=== PATIENT | male | born 1945 | race Caucasian/White ===

== ENCOUNTER → 2018-10-18 15:37 | Outpatient (CLI) | payer MEDICARE, SELFPAY ==
[2016-05-20 00:27] VITALS: BMI 20.8
[2018-10-20 16:09] LABS: Endomysial Antibody IgA Negative (Negative)
[2018-10-21 10:03] LABS: Immunoglobulin A 372 mg/dL (61-437); t-Transglutaminase IgA <2 U/mL (0-3)
== END ==
PROVIDERS: Family Provider Family Medicine; PCP Family Medicine; Referring Provider Internal Medicine Gastroenterology; Visit Provider Internal Medicine Gastroenterology
DX: R19.7 Diarrhea, unspecified (principal); R63.4 Abnormal weight loss
CPT/HCPCS: 36415; 82784; 83516; 86140; 86255

== ENCOUNTER → 2019-02-23 | Outpatient (CLI) | payer MEDICARE, SELFPAY ==
[2016-05-20 00:27] VITALS: BMI 20.8
[2019-02-23 17:55] LABS: Hematocrit 31.6 % (40-54); Hemoglobin 9.4 g/dl (13.0-16.5); Mean Corp Hgb Conc 29.7 g/gl (32-36); Mean Corpuscular Hgb 28.2 pg (27.0-32.0); Mean Corpuscular Volume 94.9 fL (80-94); Mean Platelet Vol. 10.2 fl (6.2-12.0); Platelet Count 361 K/mm3 (150-450); RBC Distribution Width SD 56.9 fl (35.1-43.9); Red Blood Count 3.33 M/mm3 (4.6-6.2); White Blood Count 7.8 K/mm3 (4.4-11.0)
[2019-02-23 18:04] LABS: Scan Indicated on CBC? Y/N NO
[2019-02-23 18:11] LABS: ALB/GLOB Ratio 0.6 RATIO (0.9-2.4); AST(SGOT) 22 U/L (15-37); Alanine Aminotransfer ALT/SGPT 20 U/L (16-61); Albumin, Serum 2.4 g/dL (3.2-5.0); Alkaline Phosphatase 87 U/L (45-117); Anion Gap 6 (5-15); BUN 15 mg/dL (7-18); BUN/Creat Ratio 16.1 RATIO (10-20); Calcium,Total 8.3 mg/dL (8.5-10.1); Chloride 104 mmol/L (98-107); Creatinine, Serum 0.93 mg/dL (0.70-1.30); EST Glomerular Filtration Rate 84 mL/min (>60); Est Glom Filt Rate - Afr Amer 102 mL/min (>60); Globulin 3.9 g/dL (2.2-4.2); Glucose 89 mg/dL (74-106); Potassium 3.9 mmol/L (3.5-5.1); Protein, Total 6.3 g/dL (6.4-8.2); Sodium Level 139 mmol/L (136-145)
== END | disposition home or self-care (01) ==
PROVIDERS: Family Provider Family Medicine; PCP Family Medicine; Referring Provider Internal Medicine Gastroenterology; Visit Provider Internal Medicine Gastroenterology
DX: R63.4 Abnormal weight loss (principal); R10.9 Unspecified abdominal pain
CPT/HCPCS: 36415; 80053; 85027; 86140

== ENCOUNTER 2019-04-25 08:30 | Outpatient (RCR) | payer MEDICARE, SELFPAY ==
[2019-04-05 14:03] VITALS: BP 121/48; PULSE 88; RESP 18; TEMP 36.9
[2019-04-05 14:32] VITALS: BMI 16.9
[2019-04-05 16:26] LABS: Absolute Lymphocyte Count 0.62 X10^3/ul (0.83-4.51); Absolute Neutrophil Count 6.5 X10^3/uL (2.0-7.7); Basophil# 0.01 X10^3/uL; Basophil% 0.1 % (0-1); Eosinophil# 0.03 X10^3/uL; Eosinophils% 0.4 % (0-5); Hematocrit 30.8 % (40-54); Hemoglobin 9.3 g/dl (13.0-16.5); Lymphocyte # 0.62 X10^3/ul (4.0); Lymphocyte % 8.1 % (19-41); Mean Corp Hgb Conc 30.2 g/gl (32-36); Mean Corpuscular Hgb 28.9 pg (27.0-32.0); Mean Corpuscular Volume 95.7 fL (80-94); Mean Platelet Vol. 9.7 fl (6.2-12.0); Monocyte# 0.48 X10^3/uL; Monocyte% 6.2 % (0-10); Neutrophil # 6.52 X10^3/uL (2.7-7.7); Neutrophil % 84.7 % (47-70); Platelet Count 426 K/mm3 (150-450); RBC Distribution Width CV 16.7 % (11.6-14.6); RBC Distribution Width SD 57.7 fl (35.1-43.9); Red Blood Count 3.22 M/mm3 (4.6-6.2); White Blood Count 7.7 K/mm3 (4.4-11.0)
[2019-04-05 16:27] LABS: POSITIVE COUNT NO; POSITIVE DIFFERENTIAL NO; POSITIVE MORPHOLOGY NO
[2019-04-05 16:42] LABS: Erythrocyte Sedimentation Rate 70 mm/hr (0-20)
[2019-04-05 16:54] LABS: ALB/GLOB Ratio 0.5 RATIO (0.9-2.4); AST(SGOT) 19 U/L (15-37); Alanine Aminotransfer ALT/SGPT 24 U/L (16-61); Albumin, Serum 2.2 g/dL (3.2-5.0); Alkaline Phosphatase 102 U/L (45-117); Anion Gap 7 (5-15); BUN 14 mg/dL (7-18); BUN/Creat Ratio 15.9 RATIO (10-20); Calcium,Total 7.9 mg/dL (8.5-10.1); Chloride 106 mmol/L (98-107); Creatinine, Serum 0.88 mg/dL (0.70-1.30); EST Glomerular Filtration Rate 89 mL/min (>60); Est Glom Filt Rate - Afr Amer 108 mL/min (>60); Estimated Creatinine Clearance 48.86 ml/min; Globulin 4.1 g/dL (2.2-4.2); Glucose 92 mg/dL (74-106); Potassium 3.6 mmol/L (3.5-5.1); Prealbumin 9.7 mg/dL (20.0-40.0); Protein, Total 6.3 g/dL (6.4-8.2); Sodium Level 143 mmol/L (136-145)
[2019-04-05 16:55] LABS: Hemoglobin A1c 5.5 % (4.2-6.3)
--- NOTE | 2019-04-05 18:00 | PCM.WC.HP ---
(1) Pressure injury of sacral region, stage 3 Status: Acute Current Visit: Yes Code(s): L89.153 - Pressure ulcer of sacral region, stage 3 (2) Autoimmune disorder Status: Acute Current Visit: Yes Code(s): D89.89 - Other specified disorders involving the immune mechanism, not elsewhere classified (3) Malnutrition Status: Acute Current Visit: Yes Code(s): E46 - Unspecified protein-calorie malnutrition (4) Anemia of chronic disease Status: Chronic Current Visit: Yes Code(s): D63.8 - Anemia in other chronic diseases classified elsewhere (5) Benign prostatic hypertrophy Status: Chronic Current Visit: Yes Code(s): N40.0 - Benign prostatic hyperplasia without lower urinary tract symptoms (6) prison current use of anticoagulant Status: Acute Current Visit: Yes Code(s): 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 History of Wound: This is a 73-year-old white male who presents to the wound healing center today with complaint of sacral pressure sore for the last month. He has a past medical history as listed above significant for anemia of chronic disease, autoimmune disorder, history of PE on Coumadin therapy, and BPH. The patient states that in 2013 he did have a pressure ulcer similar to this in the past where he had to have surgical debridement by Dr. Zhong. The patient states that he spends most of this time sitting in a wheelchair. He does state that he has a gel pad cushion but he sits a lot and does not use any other offloading mechanisms. He has been using dry gauze over the site. He does state that over the past year he has lost about 70 pounds due to not having any appetite and due to his autoimmune disorder. He does not use protein supplementation. He does state that he saw dermatology earlier this week who referred him to our office. Denies any signs of infection at this time. Denies any purulent discharge. Denies any other acute concerns. The patient otherwise denies any fever, chills, nausea, vomiting, shortness of breath, chest pain or pressure, palpitations, orthopnea, lower extremity edema, syncope or presyncopal episodes. Past Medical History Past Medical History: Chronic Problems Anxiety disorder (Chronic) Benign prostatic hypertrophy (Chronic) Diabetes mellitus type II, controlled (Chronic) Anemia of chronic disease (Chronic) Wegeners granulomatosis (Chronic) Pulmonary emboli (Chronic) Surgical History: tonsillectomy, - - Splenectomy 2005, colonoscopy, egd Allergies/Adverse Reactions: Allergies sulfamethoxazole [From Bactrim] Adverse Reaction (Verified 07/06/15 21:51) Unknown Pt does not remember since this happened many years ago. trimethoprim [From Bactrim] Adverse Reaction (Verified 07/06/15 21:51) Unknown Pt does not remember what happened d/t the fact that it was many years ago. Home Medications: Ambulatory Orders Medication Instructions Recorded Finasteride [Proscar] 5 mg PO DAILY 03/21/14 Mycophenolate Mofetil [Cellcept] 1,000 mg PO BID 03/21/14 Tamsulosin HCl [Flomax] 0.4 mg PO DAILY 03/21/14 Erythromycin Ophthalmic 1 applic RIGHT EYE DAILY 05/19/16 Prednisolone Acetate 5 ml RIGHT EYE DAILY 05/19/16 Warfarin [Coumadin ([facility])] 1 mg PO QODAY 04/05/19 - Family History Maternal - - heart trouble Paternal - - grandpa had dvt in leg Smoking Status: Never smoker Review of Systems Constitutional: Denies: Chills, Fever, Weight Change Eyes: Denies: Pain, Vision Change HEENT: Denies: Difficulty Hearing, Difficulty Swallowing, Sinus Congestion Cardiovascular: Denies: Chest Pain, Palpitations Respiratory: Denies: Cough, Shortness of Breath Gastrointestinal: Denies: Diarrhea, Nausea, Vomiting Genitourinary: Denies: Dysuria, Hematuria Skin: Reports: Wounds - See HPI Endocrine: Denies: Heat/ Cold Intolerance, Polydipsia, Polyuria Hematologic/ Lymphatic: Denies: Easy Bruising, Easy Bleeding - Physical Exam Vital Signs Temp Pulse Resp BP 98.4 F 88 18 121/48 H 04/05/19 14:03 04/05/19 14:03 04/05/19 14:03 04/05/19 14:03 General: Alert, Oriented x3, Cooperative, No apparent distress, - - Patient is very thin and appears malnourished HEENT: Atraumatic Oral: Moist Mucosa Lungs: Clear to auscultation, Normal air movement Cardiovascular: Regular rate, Regular Rhythm Abdomen: Soft Extremities: No clubbing, No cyanosis, No edema Skin: Ulcer/ Wound - Stage III pressure ulcer to sacral region with circular undermining and adherent slough, no bone exposed at this time, no fluctuance or redness or purulent drainage noted. Wound Measurements and Assessment WC - Nurse 1 - General Ulcer Measurement Start: 04/05/19 13:57 Freq: Status: Active Protocol: Activity Type Activity Date Activity User E-Sign Co-Sign Detail Recorded Client Recorded Date Recorded By Document 04/05/19 14:03 RB [id number] 04/05/19 14:08 RB 04/05/19 14:03 Wound Center Nurse 1 [Ulcer Assessment] 2. coccyx -Current Size (cm) - Length 1 -Current Size (cm) - Width 1 -Current Size (cm) - Depth 0.8 -Total Square Cm 1 -Photo Taken Yes -Tunneling No -Undermining/Tunneling Yes -Undermining/Tunneling Starts (O' 10 clock) -Undermining/Tunneling Ends (O'clock) 6 -Maximum Distance (cm) 1.4 -Circular Undermining No -Exudate Amt Small -Exudate Type Serosanguineous -Wound Margin Distinct, Outline Attached -Granulation Amt Medium (34-66%) -Granulation Quality [place] -Slough/Fibrin Yes -Necrosis Amt Small (1-33%) -Necrotic Tissue Type Adherent Slough -Structure Exposed N/A -Texture (Leigh-wound Skin Appearance) Assessed Friable -Moisture (Leigh-wound Skin Appearance Assessed ) -Color (Leigh-wound Skin Appearance) Assessed -Temperature (Leigh-wound Skin No Abnormality Appearance) (Pt Warm) -Tenderness on Palpation (Leigh-wound No Skin Appearance) -Ulcer Cleansing Wound Cleanser -Foul Odor after Cleansing No -Anesthetic Used 5% Lidocaine Gel WC - Nurse 2 - General Ulcer CM Notes Start: 04/05/19 13:57 Freq: Status: Active Protocol: Activity Type Activity Date Activity User E-Sign Co-Sign Detail Recorded Client Recorded Date Recorded By Document 04/05/19 14:33 AN [id number] 04/05/19 14:41 AN 04/05/19 14:33 Wound Center Nurse 2 [Procedure/Treatment] -Time 14:36 -Correct Patient Yes -Correct Side, Site, Position Yes -Correct Procedure Yes -Procedure Performed Yes -Type of Procedure Debridement -Clinical Debridement Subcutaneous -Post Debridement Size (cm) - Length 1.8 -Post Debridement Size (cm) - Width 1.4 -Post Debridement Size (cm) - Depth 1.0 -Total Square Cm 2.52 -Wound/Ulcer Outcome Not Healed -Ulcer Cleansing Rinsed/ Irrigated with Saline -Foul Odor after Cleansing No -Bioengineered Tissue No -Bleeding Controlled with Pressure -Offloading No -Treatment Response Procedure Tolerated Well [See Physician Procedure note for Specifics] Pain Scale: 0-10 Numeric [Pain] -Is Patient Pain Free? Yes Musculoskeletal: Cachexia, Muscle Wasting Neurological: Neuro grossly intact, - - Patient is a wheelchair-bound Psych/Mental Status: Normal Affect, Appropriate, Alert and oriented to time, place, person, mood and affect Debridement Note Post-Debridement Measurements/Treatment WC - Nurse 2 - General Ulcer CM Notes Start: 04/05/19 13:57 Freq: Status: Active Protocol: Activity Type Activity Date Activity User E-Sign Co-Sign Detail Recorded Client Recorded Date Recorded By Document 04/05/19 14:33 AN [id number] 04/05/19 14:41 AN 04/05/19 14:33 Wound Center Nurse 2 2. coccyx -Time 14:36 -Correct Patient Yes -Correct Side, Site, Position Yes -Correct Procedure Yes -Procedure Performed Yes -Type of Procedure Debridement -Clinical Debridement Subcutaneous -Post Debridement Size (cm) - Length 1.8 -Post Debridement Size (cm) - Width 1.4 -Post Debridement Size (cm) - Depth 1.0 -Total Square Cm 2.52 -Wound/Ulcer Outcome Not Healed -Ulcer Cleansing Rinsed/ Irrigated with Saline -Foul Odor after Cleansing No -Bioengineered Tissue No -Bleeding Controlled with Pressure -Offloading No -Treatment Response Procedure Tolerated Well Pain Scale: 0-10 Numeric Is Patient Pain Free? Yes Wound debrided: Stage III pressure injury to sacrum Type of Debridement: Excisional debridement Anesthesia Used: 5% Lidocaine Gel Depth: in the subcutaneous layer Percentage of wound debrided: 100 Instrument Used: 5mm curette Tissue Removed: Slough and devitalized tissue Severity: Fat Layer Exposed Amount of bleeding with debridement: Mild Bleeding Controlled with: Pressure Patient tolerated procedure well Assessment/Plan Active Problems Autoimmune disorder (Acute) Malnutrition (Acute) Pressure injury of sacral region, stage 3 (Acute) prison current use of anticoagulant (Acute) Benign prostatic hypertrophy (Chronic) Anemia of chronic disease (Chronic) Assessment: 1. Sacral pressure sore, Stage 3. 2. Malnutrition Plan: The patient was seen and examined at the wound center today and was updated on the plan of care. A subcutaneous debridement was performed today. The patient tolerated the procedure well. The patients wound care will consist of: Packing the site with Aquasol AG rope and covering with optive foam for offloading. Did discuss with patient and the importance of offloading mechanisms. Wound cultures were collected. Baseline bloodwork ordered. Patient was encouraged to utilize a protein supplementation of 30 g 3 times a day as he appears very malnourished. Did discuss following up with his primary care regarding his lack of appetite and weight changes. Patient educated on the importance of diet on wound healing and instructed to increase protein and vitamin C intake. Patient verbalized understanding. Patient will follow up at wound healing center in one week or sooner if needed. This note was generated with [employer] dictation software. It may contain incorrect words, spelling, and punctuation that were not noted in checking the note before signing. Code Visit Office Visits / Consults: [id number] OV L4 New [id number]: [id number] Gertrudis subq tissue 20 sq cm/<
[2019-04-05 20:08] LABS: M R Staph aureus DNA By PCR Negative (Negative); Probe Check PASS; Specimen Processing Control PASS; Staph aureus DNA By PCR POSITIVE (Negative)
--- NOTE | 2019-04-06 09:20 | HP.PCM_ITS ---
(1) Pressure injury of sacral region, stage 3 Status: Acute Current Visit: Yes Code(s): L89.153 - Pressure ulcer of sacral region, stage 3 (2) Autoimmune disorder Status: Acute Current Visit: Yes Code(s): D89.89 - Other specified disorders involving the immune mechanism, not elsewhere classified (3) Malnutrition Status: Acute Current Visit: Yes Code(s): E46 - Unspecified protein-calorie malnutrition (4) Anemia of chronic disease Status: Chronic Current Visit: Yes Code(s): D63.8 - Anemia in other chronic diseases classified elsewhere (5) Benign prostatic hypertrophy Status: Chronic Current Visit: Yes Code(s): N40.0 - Benign prostatic hyperplasia without lower urinary tract symptoms (6) jail current use of anticoagulant Status: Acute Current Visit: Yes Code(s): 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 History of Wound: This is a 73-year-old white male who presents to the wound healing center today with complaint of sacral pressure sore for the last month. He has a past medical history as listed above significant for anemia of chronic disease, autoimmune disorder, history of PE on Coumadin therapy, and BPH. The patient states that in 2013 he did have a pressure ulcer similar to this in the past where he had to have surgical debridement by Dr. Zhong. The patient states that he spends most of this time sitting in a wheelchair. He does state that he has a gel pad cushion but he sits a lot and does not use any other offloading mechanisms. He has been using dry gauze over the site. He does state that over the past year he has lost about 70 pounds due to not having any appetite and due to his autoimmune disorder. He does not use protein supplementation. He does state that he saw dermatology earlier this week who referred him to our office. Denies any signs of infection at this time. Denies any purulent discharge. Denies any other acute concerns. The patient otherwise denies any fever, chills, nausea, vomiting, shortness of breath, chest pain or pressure, palpitations, orthopnea, lower extremity edema, syncope or presyncopal episodes. Past Medical History Past Medical History: Chronic Problems Anxiety disorder (Chronic) Benign prostatic hypertrophy (Chronic) Diabetes mellitus type II, controlled (Chronic) Anemia of chronic disease (Chronic) Wegeners granulomatosis (Chronic) Pulmonary emboli (Chronic) Surgical History: tonsillectomy, - - Splenectomy 2005, colonoscopy, egd Allergies/Adverse Reactions: Allergies sulfamethoxazole [From Bactrim] Adverse Reaction (Verified 07/06/15 21:51) Unknown Pt does not remember since this happened many years ago. trimethoprim [From Bactrim] Adverse Reaction (Verified 07/06/15 21:51) Unknown Pt does not remember what happened d/t the fact that it was many years ago. Home Medications: Ambulatory Orders Medication Instructions Recorded Finasteride [Proscar] 5 mg PO DAILY 03/21/14 Mycophenolate Mofetil [Cellcept] 1,000 mg PO BID 03/21/14 Tamsulosin HCl [Flomax] 0.4 mg PO DAILY 03/21/14 Erythromycin Ophthalmic 1 applic RIGHT EYE DAILY 05/19/16 Prednisolone Acetate 5 ml RIGHT EYE DAILY 05/19/16 Warfarin [Coumadin ([facility])] 1 mg PO QODAY 04/05/19 - Family History Maternal - - heart trouble Paternal - - grandpa had dvt in leg Smoking Status: Never smoker Review of Systems Constitutional: Denies: Chills, Fever, Weight Change Eyes: Denies: Pain, Vision Change HEENT: Denies: Difficulty Hearing, Difficulty Swallowing, Sinus Congestion Cardiovascular: Denies: Chest Pain, Palpitations Respiratory: Denies: Cough, Shortness of Breath Gastrointestinal: Denies: Diarrhea, Nausea, Vomiting Genitourinary: Denies: Dysuria, Hematuria Skin: Reports: Wounds - See HPI Endocrine: Denies: Heat/ Cold Intolerance, Polydipsia, Polyuria Hematologic/ Lymphatic: Denies: Easy Bruising, Easy Bleeding - Physical Exam Vital Signs Temp Pulse Resp BP 98.4 F 88 18 121/48 H 04/05/19 14:03 04/05/19 14:03 04/05/19 14:03 04/05/19 14:03 General: Alert, Oriented x3, Cooperative, No apparent distress, - - Patient is very thin and appears malnourished HEENT: Atraumatic Oral: Moist Mucosa Lungs: Clear to auscultation, Normal air movement Cardiovascular: Regular rate, Regular Rhythm Abdomen: Soft Extremities: No clubbing, No cyanosis, No edema Skin: Ulcer/ Wound - Stage III pressure ulcer to sacral region with circular undermining and adherent slough, no bone exposed at this time, no fluctuance or redness or purulent drainage noted. Wound Measurements and Assessment WC - Nurse 1 - General Ulcer Measurement Start: 04/05/19 13:57 Freq: Status: Active Protocol: Activity Type Activity Date Activity User E-Sign Co-Sign Detail Recorded Client Recorded Date Recorded By Document 04/05/19 14:03 RB [id number] 04/05/19 14:08 RB 04/05/19 14:03 Wound Center Nurse 1 [Ulcer Assessment] 2. coccyx -Current Size (cm) - Length 1 -Current Size (cm) - Width 1 -Current Size (cm) - Depth 0.8 -Total Square Cm 1 -Photo Taken Yes -Tunneling No -Undermining/Tunneling Yes -Undermining/Tunneling Starts (O' 10 clock) -Undermining/Tunneling Ends (O'clock) 6 -Maximum Distance (cm) 1.4 -Circular Undermining No -Exudate Amt Small -Exudate Type Serosanguineous -Wound Margin Distinct, Outline Attached -Granulation Amt Medium (34-66%) -Granulation Quality [place] -Slough/Fibrin Yes -Necrosis Amt Small (1-33%) -Necrotic Tissue Type Adherent Slough -Structure Exposed N/A -Texture (Leigh-wound Skin Appearance) Assessed Friable -Moisture (Leigh-wound Skin Appearance Assessed ) -Color (Leigh-wound Skin Appearance) Assessed -Temperature (Leigh-wound Skin No Abnormality Appearance) (Pt Warm) -Tenderness on Palpation (Leigh-wound No Skin Appearance) -Ulcer Cleansing Wound Cleanser -Foul Odor after Cleansing No -Anesthetic Used 5% Lidocaine Gel WC - Nurse 2 - General Ulcer CM Notes Start: 04/05/19 13:57 Freq: Status: Active Protocol: Activity Type Activity Date Activity User E-Sign Co-Sign Detail Recorded Client Recorded Date Recorded By Document 04/05/19 14:33 AN [id number] 04/05/19 14:41 AN 04/05/19 14:33 Wound Center Nurse 2 [Procedure/Treatment] -Time 14:36 -Correct Patient Yes -Correct Side, Site, Position Yes -Correct Procedure Yes -Procedure Performed Yes -Type of Procedure Debridement -Clinical Debridement Subcutaneous -Post Debridement Size (cm) - Length 1.8 -Post Debridement Size (cm) - Width 1.4 -Post Debridement Size (cm) - Depth 1.0 -Total Square Cm 2.52 -Wound/Ulcer Outcome Not Healed -Ulcer Cleansing Rinsed/ Irrigated with Saline -Foul Odor after Cleansing No -Bioengineered Tissue No -Bleeding Controlled with Pressure -Offloading No -Treatment Response Procedure Tolerated Well [See Physician Procedure note for Specifics] Pain Scale: 0-10 Numeric [Pain] -Is Patient Pain Free? Yes Musculoskeletal: Cachexia, Muscle Wasting Neurological: Neuro grossly intact, - - Patient is a wheelchair-bound Psych/Mental Status: Normal Affect, Appropriate, Alert and oriented to time, place, person, mood and affect Debridement Note Post-Debridement Measurements/Treatment WC - Nurse 2 - General Ulcer CM Notes Start: 04/05/19 13:57 Freq: Status: Active Protocol: Activity Type Activity Date Activity User E-Sign Co-Sign Detail Recorded Client Recorded Date Recorded By Document 04/05/19 14:33 AN [id number] 04/05/19 14:41 AN 04/05/19 14:33 Wound Center Nurse 2 2. coccyx -Time 14:36 -Correct Patient Yes -Correct Side, Site, Position Yes -Correct Procedure Yes -Procedure Performed Yes -Type of Procedure Debridement -Clinical Debridement Subcutaneous -Post Debridement Size (cm) - Length 1.8 -Post Debridement Size (cm) - Width 1.4 -Post Debridement Size (cm) - Depth 1.0 -Total Square Cm 2.52 -Wound/Ulcer Outcome Not Healed -Ulcer Cleansing Rinsed/ Irrigated with Saline -Foul Odor after Cleansing No -Bioengineered Tissue No -Bleeding Controlled with Pressure -Offloading No -Treatment Response Procedure Tolerated Well Pain Scale: 0-10 Numeric Is Patient Pain Free? Yes Wound debrided: Stage III pressure injury to sacrum Type of Debridement: Excisional debridement Anesthesia Used: 5% Lidocaine Gel Depth: in the subcutaneous layer Percentage of wound debrided: 100 Instrument Used: 5mm curette Tissue Removed: Slough and devitalized tissue Severity: Fat Layer Exposed Amount of bleeding with debridement: Mild Bleeding Controlled with: Pressure Patient tolerated procedure well Assessment/Plan Active Problems Autoimmune disorder (Acute) Malnutrition (Acute) Pressure injury of sacral region, stage 3 (Acute) jail current use of anticoagulant (Acute) Benign prostatic hypertrophy (Chronic) Anemia of chronic disease (Chronic) Assessment: 1. Sacral pressure sore, Stage 3. 2. Malnutrition Plan: The patient was seen and examined at the wound center today and was updated on the plan of care. A subcutaneous debridement was performed today. The patient tolerated the procedure well. The patients wound care will consist of: Packing the site with Aquasol AG rope and covering with optive foam for offloading. Did discuss with patient and the importance of offloading mechanisms. Wound cultures were collected. Baseline bloodwork ordered. Patient was encouraged to utilize a protein supplementation of 30 g 3 times a day as he appears very malnourished. Did discuss following up with his primary care regarding his lack of appetite and weight changes. Patient educated on the importance of diet on wound healing and instructed to increase protein and vitamin C intake. Patient verbalized understanding. Patient will follow up at wound healing center in one week or sooner if needed. This note was generated with [employer] dictation software. It may contain incorrect words, spelling, and punctuation that were not noted in checking the note before signing. Code Visit Office Visits / Consults: [id number] OV L4 New [id number]: [id number] Gertrudis subq tissue 20 sq cm/<
[2019-04-13 10:27] VITALS: BP 115/70; PULSE 101; RESP 18; TEMP 36.6; BMI 16.9
--- NOTE | 2019-04-13 11:50 | PCM.WC.PN ---
(1) Autoimmune disorder Status: Chronic Current Visit: Yes Code(s): D89.89 - Other specified disorders involving the immune mechanism, not elsewhere classified (2) [facility] current use of anticoagulant Status: Chronic Current Visit: Yes Code(s): Z79.01 - [facility] (current) use of anticoagulants (3) Malnutrition Status: Chronic Current Visit: Yes Qualifiers: Malnutrition type: protein-calorie malnutrition Code(s): E46 - Unspecified protein-calorie malnutrition (4) Pressure injury of sacral region, stage 3 Status: Acute Current Visit: Yes Code(s): L89.153 - Pressure ulcer of sacral region, stage 3 (5) Anemia of chronic disease Status: Chronic Current Visit: Yes Code(s): D63.8 - Anemia in other chronic diseases classified elsewhere (6) Diabetes mellitus type II, controlled Status: Chronic Current Visit: Yes Code(s): E11.9 - Type 2 diabetes mellitus without complications (7) Wegeners granulomatosis Status: Chronic Current Visit: Yes Code(s): M31.30 - Jeannette's granulomatosis without renal involvement Type of Wound Chief Complaint: Sacral pressure sore. History of Wound: This is a 73-year-old white male who presents to the wound healing center today with complaint of sacral pressure sore for the last month. He has a past medical history as listed above significant for anemia of chronic disease, autoimmune disorder, history of PE on Coumadin therapy, and BPH. The patient states that in 2013 he did have a pressure ulcer similar to this in the past where he had to have surgical debridement by Dr. Zhong. The patient states that he spends most of this time sitting in a wheelchair. He does state that he has a gel pad cushion but he sits a lot and does not use any other offloading mechanisms. He has been using dry gauze over the site. He does state that over the past year he has lost about 70 pounds due to not having any appetite and due to his autoimmune disorder. He does not use protein supplementation. He does state that he saw dermatology earlier this week who referred him to our office. Denies any signs of infection at this time. Denies any purulent discharge. Denies any other acute concerns. The patient otherwise denies any fever, chills, nausea, vomiting, shortness of breath, chest pain or pressure, palpitations, orthopnea, lower extremity edema, syncope or presyncopal episodes. Progress of Wound: The pressure ulcer today is showing signs of regeneration of skin cells at the base still has undermining circumferential to the ulcer base worse being at from 10-2. is been having a difficult time with the packing of Aquacel. We will try switching him to Promogran and have her pack with that. Patient to follow-up in 2 weeks patient is to continue the protein supplements and continue eating meat - Physical Exam Vital Signs Temp Pulse Resp BP 97.9 F 101 H 18 115/70 04/13/19 10:27 04/13/19 10:27 04/13/19 10:27 04/13/19 10:27 General: Oriented x3, Cooperative, Well developed HEENT: Atraumatic, PERRLA Oral: Moist Mucosa Neck: Supple, No JVD Lungs: Clear to auscultation, Normal air movement Cardiovascular: Regular rate, Regular Rhythm Abdomen: Bowel Sounds Present, Soft, Non Tender, No Hepato-splenomegaly Extremities: No clubbing, No edema Skin: Ulcer/ Wound - Decubitus ulcer coccyx area stage III Wound Measurements and Assessment WC - Nurse 1 - General Ulcer Measurement Start: 04/05/19 13:57 Freq: Status: Active Protocol: Activity Type Activity Date Activity User E-Sign Co-Sign Detail Recorded Client Recorded Date Recorded By Document 04/13/19 10:27 DONNA [id number] 04/13/19 10:28 DONNA 04/13/19 10:27 Wound Center Nurse 1 [Ulcer Assessment] 2. coccyx -Combined with other wound No -Current Size (cm) - Length 1 -Current Size (cm) - Width 1 -Current Size (cm) - Depth 0.9 -Total Square Cm 1 -Photo Taken No -Epithelialization None Present -Tunneling No -Undermining/Tunneling No -Circular Undermining Yes -Exudate Amt Small -Exudate Type Serosanguineous -Wound Margin Flat & Intact -Granulation Amt Large (67-100%) -Granulation Quality Red -Slough/Fibrin Yes -Necrosis Amt Small (1-33%) -Necrotic Tissue Type Adherent Slough -Structure Exposed N/A -Texture (Leigh-wound Skin Appearance) Assessed -Moisture (Leigh-wound Skin Appearance Assessed ) Dry/Scaly -Color (Leigh-wound Skin Appearance) Assessed -Temperature (Leigh-wound Skin No Abnormality Appearance) (Pt Warm) -Tenderness on Palpation (Leigh-wound No Skin Appearance) -Ulcer Cleansing Rinsed/ Irrigated with Saline -Foul Odor after Cleansing No -Anesthetic Used 4% Lidocaine Solution [Edema Assessment] -Lower Limb Edema Present NA WC - Nurse 2 - General Ulcer CM Notes Start: 04/05/19 13:57 Freq: Status: Active Protocol: Activity Type Activity Date Activity User E-Sign Co-Sign Detail Recorded Client Recorded Date Recorded By Document 04/13/19 10:43 MW [id number] 04/13/19 10:50 MW 04/13/19 10:43 Wound Center Nurse 2 [Procedure/Treatment] 2. coccyx -Time 10:44 -Correct Patient Yes -Correct Side, Site, Position Yes -Correct Procedure Yes -Procedure Performed Yes -Type of Procedure Debridement -Clinical Debridement Subcutaneous -Post Debridement Size (cm) - Length 1.2 -Post Debridement Size (cm) - Width 1.0 -Post Debridement Size (cm) - Depth 1.2 -Total Square Cm 1.20 -Wound/Ulcer Outcome Not Healed -Ulcer Cleansing Rinsed/ Irrigated with Saline -Foul Odor after Cleansing No -Bioengineered Tissue No -Bleeding Controlled with Pressure -Other undermining 10- 2, 1.3cm -Offloading No -Treatment Response Procedure Tolerated Well [See Physician Procedure note for Specifics] Pain Scale: 0-10 Numeric [Pain] -Is Patient Pain Free? Yes Musculoskeletal: No Tenderness to Palpation of Joints or Extremities Lymphatic: No Cervical, Supraclavicular, or Inguinal Adenopathy Neurological: Cranial nerves II-XII grossly intact, Neuro grossly intact Psych/Mental Status: Normal Affect, Appropriate Debridement Note Post-Debridement Measurements/Treatment WC - Nurse 2 - General Ulcer CM Notes Start: 04/05/19 13:57 Freq: Status: Active Protocol: Activity Type Activity Date Activity User E-Sign Co-Sign Detail Recorded Client Recorded Date Recorded By Document 04/05/19 14:33 AN [id number] 04/05/19 14:41 AN Document 04/13/19 10:43 MW [id number] 04/13/19 10:50 MW 04/05/19 04/13/19 14:33 10:43 Wound Center Nurse 2 2. coccyx -Time 14:36 10:44 -Correct Patient Yes Yes -Correct Side, Site, Position Yes Yes -Correct Procedure Yes Yes -Procedure Performed Yes Yes -Type of Procedure Debridement Debridement -Clinical Debridement Subcutaneous Subcutaneous -Post Debridement Size (cm) - Length 1.8 1.2 -Post Debridement Size (cm) - Width 1.4 1.0 -Post Debridement Size (cm) - Depth 1.0 1.2 -Total Square Cm 2.52 1.20 -Wound/Ulcer Outcome Not Healed Not Healed -Ulcer Cleansing Rinsed/ Rinsed/ Irrigated with Irrigated with Saline Saline -Foul Odor after Cleansing No No -Bioengineered Tissue No No -Bleeding Controlled with Pressure Pressure -Other undermining 10- 2, 1.3cm -Offloading No No -Treatment Response Procedure Procedure Tolerated Well Tolerated Well Pain Scale: 0-10 Numeric Is Patient Pain Free? 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 Sacral pressure sore, Stage 3. 2. Malnutrition Plan: The patient was seen and examined at the wound center today and was updated on the plan of care. A subcutaneous debridement was performed today. The patient tolerated the procedure well. The patients wound care will consist of: Packing the site with Amy and covering with optive foam for offloading. Did discuss with patient and the importance of offloading mechanisms. Wound cultures were collected. Baseline bloodwork ordered. Patient was encouraged to utilize a protein supplementation of 30 g 3 times a day as he appears very malnourished. Did discuss following up with his primary care regarding his lack of appetite and weight changes. Patient educated on the importance of diet on wound healing and instructed to increase protein and vitamin C intake. Patient verbalized understanding. Patient will follow up at wound healing center in one week or sooner if needed. This note was generated with [employer] software. It may contain incorrect words, spelling, and punctuation that were not noted in checking the note before signing.
--- NOTE | 2019-04-13 11:54 | PN.PCM_ITS ---
(1) Autoimmune disorder Status: Chronic Current Visit: Yes Code(s): D89.89 - Other specified di sorders involving the immune mechanism, not elsewhere classified (2) [employer] current use of anticoagulant Status: Chronic Current Visit: Yes Code(s): Z79.01 - [facility] care (current) use of anticoagulants (3) Malnutrition Status: Chronic Current Visit: Yes Qualifiers: Malnutrition type: protein-calorie malnutrition Code(s): E46 - Unspecified protein-calorie malnutrition (4) Pressure injury of sacral region, stage 3 Status: Acute Current Visit: Yes Code(s): L89.153 - Pressure ulcer of sacral region, stage 3 (5) Anemia of chronic disease Status: Chronic Current Visit: Yes Code(s): D63.8 - Anemia in other chronic diseases classified elsewhere (6) Diabetes mellitus type II, controlled Status: Chronic Current Visit: Yes Code(s): E11.9 - Type 2 diabetes mellitus without complications (7) Wegeners granulomatosis Status: Chronic Current Visit: Yes Code(s): M31.30 - Jeannette's granulomatosis without renal involvement Type of Wound Chief Complaint: Sacral pressure sore. History of Wound: This is a 73-year-old white male who presents to the wound healing center today with complaint of sacral pressure sore for the last month. He has a past medical history as listed above significant for anemia of chronic disease, autoimmune disorder, history of PE on Coumadin therapy, and BPH. The patient states that in 2013 he did have a pressure ulcer similar to this in the past where he had to have surgical debridement by Dr. Zhong. The patient states that he spends most of this time sitting in a wheelchair. He does state that he has a gel pad cushion but he sits a lot and does not use any other offloading mechanisms. He has been using dry gauze over the site. He does state that over the past year he has lost about 70 pounds due to not having any appetite and due to his autoimmune disorder. He does not use protein supplementation. He does state that he saw dermatology earlier this week who referred him to our office. Denies any signs of infection at this time. Denies any purulent discharge. Denies any other acute concerns. The patient otherwise denies any fever, chills, nausea, vomiting, shortness of breath, chest pain or pressure, palpitations, orthopnea, lower extremity edema, syncope or presyncopal episodes. Progress of Wound: The pressure ulcer today is showing signs of regeneration of skin cells at the base still has undermining circumferential to the ulcer base worse being at from 10-2. is been having a difficult time with the packing of Aquacel. We will try switching him to Promogran and have her pack with that. Patient to follow-up in 2 weeks patient is to continue the protein supplements and continue eating meat - Physical Exam Vital Signs Temp Pulse Resp BP 97.9 F 101 H 18 115/70 04/13/19 10:27 04/13/19 10:27 04/13/19 10:27 04/13/19 10:27 General: Oriented x3, Cooperative, Well developed HEENT: Atraumatic, PERRLA Oral: Moist Mucosa Neck: Supple, No JVD Lungs: Clear to auscultation, Normal air movement Cardiovascular: Regular rate, Regular Rhythm Abdomen: Bowel Sounds Present, Soft, Non Tender, No Hepato-splenomegaly Extremities: No clubbing, No edema Skin: Ulcer/ Wound - Decubitus ulcer coccyx area stage III Wound Measurements and Assessment WC - Nurse 1 - General Ulcer Measurement Start: 04/05/19 13:57 Freq: Status: Active Protocol: Activity Type Activity Date Activity User E-Sign Co-Sign Detail Recorded Client Recorded Date Recorded By Document 04/13/19 10:27 DONNA [id number] 04/13/19 10:28 DONNA 04/13/19 10:27 Wound Center Nurse 1 [Ulcer Assessment] 2. coccyx -Combined with other wound No -Current Size (cm) - Length 1 -Current Size (cm) - Width 1 -Current Size (cm) - Depth 0.9 -Total Square Cm 1 -Photo Taken No -Epithelialization None Present -Tunneling No -Undermining/Tunneling No -Circular Undermining Yes -Exudate Amt Small -Exudate Type Serosanguineous -Wound Margin Flat & Intact -Granulation Amt Large (67-100%) -Granulation Quality Red -Slough/Fibrin Yes -Necrosis Amt Small (1-33%) -Necrotic Tissue Type Adherent Slough -Structure Exposed N/A -Texture (Leigh-wound Skin Appearance) Assessed -Moisture (Leigh-wound Skin Appearance Assessed ) Dry/Scaly -Color (Leigh-wound Skin Appearance) Assessed -Temperature (Leigh-wound Skin No Abnormality Appearance) (Pt Warm) -Tenderness on Palpation (Leigh-wound No Skin Appearance) -Ulcer Cleansing Rinsed/ Irrigated with Saline -Foul Odor after Cleansing No -Anesthetic Used 4% Lidocaine Solution [Edema Assessment] -Lower Limb Edema Present NA WC - Nurse 2 - General Ulcer CM Notes Start: 04/05/19 13:57 Freq: Status: Active Protocol: Activity Type Activity Date Activity User E-Sign Co-Sign Detail Recorded Client Recorded Date Recorded By Document 04/13/19 10:43 MW [id number] 04/13/19 10:50 MW 04/13/19 10:43 Wound Center Nurse 2 [Procedure/Treatment] 2. coccyx -Time 10:44 -Correct Patient Yes -Correct Side, Site, Position Yes -Correct Procedure Yes -Procedure Performed Yes -Type of Procedure Debridement -Clinical Debridement Subcutaneous -Post Debridement Size (cm) - Length 1.2 -Post Debridement Size (cm) - Width 1.0 -Post Debridement Size (cm) - Depth 1.2 -Total Square Cm 1.20 -Wound/Ulcer Outcome Not Healed -Ulcer Cleansing Rinsed/ Irrigated with Saline -Foul Odor after Cleansing No -Bioengineered Tissue No -Bleeding Controlled with Pressure -Other undermining 10- 2, 1.3cm -Offloading No -Treatment Response Procedure Tolerated Well [See Physician Procedure note for Specifics] Pain Scale: 0-10 Numeric [Pain] -Is Patient Pain Free? Yes Musculoskeletal: No Tenderness to Palpation of Joints or Extremities Lymphatic: No Cervical, Supraclavicular, or Inguinal Adenopathy Neurological: Cranial nerves II-XII grossly intact, Neuro grossly intact Psych/Mental Status: Normal Affect, Appropriate Debridement Note Post-Debridement Measurements/Treatment WC - Nurse 2 - General Ulcer CM Notes Start: 04/05/19 13:57 Freq: Status: Active Protocol: Activity Type Activity Date Activity User E-Sign Co-Sign Detail Recorded Client Recorded Date Recorded By Document 04/05/19 14:33 AN [id number] 04/05/19 14:41 AN Document 04/13/19 10:43 MW [id number] 04/13/19 10:50 MW 04/05/19 04/13/19 14:33 10:43 Wound Center Nurse 2 2. coccyx -Time 14:36 10:44 -Correct Patient Yes Yes -Correct Side, Site, Position Yes Yes -Correct Procedure Yes Yes -Procedure Performed Yes Yes -Type of Procedure Debridement Debridement -Clinical Debridement Subcutaneous Subcutaneous -Post Debridement Size (cm) - Length 1.8 1.2 -Post Debridement Size (cm) - Width 1.4 1.0 -Post Debridement Size (cm) - Depth 1.0 1.2 -Total Square Cm 2.52 1.20 -Wound/Ulcer Outcome Not Healed Not Healed -Ulcer Cleansing Rinsed/ Rinsed/ Irrigated with Irrigated with Saline Saline -Foul Odor after Cleansing No No -Bioengineered Tissue No No -Bleeding Controlled with Pressure Pressure -Other undermining 10- 2, 1.3cm -Offloading No No -Treatment Response Procedure Procedure Tolerated Well Tolerated Well Pain Scale: 0-10 Numeric Is Patient Pain Free? 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 Sacral pressure sore, Stage 3. 2. Malnutrition Plan: The patient was seen and examined at the wound center today and was updated on the plan of care. A subcutaneous debridement was performed today. The patient tolerated the procedure well. The patients wound care will consist of: Packing the site with Amy and covering with optive foam for offloading. Did discuss with patient and the importance of offloading mechanisms. Wound cultures were collected. Baseline bloodwork ordered. Patient was encouraged to utilize a protein supplementation of 30 g 3 times a day as he appears very malnourished. Did discuss following up with his primary care regarding his lack of appetite and weight changes. Patient educated on the importance of diet on wound healing and instructed to increase protein and vitamin C intake. Patient verbalized understanding. Patient will follow up at wound healing center in one week or sooner if needed. This note was generated with [employer] software. It may contain incorrect words, spelling, and punctuation that were not noted in checking the note before signing.
[2019-04-18 08:15] VITALS: BP 125/72; PULSE 89; RESP 16; TEMP 35.8; BMI 16.9
--- NOTE | 2019-04-18 12:36 | PCM.WC.PN ---
(1) Pressure injury of sacral region, stage 3 Status: Chronic Current Visit: Yes Code(s): L89.153 - Pressure ulcer of sacral region, stage 3 (2) Diabetes mellitus type II, controlled Status: Chronic Current Visit: Yes Code(s): E11.9 - Type 2 diabetes mellitus without complications (3) Malnutrition Status: Chronic Current Visit: Yes Qualifiers: Malnutrition type: protein-calorie malnutrition Code(s): E46 - Unspecified protein-calorie malnutrition Type of Wound Date of Service: 04/18/19 Chief Complaint: Sacral pressure sore. History of Wound: This is a 73-year-old white male who presents to the wound healing center today with complaint of sacral pressure sore for the last month. He has a past medical history as listed above significant for anemia of chronic disease, autoimmune disorder, history of PE on Coumadin therapy, and BPH. The patient states that in 2013 he did have a pressure ulcer similar to this in the past where he had to have surgical debridement by Dr. Zhong. The patient states that he spends most of this time sitting in a wheelchair. He does state that he has a gel pad cushion but he sits a lot and does not use any other offloading mechanisms. He has been using dry gauze over the site. He does state that over the past year he has lost about 70 pounds due to not having any appetite and due to his autoimmune disorder. He does not use protein supplementation. He does state that he saw dermatology earlier this week who referred him to our office. Denies any signs of infection at this time. Denies any purulent discharge. Denies any other acute concerns. The patient otherwise denies any fever, chills, nausea, vomiting, shortness of breath, chest pain or pressure, palpitations, orthopnea, lower extremity edema, syncope or presyncopal episodes. Progress of Wound: The pressure ulcer today is clean with significant amount of undermining around the entire opening. - Physical Exam Vital Signs Temp Pulse Resp BP 96.5 F L 89 16 125/72 H 04/18/19 08:15 04/18/19 08:15 04/18/19 08:15 04/18/19 08:15 General: Alert, Oriented x3, Cooperative HEENT: Atraumatic Oral: Moist Mucosa Lungs: Normal air movement Cardiovascular: Regular rate Extremities: No edema Skin: Ulcer/ Wound - sacral ulcer Wound Measurements and Assessment WC - Nurse 1 - General Ulcer Measurement Start: 04/05/19 13:57 Freq: Status: Active Protocol: Activity Type Activity Date Activity User E-Sign Co-Sign Detail Recorded Client Recorded Date Recorded By Document 04/18/19 08:15 LOUIE [id number] 04/18/19 08:22 DL 04/18/19 08:15 Wound Center Nurse 1 [Ulcer Assessment] 2. coccyx -Current Size (cm) - Length 1.1 -Current Size (cm) - Width 0.9 -Current Size (cm) - Depth 0.8 -Total Square Cm 0.99 -Photo Taken No -Maximum Distance #2 (cm) 2.4 -Circular Undermining Yes -Exudate Amt Small -Exudate Type Serosanguineous -Wound Margin Distinct, Outline Attached -Granulation Amt Large (67-100%) -Granulation Quality Red -Necrosis Amt Small (1-33%) -Necrotic Tissue Type Adherent Slough -Structure Exposed N/A -Texture (Leigh-wound Skin Appearance) Scarring -Moisture (Leigh-wound Skin Appearance No Abnormality ) -Color (Leigh-wound Skin Appearance) Erythema,Rubor -Temperature (Leigh-wound Skin No Abnormality Appearance) (Pt Warm) -Tenderness on Palpation (Leigh-wound No Skin Appearance) -Ulcer Cleansing Rinsed/ Irrigated with Saline -Foul Odor after Cleansing No -Anesthetic Used 5% Lidocaine Gel - Nurse 2 - General Ulcer CM Notes Start: 04/05/19 13:57 Freq: Status: Active Protocol: Activity Type Activity Date Activity User E-Sign Co-Sign Detail Recorded Client Recorded Date Recorded By Document 04/18/19 08:46 DONNA [id number] 04/18/19 08:48 04/18/19 08:46 Wound Center Nurse 2 [Procedure/Treatment] -Time 08:47 -Correct Patient Yes -Correct Side, Site, Position Yes -Correct Procedure Yes -Procedure Performed Yes -Type of Procedure Debridement -Clinical Debridement Subcutaneous -Post Debridement Size (cm) - Length 1 -Post Debridement Size (cm) - Width 1 -Post Debridement Size (cm) - Depth 0.8 -Total Square Cm 1 -Wound/Ulcer Outcome Not Healed -Ulcer Cleansing Rinsed/ Irrigated with Saline -Foul Odor after Cleansing No -Bioengineered Tissue No -Bleeding Controlled with Pressure -Other underminin :00-2.6cm 3:00 -1.2cm -Offloading No -Treatment Response Procedure Tolerated Well [See Physician Procedure note for Specifics] Pain Scale: 0-10 Numeric [Pain] -Is Patient Pain Free? Yes Musculoskeletal: No Tenderness to Palpation of Joints or Extremities, Cachexia Neurological: Neuro grossly intact Psych/Mental Status: Normal Affect, Appropriate Debridement Note Post-Debridement Measurements/Treatment WC - Nurse 2 - General Ulcer CM Notes Start: 04/05/19 13:57 Freq: Status: Active Protocol: Activity Type Activity Date Activity User E-Sign Co-Sign Detail Recorded Client Recorded Date Recorded By Document 04/05/19 14:33 AN [id number] 04/05/19 14:41 AN Document 04/13/19 10:43 MW [id number] 04/13/19 10:50 MW Document 04/18/19 08:46 [id number] 04/18/19 08:48 JF 04/05/19 04/13/19 04/18/19 14:33 10:43 08:46 Wound Center Nurse 2 2. coccyx -Time 14:36 10:44 08:47 -Correct Patient Yes Yes Yes -Correct Side, Site, Position Yes Yes Yes -Correct Procedure Yes Yes Yes -Procedure Performed Yes Yes Yes -Type of Procedure Debridement Debridement Debridement -Clinical Debridement Subcutaneous Subcutaneous Subcutaneous -Post Debridement Size (cm) - Length 1.8 1.2 1 -Post Debridement Size (cm) - Width 1.4 1.0 1 -Post Debridement Size (cm) - Depth 1.0 1.2 0.8 -Total Square Cm 2.52 1.20 1 -Wound/Ulcer Outcome Not Healed Not Healed Not Healed -Ulcer Cleansing Rinsed/ Rinsed/ Rinsed/ Irrigated with Irrigated with Irrigated with Saline Saline Saline -Foul Odor after Cleansing No No No -Bioengineered Tissue No No No -Bleeding Controlled with Pressure Pressure Pressure -Other undermining 10- underminin 2, 1.3cm :00-2.6cm 3:00 -1.2cm -Offloading No No No -Treatment Response Procedure Procedure Procedure Tolerated Well Tolerated Well Tolerated Well Pain Scale: 0-10 Numeric Is Patient Pain Free? 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 Sacral pressure sore, Stage 3. 2. Malnutrition Plan: The patient was seen and examined at the wound center today and was updated on the plan of care. A subcutaneous debridement was performed today. The patient tolerated the procedure well. The patients wound care will consist of: Packing the site with Amy and covering with optive foam for offloading. Did discuss with patient and the importance of offloading mechanisms. Wound cultures from 04/05/19 were positive for Staphylococcus aureus, Anaerobic cocci, and Clostridium group. Will treat with Augmentin. Baseline bloodwork ordered but no results. This ulcer may benefit from being surgically deroofed due to the signinficant undermining around the entire opening. Patient was encouraged to utilize a protein supplementation of 30 g 3 times a day as he appears very malnourished. Did discuss following up with his primary care regarding his lack of appetite and weight changes. Patient educated on the importance of diet on wound healing and instructed to increase protein and vitamin C intake. Patient verbalized understanding. Patient will follow up at wound healing center in one week or sooner if needed. Code Visit [id number]: [id number] Gertrudis subq tissue 20 sq cm/<
[2019-04-25 08:29] VITALS: BP 118/60; PULSE 100; RESP 16; TEMP 36.4; BMI 16.9
--- NOTE | 2019-04-25 20:40 | HP.PCM_ITS ---
(1) Pressure injury of sacral region, stage 3 Status: Chronic Current Visit: Yes Code(s): L89.153 - Pressure ulcer of sacral region, stage 3 (2) Microscopic polyangiitis Status: Acute Current Visit: Yes Code(s): M31.7 - Microscopic polyangiitis (3) Autoimmune disorder Status: Chronic Current Visit: Yes Code(s): D89.89 - Other specified disorders involving the immune mechanism, not elsewhere classified (4) Malnutrition Status: Chronic Current Visit: Yes Qualifiers: Malnutrition type: protein-calorie malnutrition Code(s): E46 - Unspecified protein-calorie malnutrition History of Present Illness Date of Service: 04/25/19 Chief Complaint: Sacral pressure sore. History of Wound: Mr. Bowles is a 73-year-old being managed for a right-sided sacral ulcer. Also history of microscopic polyangiitis on mycophenolate. Mal- nourished with a BMI of 16.9. Has been applying Promogran to also with modest improvement. No significant drainage per His . They report compliance with dressing instructions. He feels well otherwise, denies chills, fever, nausea, vomiting or change in his bowel habit. 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 trimethoprim [From Bactrim] Adverse Reaction (Verified 07/06/15 21:51) Unknown Pt does not remember what happened d/t the fact that it was many years ago. Home Medications: Ambulatory Orders Medication Instructions Recorded Finasteride [Proscar] 5 mg PO DAILY 03/21/14 Mycophenolate Mofetil [Cellcept] 1,000 mg PO BID 03/21/14 Tamsulosin HCl [Flomax] 0.4 mg PO DAILY 03/21/14 Erythromycin Ophthalmic 1 applic RIGHT EYE DAILY 05/19/16 Prednisolone Acetate 5 ml RIGHT EYE DAILY 05/19/16 Warfarin [Coumadin ([facility])] 1 mg PO QODAY 04/05/19 amoxicillin 875 mg-potassium 1 tab PO Q12H 14 Days #28 tab 04/19/19 clavulanate 125 mg tablet - Family History Maternal - - heart trouble Paternal - - grandpa had dvt in leg Sibling No pertinent history Smoking Status: Never smoker Review of Systems Constitutional: Reports: Anorexia. Denies: Chills, Fever Eyes: Denies: Blurred vision, Pain, Redness HEENT: Denies: Difficulty Swallowing Cardiovascular: Denies: Chest Pain, Chest Pressure Gastrointestinal: Denies: Abdominal Pain, Hematemesis Skin: Denies: Jaundice - Physical Exam Vital Signs Temp Pulse Resp BP 97.5 F L 100 16 118/60 04/25/19 08:29 04/25/19 08:29 04/25/19 08:29 04/25/19 08:29 General: Alert, Oriented x3, Cooperative, No apparent distress HEENT: Atraumatic, Normocephalic Oral: Moist Mucosa Neck: Supple Lungs: Normal air movement Abdomen: Non Tender Extremities: No cyanosis Skin: Ulcer/ Wound Wound Measurements and Assessment WC - Nurse 1 - General Ulcer Measurement Start: 04/05/19 13:57 Freq: Status: Active Protocol: Activity Type Activity Date Activity User E-Sign Co-Sign Detail Recorded Client Recorded Date Recorded By Document 04/25/19 08:29 [facility] [id number] 04/25/19 08:37 [facility] 04/25/19 08:29 Wound Center Nurse 1 [Ulcer Assessment] 2. coccyx -Combined with other wound No -Current Size (cm) - Length 0.4 -Current Size (cm) - Width 0.9 -Current Size (cm) - Depth 0.8 -Total Square Cm 0.36 -Photo Taken No -Epithelialization None Present -Tunneling No -Undermining/Tunneling Yes -Undermining/Tunneling Starts (O' 12 clock) -Undermining/Tunneling Ends (O'clock) 6 -Maximum Distance (cm) 2 -Circular Undermining No -Exudate Amt Small -Exudate Type Serous -Wound Margin Distinct, Outline Attached -Granulation Amt Large (67-100%) -Granulation Quality Red -Slough/Fibrin No -Necrosis Amt None Present (0 %) -Texture (Leigh-wound Skin Appearance) Assessed, Scarring -Moisture (Leigh-wound Skin Appearance Assessed ) -Color (Leigh-wound Skin Appearance) Assessed -Temperature (Leigh-wound Skin No Abnormality Appearance) (Pt Warm) -Tenderness on Palpation (Leigh-wound No Skin Appearance) -Ulcer Cleansing Rinsed/ Irrigated with Saline -Foul Odor after Cleansing No -Anesthetic Used 5% Lidocaine Gel - Nurse 2 - General Ulcer CM Notes Start: 04/05/19 13:57 Freq: Status: Active Protocol: Activity Type Activity Date Activity User E-Sign Co-Sign Detail Recorded Client Recorded Date Recorded By Document 04/25/19 09:42 MW [id number] 04/25/19 09:50 MW 04/25/19 09:42 Wound Center Nurse 2 [Procedure/Treatment] -Time 09:42 -Correct Patient Yes -Correct Side, Site, Position Yes -Correct Procedure Yes -Procedure Performed Yes -Type of Procedure Debridement -Clinical Debridement Subcutaneous -Post Debridement Size (cm) - Length 0.9 -Post Debridement Size (cm) - Width 0.7 -Post Debridement Size (cm) - Depth 0.5 -Total Square Cm 0.63 -Wound/Ulcer Outcome Not Healed -Ulcer Cleansing Rinsed/ Irrigated with Saline -Foul Odor after Cleansing No -Bioengineered Tissue No -Bleeding Controlled with Pressure -Other undermining @12 -2.0cm, @3-2. 0cm, @6-1.3cm -Offloading No -Treatment Response Procedure Tolerated Well [See Physician Procedure note for Specifics] Pain Scale: 0-10 Numeric [Pain] -Is Patient Pain Free? Yes Neurological: Cranial nerves II-XII grossly intact Psych/Mental Status: Normal Affect Debridement Note Post-Debridement Measurements/Treatment - Nurse 2 - General Ulcer CM Notes Start: 04/05/19 13:57 Freq: Status: Active Protocol: Activity Type Activity Date Activity User E-Sign Co-Sign Detail Recorded Client Recorded Date Recorded By Document 04/05/19 14:33 AN [id number] 04/05/19 14:41 AN Document 04/13/19 10:43 MW [id number] 04/13/19 10:50 MW Document 04/18/19 08:46 JF [id number] 04/18/19 08:48 JF Document 04/25/19 09:42 MW [id number] 04/25/19 09:50 MW 04/05/19 04/13/19 04/18/19 14:33 10:43 08:46 Wound Center Nurse 2 2. coccyx -Time 14:36 10:44 08:47 -Correct Patient Yes Yes Yes -Correct Side, Site, Position Yes Yes Yes -Correct Procedure Yes Yes Yes -Procedure Performed Yes Yes Yes -Type of Procedure Debridement Debridement Debridement -Clinical Debridement Subcutaneous Subcutaneous Subcutaneous -Post Debridement Size (cm) - Length 1.8 1.2 1 -Post Debridement Size (cm) - Width 1.4 1.0 1 -Post Debridement Size (cm) - Depth 1.0 1.2 0.8 -Total Square Cm 2.52 1.20 1 -Wound/Ulcer Outcome Not Healed Not Healed Not Healed -Ulcer Cleansing Rinsed/ Rinsed/ Rinsed/ Irrigated with Irrigated with Irrigated with Saline Saline Saline -Foul Odor after Cleansing No No No -Bioengineered Tissue No No No -Bleeding Controlled with Pressure Pressure Pressure -Other undermining 10- underminin 2, 1.3cm :00-2.6cm 3:00 -1.2cm -Offloading No No No -Treatment Response Procedure Procedure Procedure Tolerated Well Tolerated Well Tolerated Well Pain Scale: 0-10 Numeric Is Patient Pain Free? Yes Yes Yes 04/25/19 09:42 Wound Center Nurse 2 2. coccyx -Time 09:42 -Correct Patient Yes -Correct Side, Site, Position Yes -Correct Procedure Yes -Procedure Performed Yes -Type of Procedure Debridement -Clinical Debridement Subcutaneous -Post Debridement Size (cm) - Length 0.9 -Post Debridement Size (cm) - Width 0.7 -Post Debridement Size (cm) - Depth 0.5 -Total Square Cm 0.63 -Wound/Ulcer Outcome Not Healed -Ulcer Cleansing Rinsed/ Irrigated with Saline -Foul Odor after Cleansing No -Bioengineered Tissue No -Bleeding Controlled with Pressure -Other undermining @12 -2.0cm, @3-2. 0cm, @6-1.3cm -Offloading No -Treatment Response Procedure Tolerated Well Pain Scale: 0-10 Numeric Is Patient Pain Free? Yes Wound debrided: Right-sided sacral ulcer Wound Grade/Stage: Stage III Type of Debridement: Excisional debridement Anesthesia Used: 4% Lidocaine Solution Depth: Down to and including healthy tissue, in the subcutaneous layer Percentage of wound debrided: 100 Instrument Used: 3mm curette Tissue Removed: Slough and devitalized tissue Severity: Fat Layer Exposed Amount of bleeding with debridement: Mild Bleeding Controlled with: Pressure Patient tolerated procedure well Assessment/Plan Active Problems Autoimmune disorder (Chronic) Malnutrition (Chronic) Pressure injury of sacral region, stage 3 (Chronic) 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 Sacral pressure sore, Stage 3. 2. Malnutrition Plan: Debridement done as documented above. Procedure was well-tolerated. Continue Promogran with Adaptic over top. Change daily. Offloading strongly recommended. Increase protein intake recommended. I have advised that he might benefit from a nutritional referral. They were advised to follow-up with the primary care physician. The questions were answered and they were advised to call with any further questions or concerns. Follow-up in 1 week. This note was generated with [employer] software. It may contain incorrect words, spelling, and punctuation that were not noted in checking the note before signing.
== END 2019-04-29 23:59 ==
LOC: WC 08:30
PROVIDERS: Family Provider Family Medicine; PCP Family Medicine; Referring Provider Nurse Practitioner Family; Visit Provider Nurse Practitioner Family
DX: E11.622 Type 2 diabetes mellitus with other skin ulcer (principal); L89.153 Pressure ulcer of sacral region, stage 3; D63.8 Anemia in other chronic diseases classified elsewhere; N40.0 Benign prostatic hyperplasia without lower urinary tract symptoms; Z79.01 Long term (current) use of anticoagulants; Z86.711 Personal history of pulmonary embolism; E46 Unspecified protein-calorie malnutrition; Z68.1 Body mass index [BMI] 19.9 or less, adult; M31.7 Microscopic polyangiitis; D89.89 Other specified disorders involving the immune mechanism, not elsewhere classified
CPT/HCPCS: 11042; 36415; 80053; 83036; 84134; 85025; 85652; 86140; 87070; 87075; 87076; 87186; 87205; 87640; 99202; G0463

== ENCOUNTER → 2019-05-08 | Outpatient (CLI) | payer MEDICARE, SELFPAY ==
[2019-04-25 08:29] VITALS: BMI 16.9
--- NOTE | 2019-05-08 10:19 | US_ITS ---
STUDY: ABDOMINAL ULTRASOUND - RIGHT UPPER QUADRANT REASON FOR VISIT: Male, 73 years old. Acute hepatitis. TECHNIQUE: Ultrasound evaluation of the right upper quadrant was performed with real-time and static salas-scale imaging. TECHNICAL QUALITY: Adequate. COMPARISON: CT dated May 19, 2016 FINDINGS: Liver: The liver measures 15.2 cm. There is normal echogenicity of the liver. The bile ducts are within normal limits. There is hepatic color flow. The direction of portal flow is hepatopetal. There is a 1.3 x 1.4 x 1.2 cm cyst within the right hepatic lobe which is stable since the prior CT. Gallbladder: Normal distended gallbladder. The gallbladder wall measures 3.7 mm. There is a negative sonographic Britton's sign. There is no pericholecystic fluid. There are no gallstones. Common Bile Duct (C.B.D.): The common bile duct measures 4.6 mm. Pancreas: There is nonvisualization of the pancreas. Right Kidney: Normal size of the right kidney. The right kidney measures 9.9 cm in length. Normal renal cortex. There is a 1.3 x 1.2 x 0.9 cm simple cyst. There is no right hydronephrosis. US/Abdomen Limited IMPRESSION: Minimal gallbladder wall thickening, may be reactive. 1.3 cm right renal cyst. 1.4 cm hepatic cyst. Electronically Signed: Lisset Davies MD at 17:03 EDT Tel , Service support ,
== END | disposition home or self-care (01) ==
PROVIDERS: Family Provider Family Medicine; PCP Family Medicine; Referring Provider Internal Medicine Gastroenterology; Visit Provider Internal Medicine Gastroenterology
DX: B17.9 Acute viral hepatitis, unspecified (principal)
CPT/HCPCS: 76705

== ENCOUNTER 2019-05-30 10:00 | Outpatient (RCR) | payer MEDICARE, SELFPAY ==
[2019-04-30 01:03] VITALS: BP 118/60; PULSE 100; RESP 16; TEMP 36.4
[2019-05-10 09:13] VITALS: BP 116/68; PULSE 102; RESP 20; TEMP 37.7; BMI 16.9
--- NOTE | 2019-05-10 13:58 | PCM.WC.PN ---
(1) Pressure injury of sacral region, stage 3 Status: Chronic Current Visit: Yes Code(s): L89.153 - Pressure ulcer of sacral region, stage 3 (2) Malnutrition Status: Chronic Current Visit: No Code(s): E46 - Unspecified protein-calorie malnutrition (3) Microscopic polyangiitis Status: Acute Current Visit: No Code(s): M31.7 - Microscopic polyangiitis Type of Wound Date of Service: 05/10/19 Chief Complaint: Sacral pressure sore. History of Wound: Mr. Bowles is a 73-year-old being managed for a right-sided sacral ulcer. Also history of microscopic polyangiitis on mycophenolate. Mal-nourished with a BMI of 16.9. Has been applying Promogran to also with modest improvement. No significant drainage per His . They report compliance with dressing instructions. He feels well otherwise, denies chills, fever, nausea, vomiting or change in his bowel habit. Progress of Wound: Worsening depth and undermining. His also reports increased drainage from the area. - Physical Exam Vital Signs Temp Pulse Resp BP 99.8 F H 102 H 20 H 116/68 05/10/19 09:13 05/10/19 09:13 05/10/19 09:13 05/10/19 09:13 General: Alert, Oriented x3, Cooperative, No apparent distress HEENT: Atraumatic, Normocephalic Oral: Moist Mucosa Neck: Supple Lungs: Normal air movement Extremities: No cyanosis Skin: Ulcer/ Wound Wound Measurements and Assessment WC - Nurse 1 - General Ulcer Measurement Start: 05/10/19 08:55 Freq: Status: Active Protocol: Activity Type Activity Date Activity User E-Sign Co-Sign Detail Recorded Client Recorded Date Recorded By Document 05/10/19 09:13 DV [id number] 05/10/19 09:17 DV 05/10/19 09:13 Wound Center Nurse 1 [Ulcer Assessment] 2. coccyx -Combined with other wound No -Current Size (cm) - Length 1.0 -Current Size (cm) - Width 0.7 -Current Size (cm) - Depth 1.0 -Total Square Cm 0.70 -Photo Taken No -Tunneling No -Undermining/Tunneling No -Circular Undermining Yes -Exudate Amt Large -Exudate Type Yellow/Green -Wound Margin Flat & Intact -Granulation Amt None Present (0 %) -Granulation Quality N/A -Slough/Fibrin Yes -Necrosis Amt Medium (34-66%) -Necrotic Tissue Type Adherent Slough -Structure Exposed None/Limited to Skin Breakdown -Texture (Leigh-wound Skin Appearance) Assessed, Scarring -Moisture (Leigh-wound Skin Appearance Assessed, ) Maceration, Weeping -Color (Leigh-wound Skin Appearance) Assessed, Erythema -Temperature (Leigh-wound Skin No Abnormality Appearance) (Pt Warm) -Tenderness on Palpation (Leigh-wound No Skin Appearance) -Foul Odor after Cleansing No -Anesthetic Used 4% Lidocaine Solution WC - Nurse 2 - General Ulcer CM Notes Start: 05/10/19 08:55 Freq: Status: Active Protocol: Activity Type Activity Date Activity User E-Sign Co-Sign Detail Recorded Client Recorded Date Recorded By Document 05/10/19 09:38 MW [id number] 05/10/19 09:44 MW 05/10/19 09:38 Wound Center Nurse 2 [Procedure/Treatment] -Time 09:38 -Correct Patient Yes -Correct Side, Site, Position Yes -Correct Procedure Yes -Procedure Performed Yes -Type of Procedure Debridement -Clinical Debridement Subcutaneous -Post Debridement Size (cm) - Length 0.8 -Post Debridement Size (cm) - Width 0.7 -Post Debridement Size (cm) - Depth 1.0 -Total Square Cm 0.56 -Wound/Ulcer Outcome Not Healed -Ulcer Cleansing Rinsed/ Irrigated with Saline -Foul Odor after Cleansing No -Bioengineered Tissue No -Bleeding Controlled with Pressure -Offloading No -Treatment Response Procedure Tolerated Well [See Physician Procedure note for Specifics] Pain Scale: 0-10 Numeric [Pain] -Is Patient Pain Free? Yes Musculoskeletal: No Muscle Wasting Neurological: Cranial nerves II-XII grossly intact Psych/Mental Status: Normal Affect Debridement Note Post-Debridement Measurements/Treatment - Nurse 2 - General Ulcer CM Notes Start: 05/10/19 08:55 Freq: Status: Active Protocol: Activity Type Activity Date Activity User E-Sign Co-Sign Detail Recorded Client Recorded Date Recorded By Document 05/10/19 09:38 MW [id number] 05/10/19 09:44 MW 05/10/19 09:38 Wound Center Nurse 2 2. coccyx -Time 09:38 -Correct Patient Yes -Correct Side, Site, Position Yes -Correct Procedure Yes -Procedure Performed Yes -Type of Procedure Debridement -Clinical Debridement Subcutaneous -Post Debridement Size (cm) - Length 0.8 -Post Debridement Size (cm) - Width 0.7 -Post Debridement Size (cm) - Depth 1.0 -Total Square Cm 0.56 -Wound/Ulcer Outcome Not Healed -Ulcer Cleansing Rinsed/ Irrigated with Saline -Foul Odor after Cleansing No -Bioengineered Tissue No -Bleeding Controlled with Pressure -Offloading No -Treatment Response Procedure Tolerated Well Pain Scale: 0-10 Numeric Is Patient Pain Free? Yes Wound debrided: Sacral Wound Grade/Stage: Stage III Type of Debridement: Excisional debridement Anesthesia Used: 4% Lidocaine Solution Depth: Down to and including healthy tissue, in the subcutaneous layer Percentage of wound debrided: 100 Instrument Used: 3mm curette Tissue Removed: Slough and devitalized tissue Severity: Fat Layer Exposed Amount of bleeding with debridement: Mild Bleeding Controlled with: Pressure Patient tolerated procedure well Assessment/Plan Active Problems Pressure injury of sacral region, stage 3 (Chronic) Assessment: 1. Sacral pressure sore, Stage 3. 2. Malnutrition Plan: Debridement done as documented above. Procedure was well-tolerated. Continue Promogran with Adaptic over top. Change daily to twice daily depending drainage. Due to worsening depth and undermining, I believe he will do well with his SnapVac. Increase drainage is also noted by his . Cultures taken. I am not sure he is a good candidate for surgery at this time due to his other coexisting/comorbid conditions. Will try to exhaust all other options prior to considering surgery due to the undermining. Offloading strongly recommended. Increase protein intake recommended. I have advised that he might benefit from a nutritional referral. They were advised to follow-up with their primary care physician. Their questions were answered and they were advised to call with any further questions or concerns. Follow-up in 1 week. This note was generated with [facility] software. It may contain incorrect words, spelling, and punctuation that were not noted in checking the note before signing.
[2019-05-17 08:17] VITALS: BP 113/54; PULSE 97; RESP 18; TEMP 36.7; BMI 16.9
--- NOTE | 2019-05-17 08:36 | PN.PCM_ITS ---
(1) Pressure injury of sacral region, stage 3 Status: Chronic Current Visit: Yes Code(s): L89.153 - Pressure ulcer of sacral region, stage 3 (2) Malnutrition Status: Chronic Current Visit: No Code(s): E46 - Unspecified protein-calorie malnutrition (3) Microscopic polyangiitis Status: Acute Current Visit: No Code(s): M31.7 - Microscopic polyangiitis Type of Wound Date of Service: 05/17/19 Chief Complaint: Sacral pressure sore. History of Wound: Mr. Bowles is a 73-year-old being managed for a right-sided sacral ulcer. Also history of microscopic polyangiitis on mycophenolate. Mal- nourished with a BMI of 16.9. Has been applying Promogran to also with modest improvement. No significant drainage per His . They report compliance with dressing instructions. He feels well otherwise, denies chills, fever, nausea, vomiting or change in his bowel habit. Progress of Wound: No new concerns at this time. - Physical Exam Vital Signs Temp Pulse Resp BP 98.0 F 97 18 113/54 L 05/17/19 08:17 05/17/19 08:17 05/17/19 08:17 05/17/19 08:17 General: Alert, Oriented x3, Cooperative, No apparent distress HEENT: Atraumatic, Normocephalic Oral: Moist Mucosa Neck: Supple Extremities: No cyanosis Skin: Ulcer/ Wound Wound Measurements and Assessment WC - Nurse 1 - General Ulcer Measurement Start: 05/10/19 08:55 Freq: Status: Active Protocol: Activity Type Activity Date Activity User E-Sign Co-Sign Detail Recorded Client Recorded Date Recorded By Document 05/17/19 08:17 [id number] 05/17/19 08:19 05/17/19 08:17 Wound Center Nurse 1 [Ulcer Assessment] 2. coccyx -Combined with other wound No -Current Size (cm) - Length 1.1 -Current Size (cm) - Width 0.6 -Current Size (cm) - Depth 2.1 -Total Square Cm 0.66 -Photo Taken No -Epithelialization None Present -Tunneling No -Undermining/Tunneling No -Circular Undermining Yes -Exudate Amt Small -Exudate Type Serosanguineous -Wound Margin Distinct, Outline Attached -Granulation Amt None Present (0 %) -Granulation Quality N/A -Slough/Fibrin No -Necrosis Amt None Present (0 %) -Necrotic Tissue Type Adherent Slough -Texture (Leigh-wound Skin Appearance) No Abnormality, Assessed -Moisture (Leigh-wound Skin Appearance Maceration ) -Color (Leigh-wound Skin Appearance) No Abnormality, Assessed -Temperature (Leigh-wound Skin No Abnormality Appearance) (Pt Warm) -Tenderness on Palpation (Leigh-wound No Skin Appearance) -Ulcer Cleansing Rinsed/ Irrigated with Saline -Foul Odor after Cleansing No -Anesthetic Used 5% Lidocaine Gel [Edema Assessment] -Lower Limb Edema Present NA - Nurse 2 - General Ulcer CM Notes Start: 05/10/19 08:55 Freq: Status: Active Protocol: Activity Type Activity Date Activity User E-Sign Co-Sign Detail Recorded Client Recorded Date Recorded By Document 05/17/19 08:27 MW [id number] 05/17/19 08:32 MW 05/17/19 08:27 Wound Center Nurse 2 [Procedure/Treatment] 2. coccyx -Time 08:28 -Correct Patient Yes -Correct Side, Site, Position Yes -Correct Procedure Yes -Procedure Performed Yes -Type of Procedure Debridement -Clinical Debridement Subcutaneous -Post Debridement Size (cm) - Length 1.0 -Post Debridement Size (cm) - Width 0.7 -Post Debridement Size (cm) - Depth 0.7 -Total Square Cm 0.70 -Wound/Ulcer Outcome Not Healed -Ulcer Cleansing Rinsed/ Irrigated with Saline -Foul Odor after Cleansing No -Bioengineered Tissue No -Bleeding Controlled with Pressure -Offloading No -Treatment Response Procedure Tolerated Well [See Physician Procedure note for Specifics] Pain Scale: 0-10 Numeric [Pain] -Is Patient Pain Free? Yes Neurological: Cranial nerves II-XII grossly intact Psych/Mental Status: Normal Affect Debridement Note Post-Debridement Measurements/Treatment - Nurse 2 - General Ulcer CM Notes Start: 05/10/19 08:55 Freq: Status: Active Protocol: Activity Type Activity Date Activity User E-Sign Co-Sign Detail Recorded Client Recorded Date Recorded By Document 05/10/19 09:38 MW [id number] 05/10/19 09:44 MW Document 05/17/19 08:27 MW [id number] 05/17/19 08:32 MW 05/10/19 05/17/19 09:38 08:27 Wound Center Nurse 2 2. coccyx -Time :38 08:28 -Correct Patient Yes Yes -Correct Side, Site, Position Yes Yes -Correct Procedure Yes Yes -Procedure Performed Yes Yes -Type of Procedure Debridement Debridement -Clinical Debridement Subcutaneous Subcutaneous -Post Debridement Size (cm) - Length 0.8 1.0 -Post Debridement Size (cm) - Width 0.7 0.7 -Post Debridement Size (cm) - Depth 1.0 0.7 -Total Square Cm 0.56 0.70 -Wound/Ulcer Outcome Not Healed Not Healed -Ulcer Cleansing Rinsed/ Rinsed/ Irrigated with Irrigated with Saline Saline -Foul Odor after Cleansing No No -Bioengineered Tissue No No -Bleeding Controlled with Pressure Pressure -Offloading No No -Treatment Response Procedure Procedure Tolerated Well Tolerated Well Pain Scale: 0-10 Numeric Is Patient Pain Free? Yes Yes Wound debrided: Sacral Ulcer Wound Grade/Stage: Stage III Type of Debridement: Excisional debridement Anesthesia Used: 4% Lidocaine Solution Depth: Down to and including healthy tissue, in the subcutaneous layer Percentage of wound debrided: 100 Instrument Used: 3mm curette Tissue Removed: Slough and devitalized tissue Severity: Fat Layer Exposed Amount of bleeding with debridement: Mild Bleeding Controlled with: Pressure Patient tolerated procedure well Assessment/Plan Active Problems Pressure injury of sacral region, stage 3 (Chronic) Assessment: 1. Sacral pressure sore, Stage 3. 2. Malnutrition Plan: Debridement done as documented above. Procedure was well-tolerated. Continue Promogran with Adaptic over top. Change daily to twice daily depending drainage. Due to worsening depth and undermining, I believe he will do well with a SnapVac however this was denied by his insurance. Will attempt to get him a [employer] Vac. He is not open to surgery and has significnat undermining which would not heal without either unroofing or an attempt with a wound Vac. Increased drainage also noted by his . I am not sure he is a good candidate for surgery at this time due to his other coexisting/comorbid conditions. Will try to exhaust all other options prior to considering surgery due to the undermining. Offloading strongly recommended. Increase protein intake recommended. I have advised that he might benefit from a nutritional referral. They were advised to follow-up with their primary care physician. Their questions were answered and they were advised to call with any further questions or concerns. Follow-up in 1 week. This note was generated with [employer] software. It may contain incorrect words, spelling, and punctuation that were not noted in checking the note before signing.
[2019-05-24 09:15] VITALS: BP 122/68; PULSE 77; RESP 18; TEMP 36.7; BMI 16.9
--- NOTE | 2019-05-24 09:53 | PCM.WC.PN ---
(1) Pressure injury of sacral region, stage 3 Status: Chronic Current Visit: Yes Code(s): L89.153 - Pressure ulcer of sacral region, stage 3 (2) Malnutrition Status: Chronic Current Visit: Yes Code(s): E46 - Unspecified protein-calorie malnutrition (3) Microscopic polyangiitis Status: Acute Current Visit: No Code(s): M31.7 - Microscopic polyangiitis Type of Wound Date of Service: 05/24/19 Chief Complaint: Sacral pressure sore. History of Wound: Mr. Bowles is a 73-year-old being managed for a right-sided sacral ulcer. Also history of microscopic polyangiitis on mycophenolate. Mal-nourished with a BMI of 16.9. Has been applying Promogran to also with modest improvement. No significant drainage per His . They report compliance with dressing instructions. He feels well otherwise, denies chills, fever, nausea, vomiting or change in his bowel habit. Progress of Wound: No new concerns at this time. Now approved for Vac. - Physical Exam Vital Signs Temp Pulse Resp BP 98.0 F 77 18 122/68 H 05/24/19 09:15 05/24/19 09:15 05/24/19 09:15 05/24/19 09:15 General: Alert, Oriented x3, Cooperative, No apparent distress HEENT: Atraumatic, Normocephalic Oral: Moist Mucosa Neck: Supple Lungs: Normal air movement Extremities: No cyanosis Skin: Ulcer/ Wound Wound Measurements and Assessment WC - Nurse 1 - General Ulcer Measurement Start: 05/10/19 08:55 Freq: Status: Active Protocol: Activity Type Activity Date Activity User E-Sign Co-Sign Detail Recorded Client Recorded Date Recorded By Document 05/24/19 09:15 DV [id number] 05/24/19 09:21 DV 05/24/19 09:15 Wound Center Nurse 1 [Ulcer Assessment] 2. coccyx -Combined with other wound No -Current Size (cm) - Length 1.2 -Current Size (cm) - Width 1.2 -Current Size (cm) - Depth 0.5 -Total Square Cm 1.44 -Photo Taken No -Epithelialization None Present -Tunneling No -Undermining/Tunneling No -Undermining/Tunneling Starts (O' 9 clock) -Undermining/Tunneling Ends (O'clock) 3 -Maximum Distance (cm) 2.5 -Circular Undermining No -Classification - Thickness Full Thickness without Exposed Support Structure -Exudate Amt Medium -Exudate Type Serous -Wound Margin Fibrotic Scar, Thickened Scar -Granulation Amt None Present (0 %) -Granulation Quality N/A -Slough/Fibrin Yes -Necrosis Amt Medium (34-66%) -Necrotic Tissue Type Adherent Slough -Structure Exposed N/A -Texture (Leigh-wound Skin Appearance) Assessed, Scarring -Moisture (Leigh-wound Skin Appearance Assessed, ) Maceration -Color (Leigh-wound Skin Appearance) Assessed -Temperature (Leigh-wound Skin No Abnormality Appearance) (Pt Warm) -Tenderness on Palpation (Leigh-wound Yes Skin Appearance) -Ulcer Cleansing Rinsed/ Irrigated with Saline -Foul Odor after Cleansing No -Anesthetic Used 5% Lidocaine Gel WC - Nurse 2 - General Ulcer CM Notes Start: 05/10/19 08:55 Freq: Status: Active Protocol: Activity Type Activity Date Activity User E-Sign Co-Sign Detail Recorded Client Recorded Date Recorded By Document 05/24/19 09:38 MW [id number] 05/24/19 09:42 MW 05/24/19 09:38 Wound Center Nurse 2 [Procedure/Treatment] -Time 09:41 -Correct Patient Yes -Correct Side, Site, Position Yes -Correct Procedure Yes -Procedure Performed Yes -Type of Procedure Debridement -Clinical Debridement Subcutaneous -Post Debridement Size (cm) - Length 0.7 -Post Debridement Size (cm) - Width 0.6 -Post Debridement Size (cm) - Depth 0.6 -Total Square Cm 0.42 -Wound/Ulcer Outcome Not Healed -Ulcer Cleansing Rinsed/ Irrigated with Saline -Foul Odor after Cleansing No -Bioengineered Tissue No -Bleeding Controlled with Pressure -Other undermining @ 12 - 2.6cm -Offloading No -Treatment Response Procedure Tolerated Well [See Physician Procedure note for Specifics] Pain Scale: 0-10 Numeric [Pain] -Is Patient Pain Free? Yes Neurological: Cranial nerves II-XII grossly intact Psych/Mental Status: Normal Affect Debridement Note Post-Debridement Measurements/Treatment WC - Nurse 2 - General Ulcer CM Notes Start: 05/10/19 08:55 Freq: Status: Active Protocol: Activity Type Activity Date Activity User E-Sign Co-Sign Detail Recorded Client Recorded Date Recorded By Document 05/10/19 09:38 MW [id number] 05/10/19 09:44 MW Document 05/17/19 08:27 MW [id number] 05/17/19 08:32 MW Document 05/24/19 09:38 MW [id number] 05/24/19 09:42 MW 05/10/19 05/17/19 05/24/19 09:38 08:27 09:38 Wound Center Nurse 2 2. coccyx -Time 09:38 08:28 09:41 -Correct Patient Yes Yes Yes -Correct Side, Site, Position Yes Yes Yes -Correct Procedure Yes Yes Yes -Procedure Performed Yes Yes Yes -Type of Procedure Debridement Debridement Debridement -Clinical Debridement Subcutaneous Subcutaneous Subcutaneous -Post Debridement Size (cm) - Length 0.8 1.0 0.7 -Post Debridement Size (cm) - Width 0.7 0.7 0.6 -Post Debridement Size (cm) - Depth 1.0 0.7 0.6 -Total Square Cm 0.56 0.70 0.42 -Wound/Ulcer Outcome Not Healed Not Healed Not Healed -Ulcer Cleansing Rinsed/ Rinsed/ Rinsed/ Irrigated with Irrigated with Irrigated with Saline Saline Saline -Foul Odor after Cleansing No No No -Bioengineered Tissue No No No -Bleeding Controlled with Pressure Pressure Pressure -Other undermining @ 12 - 2.6cm -Offloading No No No -Treatment Response Procedure Procedure Procedure Tolerated Well Tolerated Well Tolerated Well Pain Scale: 0-10 Numeric Is Patient Pain Free? Yes Yes Yes Wound debrided: Sacral Ulcer Wound Grade/Stage: Stage III Type of Debridement: Excisional debridement Anesthesia Used: 4% Lidocaine Solution Depth: Down to and including healthy tissue, in the subcutaneous layer Percentage of wound debrided: 100 Instrument Used: 3mm curette Tissue Removed: Slough and devitalized tissue Severity: Fat Layer Exposed Amount of bleeding with debridement: Mild Bleeding Controlled with: Pressure Patient tolerated procedure well Assessment/Plan Active Problems Malnutrition (Chronic) Pressure injury of sacral region, stage 3 (Chronic) Assessment: 1. Sacral pressure sore, Stage 3. 2. Malnutrition Plan: Debridement done as documented above. Procedure was well-tolerated. Continue Promogran with Adaptic over top for now. Start wound Vac at 125mmHg tomorrow by HHN. He is not open to surgery and has significnat undermining which would not heal without either unroofing or an attempt with a wound Vac. Increased drainage also noted by his . I am not sure he is a good candidate for surgery at this time due to his other coexisting/comorbid conditions. Will try to exhaust all other options prior to considering surgery due to the undermining. Offloading strongly recommended. Increase protein intake recommended. I have advised that he might benefit from a nutritional referral. They were advised to follow-up with their primary care physician. Their questions were answered and they were advised to call with any further questions or concerns. Follow-up in 1 week. This note was generated with [employer] dictation software. It may contain incorrect words, spelling, and punctuation that were not noted in checking the note before signing.
[2019-05-30 10:45] VITALS: BP 124/69; PULSE 88; RESP 16; TEMP 37.2; BMI 16.9
--- NOTE | 2019-05-30 13:48 | PN.PCM_ITS ---
(1) Pressure injury of sacral region, stage 3 Status: Chronic Current Visit: Yes Code(s): L89.153 - Pressure ulcer of sacral region, stage 3 (2) Malnutrition Status: Chronic Current Visit: Yes Code(s): E46 - Unspecified protein- calorie malnutrition (3) Microscopic polyangiitis Status: Acute Current Visit: No Code(s): M31.7 - Microscopic polyangiitis Type of Wound Date of Service: 05/30/19 Chief Complaint: Sacral pressure sore. History of Wound: Mr. Bowles is a 73-year-old being managed for a right-sided sacral ulcer. Also history of microscopic polyangiitis on mycophenolate. Mal- nourished with a BMI of 16.9. Has been applying Promogran to also with modest improvement. No significant drainage per His . They report compliance with dressing instructions. He feels well otherwise, denies chills, fever, nausea, vomiting or change in his bowel habit. Progress of Wound: No new concerns at this time. Tolerating Vac so far. Undermining at 12:00 is improving. - Physical Exam Vital Signs Temp Pulse Resp BP 98.9 F 88 16 124/69 H 05/30/19 10:45 05/30/19 10:45 05/30/19 10:45 05/30/19 10:45 General: Alert, Oriented x3, Cooperative, No apparent distress HEENT: Atraumatic, Normocephalic Oral: Moist Mucosa Neck: Supple Lungs: Normal air movement Extremities: No cyanosis Skin: Ulcer/ Wound Wound Measurements and Assessment WC - Nurse 1 - General Ulcer Measurement Start: 05/10/19 08:55 Freq: Status: Active Protocol: Activity Type Activity Date Activity User E-Sign Co-Sign Detail Recorded Client Recorded Date Recorded By Document 05/30/19 10:45 DONNA [id number] 05/30/19 10:46 DONNA 05/30/19 10:45 Wound Center Nurse 1 [Ulcer Assessment] 2. coccyx -Combined with other wound No -Current Size (cm) - Length 1 -Current Size (cm) - Width 0.7 -Current Size (cm) - Depth 1.3 -Total Square Cm 0.7 -Photo Taken No -Epithelialization None Present -Tunneling No -Undermining/Tunneling No -Circular Undermining No -Exudate Amt Small -Exudate Type Serosanguineous -Wound Margin Flat & Intact -Granulation Amt Large (67-100%) -Granulation Quality Red -Slough/Fibrin Yes -Necrosis Amt Small (1-33%) -Necrotic Tissue Type Adherent Slough -Structure Exposed N/A -Texture (Leigh-wound Skin Appearance) Assessed, Excoriation -Moisture (Leigh-wound Skin Appearance Assessed,Dry/ ) Scaly -Color (Leigh-wound Skin Appearance) Assessed -Temperature (Leigh-wound Skin No Abnormality Appearance) (Pt Warm) -Tenderness on Palpation (Leigh-wound No Skin Appearance) -Ulcer Cleansing Wound Cleanser -Foul Odor after Cleansing No -Anesthetic Used 4% Lidocaine Solution [Edema Assessment] -Lower Limb Edema Present NA WC - Nurse 2 - General Ulcer CM Notes Start: 05/10/19 08:55 Freq: Status: Active Protocol: Activity Type Activity Date Activity User E-Sign Co-Sign Detail Recorded Client Recorded Date Recorded By Document 05/30/19 11:11 MW [id number] 05/30/19 11:16 MW 05/30/19 11:11 Wound Center Nurse 2 [Procedure/Treatment] 2. coccyx -Time 11:12 -Correct Patient Yes -Correct Side, Site, Position Yes -Correct Procedure Yes -Procedure Performed Yes -Type of Procedure Debridement -Clinical Debridement Subcutaneous -Post Debridement Size (cm) - Length 0.8 -Post Debridement Size (cm) - Width 0.4 -Post Debridement Size (cm) - Depth 0.7 -Total Square Cm 0.32 -Wound/Ulcer Outcome Not Healed -Ulcer Cleansing Rinsed/ Irrigated with Saline -Foul Odor after Cleansing No -Bioengineered Tissue No -Bleeding Controlled with Pressure -Other undermining 12- 1, 2.0cm @ 2 - 2.7cm -Offloading No -Treatment Response Procedure Tolerated Well [See Physician Procedure note for Specifics] Pain Scale: 0-10 Numeric [Pain] -Is Patient Pain Free? Yes Neurological: Cranial nerves II-XII grossly intact Psych/Mental Status: Normal Affect Debridement Note Post-Debridement Measurements/Treatment WC - Nurse 2 - General Ulcer CM Notes Start: 05/10/19 08:55 Freq: Status: Active Protocol: Activity Type Activity Date Activity User E-Sign Co-Sign Detail Recorded Client Recorded Date Recorded By Document 05/10/19 09:38 MW [id number] 05/10/19 09:44 MW Document 05/17/19 08:27 MW [id number] 05/17/19 08:32 MW Document 05/24/19 09:38 MW [id number] 05/24/19 09:42 MW Document 05/30/19 11:11 MW [id number] 05/30/19 11:16 MW 05/10/19 05/17/19 05/24/19 09:38 08:27 09:38 Wound Center Nurse 2 2. coccyx -Time 09:38 08:28 09:41 -Correct Patient Yes Yes Yes -Correct Side, Site, Position Yes Yes Yes -Correct Procedure Yes Yes Yes -Procedure Performed Yes Yes Yes -Type of Procedure Debridement Debridement Debridement -Clinical Debridement Subcutaneous Subcutaneous Subcutaneous -Post Debridement Size (cm) - Length 0.8 1.0 0.7 -Post Debridement Size (cm) - Width 0.7 0.7 0.6 -Post Debridement Size (cm) - Depth 1.0 0.7 0.6 -Total Square Cm 0.56 0.70 0.42 -Wound/Ulcer Outcome Not Healed Not Healed Not Healed -Ulcer Cleansing Rinsed/ Rinsed/ Rinsed/ Irrigated with Irrigated with Irrigated with Saline Saline Saline -Foul Odor after Cleansing No No No -Bioengineered Tissue No No No -Bleeding Controlled with Pressure Pressure Pressure -Other undermining @ 12 - 2.6cm -Offloading No No No -Treatment Response Procedure Procedure Procedure Tolerated Well Tolerated Well Tolerated Well Pain Scale: 0-10 Numeric Is Patient Pain Free? Yes Yes Yes 05/30/19 11:11 Wound Center Nurse 2 2. coccyx -Time 11:12 -Correct Patient Yes -Correct Side, Site, Position Yes -Correct Procedure Yes -Procedure Performed Yes -Type of Procedure Debridement -Clinical Debridement Subcutaneous -Post Debridement Size (cm) - Length 0.8 -Post Debridement Size (cm) - Width 0.4 -Post Debridement Size (cm) - Depth 0.7 -Total Square Cm 0.32 -Wound/Ulcer Outcome Not Healed -Ulcer Cleansing Rinsed/ Irrigated with Saline -Foul Odor after Cleansing No -Bioengineered Tissue No -Bleeding Controlled with Pressure -Other undermining 12- 1, 2.0cm @ 2 - 2.7cm -Offloading No -Treatment Response Procedure Tolerated Well Pain Scale: 0-10 Numeric Is Patient Pain Free? Yes Wound debrided: Sacral Wound Grade/Stage: Stage III Type of Debridement: Excisional debridement Anesthesia Used: 4% Lidocaine Solution Depth: Down to and including healthy tissue, in the subcutaneous layer Percentage of wound debrided: 100 Instrument Used: 3mm curette Tissue Removed: Slough and devitalized tissue Severity: Fat Layer Exposed Amount of bleeding with debridement: Mild Bleeding Controlled with: Pressure Patient tolerated procedure well Assessment/Plan Active Problems Malnutrition (Chronic) Pressure injury of sacral region, stage 3 (Chronic) Assessment: 1. Sacral pressure sore, Stage 3. 2. Malnutrition Plan: Debridement done as documented above. Procedure was well-tolerated. Increase wound VAC to 150 mmHg tomorrow. He is not open to surgery and has significnat undermining which would not heal without either unroofing or an attempt with a wound Vac. Increased drainage also noted by his . I am not sure he is a good candidate for surgery at this time due to his other coexisting/comorbid conditions. Will try to exhaust all other options prior to considering surgery due to the undermining. Offloading strongly recommended. Increase protein intake recommended. Their questions were answered and they were advised to call with any further questions or concerns. Follow-up in 2 weeks. This note was generated with [employer] dictation software. It may contain incorrect words, spelling, and punctuation that were not noted in checking the note before signing.
== END 2019-05-30 23:59 ==
LOC: WC 10:00
PROVIDERS: Family Provider Family Medicine; PCP Family Medicine; Referring Provider Nurse Practitioner Family; Visit Provider Nurse Practitioner Family
DX: L89.153 Pressure ulcer of sacral region, stage 3 (principal); M31.7 Microscopic polyangiitis; E46 Unspecified protein-calorie malnutrition; Z68.1 Body mass index [BMI] 19.9 or less, adult
CPT/HCPCS: 11042; 87070; 87075; 87077; 87186; 87205; 97605

== ENCOUNTER 2019-06-27 11:45 | Outpatient (RCR) | payer MEDICARE, SELFPAY ==
[2019-05-31 00:58] VITALS: BP 124/69; PULSE 88; RESP 16; TEMP 37.2
[2019-06-13 12:02] VITALS: BP 100/58; PULSE 89; RESP 16; TEMP 37.1; BMI 16.9
--- NOTE | 2019-06-13 16:25 | PN.PCM_ITS ---
(1) Pressure injury of sacral region, stage 3 Status: Chronic Current Visit: Yes Code(s): L89.153 - Pressure ulcer of sacral region, stage 3 (2) Microscopic polyangiitis Status: Acute Current Visit: Yes Code(s): M31.7 - Microscopic polyangiitis (3) Diabetes mellitus type II, controlled Status: Chronic Current Visit: Yes Code(s): E11.9 - Type 2 diabetes mellitus without complications Type of Wound Date of Service: 06/13/19 Chief Complaint: Sacral pressure sore. History of Wound: Mr. Bowles is a 73-year-old being managed for a right-sided sacral ulcer. Also history of microscopic polyangiitis on mycophenolate. Mal- nourished with a BMI of 16.9. Has been applying Promogran to also with modest improvement. No significant drainage per His . They report compliance with dressing instructions. He feels well otherwise, denies chills, fever, nausea, vomiting or change in his bowel habit. Progress of Wound: No new concerns at this time. Tolerating Vac. - Physical Exam Vital Signs Temp Pulse Resp BP 98.7 F 89 16 100/58 L 06/13/19 12:02 06/13/19 12:02 06/13/19 12:02 06/13/19 12:02 General: Alert, Oriented x3, Cooperative, No apparent distress HEENT: Atraumatic, Normocephalic Oral: Moist Mucosa Neck: Supple Lungs: Normal air movement Extremities: No cyanosis Wound Measurements and Assessment WC - Nurse 1 - General Ulcer Measurement Start: 06/13/19 11:59 Freq: Status: Active Protocol: Activity Type Activity Date Activity User E-Sign Co-Sign Detail Recorded Client Recorded Date Recorded By Document 06/13/19 12:02 [facility] [id number] 06/13/19 12:09 [facility] 06/13/19 12:02 Wound Center Nurse 1 [Ulcer Assessment] 2. coccyx -Current Size (cm) - Length 1.3 -Current Size (cm) - Width 0.8 -Current Size (cm) - Depth 0.7 -Total Square Cm 1.04 -Photo Taken No -Maximum Distance #2 (cm) 1.7 -Circular Undermining Yes -Exudate Amt Small -Exudate Type Serosanguineous -Wound Margin Fibrotic Scar, Thickened Scar -Granulation Amt Large (67-100%) -Granulation Quality [place] -Necrosis Amt None Present (0 %) -Structure Exposed N/A -Texture (Leigh-wound Skin Appearance) Scarring -Moisture (Leigh-wound Skin Appearance Maceration ) -Color (Leigh-wound Skin Appearance) Palor -Temperature (Leigh-wound Skin No Abnormality Appearance) (Pt Warm) -Ulcer Cleansing Wound Cleanser -Anesthetic Used 5% Lidocaine Gel - Nurse 2 - General Ulcer CM Notes Start: 06/13/19 11:59 Freq: Status: Active Protocol: Activity Type Activity Date Activity User E-Sign Co-Sign Detail Recorded Client Recorded Date Recorded By Document 06/13/19 12:16 [id number] 06/13/19 12:21 06/13/19 12:16 Wound Center Nurse 2 [Procedure/Treatment] -Time 12:19 -Correct Patient Yes -Correct Side, Site, Position Yes -Correct Procedure Yes -Procedure Performed Yes -Type of Procedure Debridement -Clinical Debridement Subcutaneous -Post Debridement Size (cm) - Length 0.9 -Post Debridement Size (cm) - Width 0.6 -Post Debridement Size (cm) - Depth 0.9 -Total Square Cm 0.54 -Wound/Ulcer Outcome Not Healed -Ulcer Cleansing Rinsed/ Irrigated with Saline -Foul Odor after Cleansing No -Bioengineered Tissue No -Bleeding Controlled with Pressure -Other undermining 12- 2=2.1cm -Offloading No -Treatment Response Procedure Tolerated Well [See Physician Procedure note for Specifics] Pain Scale: 0-10 Numeric [Pain] -Is Patient Pain Free? Yes Neurological: Cranial nerves II-XII grossly intact Psych/Mental Status: Normal Affect Debridement Note Post-Debridement Measurements/Treatment - Nurse 2 - General Ulcer CM Notes Start: 06/13/19 11:59 Freq: Status: Active Protocol: Activity Type Activity Date Activity User E-Sign Co-Sign Detail Recorded Client Recorded Date Recorded By Document 06/13/19 12:16 [id number] 06/13/19 12:21 06/13/19 12:16 Wound Center Nurse 2 2. coccyx -Time 12:19 -Correct Patient Yes -Correct Side, Site, Position Yes -Correct Procedure Yes -Procedure Performed Yes -Type of Procedure Debridement -Clinical Debridement Subcutaneous -Post Debridement Size (cm) - Length 0.9 -Post Debridement Size (cm) - Width 0.6 -Post Debridement Size (cm) - Depth 0.9 -Total Square Cm 0.54 -Wound/Ulcer Outcome Not Healed -Ulcer Cleansing Rinsed/ Irrigated with Saline -Foul Odor after Cleansing No -Bioengineered Tissue No -Bleeding Controlled with Pressure -Other undermining 12- 2=2.1cm -Offloading No -Treatment Response Procedure Tolerated Well Pain Scale: 0-10 Numeric Is Patient Pain Free? Yes Wound debrided: Sacral Wound Grade/Stage: Stage 3 Type of Debridement: Excisional debridement Anesthesia Used: 4% Lidocaine Solution Depth: Down to and including healthy tissue, in the subcutaneous layer Percentage of wound debrided: 100 Instrument Used: 3mm curette Tissue Removed: Slough and devitalized tissue Severity: Fat Layer Exposed Amount of bleeding with debridement: Mild Bleeding Controlled with: Pressure Patient tolerated procedure well Assessment/Plan Active Problems Pressure injury of sacral region, stage 3 (Chronic) Microscopic polyangiitis (Acute) Diabetes mellitus type II, controlled (Chronic) Assessment: 1. Sacral pressure sore, Stage 3. 2. Malnutrition Plan: Improving undermining. Debridement done as documented above. Procedure was well-tolerated. Increase wound VAC to 150 mmHg tomorrow. He is not open to surgery and has significnat undermining which would not heal without either unroofing or an attempt with a wound Vac. Increased drainage also noted by his . I am not sure he is a good candidate for surgery at this time due to his other coexisting/comorbid conditions. Will try to exhaust all other options prior to considering surgery due to the undermining. Offloading strongly recommended. Increase protein intake recommended. Their questions were answered and they were advised to call with any further questions or concerns. Follow-up in 1 week. This note was generated with [employer] software. It may contain incorrect words, spelling, and punctuation that were not noted in checking the note before signing.
[2019-06-20 12:33] VITALS: BP 131/65; PULSE 81; RESP 16; TEMP 37.2; BMI 16.9
--- NOTE | 2019-06-20 19:22 | PN.PCM_ITS ---
(1) Pressure injury of sacral region, stage 3 Status: Chronic Current Visit: Yes Code(s): L89.153 - Pressure ulcer of sacral region, stage 3 (2) Microscopic polyangiitis Status: Acute Current Visit: Yes Code(s): M31.7 - Microscopic polyangiitis (3) Diabetes mellitus type II, controlled Status: Chronic Current Visit: Yes Code(s): E11.9 - Type 2 diabetes mellitus without complications Type of Wound Date of Service: 06/20/19 Chief Complaint: Sacral pressure sore. History of Wound: Mr. Bowles is a 73-year-old being managed for a right-sided sacral ulcer. Also history of microscopic polyangiitis on mycophenolate. Mal- nourished with a BMI of 16.9. Has been applying Promogran to also with modest improvement. No significant drainage per His . They report compliance with dressing instructions. He feels well otherwise, denies chills, fever, nausea, vomiting or change in his bowel habit. Progress of Wound: Had concerns with the Vac staying on this week. Otherwise, no concerns. - Physical Exam Vital Signs Temp Pulse Resp BP 98.9 F 81 16 131/65 H 06/20/19 12:33 06/20/19 12:33 06/20/19 12:33 06/20/19 12:33 General: Alert, Oriented x3, Cooperative, No apparent distress HEENT: Atraumatic, Normocephalic Oral: Moist Mucosa Neck: Supple Lungs: Normal air movement Extremities: No cyanosis Skin: Ulcer/ Wound Wound Measurements and Assessment WC - Nurse 1 - General Ulcer Measurement Start: 06/13/19 11:59 Freq: Status: Active Protocol: Activity Type Activity Date Activity User E-Sign Co-Sign Detail Recorded Client Recorded Date Recorded By Document 06/20/19 12:33 [facility] [id number] 06/20/19 12:43 [facility] 06/20/19 12:33 Wound Center Nurse 1 [Ulcer Assessment] 2. coccyx -Combined with other wound No -Current Size (cm) - Length 1.2 -Current Size (cm) - Width 0.5 -Current Size (cm) - Depth 1 -Total Square Cm 0.60 -Photo Taken No -Epithelialization None Present -Tunneling No -Undermining/Tunneling Yes -Undermining/Tunneling Starts (O' 12 clock) -Undermining/Tunneling Ends (O'clock) 12 -Maximum Distance (cm) 1.6 -Circular Undermining Yes -Exudate Amt None Present -Wound Margin Thickened -Granulation Amt Large (67-100%) -Granulation Quality Red -Slough/Fibrin No -Necrosis Amt None Present (0 %) -Texture (Leigh-wound Skin Appearance) Assessed, Scarring -Moisture (Leigh-wound Skin Appearance Assessed, ) Maceration -Color (Leigh-wound Skin Appearance) Assessed, Erythema,Palor -Temperature (Leigh-wound Skin No Abnormality Appearance) (Pt Warm) -Tenderness on Palpation (Leigh-wound No Skin Appearance) -Ulcer Cleansing soap and water -Foul Odor after Cleansing No -Anesthetic Used 5% Lidocaine Gel WC - Nurse 2 - General Ulcer CM Notes Start: 06/13/19 11:59 Freq: Status: Active Protocol: Activity Type Activity Date Activity User E-Sign Co-Sign Detail Recorded Client Recorded Date Recorded By Document 06/20/19 13:39 MW [id number] 06/20/19 13:44 MW 06/20/19 13:39 Wound Center Nurse 2 [Procedure/Treatment] -Time 13:39 -Correct Patient Yes -Correct Side, Site, Position Yes -Correct Procedure Yes -Procedure Performed Yes -Type of Procedure Debridement -Clinical Debridement Subcutaneous -Post Debridement Size (cm) - Length 1.0 -Post Debridement Size (cm) - Width 0.6 -Post Debridement Size (cm) - Depth 0.9 -Total Square Cm 0.60 -Wound/Ulcer Outcome Not Healed -Ulcer Cleansing Rinsed/ Irrigated with Saline -Foul Odor after Cleansing No -Bioengineered Tissue No -Bleeding Controlled with Pressure -Offloading No -Treatment Response Procedure Tolerated Well [See Physician Procedure note for Specifics] Pain Scale: 0-10 Numeric [Pain] -Is Patient Pain Free? Yes Neurological: Cranial nerves II-XII grossly intact Psych/Mental Status: Normal Affect Debridement Note Post-Debridement Measurements/Treatment WC - Nurse 2 - General Ulcer CM Notes Start: 06/13/19 11:59 Freq: Status: Active Protocol: Activity Type Activity Date Activity User E-Sign Co-Sign Detail Recorded Client Recorded Date Recorded By Document 06/13/19 12:16 [id number] 06/13/19 12:21 Document 06/20/19 13:39 MW [id number] 06/20/19 13:44 MW 06/13/19 06/20/19 12:16 13:39 Wound Center Nurse 2 2. coccyx -Time 12: 13:39 -Correct Patient Yes Yes -Correct Side, Site, Position Yes Yes -Correct Procedure Yes Yes -Procedure Performed Yes Yes -Type of Procedure Debridement Debridement -Clinical Debridement Subcutaneous Subcutaneous -Post Debridement Size (cm) - Length 0.9 1.0 -Post Debridement Size (cm) - Width 0.6 0.6 -Post Debridement Size (cm) - Depth 0.9 0.9 -Total Square Cm 0.54 0.60 -Wound/Ulcer Outcome Not Healed Not Healed -Ulcer Cleansing Rinsed/ Rinsed/ Irrigated with Irrigated with Saline Saline -Foul Odor after Cleansing No No -Bioengineered Tissue No No -Bleeding Controlled with Pressure Pressure -Other undermining 12- 2=2.1cm -Offloading No No -Treatment Response Procedure Procedure Tolerated Well Tolerated Well Pain Scale: 0-10 Numeric Is Patient Pain Free? Yes Yes Wound debrided: Sacral Wound Grade/Stage: Stage III Type of Debridement: Excisional debridement Anesthesia Used: 4% Lidocaine Solution Depth: Down to and including healthy tissue, in the subcutaneous layer Percentage of wound debrided: 100 Instrument Used: 3mm curette Tissue Removed: Slough and-Devitalized tissue Severity: Fat Layer Exposed Amount of bleeding with debridement: Mild Bleeding Controlled with: Pressure Patient tolerated procedure well Assessment/Plan Active Problems Pressure injury of sacral region, stage 3 (Chronic) Microscopic polyangiitis (Acute) Diabetes mellitus type II, controlled (Chronic) Assessment: 1. Sacral pressure sore, Stage 3. 2. Malnutrition Plan: No change in the past week. Concerns with VAC. Debridement done as documented above. Procedure was well-tolerated. Continue wound VAC to 150 mmHg. Instructions sent to home health. He is not open to surgery and has significnat undermining which would not heal without either unroofing or an attempt with a wound Vac. Increased drainage also noted by his . I am not sure he is a good candidate for surgery at this time due to his other coexisting/comorbid conditions. Will try to exhaust all other options prior to considering surgery due to the undermining. Offloading strongly recommended. Increase protein intake recommended. Their questions were answered and they were advised to call with any further questions or concerns. Follow-up in 1 week. This note was generated with [employer] software. It may contain incorrect words, spelling, and punctuation that were not noted in checking the note before signing.
[2019-06-27 11:52] VITALS: BP 127/69; PULSE 84; RESP 16; TEMP 36.8; BMI 16.9
--- NOTE | 2019-06-27 13:00 | PN.PCM_ITS ---
(1) Pressure injury of sacral region, stage 3 Status: Chronic Current Visit: Yes Code(s): L89.153 - Pressure ulcer of sacral region, stage 3 (2) Microscopic polyangiitis Status: Acute Current Visit: Yes Code(s): M31.7 - Microscopic polyangiitis (3) Diabetes mellitus type II, controlled Status: Chronic Current Visit: Yes Code(s): E11.9 - Type 2 diabetes mellitus without complications Type of Wound Date of Service: 06/27/19 Chief Complaint: Sacral pressure sore. History of Wound: Mr. Bowles is a 73-year-old being managed for a right-sided sacral ulcer. Also history of microscopic polyangiitis on mycophenolate. Mal- nourished with a BMI of 16.9. Has been applying Promogran to also with modest improvement. No significant drainage per His . They report compliance with dressing instructions. He feels well otherwise, denies chills, fever, nausea, vomiting or change in his bowel habit. Progress of Wound: Leigh Ulcer dermatitis has resolved. Still has a lot of concerns/problems with applying the wound VAC by home health. Appropriate pressure also not applied. - Physical Exam Vital Signs Temp Pulse Resp BP 98.2 F 84 16 127/69 H 06/27/19 11:52 06/27/19 11:52 06/27/19 11:52 06/27/19 11:52 General: Alert, Oriented x3, Cooperative, No apparent distress HEENT: Atraumatic, Normocephalic Oral: Moist Mucosa Neck: Supple Lungs: Normal air movement Extremities: No cyanosis Skin: Ulcer/ Wound Wound Measurements and Assessment WC - Nurse 1 - General Ulcer Measurement Start: 06/13/19 11:59 Freq: Status: Active Protocol: Activity Type Activity Date Activity User E-Sign Co-Sign Detail Recorded Client Recorded Date Recorded By Document 06/27/19 11:52 [facility] [id number] 06/27/19 12:02 [facility] 06/27/19 11:52 Wound Center Nurse 1 [Ulcer Assessment] 2. coccyx -Combined with other wound No -Current Size (cm) - Length 1.1 -Current Size (cm) - Width 0.5 -Current Size (cm) - Depth 0.9 -Total Square Cm 0.55 -Photo Taken No -Epithelialization None Present -Tunneling No -Undermining/Tunneling Yes -Undermining/Tunneling Starts (O' 12 clock) -Undermining/Tunneling Ends (O'clock) 12 -Maximum Distance (cm) 1.5 -Circular Undermining Yes -Exudate Amt Small -Exudate Type Serosanguineous -Wound Margin Distinct, Outline Attached -Granulation Amt Large (67-100%) -Granulation Quality Red -Slough/Fibrin Yes -Necrosis Amt Small (1-33%) -Texture (Leigh-wound Skin Appearance) Assessed, Scarring -Moisture (Leigh-wound Skin Appearance Assessed ) -Color (Leigh-wound Skin Appearance) Assessed, Erythema -Temperature (Leigh-wound Skin No Abnormality Appearance) (Pt Warm) -Tenderness on Palpation (Leigh-wound No Skin Appearance) -Ulcer Cleansing soap and water -Foul Odor after Cleansing No -Anesthetic Used 5% Lidocaine Gel WC - Nurse 2 - General Ulcer CM Notes Start: 06/13/19 11:59 Freq: Status: Active Protocol: Activity Type Activity Date Activity User E-Sign Co-Sign Detail Recorded Client Recorded Date Recorded By Document 06/27/19 12:25 MW [id number] 06/27/19 12:30 MW 06/27/19 12:25 Wound Center Nurse 2 [Procedure/Treatment] -Time 12:25 -Correct Patient Yes -Correct Side, Site, Position Yes -Correct Procedure Yes -Procedure Performed Yes -Type of Procedure Debridement -Clinical Debridement Subcutaneous -Post Debridement Size (cm) - Length 0.9 -Post Debridement Size (cm) - Width 0.6 -Post Debridement Size (cm) - Depth 0.5 -Total Square Cm 0.54 -Wound/Ulcer Outcome Not Healed -Ulcer Cleansing Rinsed/ Irrigated with Saline -Foul Odor after Cleansing No -Bioengineered Tissue No -Bleeding Controlled with Pressure -Offloading No -Treatment Response Procedure Tolerated Well [See Physician Procedure note for Specifics] Pain Scale: 0-10 Numeric [Pain] -Is Patient Pain Free? Yes Neurological: Cranial nerves II-XII grossly intact Psych/Mental Status: Normal Affect Debridement Note Post-Debridement Measurements/Treatment WC - Nurse 2 - General Ulcer CM Notes Start: 06/13/19 11:59 Freq: Status: Active Protocol: Activity Type Activity Date Activity User E-Sign Co-Sign Detail Recorded Client Recorded Date Recorded By Document 06/13/19 12:16 JF [id number] 06/13/19 12:21 JF Document 06/20/19 13:39 MW [id number] 06/20/19 13:44 MW Document 06/27/19 12:25 MW [id number] 06/27/19 12:30 MW 06/13/19 06/20/19 06/27/19 12:16 13:39 12:25 Wound Center Nurse 2 2. coccyx -Time 12:19 13:39 12:25 -Correct Patient Yes Yes Yes -Correct Side, Site, Position Yes Yes Yes -Correct Procedure Yes Yes Yes -Procedure Performed Yes Yes Yes -Type of Procedure Debridement Debridement Debridement -Clinical Debridement Subcutaneous Subcutaneous Subcutaneous -Post Debridement Size (cm) - Length 0.9 1.0 0.9 -Post Debridement Size (cm) - Width 0.6 0.6 0.6 -Post Debridement Size (cm) - Depth 0.9 0.9 0.5 -Total Square Cm 0.54 0.60 0.54 -Wound/Ulcer Outcome Not Healed Not Healed Not Healed -Ulcer Cleansing Rinsed/ Rinsed/ Rinsed/ Irrigated with Irrigated with Irrigated with Saline Saline Saline -Foul Odor after Cleansing No No No -Bioengineered Tissue No No No -Bleeding Controlled with Pressure Pressure Pressure -Other undermining 12- 2=2.1cm -Offloading No No No -Treatment Response Procedure Procedure Procedure Tolerated Well Tolerated Well Tolerated Well Pain Scale: 0-10 Numeric Is Patient Pain Free? Yes Yes Yes Wound debrided: Sacral Wound Grade/Stage: Stage III Type of Debridement: Excisional debridement Anesthesia Used: 4% Lidocaine Solution Depth: Down to and including healthy tissue, in the subcutaneous layer Percentage of wound debrided: 100 Instrument Used: 3mm curette Tissue Removed: Slough and devitalized tissue Severity: Fat Layer Exposed Amount of bleeding with debridement: Mild Bleeding Controlled with: Pressure Patient tolerated procedure well Assessment/Plan Active Problems Pressure injury of sacral region, stage 3 (Chronic) Microscopic polyangiitis (Acute) Diabetes mellitus type II, controlled (Chronic) Assessment: 1. Sacral pressure sore, Stage 3. 2. Malnutrition Plan: Undermining is improving. Otherwise, no significant change in circumference. Debridement done as documented above. Procedure was well-tolerated. Continue wound VAC at 150 mmHg. Instructions sent to home health. His spouse also states that they will likely stick with one ([facility]arrita) who appears better with wound care. He is not open to surgery and has significnat undermining which would not heal without either unroofing or an attempt with a wound Vac. Increased drainage also noted by his . I am not sure he is a good candidate for surgery at this time due to his other coexisting/comorbid conditions. Will try to exhaust all other options prior to considering surgery due to the undermining. I hope we can get the wound care/wound VAC situation sorted out. Offloading strongly recommended. Increased protein intake recommended. Their questions were answered and they were advised to call with any further questions or concerns. Follow-up in 2 weeks with me and for a nurse visit in 1 week. This note was generated with [employer] dictation software. It may contain incorrect words, spelling, and punctuation that were not noted in checking the note before signing.
== END 2019-06-30 23:59 ==
LOC: WC 11:45
PROVIDERS: Family Provider Family Medicine; PCP Family Medicine; Referring Provider Nurse Practitioner Family; Visit Provider Nurse Practitioner Family
DX: E11.622 Type 2 diabetes mellitus with other skin ulcer (principal); L89.153 Pressure ulcer of sacral region, stage 3; M31.7 Microscopic polyangiitis; E46 Unspecified protein-calorie malnutrition; Z68.1 Body mass index [BMI] 19.9 or less, adult
CPT/HCPCS: 11042; 97605

== ENCOUNTER 2019-07-25 08:30 | Outpatient (RCR) | payer MEDICARE, SELFPAY ==
[2019-07-01 00:49] VITALS: BP 127/69; PULSE 84; RESP 16; TEMP 36.8
[2019-07-04 11:39] VITALS: BP 130/71; PULSE 91; RESP 16; TEMP 37.6; BMI 16.9
[2019-07-11 12:36] VITALS: BP 135/76; PULSE 91; RESP 16; TEMP 37.5; BMI 16.9
--- NOTE | 2019-07-11 17:57 | PCM.WC.PN ---
(1) Pressure injury of sacral region, stage 3 Status: Chronic Current Visit: Yes Code(s): L89.153 - Pressure ulcer of sacral region, stage 3 (2) Debility Status: Acute Current Visit: Yes Code(s): R53.81 - Other malaise (3) Wegeners granulomatosis Status: Chronic Current Visit: No Code(s): M31.30 - Jeannette's granulomatosis without renal involvement Type of Wound Date of Service: 07/11/19 Chief Complaint: Sacral pressure sore. History of Wound: Mr. Bowles is a 73-year-old being managed for a right-sided sacral ulcer. Also history of microscopic polyangiitis on mycophenolate. Mal-nourished with a BMI of 16.9. Has been applying Promogran to also with modest improvement. No significant drainage per His . They report compliance with dressing instructions. He feels well otherwise, denies chills, fever, nausea, vomiting or change in his bowel habit. Progress of Wound: Worsening ulceration. Still having concerns with the wound VAC. - Physical Exam Vital Signs Temp Pulse Resp BP 99.5 F H 91 16 135/76 H 07/11/19 12:36 07/11/19 12:36 07/11/19 12:36 07/11/19 12:36 General: Alert, Oriented x3, Cooperative, No apparent distress HEENT: Atraumatic, Normocephalic Oral: Moist Mucosa Neck: Supple Lungs: Normal air movement Abdomen: Non Tender Extremities: No cyanosis Wound Measurements and Assessment WC - Nurse 1 - General Ulcer Measurement Start: 07/04/19 11:39 Freq: Status: Active Protocol: Activity Type Activity Date Activity User E-Sign Co-Sign Detail Recorded Client Recorded Date Recorded By Document 07/11/19 12:36 [id number] 07/11/19 12:42 07/11/19 12:36 Wound Center Nurse 1 [Ulcer Assessment] 2. coccyx -Combined with other wound No -Current Size (cm) - Length 1.5 -Current Size (cm) - Width 1 -Current Size (cm) - Depth 1.1 -Total Square Cm 1.5 -Photo Taken No -Epithelialization None Present -Undermining/Tunneling Yes -Undermining/Tunneling Starts (O' 12 clock) -Undermining/Tunneling Ends (O'clock) 5 -Maximum Distance (cm) 1.8 -Circular Undermining No -Classification - Thickness Partial Thickness -Classification - Pressure Ulcer Stage 3 -Exudate Amt Small -Exudate Type Serosanguineous -Wound Margin Well Defined, Not Attached -Granulation Amt Large (67-100%) -Granulation Quality Red -Slough/Fibrin Yes -Necrosis Amt Small (1-33%) -Necrotic Tissue Type Adherent Slough -Structure Exposed None/Limited to Skin Breakdown -Texture (Leigh-wound Skin Appearance) Assessed -Moisture (Leigh-wound Skin Appearance Assessed, ) Maceration -Color (Leigh-wound Skin Appearance) Assessed,Palor -Temperature (Leigh-wound Skin No Abnormality Appearance) (Pt Warm) -Tenderness on Palpation (Leigh-wound No Skin Appearance) -Ulcer Cleansing Wound Cleanser -Foul Odor after Cleansing Yes -Anesthetic Used 4% Lidocaine Solution [Edema Assessment] -Lower Limb Edema Present NA WC - Nurse 2 - General Ulcer CM Notes Start: 07/04/19 11:39 Freq: Status: Active Protocol: Activity Type Activity Date Activity User E-Sign Co-Sign Detail Recorded Client Recorded Date Recorded By Document 07/11/19 12:58 MW [id number] 07/11/19 13:02 MW 07/11/19 12:58 Wound Center Nurse 2 [Procedure/Treatment] 2. coccyx -Time 12:58 -Correct Patient Yes -Correct Side, Site, Position Yes -Correct Procedure Yes -Procedure Performed Yes -Type of Procedure Debridement -Clinical Debridement Subcutaneous -Post Debridement Size (cm) - Length 1.0 -Post Debridement Size (cm) - Width 1.0 -Post Debridement Size (cm) - Depth 0.8 -Total Square Cm 1.00 -Wound/Ulcer Outcome Not Healed -Ulcer Cleansing Rinsed/ Irrigated with Saline -Foul Odor after Cleansing No -Bioengineered Tissue No -Bleeding Controlled with Pressure -Offloading No -Treatment Response Procedure Tolerated Well [See Physician Procedure note for Specifics] Pain Scale: 0-10 Numeric [Pain] -Is Patient Pain Free? Yes Neurological: Cranial nerves II-XII grossly intact Psych/Mental Status: Normal Affect Debridement Note Post-Debridement Measurements/Treatment WC - Nurse 2 - General Ulcer CM Notes Start: 07/04/19 11:39 Freq: Status: Active Protocol: Activity Type Activity Date Activity User E-Sign Co-Sign Detail Recorded Client Recorded Date Recorded By Document 07/11/19 12:58 MW [id number] 07/11/19 13:02 MW 07/11/19 12:58 Wound Center Nurse 2 2. coccyx -Time 12:58 -Correct Patient Yes -Correct Side, Site, Position Yes -Correct Procedure Yes -Procedure Performed Yes -Type of Procedure Debridement -Clinical Debridement Subcutaneous -Post Debridement Size (cm) - Length 1.0 -Post Debridement Size (cm) - Width 1.0 -Post Debridement Size (cm) - Depth 0.8 -Total Square Cm 1.00 -Wound/Ulcer Outcome Not Healed -Ulcer Cleansing Rinsed/ Irrigated with Saline -Foul Odor after Cleansing No -Bioengineered Tissue No -Bleeding Controlled with Pressure -Offloading No -Treatment Response Procedure Tolerated Well Pain Scale: 0-10 Numeric Is Patient Pain Free? Yes Wound debrided: Sacral Wound Grade/Stage: Stage III Type of Debridement: Excisional debridement Anesthesia Used: 4% Lidocaine Solution Depth: Down to and including healthy tissue, in the subcutaneous layer Percentage of wound debrided: 100 Instrument Used: 3mm curette Tissue Removed: Slough and devitalized tissue Severity: Fat Layer Exposed Amount of bleeding with debridement: Mild Bleeding Controlled with: Pressure Patient tolerated procedure well Assessment/Plan Active Problems Pressure injury of sacral region, stage 3 (Chronic) Debility (Acute) Assessment: 1. Sacral pressure sore, Stage 3. 2. Malnutrition Plan: Worsening noted. They have had concerns with the VAC. Debridement done as documented above, procedure was well-tolerated. We will hold off back since no significant improvement. Switch to Aquacel extra daily with OptiForm over top. Change daily to twice daily as needed. Offloading strongly recommended. Increase protein and calorie intake. His questions were answered and was advised to call with any further questions or concerns. Follow-up in a week. This note was generated with [employer] dictation software. It may contain incorrect words, spelling, and punctuation that were not noted in checking the note before signing.
[2019-07-18 09:46] VITALS: BP 119/68; PULSE 90; RESP 16; TEMP 36.9; BMI 16.9
--- NOTE | 2019-07-18 10:20 | PN.PCM_ITS ---
(1) Pressure injury of sacral region, stage 3 Status: Chronic Current Visit: Yes Code(s): L89.153 - Pressure ulcer of sacral region, stage 3 (2) Debility Status: Acute Current Visit: Yes Code(s): R53.81 - Other malaise (3) Wegeners granulomatosis Status: Chronic Current Visit: No Code(s): M31.30 - Jeannette's granulomatosis without renal involvement Type of Wound Date of Service: 07/18/19 Chief Complaint: Sacral pressure sore. History of Wound: Mr. Bowles is a 73-year-old being managed for a right-sided sacral ulcer. Also history of microscopic polyangiitis on mycophenolate. Mal- nourished with a BMI of 16.9. Has been applying Promogran to also with modest improvement. No significant drainage per His . They report compliance with dressing instructions. He feels well otherwise, denies chills, fever, nausea, vomiting or change in his bowel habit. Progress of Wound: Stable. No new changes. Has had 1 week of Vac holiday. - Physical Exam Vital Signs Temp Pulse Resp BP 98.4 F 90 16 119/68 07/18/19 09:46 07/18/19 09:46 07/18/19 09:46 07/18/19 09:46 General: Alert, Oriented x3, Cooperative, No apparent distress HEENT: Atraumatic, Normocephalic Oral: Moist Mucosa Neck: Supple Lungs: Normal air movement Extremities: No cyanosis Skin: Ulcer/ Wound Wound Measurements and Assessment WC - Nurse 1 - General Ulcer Measurement Start: 07/04/19 11:39 Freq: Status: Active Protocol: Activity Type Activity Date Activity User E-Sign Co-Sign Detail Recorded Client Recorded Date Recorded By Document 07/18/19 09:46 [facility] [id number] 07/18/19 09:51 [facility] 07/18/19 09:46 Wound Center Nurse 1 [Ulcer Assessment] 2. coccyx -Combined with other wound No -Current Size (cm) - Length 1.7 -Current Size (cm) - Width 1.4 -Current Size (cm) - Depth 0.6 -Total Square Cm 2.38 -Photo Taken No -Epithelialization None Present -Tunneling No -Undermining/Tunneling Yes -Undermining/Tunneling Starts (O' 11 clock) -Undermining/Tunneling Ends (O'clock) 4 -Maximum Distance (cm) 1.6 -Circular Undermining No -Exudate Amt Medium -Exudate Type Serous -Wound Margin Thickened -Granulation Amt Large (67-100%) -Granulation Quality Red -Slough/Fibrin Yes -Necrosis Amt Small (1-33%) -Necrotic Tissue Type Adherent Slough -Texture (Leigh-wound Skin Appearance) Assessed, Scarring -Moisture (Leigh-wound Skin Appearance Assessed, ) Maceration -Color (Leigh-wound Skin Appearance) Assessed, Erythema,Palor -Temperature (Leigh-wound Skin No Abnormality Appearance) (Pt Warm) -Tenderness on Palpation (Leigh-wound No Skin Appearance) -Ulcer Cleansing Rinsed/ Irrigated with Saline -Foul Odor after Cleansing No -Anesthetic Used 5% Lidocaine Gel WC - Nurse 2 - General Ulcer CM Notes Start: 07/04/19 11:39 Freq: Status: Active Protocol: Activity Type Activity Date Activity User E-Sign Co-Sign Detail Recorded Client Recorded Date Recorded By Document 07/18/19 10:08 MW [id number] 07/18/19 10:13 MW 07/18/19 10:08 Wound Center Nurse 2 [Procedure/Treatment] -Time 10:08 -Correct Patient Yes -Correct Side, Site, Position Yes -Correct Procedure Yes -Procedure Performed Yes -Type of Procedure Debridement -Clinical Debridement Subcutaneous -Post Debridement Size (cm) - Length 1.0 -Post Debridement Size (cm) - Width 1.0 -Post Debridement Size (cm) - Depth 1.1 -Total Square Cm 1.00 -Wound/Ulcer Outcome Not Healed -Ulcer Cleansing Rinsed/ Irrigated with Saline -Foul Odor after Cleansing No -Bioengineered Tissue No -Bleeding Controlled with Pressure -Other undermining @2, 1.9cm -Offloading No -Treatment Response Procedure Tolerated Well [See Physician Procedure note for Specifics] Pain Scale: 0-10 Numeric [Pain] -Is Patient Pain Free? Yes Neurological: Cranial nerves II-XII grossly intact Psych/Mental Status: Normal Affect Debridement Note Post-Debridement Measurements/Treatment WC - Nurse 2 - General Ulcer CM Notes Start: 07/04/19 11:39 Freq: Status: Active Protocol: Activity Type Activity Date Activity User E-Sign Co-Sign Detail Recorded Client Recorded Date Recorded By Document 07/11/19 12:58 MW [id number] 07/11/19 13:02 MW Document 07/18/19 10:08 MW [id number] 07/18/19 10:13 MW 07/11/19 07/18/19 12:58 10:08 Wound Center Nurse 2 2. coccyx -Time 12:58 10:08 -Correct Patient Yes Yes -Correct Side, Site, Position Yes Yes -Correct Procedure Yes Yes -Procedure Performed Yes Yes -Type of Procedure Debridement Debridement -Clinical Debridement Subcutaneous Subcutaneous -Post Debridement Size (cm) - Length 1.0 1.0 -Post Debridement Size (cm) - Width 1.0 1.0 -Post Debridement Size (cm) - Depth 0.8 1.1 -Total Square Cm 1.00 1.00 -Wound/Ulcer Outcome Not Healed Not Healed -Ulcer Cleansing Rinsed/ Rinsed/ Irrigated with Irrigated with Saline Saline -Foul Odor after Cleansing No No -Bioengineered Tissue No No -Bleeding Controlled with Pressure Pressure -Other undermining @2, 1.9cm -Offloading No No -Treatment Response Procedure Procedure Tolerated Well Tolerated Well Pain Scale: 0-10 Numeric Is Patient Pain Free? Yes Yes Wound debrided: Sacral Wound Grade/Stage: Stage III Type of Debridement: Excisional debridement Anesthesia Used: 4% Lidocaine Solution Depth: Down to and including healthy tissue, in the subcutaneous layer Percentage of wound debrided: 100 Instrument Used: 3mm curette Tissue Removed: Slough and devitalized tissue Severity: Fat Layer Exposed Amount of bleeding with debridement: Mild Bleeding Controlled with: Pressure Patient tolerated procedure well Assessment/Plan Active Problems Pressure injury of sacral region, stage 3 (Chronic) Debility (Acute) Assessment: 1. Sacral pressure sore, Stage 3. 2. Malnutrition Plan: Stable. No new concerns at this time. Debridement done as documented above, procedure was well-tolerated. DC Vac. They have too many issues with it. Continue Aquacel extra daily with OptiForm over top. Change daily to twice daily as needed. Offloading strongly recommended. Increase protein and calorie intake. His questions were answered and was advised to call with any further questions or concerns. Follow-up in a week. This note was generated with [employer] software. It may contain incorrect words, spelling, and punctuation that were not noted in checking the note before signing.
[2019-07-25 08:30] VITALS: BP 132/82; PULSE 95; RESP 18; TEMP 36.7; BMI 16.9
--- NOTE | 2019-07-25 09:31 | PN.PCM_ITS ---
(1) Pressure injury of sacral region, stage 3 Status: Chronic Current Visit: Yes Code(s): L89.153 - Pressure ulcer of sacral region, stage 3 (2) Debility Status: Acute Current Visit: Yes Code(s): R53.81 - Other malaise (3) Wegeners granulomatosis Status: Chronic Current Visit: No Code(s): M31.30 - Jeannette's granulomatosis without renal involvement Type of Wound Date of Service: 07/25/19 Chief Complaint: Sacral pressure sore. History of Wound: Mr. Bowles is a 73-year-old being managed for a right-sided sacral ulcer. Also history of microscopic polyangiitis on mycophenolate. Mal- nourished with a BMI of 16.9. Has been applying Promogran to also with modest improvement. No significant drainage per His . They report compliance with dressing instructions. He feels well otherwise, denies chills, fever, nausea, vomiting or change in his bowel habit. Progress of Wound: Stable. No new concerns at this time. - Physical Exam Vital Signs Temp Pulse Resp BP 98.0 F 95 18 132/82 H 07/25/19 08:30 07/25/19 08:30 07/25/19 08:30 07/25/19 08:30 General: Alert, Oriented x3, Cooperative, No apparent distress HEENT: Atraumatic, Normocephalic Oral: Moist Mucosa Neck: Supple Lungs: Normal air movement Extremities: No cyanosis Skin: Ulcer/ Wound Wound Measurements and Assessment WC - Nurse 1 - General Ulcer Measurement Start: 07/04/19 11:39 Freq: Status: Active Protocol: Activity Type Activity Date Activity User E-Sign Co-Sign Detail Recorded Client Recorded Date Recorded By Document 07/25/19 08:30 MW [id number] 07/25/19 08:34 MW 07/25/19 08:30 Wound Center Nurse 1 [Ulcer Assessment] 2. coccyx -Combined with other wound No -Current Size (cm) - Length 1.6 -Current Size (cm) - Width 1.4 -Current Size (cm) - Depth 0.5 -Total Square Cm 2.24 -Photo Taken No -Epithelialization None Present -Tunneling No -Undermining/Tunneling No -Circular Undermining No -Exudate Amt Medium -Exudate Type Serosanguineous -Wound Margin Thickened -Granulation Amt Medium (34-66%) -Granulation Quality [place] -Slough/Fibrin Yes -Necrosis Amt Small (1-33%) -Necrotic Tissue Type Adherent Slough -Structure Exposed N/A -Texture (Leigh-wound Skin Appearance) Assessed, Scarring -Moisture (Leigh-wound Skin Appearance Assessed, ) Maceration -Color (Leigh-wound Skin Appearance) No Abnormality, Assessed -Temperature (Leigh-wound Skin No Abnormality Appearance) (Pt Warm) -Tenderness on Palpation (Leigh-wound No Skin Appearance) -Ulcer Cleansing soap and water -Foul Odor after Cleansing No -Anesthetic Used 5% Lidocaine Gel [Edema Assessment] -Lower Limb Edema Present No WC - Nurse 2 - General Ulcer CM Notes Start: 07/04/19 11:39 Freq: Status: Active Protocol: Activity Type Activity Date Activity User E-Sign Co-Sign Detail Recorded Client Recorded Date Recorded By Document 07/25/19 08:35 MW [id number] 07/25/19 08:44 MW 07/25/19 08:35 Wound Center Nurse 2 [Procedure/Treatment] 2. coccyx -Time 08:37 -Correct Patient Yes -Correct Side, Site, Position Yes -Correct Procedure Yes -Procedure Performed Yes -Type of Procedure Debridement -Clinical Debridement Subcutaneous -Post Debridement Size (cm) - Length 1.1 -Post Debridement Size (cm) - Width 1.1 -Post Debridement Size (cm) - Depth 1.1 -Total Square Cm 1.21 -Wound/Ulcer Outcome Not Healed -Ulcer Cleansing Rinsed/ Irrigated with Saline -Foul Odor after Cleansing No -Bioengineered Tissue No -Bleeding Controlled with Pressure -Other undermining @ 2 , 1.3 cm -Offloading No -Treatment Response Procedure Tolerated Well [See Physician Procedure note for Specifics] Pain Scale: 0-10 Numeric [Pain] -Is Patient Pain Free? Yes Neurological: Cranial nerves II-XII grossly intact Psych/Mental Status: Normal Affect Debridement Note Post-Debridement Measurements/Treatment WC - Nurse 2 - General Ulcer CM Notes Start: 07/04/19 11:39 Freq: Status: Active Protocol: Activity Type Activity Date Activity User E-Sign Co-Sign Detail Recorded Client Recorded Date Recorded By Document 07/11/19 12:58 MW [id number] 07/11/19 13:02 MW Document 07/18/19 10:08 MW [id number] 07/18/19 10:13 MW Document 07/25/19 08:35 MW [id number] 07/25/19 08:44 MW 07/11/19 07/18/19 07/25/19 12:58 10:08 08:35 Wound Center Nurse 2 2. coccyx -Time 12:58 10:08 08:37 -Correct Patient Yes Yes Yes -Correct Side, Site, Position Yes Yes Yes -Correct Procedure Yes Yes Yes -Procedure Performed Yes Yes Yes -Type of Procedure Debridement Debridement Debridement -Clinical Debridement Subcutaneous Subcutaneous Subcutaneous -Post Debridement Size (cm) - Length 1.0 1.0 1.1 -Post Debridement Size (cm) - Width 1.0 1.0 1.1 -Post Debridement Size (cm) - Depth 0.8 1.1 1.1 -Total Square Cm 1.00 1.00 1.21 -Wound/Ulcer Outcome Not Healed Not Healed Not Healed -Ulcer Cleansing Rinsed/ Rinsed/ Rinsed/ Irrigated with Irrigated with Irrigated with Saline Saline Saline -Foul Odor after Cleansing No No No -Bioengineered Tissue No No No -Bleeding Controlled with Pressure Pressure Pressure -Other undermining @2, undermining @ 2 1.9cm , 1.3 cm -Offloading No No No -Treatment Response Procedure Procedure Procedure Tolerated Well Tolerated Well Tolerated Well Pain Scale: 0-10 Numeric Is Patient Pain Free? Yes Yes Yes Wound debrided: Sacral Wound Grade/Stage: Stage III Type of Debridement: Excisional debridement Anesthesia Used: 4% Lidocaine Solution Depth: Down to and including healthy tissue, in the subcutaneous layer Percentage of wound debrided: 100 Instrument Used: 3mm curette, 7mm curette Tissue Removed: Slough and devitalized tissue Severity: Fat Layer Exposed Amount of bleeding with debridement: Mild Bleeding Controlled with: Pressure Patient tolerated procedure well Assessment/Plan Active Problems Pressure injury of sacral region, stage 3 (Chronic) Debility (Acute) Assessment: 1. Sacral pressure sore, Stage 3. 2. Malnutrition Plan: Stable. Hypergranulation tissue. Debridement done as documented above, procedure was well-tolerated. DC Vac. Continue Aquacel extra daily with OptiForm over top. Change daily to twice daily as needed. Offloading strongly recommended. Increase protein and calorie intake. His questions were answered and was advised to call with any further questions or concerns. Follow-up in 2 weeks. This note was generated with [employer] software. It may contain incorrect words, spelling, and punctuation that were not noted in checking the note before signing.
== END 2019-07-30 23:59 ==
LOC: WC 08:30
PROVIDERS: Family Provider Family Medicine; PCP Family Medicine; Referring Provider Nurse Practitioner Family; Visit Provider Internal Medicine
DX: L89.153 Pressure ulcer of sacral region, stage 3 (principal); M31.30 Wegener's granulomatosis without renal involvement; E46 Unspecified protein-calorie malnutrition; Z68.1 Body mass index [BMI] 19.9 or less, adult
CPT/HCPCS: 11042; 97605; 99212; G0463

== ENCOUNTER 2019-08-30 09:00 | Outpatient (RCR) | payer MEDICARE, SELFPAY ==
[2019-07-31 00:46] VITALS: BP 132/82; PULSE 95; RESP 18; TEMP 36.7
[2019-08-02 08:29] VITALS: BP 125/73; PULSE 96; RESP 16; TEMP 37.2; BMI 16.9
--- NOTE | 2019-08-02 09:02 | PN.PCM_ITS ---
(1) Pressure injury of sacral region, stage 3 Status: Chronic Current Visit: Yes Code(s): L89.153 - Pressure ulcer of sacral region, stage 3 (2) Debility Status: Acute Current Visit: Yes Code(s): R53.81 - Other malaise (3) Microscopic polyangiitis Status: Acute Current Visit: Yes Code(s): M31.7 - Microscopic polyangiitis (4) Autoimmune disorder Status: Chronic Current Visit: Yes Code(s): D89.89 - Other specified disorders involving the immune mechanism, not elsewhere classified Type of Wound Date of Service: 08/02/19 Chief Complaint: Sacral pressure sore. History of Wound: Mr. Bowles is a 73-year-old being managed for a right-sided sacral ulcer. Also history of microscopic polyangiitis on mycophenolate. Mal- nourished with a BMI of 16.9. Has been applying Promogran to also with modest improvement. No significant drainage per His . They report compliance with dressing instructions. He feels well otherwise, denies chills, fever, nausea, vomiting or change in his bowel habit. Progress of Wound: Worsening circumference, improving depth. Currently on cephalexin for possible pneumonia. His also states that his appetite has been poor lately. - Physical Exam Vital Signs Temp Pulse Resp BP 98.9 F 96 16 125/73 H 08/02/19 08:29 08/02/19 08:29 08/02/19 08:29 08/02/19 08:29 General: Alert, Oriented x3, Cooperative, No apparent distress HEENT: Atraumatic, Normocephalic Oral: Moist Mucosa Neck: Supple Lungs: Normal air movement Extremities: No cyanosis Skin: Ulcer/ Wound Wound Measurements and Assessment WC - Nurse 1 - General Ulcer Measurement Start: 08/02/19 08:29 Freq: Status: Active Protocol: Activity Type Activity Date Activity User E-Sign Co-Sign Detail Recorded Client Recorded Date Recorded By Document 08/02/19 08:29 MW [id number] 08/02/19 08:31 MW 08/02/19 08:29 Wound Center Nurse 1 [Ulcer Assessment] 2. coccyx -Combined with other wound No -Current Size (cm) - Length 1.4 -Current Size (cm) - Width 1.4 -Current Size (cm) - Depth 0.6 -Total Square Cm 1.96 -Photo Taken No -Epithelialization None Present -Tunneling No -Undermining/Tunneling No -Circular Undermining No -Exudate Amt Large -Exudate Type Serous -Wound Margin Thickened -Granulation Amt Large (67-100%) -Granulation Quality [place] -Slough/Fibrin Yes -Necrosis Amt Small (1-33%) -Necrotic Tissue Type Adherent Slough -Structure Exposed N/A -Texture (Leigh-wound Skin Appearance) Assessed, Scarring -Moisture (Leigh-wound Skin Appearance Assessed, ) Maceration -Color (Leigh-wound Skin Appearance) No Abnormality, Assessed -Temperature (Leigh-wound Skin No Abnormality Appearance) (Pt Warm) -Tenderness on Palpation (Leigh-wound Yes Skin Appearance) -Ulcer Cleansing Rinsed/ Irrigated with Saline -Foul Odor after Cleansing No -Anesthetic Used 4% Lidocaine Solution [Edema Assessment] -Lower Limb Edema Present No WC - Nurse 2 - General Ulcer CM Notes Start: 08/02/19 08:29 Freq: Status: Active Protocol: Activity Type Activity Date Activity User E-Sign Co-Sign Detail Recorded Client Recorded Date Recorded By Document 08/02/19 08:53 MW [id number] 08/02/19 08:57 MW 08/02/19 08:53 Wound Center Nurse 2 [Procedure/Treatment] 2. coccyx -Time 08:54 -Correct Patient Yes -Correct Side, Site, Position Yes -Correct Procedure Yes -Procedure Performed Yes -Type of Procedure Debridement -Clinical Debridement Subcutaneous -Post Debridement Size (cm) - Length 1.5 -Post Debridement Size (cm) - Width 1.5 -Post Debridement Size (cm) - Depth 0.8 -Total Square Cm 2.25 -Wound/Ulcer Outcome Not Healed -Ulcer Cleansing Rinsed/ Irrigated with Saline -Foul Odor after Cleansing No -Bioengineered Tissue No -Bleeding Controlled with Pressure -Offloading No -Treatment Response Procedure Tolerated Well [See Physician Procedure note for Specifics] Pain Scale: 0-10 Numeric [Pain] -Is Patient Pain Free? Yes Neurological: Cranial nerves II-XII grossly intact Debridement Note Post-Debridement Measurements/Treatment WC - Nurse 2 - General Ulcer CM Notes Start: 08/02/19 08:29 Freq: Status: Active Protocol: Activity Type Activity Date Activity User E-Sign Co-Sign Detail Recorded Client Recorded Date Recorded By Document 08/02/19 08:53 MW [id number] 08/02/19 08:57 MW 08/02/19 08:53 Wound Center Nurse 2 2. coccyx -Time 08:54 -Correct Patient Yes -Correct Side, Site, Position Yes -Correct Procedure Yes -Procedure Performed Yes -Type of Procedure Debridement -Clinical Debridement Subcutaneous -Post Debridement Size (cm) - Length 1.5 -Post Debridement Size (cm) - Width 1.5 -Post Debridement Size (cm) - Depth 0.8 -Total Square Cm 2.25 -Wound/Ulcer Outcome Not Healed -Ulcer Cleansing Rinsed/ Irrigated with Saline -Foul Odor after Cleansing No -Bioengineered Tissue No -Bleeding Controlled with Pressure -Offloading No -Treatment Response Procedure Tolerated Well Pain Scale: 0-10 Numeric Is Patient Pain Free? Yes Wound debrided: Sacral Wound Grade/Stage: Stage III Type of Debridement: Excisional debridement Anesthesia Used: 4% Lidocaine Solution Depth: Down to and including healthy tissue, in the subcutaneous layer Instrument Used: 3mm curette Tissue Removed: Slough and devitalized tissue Severity: Fat Layer Exposed Amount of bleeding with debridement: Mild Bleeding Controlled with: Pressure Patient tolerated procedure well Assessment/Plan Active Problems Autoimmune disorder (Chronic) Pressure injury of sacral region, stage 3 (Chronic) Microscopic polyangiitis (Acute) Debility (Acute) Assessment: 1. Sacral pressure sore, Stage 3. 2. Malnutrition Plan: Improving depth, increase in circumference. His states that patient does sit a lot. Getting a new cushion for him. Debridement done as documented above, procedure was well-tolerated. Continue Aquacel extra daily with OptiForm over top. Change daily to twice daily as needed. Offloading again strongly recommended. Increase protein and calorie intake. Take Andrae 2-3 times daily. His questions were answered and was advised to call with any further questions or concerns. Follow-up in 1 week. This note was generated with [employer] dictation software. It may contain incorrect words, spelling, and punctuation that were not noted in checking the note before signing.
[2019-08-08 08:22] VITALS: BP 121/86; PULSE 95; RESP 18; TEMP 36.1; BMI 16.9
--- NOTE | 2019-08-08 08:47 | PCM.WC.PN ---
(1) Pressure injury of sacral region, stage 3 Status: Chronic Current Visit: Yes Code(s): L89.153 - Pressure ulcer of sacral region, stage 3 (2) Debility Status: Acute Current Visit: Yes Code(s): R53.81 - Other malaise (3) Microscopic polyangiitis Status: Acute Current Visit: Yes Code(s): M31.7 - Microscopic polyangiitis (4) Autoimmune disorder Status: Chronic Current Visit: Yes Code(s): D89.89 - Other specified disorders involving the immune mechanism, not elsewhere classified Type of Wound Date of Service: 08/08/19 Chief Complaint: Sacral pressure sore. History of Wound: Mr. Bowles is a 73-year-old being managed for a right-sided sacral ulcer. Also history of microscopic polyangiitis on mycophenolate. Mal-nourished with a BMI of 16.9. Has been applying Promogran to also with modest improvement. No significant drainage per His . They report compliance with dressing instructions. He feels well otherwise, denies chills, fever, nausea, vomiting or change in his bowel habit. Progress of Wound: Stable. No new concerns at this time. - Physical Exam Vital Signs Temp Pulse Resp BP 97 F L 95 18 121/86 H 08/08/19 08:22 08/08/19 08:22 08/08/19 08:22 08/08/19 08:22 General: Alert, Oriented x3, Cooperative, No apparent distress HEENT: Atraumatic, Normocephalic Oral: Moist Mucosa Neck: Supple Lungs: Normal air movement Extremities: No cyanosis Wound Measurements and Assessment WC - Nurse 1 - General Ulcer Measurement Start: 08/02/19 08:29 Freq: Status: Active Protocol: Activity Type Activity Date Activity User E-Sign Co-Sign Detail Recorded Client Recorded Date Recorded By Document 08/08/19 08:22 DL [id number] 08/08/19 08:24 DL 08/08/19 08:22 Wound Center Nurse 1 [Ulcer Assessment] 2. coccyx -Current Size (cm) - Length 1.5 -Current Size (cm) - Width 1.3 -Current Size (cm) - Depth 0.7 -Total Square Cm 1.95 -Photo Taken No -Maximum Distance #2 (cm) 1.5 -Circular Undermining Yes -Exudate Amt Medium -Exudate Type Yellow/Green -Wound Margin Distinct, Outline Attached -Granulation Amt Large (67-100%) -Granulation Quality [place],Red -Necrosis Amt Small (1-33%) -Necrotic Tissue Type Adherent Slough -Structure Exposed N/A -Texture (Leigh-wound Skin Appearance) Scarring -Moisture (Leigh-wound Skin Appearance No Abnormality ) -Color (Leigh-wound Skin Appearance) No Abnormality -Temperature (Leigh-wound Skin No Abnormality Appearance) (Pt Warm) -Tenderness on Palpation (Leigh-wound No Skin Appearance) -Ulcer Cleansing Rinsed/ Irrigated with Saline -Foul Odor after Cleansing No -Anesthetic Used 5% Lidocaine Gel WC - Nurse 2 - General Ulcer CM Notes Start: 08/02/19 08:29 Freq: Status: Active Protocol: Activity Type Activity Date Activity User E-Sign Co-Sign Detail Recorded Client Recorded Date Recorded By Document 08/08/19 08:33 MW [id number] 08/08/19 08:36 MW 08/08/19 08:33 Wound Center Nurse 2 [Procedure/Treatment] -Time 08:34 -Correct Patient Yes -Correct Side, Site, Position Yes -Correct Procedure Yes -Procedure Performed Yes -Type of Procedure Debridement -Clinical Debridement Subcutaneous -Post Debridement Size (cm) - Length 1.2 -Post Debridement Size (cm) - Width 1.5 -Post Debridement Size (cm) - Depth 0.4 -Total Square Cm 1.80 -Wound/Ulcer Outcome Not Healed -Ulcer Cleansing Rinsed/ Irrigated with Saline -Foul Odor after Cleansing No -Bioengineered Tissue No -Bleeding Controlled with Pressure -Offloading No -Treatment Response Procedure Tolerated Well [See Physician Procedure note for Specifics] Pain Scale: 0-10 Numeric [Pain] -Is Patient Pain Free? Yes Neurological: Cranial nerves II-XII grossly intact Psych/Mental Status: Normal Affect Debridement Note Post-Debridement Measurements/Treatment WC - Nurse 2 - General Ulcer CM Notes Start: 08/02/19 08:29 Freq: Status: Active Protocol: Activity Type Activity Date Activity User E-Sign Co-Sign Detail Recorded Client Recorded Date Recorded By Document 08/02/19 08:53 MW [id number] 08/02/19 08:57 MW Document 08/08/19 08:33 MW [id number] 08/08/19 08:36 MW 08/02/19 08/08/19 08:53 08:33 Wound Center Nurse 2 2. coccyx -Time 08:54 08:34 -Correct Patient Yes Yes -Correct Side, Site, Position Yes Yes -Correct Procedure Yes Yes -Procedure Performed Yes Yes -Type of Procedure Debridement Debridement -Clinical Debridement Subcutaneous Subcutaneous -Post Debridement Size (cm) - Length 1.5 1.2 -Post Debridement Size (cm) - Width 1.5 1.5 -Post Debridement Size (cm) - Depth 0.8 0.4 -Total Square Cm 2.25 1.80 -Wound/Ulcer Outcome Not Healed Not Healed -Ulcer Cleansing Rinsed/ Rinsed/ Irrigated with Irrigated with Saline Saline -Foul Odor after Cleansing No No -Bioengineered Tissue No No -Bleeding Controlled with Pressure Pressure -Offloading No No -Treatment Response Procedure Procedure Tolerated Well Tolerated Well Pain Scale: 0-10 Numeric Is Patient Pain Free? Yes Yes Wound debrided: Saceal ulcer Wound Grade/Stage: Stage III Type of Debridement: Excisional debridement Anesthesia Used: 4% Lidocaine Solution Depth: Down to and including healthy tissue, in the subcutaneous layer Percentage of wound debrided: 100 Instrument Used: 5mm curette Tissue Removed: Slough and devitalized tissue Severity: Fat Layer Exposed Amount of bleeding with debridement: Mild Bleeding Controlled with: Pressure Patient tolerated procedure well Assessment/Plan Active Problems Autoimmune disorder (Chronic) Pressure injury of sacral region, stage 3 (Chronic) Microscopic polyangiitis (Acute) Debility (Acute) Assessment: 1. Sacral pressure ulcer, Stage 3. 2. Malnutrition Plan: Stable. Debridement done as documented above, procedure was well-tolerated. Continue Aquacel extra daily with OptiForm over top. Change daily to twice daily as needed. Offloading strongly recommended. Increase protein and calorie intake. Take Andrae 2-3 times daily. His questions were answered and was advised to call with any further questions or concerns. Follow-up in 1 week. This note was generated with [employer] software. It may contain incorrect words, spelling, and punctuation that were not noted in checking the note before signing.
[2019-08-15 09:09] VITALS: BP 121/68; PULSE 68; RESP 18; TEMP 37.3; BMI 16.9
--- NOTE | 2019-08-15 09:44 | PN.PCM_ITS ---
(1) Pressure injury of sacral region, stage 3 Status: Chronic Current Visit: Yes Code(s): L89.153 - Pressure ulcer of sacral region, stage 3 (2) Debility Status: Acute Current Visit: Yes Code(s): R53.81 - Other malaise (3) Microscopic polyangiitis Status: Acute Current Visit: Yes Code(s): M31.7 - Microscopic polyangiitis (4) Autoimmune disorder Status: Chronic Current Visit: Yes Code(s): D89.89 - Other specified disorders involving the immune mechanism, not elsewhere classified Type of Wound Date of Service: 08/15/19 Chief Complaint: Sacral pressure sore. History of Wound: Mr. Bowles is a 73-year-old being managed for a right-sided sacral ulcer. Also history of microscopic polyangiitis on mycophenolate. Mal- nourished with a BMI of 16.9. Has been applying Promogran to also with modest improvement. No significant drainage per His . They report compliance with dressing instructions. He feels well otherwise, denies chills, fever, nausea, vomiting or change in his bowel habit. Progress of Wound: Stable. No new concerns at this time. - Physical Exam Vital Signs Temp Pulse Resp BP 99.1 F 68 18 121/68 H 08/15/19 09:09 08/15/19 09:09 08/15/19 09:09 08/15/19 09:09 General: Alert, Oriented x3, Cooperative, No apparent distress HEENT: Atraumatic, Normocephalic Oral: Moist Mucosa Neck: Supple Extremities: No cyanosis Skin: Ulcer/ Wound Wound Measurements and Assessment WC - Nurse 1 - General Ulcer Measurement Start: 08/02/19 08:29 Freq: Status: Active Protocol: Activity Type Activity Date Activity User E-Sign Co-Sign Detail Recorded Client Recorded Date Recorded By Document 08/15/19 09:09 MW [id number] 08/15/19 09:13 MW 08/15/19 09:09 Wound Center Nurse 1 [Ulcer Assessment] 2. coccyx -Combined with other wound No -Current Size (cm) - Length 1.8 -Current Size (cm) - Width 1.2 -Current Size (cm) - Depth 0.5 -Total Square Cm 2.16 -Photo Taken No -Epithelialization None Present -Tunneling No -Undermining/Tunneling No -Circular Undermining Yes -Exudate Amt Medium -Exudate Type Serosanguineous -Wound Margin Distinct, Outline Attached -Granulation Amt Large (67-100%) -Granulation Quality Pale -Slough/Fibrin Yes -Necrosis Amt None Present (0 %) -Structure Exposed None/Limited to Skin Breakdown -Moisture (Leigh-wound Skin Appearance Maceration ) -Color (Leigh-wound Skin Appearance) No Abnormality, Assessed -Temperature (Leigh-wound Skin No Abnormality Appearance) (Pt Warm) -Tenderness on Palpation (Leigh-wound No Skin Appearance) -Ulcer Cleansing Rinsed/ Irrigated with Saline -Foul Odor after Cleansing No -Anesthetic Used 5% Lidocaine Gel [Edema Assessment] -Lower Limb Edema Present NA - Nurse 2 - General Ulcer CM Notes Start: 08/02/19 08:29 Freq: Status: Active Protocol: Activity Type Activity Date Activity User E-Sign Co-Sign Detail Recorded Client Recorded Date Recorded By Document 08/15/19 09:27 MW [id number] 08/15/19 09:32 MW 08/15/19 09:27 Wound Center Nurse 2 [Procedure/Treatment] 2. coccyx -Time 09:28 -Correct Patient Yes -Correct Side, Site, Position Yes -Correct Procedure Yes -Procedure Performed Yes -Type of Procedure Debridement -Clinical Debridement Subcutaneous -Post Debridement Size (cm) - Length 1.5 -Post Debridement Size (cm) - Width 1.0 -Post Debridement Size (cm) - Depth 0.7 -Total Square Cm 1.50 -Wound/Ulcer Outcome Not Healed -Ulcer Cleansing Rinsed/ Irrigated with Saline -Foul Odor after Cleansing No -Bioengineered Tissue No -Bleeding Controlled with Pressure -Offloading No -Treatment Response Procedure Tolerated Well [See Physician Procedure note for Specifics] Pain Scale: 0-10 Numeric [Pain] -Is Patient Pain Free? Yes Musculoskeletal: No Muscle Wasting Neurological: Cranial nerves II-XII grossly intact Psych/Mental Status: Normal Affect Debridement Note Post-Debridement Measurements/Treatment - Nurse 2 - General Ulcer CM Notes Start: 08/02/19 08:29 Freq: Status: Active Protocol: Activity Type Activity Date Activity User E-Sign Co-Sign Detail Recorded Client Recorded Date Recorded By Document 08/02/19 08:53 MW [id number] 08/02/19 08:57 MW Document 08/08/19 08:33 MW [id number] 08/08/19 08:36 MW Document 08/15/19 09:27 MW [id number] 08/15/19 09:32 MW 08/02/19 08/08/19 08/15/19 08:53 08:33 09:27 Wound Center Nurse 2 2. coccyx -Time 08:54 08:34 09:28 -Correct Patient Yes Yes Yes -Correct Side, Site, Position Yes Yes Yes -Correct Procedure Yes Yes Yes -Procedure Performed Yes Yes Yes -Type of Procedure Debridement Debridement Debridement -Clinical Debridement Subcutaneous Subcutaneous Subcutaneous -Post Debridement Size (cm) - Length 1.5 1.2 1.5 -Post Debridement Size (cm) - Width 1.5 1.5 1.0 -Post Debridement Size (cm) - Depth 0.8 0.4 0.7 -Total Square Cm 2.25 1.80 1.50 -Wound/Ulcer Outcome Not Healed Not Healed Not Healed -Ulcer Cleansing Rinsed/ Rinsed/ Rinsed/ Irrigated with Irrigated with Irrigated with Saline Saline Saline -Foul Odor after Cleansing No No No -Bioengineered Tissue No No No -Bleeding Controlled with Pressure Pressure Pressure -Offloading No No No -Treatment Response Procedure Procedure Procedure Tolerated Well Tolerated Well Tolerated Well Pain Scale: 0-10 Numeric Is Patient Pain Free? Yes Yes Yes Wound debrided: Sacral Wound Grade/Stage: Stage III Type of Debridement: Excisional debridement Anesthesia Used: 4% Lidocaine Solution Depth: Down to and including healthy tissue, in the subcutaneous layer Percentage of wound debrided: 100 Instrument Used: 5mm curette Tissue Removed: Slough and devitalized tissue Severity: Fat Layer Exposed Amount of bleeding with debridement: Mild Bleeding Controlled with: Pressure Patient tolerated procedure well Assessment/Plan Active Problems Autoimmune disorder (Chronic) Pressure injury of sacral region, stage 3 (Chronic) Microscopic polyangiitis (Acute) Debility (Acute) Assessment: 1. Sacral pressure ulcer, Stage 3. 2. Malnutrition Plan: Stable. Debridement done as documented above, procedure was well- tolerated. Continue Aquacel extra daily with OptiForm over top. Change daily to twice daily as needed. Offloading strongly recommended. Increase protein and calorie intake. Take Andrae 2-3 times daily. A skin subsituite is medically necessary at this time due to chronicity of ulcer and no significant change with traditional wound care products. His questions were answered and was he advised to call with any further questions or concerns. Follow-up in 1 week. T his note was generated with [employer] dictation software. It may contain incorrect words, spelling, and punctuation that were not noted in checking the note before signing.
[2019-08-30 08:55] VITALS: BP 103/58; PULSE 88; RESP 16; TEMP 36.7; BMI 16.9
--- NOTE | 2019-08-30 11:35 | PN.PCM_ITS ---
(1) Pressure injury of sacral region, stage 3 Status: Chronic Current Visit: Yes Code(s): L89.153 - Pressure ulcer of sacral region, stage 3 (2) Debility Status: Acute Current Visit: Yes Code(s): R53.81 - Other malaise (3) Microscopic polyangiitis Status: Acute Current Visit: Yes Code(s): M31.7 - Microscopic polyangiitis (4) Autoimmune disorder Status: Chronic Current Visit: Yes Code(s): D89.89 - Other specified disorders involving the immune mechanism, not elsewhere classified Type of Wound Date of Service: 08/30/19 Chief Complaint: Sacral pressure sore. History of Wound: Mr. Bowles is a 73-year-old being managed for a right-sided sacral ulcer. Also history of microscopic polyangiitis on mycophenolate. Mal- nourished with a BMI of 16.9. Has been applying Promogran to also with modest improvement. No significant drainage per His . They report compliance with dressing instructions. He feels well otherwise, denies chills, fever, nausea, vomiting or change in his bowel habit. Progress of Wound: He denies any new concerns at this time. He however states that his appetite has waned again. Now approved for Epifix. - Physical Exam Vital Signs Temp Pulse Resp BP 98.0 F 88 16 103/58 L 08/30/19 08:55 08/30/19 08:55 08/30/19 08:55 08/30/19 08:55 General: Alert, Oriented x3, Cooperative, No apparent distress HEENT: Atraumatic, Normocephalic Oral: Moist Mucosa Neck: Supple Lungs: Normal air movement Extremities: No cyanosis Skin: Ulcer/ Wound Wound Measurements and Assessment WC - Nurse 1 - General Ulcer Measurement Start: 08/02/19 08:29 Freq: Status: Active Protocol: Activity Type Activity Date Activity User E-Sign Co-Sign Detail Recorded Client Recorded Date Recorded By Document 08/30/19 08:55 [id number] 08/30/19 09:06 BS 08/30/19 08:55 Wound Center Nurse 1 [Ulcer Assessment] 2. coccyx -Combined with other wound No -Current Size (cm) - Length 2 -Current Size (cm) - Width 1.5 -Current Size (cm) - Depth 0.7 -Total Square Cm 3.0 -Photo Taken No -Granulation Quality [place] -Moisture (Leigh-wound Skin Appearance Assessed, ) Maceration -Temperature (Leigh-wound Skin No Abnormality Appearance) (Pt Warm) -Tenderness on Palpation (Leigh-wound No Skin Appearance) -Ulcer Cleansing Rinsed/ Irrigated with Saline -Foul Odor after Cleansing No -Anesthetic Used 5% Lidocaine Gel WC - Nurse 2 - General Ulcer CM Notes Start: 08/02/19 08:29 Freq: Status: Active Protocol: Activity Type Activity Date Activity User E-Sign Co-Sign Detail Recorded Client Recorded Date Recorded By Document 08/30/19 09:34 MW [id number] 08/30/19 09:50 MW 08/30/19 09:34 Wound Center Nurse 2 [Procedure/Treatment] -Time 09:35 -Correct Patient Yes -Correct Side, Site, Position Yes -Correct Procedure Yes -Procedure Performed Yes -Type of Procedure Debridement -Clinical Debridement Subcutaneous -Post Debridement Size (cm) - Length 1.4 -Post Debridement Size (cm) - Width 1.5 -Post Debridement Size (cm) - Depth 0.7 -Total Square Cm 2.10 -Wound/Ulcer Outcome Not Healed -Ulcer Cleansing Rinsed/ Irrigated with Saline -Foul Odor after Cleansing No -Bioengineered Tissue Yes -Type of bioengineered Tissue EPIFIX -Expiration Date 02/29/24 -Product Lot Number [id number] -Percent Used 100 -Saline Lot Number [id number] -Bleeding Controlled with Pressure -Offloading No -Treatment Response Procedure Tolerated Well [See Physician Procedure note for Specifics] Pain Scale: 0-10 Numeric [Pain] -Is Patient Pain Free? Yes Neurological: Cranial nerves II-XII grossly intact Psych/Mental Status: Normal Affect Debridement Note Post-Debridement Measurements/Treatment WC - Nurse 2 - General Ulcer CM Notes Start: 08/02/19 08:29 Freq: Status: Active Protocol: Activity Type Activity Date Activity User E-Sign Co-Sign Detail Recorded Client Recorded Date Recorded By Document 08/02/19 08:53 MW [id number] 08/02/19 08:57 MW Document 08/08/19 08:33 MW [id number] 08/08/19 08:36 MW Document 08/15/19 09:27 MW [id number] 08/15/19 09:32 MW Document 08/30/19 09:34 MW [id number] 08/30/19 09:50 MW 08/02/19 08/08/19 08/15/19 08:53 08:33 09:27 Wound Center Nurse 2 2. coccyx -Time 08:54 08:34 09:28 -Correct Patient Yes Yes Yes -Correct Side, Site, Position Yes Yes Yes -Correct Procedure Yes Yes Yes -Procedure Performed Yes Yes Yes -Type of Procedure Debridement Debridement Debridement -Clinical Debridement Subcutaneous Subcutaneous Subcutaneous -Post Debridement Size (cm) - Length 1.5 1.2 1.5 -Post Debridement Size (cm) - Width 1.5 1.5 1.0 -Post Debridement Size (cm) - Depth 0.8 0.4 0.7 -Total Square Cm 2.25 1.80 1.50 -Wound/Ulcer Outcome Not Healed Not Healed Not Healed -Ulcer Cleansing Rinsed/ Rinsed/ Rinsed/ Irrigated with Irrigated with Irrigated with Saline Saline Saline -Foul Odor after Cleansing No No No -Bioengineered Tissue No No No -Type of bioengineered Tissue -Expiration Date -Product Lot Number -Percent Used -Saline Lot Number -Bleeding Controlled with Pressure Pressure Pressure -Offloading No No No -Treatment Response Procedure Procedure Procedure Tolerated Well Tolerated Well Tolerated Well Pain Scale: 0-10 Numeric Is Patient Pain Free? Yes Yes Yes 08/30/19 09:34 Wound Center Nurse 2 2. coccyx -Time 09:35 -Correct Patient Yes -Correct Side, Site, Position Yes -Correct Procedure Yes -Procedure Performed Yes -Type of Procedure Debridement -Clinical Debridement Subcutaneous -Post Debridement Size (cm) - Length 1.4 -Post Debridement Size (cm) - Width 1.5 -Post Debridement Size (cm) - Depth 0.7 -Total Square Cm 2.10 -Wound/Ulcer Outcome Not Healed -Ulcer Cleansing Rinsed/ Irrigated with Saline -Foul Odor after Cleansing No -Bioengineered Tissue Yes -Type of bioengineered Tissue EPIFIX -Expiration Date 02/29/24 -Product Lot Number [id number] -Percent Used 100 -Saline Lot Number [id number] -Bleeding Controlled with Pressure -Offloading No -Treatment Response Procedure Tolerated Well Pain Scale: 0-10 Numeric Is Patient Pain Free? Yes Wound debrided: Sacral ulcer Wound Grade/Stage: Stage III Type of Debridement: Excisional debridement Anesthesia Used: 4% Lidocaine Solution Depth: Down to and including healthy tissue, in the subcutaneous layer Percentage of wound debrided: 100 Instrument Used: 5mm curette Tissue Removed: Slough and devitalized tissue Severity: Fat Layer Exposed Amount of bleeding with debridement: Mild Bleeding Controlled with: Pressure Patient tolerated procedure well Assessment/Plan Active Problems Autoimmune disorder (Chronic) Pressure injury of sacral region, stage 3 (Chronic) Microscopic polyangiitis (Acute) Debility (Acute) Assessment: 1. Sacral pressure ulcer, Stage 3. 2. Malnutrition Plan: Some worsening in circumference noted. Depth and undermining stable. Debridement done as documented above, procedure was well tolerated. Initial application of Epifix done using 100% of the mesh. Moistened with saline, wound veil overtop and secured with steristrips. Guaze and ABD over top. Leave in pl br[place] for a week. Take Andrae 2-3 times daily. Offloading also recommended. He continues to meet medical necessity for a skin sub due to chronicity of the ulcer and failure to improve with tradtional wound care products and a wound Vac. His questions were answered and was he advised to call with any further questions or concerns. Follow-up in 1 week. This note was generated with [employer] dictation software. It may contain incorrect words, spelling, and punctuation that were not noted in checking the note before signing.
== END 2019-08-30 23:59 ==
LOC: WC 09:00
PROVIDERS: Family Provider Family Medicine; PCP Family Medicine; Referring Provider Nurse Practitioner Family; Visit Provider Internal Medicine
DX: L89.153 Pressure ulcer of sacral region, stage 3 (principal); M31.7 Microscopic polyangiitis; E46 Unspecified protein-calorie malnutrition; Z68.1 Body mass index [BMI] 19.9 or less, adult
CPT/HCPCS: 11042; 15271; Q4186

== ENCOUNTER 2019-09-26 08:30 | Outpatient (RCR) | payer MEDICARE, SELFPAY ==
[2019-08-31 00:46] VITALS: BP 103/58; PULSE 88; RESP 16; TEMP 36.7
[2019-09-06 09:08] VITALS: BP 116/67; PULSE 94; RESP 18; TEMP 37.4; BMI 16.9
--- NOTE | 2019-09-06 10:00 | PN.PCM_ITS ---
(1) Pressure injury of sacral region, stage 3 Status: Chronic Current Visit: Yes Code(s): L89.153 - Pressure ulcer of sacral region, stage 3 (2) Debility Status: Chronic Current Visit: Yes Code(s): R53.81 - Other malaise (3) Microscopic polyangiitis Status: Chronic Current Visit: Yes Code(s): M31.7 - Microscopic polyangiitis (4) Malnutrition Status: Chronic Current Visit: Yes Code(s): E46 - Unspecified protein- calorie malnutrition Type of Wound Date of Service: 09/06/19 Chief Complaint: Sacral pressure sore. History of Wound: Mr. Bowles is a 73-year-old being managed for a right-sided sacral ulcer. Also history of microscopic polyangiitis on mycophenolate. Mal- nourished with a BMI of 16.9. Has been applying Promogran to also with modest improvement. No significant drainage per His . They report compliance with dressing instructions. He feels well otherwise, denies chills, fever, nausea, vomiting or change in his bowel habit. Progress of Wound: No new concerns at this time. Tolerated Epifix well. Has had 1 application so far. - Physical Exam Vital Signs Temp Pulse Resp BP 99.3 F H 94 18 116/67 09/06/19 09:08 09/06/19 09:08 09/06/19 09:08 09/06/19 09:08 General: Alert, Oriented x3, Cooperative, No apparent distress HEENT: Atraumatic, Normocephalic Oral: Moist Mucosa Neck: Supple Lungs: Normal air movement Extremities: No cyanosis Skin: Ulcer/ Wound Wound Measurements and Assessment WC - Nurse 1 - General Ulcer Measurement Start: 09/06/19 09:08 Freq: Status: Active Protocol: Activity Type Activity Date Activity User E-Sign Co-Sign Detail Recorded Client Recorded Date Recorded By Document 09/06/19 09:08 MW [id number] 09/06/19 09:15 MW 09/06/19 09:08 Wound Center Nurse 1 [Ulcer Assessment] 2. coccyx -Combined with other wound No -Current Size (cm) - Length 1.5 -Current Size (cm) - Width 1.0 -Current Size (cm) - Depth 0.3 -Total Square Cm 1.50 -Photo Taken No -Epithelialization None Present -Tunneling No -Undermining/Tunneling No -Circular Undermining No -Exudate Amt Medium -Exudate Type Serosanguineous -Wound Margin Distinct, Outline Attached -Granulation Amt Large (67-100%) -Granulation Quality [place] -Slough/Fibrin Yes -Necrosis Amt None Present (0 %) -Necrotic Tissue Type Adherent Slough -Structure Exposed N/A -Texture (Leigh-wound Skin Appearance) Excoriation, Friable -Moisture (Leigh-wound Skin Appearance Maceration ) -Color (Leigh-wound Skin Appearance) No Abnormality, Assessed -Temperature (Leigh-wound Skin No Abnormality Appearance) (Pt Warm) -Tenderness on Palpation (Leigh-wound No Skin Appearance) -Ulcer Cleansing Rinsed/ Irrigated with Saline -Foul Odor after Cleansing No -Anesthetic Used 4% Lidocaine Solution [Edema Assessment] -Lower Limb Edema Present NA WC - Nurse 2 - General Ulcer CM Notes Start: 09/06/19 09:08 Freq: Status: Active Protocol: Activity Type Activity Date Activity User E-Sign Co-Sign Detail Recorded Client Recorded Date Recorded By Document 09/06/19 09:43 MW [id number] 09/06/19 09:56 MW 09/06/19 09:43 Wound Center Nurse 2 [Procedure/Treatment] 2. coccyx -Time 09:43 -Correct Patient Yes -Correct Side, Site, Position Yes -Correct Procedure Yes -Procedure Performed Yes -Type of Procedure Debridement -Clinical Debridement Subcutaneous -Post Debridement Size (cm) - Length 1.2 -Post Debridement Size (cm) - Width 1.2 -Post Debridement Size (cm) - Depth 0.7 -Total Square Cm 1.44 -Wound/Ulcer Outcome Not Healed -Ulcer Cleansing Rinsed/ Irrigated with Saline -Foul Odor after Cleansing No -Bioengineered Tissue Yes -Type of bioengineered Tissue EPIFIX -Expiration Date 02/29/24 -Product Lot Number [id number] -Percent Used 100 -Saline Lot Number [id number] -Bleeding Controlled with Pressure -Offloading No -Treatment Response Procedure Tolerated Well [See Physician Procedure note for Specifics] Pain Scale: 0-10 Numeric [Pain] -Is Patient Pain Free? Yes Neurological: Cranial nerves II-XII grossly intact Psych/Mental Status: Normal Affect Debridement Note Post-Debridement Measurements/Treatment WC - Nurse 2 - General Ulcer CM Notes Start: 09/06/19 09:08 Freq: Status: Active Protocol: Activity Type Activity Date Activity User E-Sign Co-Sign Detail Recorded Client Recorded Date Recorded By Document 09/06/19 09:43 MW [id number] 09/06/19 09:56 MW 09/06/19 09:43 Wound Center Nurse 2 2. coccyx -Time 09:43 -Correct Patient Yes -Correct Side, Site, Position Yes -Correct Procedure Yes -Procedure Performed Yes -Type of Procedure Debridement -Clinical Debridement Subcutaneous -Post Debridement Size (cm) - Length 1.2 -Post Debridement Size (cm) - Width 1.2 -Post Debridement Size (cm) - Depth 0.7 -Total Square Cm 1.44 -Wound/Ulcer Outcome Not Healed -Ulcer Cleansing Rinsed/ Irrigated with Saline -Foul Odor after Cleansing No -Bioengineered Tissue Yes -Type of bioengineered Tissue EPIFIX -Expiration Date 02/29/24 -Product Lot Number [id number] -Percent Used 100 -Saline Lot Number [id number] -Bleeding Controlled with Pressure -Offloading No -Treatment Response Procedure Tolerated Well Pain Scale: 0-10 Numeric Is Patient Pain Free? Yes Wound debrided: Sacral Ulcer Wound Grade/Stage: Stage III Type of Debridement: Excisional debridement Anesthesia Used: 4% Lidocaine Solution Depth: Down to and including healthy tissue, in the subcutaneous layer Percentage of wound debrided: 100 Instrument Used: 5mm curette Tissue Removed: Slough and devitalized tissue Severity: Fat Layer Exposed Amount of bleeding with debridement: Mild Bleeding Controlled with: Pressure Patient tolerated procedure well Assessment/Plan Active Problems Malnutrition (Chronic) Pressure injury of sacral region, stage 3 (Chronic) Microscopic polyangiitis (Chronic) Debility (Chronic) Assessment: 1. Sacral pressure ulcer, Stage 3. 2. Malnutrition Plan: Debridement done as documented above, procedure was well tolerated. 2nd application of Epifix done using 100% of the mesh. Moistened with saline, wound veil overtop and secured with steristrips. Guaze and ABD over top. Change ABD every other day. Leave Epifix in place for a week. Take Andrae 2-3 times daily. Offloading also recommended. He continues to meet medical necessity for a skin sub due to chronicity of the ulcer and failure to improve with tradtional wound care products and a wound Vac. His questions were answered and was he advised to call with any further questions or concerns. Follow-up in 1 week. This note was generated with [employer] dictation software. It may contain incorrect words, spelling, and punctuation that were not noted in checking the note before signing. Multi Select Codes - Integumentary Integumentary CPT Codes: 66989 Gertrudis subq tissue 20 sq cm/<, 38621 Skin sub graft trnk/arm/leg - Epifix to scaral area.
[2019-09-13 10:18] VITALS: BP 129/68; PULSE 86; RESP 18; TEMP 37.1; BMI 16.9
--- NOTE | 2019-09-13 11:37 | PCM.WC.PN ---
(1) Pressure injury of sacral region, stage 3 Status: Chronic Current Visit: Yes Code(s): L89.153 - Pressure ulcer of sacral region, stage 3 (2) Debility Status: Chronic Current Visit: Yes Code(s): R53.81 - Other malaise (3) Microscopic polyangiitis Status: Chronic Current Visit: Yes Code(s): M31.7 - Microscopic polyangiitis (4) Malnutrition Status: Chronic Current Visit: Yes Code(s): E46 - Unspecified protein-calorie malnutrition Type of Wound Date of Service: 09/13/19 Chief Complaint: Sacral pressure sore. History of Wound: Mr. Bowles is a 73-year-old being managed for a right-sided sacral ulcer. Also history of microscopic polyangiitis on mycophenolate. Mal-nourished with a BMI of 16.9. Has been applying Promogran to also with modest improvement. No significant drainage per His . They report compliance with dressing instructions. He feels well otherwise, denies chills, fever, nausea, vomiting or change in his bowel habit. Progress of Wound: No new concerns at this time. Tolerated Epifix well. Has had 2 applications so far. - Physical Exam Vital Signs Temp Pulse Resp BP 98.7 F 86 18 129/68 H 09/13/19 10:18 09/13/19 10:18 09/13/19 10:18 09/13/19 10:18 General: Alert, Oriented x3, Cooperative, No apparent distress HEENT: Atraumatic, Normocephalic Oral: Moist Mucosa Neck: Supple Lungs: Normal air movement Extremities: No cyanosis Skin: Ulcer/ Wound Wound Measurements and Assessment WC - Nurse 1 - General Ulcer Measurement Start: 09/06/19 09:08 Freq: Status: Active Protocol: Activity Type Activity Date Activity User E-Sign Co-Sign Detail Recorded Client Recorded Date Recorded By Document 09/13/19 10:18 DV [id number] 09/13/19 10:34 DV 09/13/19 10:18 Wound Center Nurse 1 [Ulcer Assessment] 2. coccyx -Combined with other wound No -Current Size (cm) - Length 1.5 -Current Size (cm) - Width 1.0 -Current Size (cm) - Depth 0.8 -Total Square Cm 1.50 -Date of Last Picture (Recall this 09/13/19 field) -Photo Taken Yes -Classification - Thickness Full Thickness without Exposed Support Structure -Exudate Amt Large -Exudate Type Yellow/Green -Wound Margin Thickened -Granulation Amt None Present (0 %) -Granulation Quality N/A -Slough/Fibrin Yes -Necrosis Amt Medium (34-66%) -Necrotic Tissue Type Adherent Slough -Structure Exposed None/Limited to Skin Breakdown -Texture (Leigh-wound Skin Appearance) Assessed, Localized Edema ,Scarring -Moisture (Leigh-wound Skin Appearance Assessed, ) Maceration, Weeping -Color (Leigh-wound Skin Appearance) Assessed, Erythema -Temperature (Leigh-wound Skin No Abnormality Appearance) (Pt Warm) -Ulcer Cleansing Rinsed/ Irrigated with Saline -Foul Odor after Cleansing No -Anesthetic Used 4% Lidocaine Solution WC - Nurse 2 - General Ulcer CM Notes Start: 09/06/19 09:08 Freq: Status: Active Protocol: Activity Type Activity Date Activity User E-Sign Co-Sign Detail Recorded Client Recorded Date Recorded By Document 09/13/19 10:41 MW [id number] 09/13/19 10:50 MW 09/13/19 10:41 Wound Center Nurse 2 [Procedure/Treatment] -Time 10:41 -Correct Patient Yes -Correct Side, Site, Position Yes -Correct Procedure Yes -Procedure Performed Yes -Type of Procedure Debridement -Clinical Debridement Subcutaneous -Post Debridement Size (cm) - Length 1.2 -Post Debridement Size (cm) - Width 0.9 -Post Debridement Size (cm) - Depth 0.5 -Total Square Cm 1.08 -Wound/Ulcer Outcome Not Healed -Ulcer Cleansing Rinsed/ Irrigated with Saline -Foul Odor after Cleansing No -Bioengineered Tissue No -Type of bioengineered Tissue EPIFIX -Expiration Date 02/29/24 -Product Lot Number [id number] -Percent Used 100 -Saline Lot Number [id number] -Bleeding Controlled with Pressure -Other undermining @2, 0.6cm -Offloading No -Treatment Response Procedure Tolerated Well [See Physician Procedure note for Specifics] Pain Scale: 0-10 Numeric [Pain] -Is Patient Pain Free? Yes Neurological: Cranial nerves II-XII grossly intact Psych/Mental Status: Normal Affect Debridement Note Post-Debridement Measurements/Treatment WC - Nurse 2 - General Ulcer CM Notes Start: 09/06/19 09:08 Freq: Status: Active Protocol: Activity Type Activity Date Activity User E-Sign Co-Sign Detail Recorded Client Recorded Date Recorded By Document 09/06/19 09:43 MW [id number] 09/06/19 09:56 MW Document 09/13/19 10:41 MW [id number] 09/13/19 10:50 MW 09/06/19 09/13/19 09:43 10:41 Wound Center Nurse 2 2. coccyx -Time 09:43 10:41 -Correct Patient Yes Yes -Correct Side, Site, Position Yes Yes -Correct Procedure Yes Yes -Procedure Performed Yes Yes -Type of Procedure Debridement Debridement -Clinical Debridement Subcutaneous Subcutaneous -Post Debridement Size (cm) - Length 1.2 1.2 -Post Debridement Size (cm) - Width 1.2 0.9 -Post Debridement Size (cm) - Depth 0.7 0.5 -Total Square Cm 1.44 1.08 -Wound/Ulcer Outcome Not Healed Not Healed -Ulcer Cleansing Rinsed/ Rinsed/ Irrigated with Irrigated with Saline Saline -Foul Odor after Cleansing No No -Bioengineered Tissue Yes No -Type of bioengineered Tissue EPIFIX EPIFIX -Expiration Date 02/29/24 02/29/24 -Product Lot Number [id number] -Percent Used 100 100 -Saline Lot Number [id number] -Bleeding Controlled with Pressure Pressure -Other undermining @2, 0.6cm -Offloading No No -Treatment Response Procedure Procedure Tolerated Well Tolerated Well Pain Scale: 0-10 Numeric Is Patient Pain Free? Yes Yes Wound debrided: Sacral Wound Grade/Stage: Stage III Type of Debridement: Excisional debridement Anesthesia Used: 4% Lidocaine Solution Depth: Down to and including healthy tissue, in the subcutaneous layer Percentage of wound debrided: 100 Instrument Used: 3mm curette Tissue Removed: Slough and devitalized tissue Severity: Fat Layer Exposed Amount of bleeding with debridement: Mild Bleeding Controlled with: Pressure Patient tolerated procedure well Assessment/Plan Active Problems Malnutrition (Chronic) Pressure injury of sacral region, stage 3 (Chronic) Microscopic polyangiitis (Chronic) Debility (Chronic) Assessment: 1. Sacral pressure ulcer, Stage 3. 2. Malnutrition Plan: Debridement done as documented above, procedure was well tolerated. 3rd application of Epifix done using 100% of the mesh. Moistened with saline, wound veil overtop and secured with steristrips. Guaze and ABD over top. Change ABD every other day. Leave Epifix in place for a week. Take Andrae 2-3 times daily. Offloading also recommended. He continues to meet medical necessity for a skin sub due to chronicity of the ulcer and failure to improve with tradtional wound care products and a wound Vac. His questions were answered and was he advised to call with any further questions or concerns. Follow-up in 1 week. This note was generated with [employer] dictation software. It may contain incorrect words, spelling, and punctuation that were not noted in checking the note before signing. Multi Select Codes - Integumentary Integumentary CPT Codes: 72644 Gertrudis subq tissue 20 sq cm/<, 32863 Skin sub graft trnk/arm/leg - Epifix to sacral ulcer.
[2019-09-20 10:28] VITALS: BP 153/71; PULSE 106; RESP 16; TEMP 37; BMI 16.9
--- NOTE | 2019-09-20 12:27 | PN.PCM_ITS ---
(1) Pressure injury of sacral region, stage 3 Status: Chronic Current Visit: Yes Code(s): L89.153 - Pressure ulcer of sacral region, stage 3 (2) Debility Status: Chronic Current Visit: Yes Code(s): R53.81 - Other malaise (3) Microscopic polyangiitis Status: Chronic Current Visit: Yes Code(s): M31.7 - Microscopic polyangiitis (4) Malnutrition Status: Chronic Current Visit: Yes Code(s): E46 - Unspecified protein- calorie malnutrition Type of Wound Date of Service: 09/20/19 Chief Complaint: Sacral pressure sore. History of Wound: Mr. Bowles is a 73-year-old being managed for a right-sided sacral ulcer. Also history of microscopic polyangiitis on mycophenolate. Mal- nourished with a BMI of 16.9. Has been applying Promogran to also with modest improvement. No significant drainage per His . They report compliance with dressing instructions. He feels well otherwise, denies chills, fever, nausea, vomiting or change in his bowel habit. Progress of Wound: Improving. 3 applications of epifix so far. - Physical Exam Vital Signs Temp Pulse Resp BP 98.6 F 106 H 16 153/71 H 09/20/19 10:28 09/20/19 10:28 09/20/19 10:28 09/20/19 10:28 General: Alert, Oriented x3, Cooperative, No apparent distress HEENT: Atraumatic, Normocephalic Oral: Moist Mucosa Neck: Supple Lungs: Normal air movement Extremities: No cyanosis Skin: Ulcer/ Wound Wound Measurements and Assessment WC - Nurse 1 - General Ulcer Measurement Start: 09/06/19 09:08 Freq: Status: Active Protocol: Activity Type Activity Date Activity User E-Sign Co-Sign Detail Recorded Client Recorded Date Recorded By Document 09/20/19 10:28 [facility] [id number] 09/20/19 10:29 [facility] 09/20/19 10:28 Wound Center Nurse 1 [Ulcer Assessment] 2. coccyx -Combined with other wound No -Current Size (cm) - Length 1.1 -Current Size (cm) - Width 1 -Current Size (cm) - Depth 0.7 -Total Square Cm 1.1 -Photo Taken No -Epithelialization None Present -Tunneling No -Undermining/Tunneling Yes -Undermining/Tunneling Starts (O' 10 clock) -Undermining/Tunneling Ends (O'clock) 1 -Maximum Distance (cm) 0.9 -Circular Undermining No -Exudate Amt Medium -Exudate Type Serosanguineous -Wound Margin Distinct, Outline Attached -Granulation Amt Large (67-100%) -Granulation Quality Red -Slough/Fibrin No -Necrosis Amt None Present (0 %) -Texture (Leigh-wound Skin Appearance) Assessed, Excoriation, Scarring -Moisture (Leigh-wound Skin Appearance Assessed ) -Color (Leigh-wound Skin Appearance) Assessed, Erythema -Temperature (Leigh-wound Skin No Abnormality Appearance) (Pt Warm) -Tenderness on Palpation (Leigh-wound No Skin Appearance) -Ulcer Cleansing soapy water -Foul Odor after Cleansing No -Anesthetic Used 5% Lidocaine Gel WC - Nurse 2 - General Ulcer CM Notes Start: 09/06/19 09:08 Freq: Status: Active Protocol: Activity Type Activity Date Activity User E-Sign Co-Sign Detail Recorded Client Recorded Date Recorded By Document 09/20/19 10:46 MW [id number] 09/20/19 10:55 MW 09/20/19 10:46 Wound Center Nurse 2 [Procedure/Treatment] -Time 10:46 -Correct Patient Yes -Correct Side, Site, Position Yes -Correct Procedure Yes -Procedure Performed Yes -Type of Procedure Debridement -Clinical Debridement Subcutaneous -Post Debridement Size (cm) - Length 1.0 -Post Debridement Size (cm) - Width 0.7 -Post Debridement Size (cm) - Depth 0.6 -Total Square Cm 0.70 -Wound/Ulcer Outcome Not Healed -Ulcer Cleansing Rinsed/ Irrigated with Saline -Foul Odor after Cleansing No -Bioengineered Tissue No -Type of bioengineered Tissue EPIFIX -Expiration Date 10/31/23 -Product Lot Number [id number] -Percent Used 100 -Saline Lot Number [id number] -Bleeding Controlled with Pressure -Other SALINE LOT # [id number] -Offloading No -Treatment Response Procedure Tolerated Well [See Physician Procedure note for Specifics] Pain Scale: 0-10 Numeric [Pain] -Is Patient Pain Free? Yes Neurological: Cranial nerves II-XII grossly intact Psych/Mental Status: Normal Affect Debridement Note Post-Debridement Measurements/Treatment WC - Nurse 2 - General Ulcer CM Notes Start: 09/06/19 09:08 Freq: Status: Active Protocol: Activity Type Activity Date Activity User E-Sign Co-Sign Detail Recorded Client Recorded Date Recorded By Document 09/06/19 09:43 MW [id number] 09/06/19 09:56 MW Document 09/13/19 10:41 MW [id number] 09/13/19 10:50 MW Document 09/20/19 10:46 MW [id number] 09/20/19 10:55 MW 09/06/19 09/13/19 09/20/19 09:43 10:41 10:46 Wound Center Nurse 2 2. coccyx -Time 09:43 10:41 10:46 -Correct Patient Yes Yes Yes -Correct Side, Site, Position Yes Yes Yes -Correct Procedure Yes Yes Yes -Procedure Performed Yes Yes Yes -Type of Procedure Debridement Debridement Debridement -Clinical Debridement Subcutaneous Subcutaneous Subcutaneous -Post Debridement Size (cm) - Length 1.2 1.2 1.0 -Post Debridement Size (cm) - Width 1.2 0.9 0.7 -Post Debridement Size (cm) - Depth 0.7 0.5 0.6 -Total Square Cm 1.44 1.08 0.70 -Wound/Ulcer Outcome Not Healed Not Healed Not Healed -Ulcer Cleansing Rinsed/ Rinsed/ Rinsed/ Irrigated with Irrigated with Irrigated with Saline Saline Saline -Foul Odor after Cleansing No No No -Bioengineered Tissue Yes No No -Type of bioengineered Tissue EPIFIX EPIFIX EPIFIX -Expiration Date 02/29/24 02/29/24 10/31/23 -Product Lot Number [id number] -Percent Used 100 100 100 -Saline Lot Number [id number] -Bleeding Controlled with Pressure Pressure Pressure -Other undermining @2, SALINE LOT # 0.6cm [id number] -Offloading No No No -Treatment Response Procedure Procedure Procedure Tolerated Well Tolerated Well Tolerated Well Pain Scale: 0-10 Numeric Is Patient Pain Free? Yes Yes Yes Wound debrided: Sacral Wound Grade/Stage: Stage III Type of Debridement: Excisional debridement Anesthesia Used: 4% Lidocaine Solution Depth: Down to and including healthy tissue, in the subcutaneous layer Percentage of wound debrided: 100 Instrument Used: 3mm curette Tissue Removed: Slough and devitalized tissue Severity: Fat Layer Exposed Amount of bleeding with debridement: Mild Bleeding Controlled with: Pressure Patient tolerated procedure well Assessment/Plan Active Problems Malnutrition (Chronic) Pressure injury of sacral region, stage 3 (Chronic) Microscopic polyangiitis (Chronic) Debility (Chronic) Assessment: 1. Sacral pressure ulcer, Stage 3. 2. Malnutrition Plan: Debridement done as documented above, procedure was well tolerated. 4th application of Epifix done using 100% of product. Moistened with saline, wound veil overtop and secured with steristrips. Guaze and ABD over top. Change ABD every other day. Leave Epifix in place for a week. Take Andrae 2-3 times daily. Offloading also recommended. He continues to meet medical necessity for a skin sub due to chronicity of the ulcer and failure to improve with tradtional wound care products and a wound Vac. His questions were answered and was he advised to call with any further questions or concerns. Follow-up in 1 week for a co urtesy visit and in 2 weeks with me. This note was generated with [employer] dictation software. It may contain incorrect words, spelling, and punctuation that were not noted in checking the note before signing. Multi Select Codes - Integumentary Integumentary CPT Codes: 33703 Gertrudis subq tissue 20 sq cm/<, 12521 Skin sub graft trnk/arm/leg
[2019-09-26 08:27] VITALS: BP 114/63; PULSE 86; RESP 18; TEMP 36.8; BMI 16.9
--- NOTE | 2019-09-26 10:37 | PCM.WC.PN ---
(1) Debility Status: Chronic Current Visit: Yes Code(s): R53.81 - Other malaise (2) Malnutrition Status: Chronic Current Visit: Yes Code(s): E46 - Unspecified protein-calorie malnutrition (3) Pressure injury of sacral region, stage 3 Status: Chronic Current Visit: Yes Code(s): L89.153 - Pressure ulcer of sacral region, stage 3 (4) Anemia of chronic disease Status: Chronic Current Visit: No Code(s): D63.8 - Anemia in other chronic diseases classified elsewhere (5) Autoimmune disorder Status: Chronic Current Visit: No Code(s): D89.89 - Other specified disorders involving the immune mechanism, not elsewhere classified (6) Diabetes mellitus type II, controlled Status: Chronic Current Visit: No Code(s): E11.9 - Type 2 diabetes mellitus without complications Type of Wound Date of Service: 09/26/19 Chief Complaint: Sacral pressure sore. History of Wound: Mr. Bowles is a 73-year-old being managed for a right-sided sacral ulcer. Also history of microscopic polyangiitis on mycophenolate. Mal-nourished with a BMI of 16.9. Has been applying Promogran to also with modest improvement. No significant drainage per His . They report compliance with dressing instructions. He feels well otherwise, denies chills, fever, nausea, vomiting or change in his bowel habit. Progress of Wound: Courtesy visit cultures obtained. New cell growth and base of wound epi fix #5 applied tolerated well. Have a rash around the wound but not related to the wound could be an allergic reaction to or heat rash from the ABD pads irritating his skin. - Physical Exam Vital Signs Temp Pulse Resp BP 98.3 F 86 18 114/63 09/26/19 08:27 09/26/19 08:27 09/26/19 08:27 09/26/19 08:27 General: Oriented x3, Cooperative, Well developed HEENT: Atraumatic, PERRLA Oral: Moist Mucosa Neck: Supple, No JVD Lungs: Clear to auscultation, Normal air movement Cardiovascular: Regular rate, Regular Rhythm Abdomen: Bowel Sounds Present, Soft, Non Tender, No Hepato-splenomegaly Extremities: No clubbing, No edema Skin: Ulcer/ Wound Wound Measurements and Assessment WC - Nurse 1 - General Ulcer Measurement Start: 09/06/19 09:08 Freq: Status: Active Protocol: Activity Type Activity Date Activity User E-Sign Co-Sign Detail Recorded Client Recorded Date Recorded By Document 09/26/19 08:27 DL [id number] 09/26/19 08:31 DL 09/26/19 08:27 Wound Center Nurse 1 [Ulcer Assessment] 2. coccyx -Current Size (cm) - Length 1.2 -Current Size (cm) - Width 0.5 -Current Size (cm) - Depth 0.8 -Total Square Cm 0.60 -Undermining/Tunneling Starts (O' 2 clock) -Maximum Distance (cm) 0.6 -Exudate Amt Small -Exudate Type Serosanguineous -Wound Margin Thickened & Rolled Under -Granulation Amt Large (67-100%) -Granulation Quality Red -Necrosis Amt None Present (0 %) -Structure Exposed N/A -Texture (Leigh-wound Skin Appearance) Excoriation, Scarring -Moisture (Leigh-wound Skin Appearance Maceration ) -Color (Leigh-wound Skin Appearance) Rubor -Temperature (Leigh-wound Skin No Abnormality Appearance) (Pt Warm) -Tenderness on Palpation (Leigh-wound No Skin Appearance) -Ulcer Cleansing Wound Cleanser -Foul Odor after Cleansing No -Anesthetic Used 4% Lidocaine Solution WC - Nurse 2 - General Ulcer CM Notes Start: 09/06/19 09:08 Freq: Status: Active Protocol: Activity Type Activity Date Activity User E-Sign Co-Sign Detail Recorded Client Recorded Date Recorded By Document 09/26/19 09:08 MW [id number] 09/26/19 09:18 MW 09/26/19 09:08 Wound Center Nurse 2 [Procedure/Treatment] -Time 09:08 -Correct Patient Yes -Correct Side, Site, Position Yes -Correct Procedure Yes -Procedure Performed Yes -Type of Procedure Debridement -Clinical Debridement Subcutaneous -Post Debridement Size (cm) - Length 1.2 -Post Debridement Size (cm) - Width 0.7 -Post Debridement Size (cm) - Depth 0.6 -Total Square Cm 0.84 -Wound/Ulcer Outcome Not Healed -Ulcer Cleansing Rinsed/ Irrigated with Saline -Foul Odor after Cleansing No -Bioengineered Tissue Yes -Type of bioengineered Tissue EPIFIX -Expiration Date 02/29/24 -Product Lot Number [id number] -Percent Used 100 -Saline Lot Number [id number] -Bleeding Controlled with Pressure -Offloading No -Treatment Response Procedure Tolerated Well [See Physician Procedure note for Specifics] Pain Scale: 0-10 Numeric [Pain] -Is Patient Pain Free? Yes Musculoskeletal: No Tenderness to Palpation of Joints or Extremities Lymphatic: No Cervical, Supraclavicular, or Inguinal Adenopathy Neurological: Cranial nerves II-XII grossly intact, Neuro grossly intact Psych/Mental Status: Normal Affect, Appropriate, Alert and oriented to time, place, person, mood and affect Debridement Note Post-Debridement Measurements/Treatment WC - Nurse 2 - General Ulcer CM Notes Start: 09/06/19 09:08 Freq: Status: Active Protocol: Activity Type Activity Date Activity User E-Sign Co-Sign Detail Recorded Client Recorded Date Recorded By Document 09/06/19 09:43 MW [id number] 09/06/19 09:56 MW Document 09/13/19 10:41 MW [id number] 09/13/19 10:50 MW Document 09/20/19 10:46 MW [id number] 09/20/19 10:55 MW Document 09/26/19 09:08 MW [id number] 09/26/19 09:18 MW 09/06/19 09/13/19 09/20/19 09:43 10:41 10:46 Wound Center Nurse 2 2. coccyx -Time 09:43 10:41 10:46 -Correct Patient Yes Yes Yes -Correct Side, Site, Position Yes Yes Yes -Correct Procedure Yes Yes Yes -Procedure Performed Yes Yes Yes -Type of Procedure Debridement Debridement Debridement -Clinical Debridement Subcutaneous Subcutaneous Subcutaneous -Post Debridement Size (cm) - Length 1.2 1.2 1.0 -Post Debridement Size (cm) - Width 1.2 0.9 0.7 -Post Debridement Size (cm) - Depth 0.7 0.5 0.6 -Total Square Cm 1.44 1.08 0.70 -Wound/Ulcer Outcome Not Healed Not Healed Not Healed -Ulcer Cleansing Rinsed/ Rinsed/ Rinsed/ Irrigated with Irrigated with Irrigated with Saline Saline Saline -Foul Odor after Cleansing No No No -Bioengineered Tissue Yes No No -Type of bioengineered Tissue EPIFIX EPIFIX EPIFIX -Expiration Date 02/29/24 02/29/24 10/31/23 -Product Lot Number [id number] -Percent Used 100 100 100 -Saline Lot Number [id number] -Bleeding Controlled with Pressure Pressure Pressure -Other undermining @2, SALINE LOT # 0.6cm [id number] -Offloading No No No -Treatment Response Procedure Procedure Procedure Tolerated Well Tolerated Well Tolerated Well Pain Scale: 0-10 Numeric Is Patient Pain Free? Yes Yes Yes 09/26/19 09:08 Wound Center Nurse 2 2. coccyx -Time 09:08 -Correct Patient Yes -Correct Side, Site, Position Yes -Correct Procedure Yes -Procedure Performed Yes -Type of Procedure Debridement -Clinical Debridement Subcutaneous -Post Debridement Size (cm) - Length 1.2 -Post Debridement Size (cm) - Width 0.7 -Post Debridement Size (cm) - Depth 0.6 -Total Square Cm 0.84 -Wound/Ulcer Outcome Not Healed -Ulcer Cleansing Rinsed/ Irrigated with Saline -Foul Odor after Cleansing No -Bioengineered Tissue Yes -Type of bioengineered Tissue EPIFIX -Expiration Date 02/29/24 -Product Lot Number [id number] -Percent Used 100 -Saline Lot Number [id number] -Bleeding Controlled with Pressure -Other -Offloading No -Treatment Response Procedure Tolerated Well Pain Scale: 0-10 Numeric Is Patient Pain Free? Yes Wound debrided: Coccyx ulcer Wound Grade/Stage: Stage III Type of Debridement: Excisional debridement Anesthesia Used: 5% Lidocaine Gel Depth: Down to and including healthy tissue, in the subcutaneous layer Percentage of wound debrided: 100 Instrument Used: 5mm curette Tissue Removed: Fibrin Severity: Limited To Skin Breakdown Amount of bleeding with debridement: None Bleeding Controlled with: Pressure Patient tolerated procedure well Assessment/Plan Active Problems Malnutrition (Chronic) Pressure injury of sacral region, stage 3 (Chronic) Microscopic polyangiitis (Chronic) Debility (Chronic) Assessment: 1. Sacral pressure ulcer, Stage 3. 2. Malnutrition Plan: Debridement done as documented above, procedure was well tolerated. 5th application of Epifix done using 100% of product. Moistened with saline, wound veil overtop and secured with steristrips. Guaze and ABD over top. Change ABD every other day. Leave Epifix in place for a week. Take Andrae 2-3 times daily. Offloading also recommended. He continues to meet medical necessity for a skin sub due to chronicity of the ulcer and failure to improve with tradtional wound care products and a wound Vac. His questions were answered and was he advised to call with any further questions or concerns. Follow-up in 1 week. This note was generated with [employer] dictation software. It may contain incorrect words, spelling, and punctuation that were not noted in checking the note before signing.
== END 2019-09-29 23:59 ==
LOC: WC 08:30
PROVIDERS: Family Provider Family Medicine; PCP Family Medicine; Referring Provider Internal Medicine; Visit Provider Internal Medicine
DX: L89.153 Pressure ulcer of sacral region, stage 3 (principal); M31.7 Microscopic polyangiitis; E46 Unspecified protein-calorie malnutrition; Z68.1 Body mass index [BMI] 19.9 or less, adult
CPT/HCPCS: 15271; 87070; 87075; 87205; Q4186

== ENCOUNTER 2019-10-26 08:30 | Outpatient (RCR) | payer MEDICARE, SELFPAY ==
[2019-09-30 00:38] VITALS: BP 114/63; PULSE 86; RESP 18; TEMP 36.8
[2019-10-04 08:18] VITALS: BP 115/68; PULSE 93; RESP 16; TEMP 37.4; BMI 16.9
--- NOTE | 2019-10-04 10:47 | PN.PCM_ITS ---
(1) Pressure injury of sacral region, stage 3 Status: Chronic Current Visit: Yes Code(s): L89.153 - Pressure ulcer of sacral region, stage 3 (2) Malnutrition Status: Chronic Current Visit: Yes Code(s): E46 - Unspecified protein- calorie malnutrition (3) Microscopic polyangiitis Status: Chronic Current Visit: No Code(s): M31.7 - Microscopic polyangiitis (4) Diabetes mellitus type II, controlled Status: Chronic Current Visit: No Code(s): E11.9 - Type 2 diabetes mellitus without complications Type of Wound Date of Service: 10/04/19 Chief Complaint: Sacral pressure sore. History of Wound: Mr. Bowles is a 73-year-old being managed for a right-sided sacral ulcer. Also history of microscopic polyangiitis on mycophenolate. Mal- nourished with a BMI of 16.9. Has been applying Promogran to also with modest improvement. No significant drainage per His . They report compliance with dressing instructions. He feels well otherwise, denies chills, fever, nausea, vomiting or change in his bowel habit. Progress of Wound: No new cocnerns. Improving. - Physical Exam Vital Signs Temp Pulse Resp BP 99.3 F H 93 16 115/68 10/04/19 08:18 10/04/19 08:18 10/04/19 08:18 10/04/19 08:18 General: Alert, Oriented x3, Cooperative, No apparent distress HEENT: Atraumatic, Normocephalic Oral: Moist Mucosa Lungs: Normal air movement Extremities: No cyanosis Skin: Ulcer/ Wound Wound Measurements and Assessment WC - Nurse 1 - General Ulcer Measurement Start: 10/04/19 08:18 Freq: Status: Active Protocol: Activity Type Activity Date Activity User E-Sign Co-Sign Detail Recorded Client Recorded Date Recorded By Document 10/04/19 08:18 MW [id number] 10/04/19 08:26 MW 10/04/19 08:18 Wound Center Nurse 1 [Ulcer Assessment] 2. coccyx -Current Size (cm) - Length 0.9 -Current Size (cm) - Width 0.6 -Current Size (cm) - Depth 0.3 -Total Square Cm 0.54 -Photo Taken No -Exudate Amt Small -Exudate Type Serosanguineous -Wound Margin Distinct, Outline Attached -Granulation Amt Large (67-100%) -Granulation Quality Hyper- granulation,Red -Necrosis Amt None Present (0 %) -Structure Exposed N/A -Texture (Leigh-wound Skin Appearance) Scarring -Moisture (Leigh-wound Skin Appearance Maceration ) -Color (Leigh-wound Skin Appearance) Rubor -Temperature (Leigh-wound Skin No Abnormality Appearance) (Pt Warm) -Tenderness on Palpation (Leigh-wound No Skin Appearance) -Ulcer Cleansing Wound Cleanser -Foul Odor after Cleansing No -Anesthetic Used 5% Lidocaine Gel WC - Nurse 2 - General Ulcer CM Notes Start: 10/04/19 08:18 Freq: Status: Active Protocol: Activity Type Activity Date Activity User E-Sign Co-Sign Detail Recorded Client Recorded Date Recorded By Document 10/04/19 09:00 MW [id number] 10/04/19 09:11 MW 10/04/19 09:00 Wound Center Nurse 2 [Procedure/Treatment] -Time 09:00 -Correct Patient Yes -Correct Side, Site, Position Yes -Correct Procedure Yes -Procedure Performed Yes -Type of Procedure Debridement -Clinical Debridement Subcutaneous -Post Debridement Size (cm) - Length 0.8 -Post Debridement Size (cm) - Width 0.8 -Post Debridement Size (cm) - Depth 0.5 -Total Square Cm 0.64 -Wound/Ulcer Outcome Not Healed -Ulcer Cleansing Rinsed/ Irrigated with Saline -Foul Odor after Cleansing No -Bioengineered Tissue No -Type of bioengineered Tissue EPIFIX -Expiration Date 07/01/24 -Product Lot Number [id number] -Percent Used 100 -Saline Lot Number [id number] -Bleeding Controlled with Pressure -Other UNDERMINING @2 , 0.6CM+ -Offloading No -Treatment Response Procedure Tolerated Well [See Physician Procedure note for Specifics] Pain Scale: 0-10 Numeric [Pain] -Is Patient Pain Free? Yes Neurological: Cranial nerves II-XII grossly intact Psych/Mental Status: Normal Affect Debridement Note Post-Debridement Measurements/Treatment WC - Nurse 2 - General Ulcer CM Notes Start: 10/04/19 08:18 Freq: Status: Active Protocol: Activity Type Activity Date Activity User E-Sign Co-Sign Detail Recorded Client Recorded Date Recorded By Document 10/04/19 09:00 MW [id number] 10/04/19 09:11 MW 10/04/19 09:00 Wound Center Nurse 2 2. coccyx -Time 09:00 -Correct Patient Yes -Correct Side, Site, Position Yes -Correct Procedure Yes -Procedure Performed Yes -Type of Procedure Debridement -Clinical Debridement Subcutaneous -Post Debridement Size (cm) - Length 0.8 -Post Debridement Size (cm) - Width 0.8 -Post Debridement Size (cm) - Depth 0.5 -Total Square Cm 0.64 -Wound/Ulcer Outcome Not Healed -Ulcer Cleansing Rinsed/ Irrigated with Saline -Foul Odor after Cleansing No -Bioengineered Tissue No -Type of bioengineered Tissue EPIFIX -Expiration Date 07/01/24 -Product Lot Number [id number] -Percent Used 100 -Saline Lot Number [id number] -Bleeding Controlled with Pressure -Other UNDERMINING @2 , 0.6CM+ -Offloading No -Treatment Response Procedure Tolerated Well Pain Scale: 0-10 Numeric Is Patient Pain Free? Yes Wound debrided: Sacral Ulcer Wound Grade/Stage: Stage III Type of Debridement: Excisional debridement Anesthesia Used: 4% Lidocaine Solution Depth: Down to and including healthy tissue, in the subcutaneous layer Percentage of wound debrided: 100 Instrument Used: 3mm curette Tissue Removed: Slough and devitalized tissue Severity: Fat Layer Exposed Amount of bleeding with debridement: Mild Bleeding Controlled with: Pressure Patient tolerated procedure well Assessment/Plan Active Problems Malnutrition (Chronic) Pressure injury of sacral region, stage 3 (Chronic) Assessment: 1. Sacral pressure ulcer, Stage 3. 2. Malnutrition Plan: Debridement done as documented above, procedure was well tolerated. 6th application of Epifix done using 100% of product. Moistened with saline, wound veil overtop and secured with steristrips. Guaze and ABD over top. Change ABD every other day. Leave Epifix in place for a week. Take Andrae 2-3 times daily. Offloading also recommended. He continues to meet medical necessity for a skin sub due to chronicity of the ulcer and failure to improve with tradtional wound care products and a wound Vac. His questions were answered and was he advised to call with any further questions or concerns. Follow-up in 1 week. This note was generated with [employer] software. It may contain incorrect words, spelling, and punctuation that were not noted in checking the note before signing. Code Visit 150xxx-152xx: 73206 Skin sub graft trnk/arm/leg
[2019-10-11 09:06] VITALS: BP 129/79; PULSE 85; RESP 18; TEMP 36.9; BMI 16.9
--- NOTE | 2019-10-11 10:24 | PN.PCM_ITS ---
(1) Pressure injury of sacral region, stage 3 Status: Chronic Current Visit: Yes Code(s): L89.153 - Pressure ulcer of sacral region, stage 3 (2) Malnutrition Status: Chronic Current Visit: Yes Code(s): E46 - Unspecified protein- calorie malnutrition (3) Microscopic polyangiitis Status: Chronic Current Visit: No Code(s): M31.7 - Microscopic polyangiitis (4) Diabetes mellitus type II, controlled Status: Chronic Current Visit: No Code(s): E11.9 - Type 2 diabetes mellitus without complications Type of Wound Date of Service: 10/11/19 Chief Complaint: Sacral pressure sore. History of Wound: Mr. Bowles is a 73-year-old being managed for a right-sided sacral ulcer. Also history of microscopic polyangiitis on mycophenolate. Mal- nourished with a BMI of 16.9. Has been applying Promogran to also with modest improvement. No significant drainage per His . They report compliance with dressing instructions. He feels well otherwise, denies chills, fever, nausea, vomiting or change in his bowel habit. Progress of Wound: No new cocnerns. Improving. - Physical Exam Vital Signs Temp Pulse Resp BP 98.4 F 85 18 129/79 H 10/11/19 09:06 10/11/19 09:06 10/11/19 09:06 10/11/19 09:06 General: Alert, Oriented x3, Cooperative, No apparent distress HEENT: Atraumatic, Normocephalic Oral: Moist Mucosa Neck: Supple Lungs: Normal air movement Extremities: No cyanosis Skin: Ulcer/ Wound Wound Measurements and Assessment WC - Nurse 1 - General Ulcer Measurement Start: 10/04/19 08:18 Freq: Status: Active Protocol: Activity Type Activity Date Activity User E-Sign Co-Sign Detail Recorded Client Recorded Date Recorded By Document 10/11/19 09:06 RB [id number] 10/11/19 09:08 RB 10/11/19 09:06 Wound Center Nurse 1 [Ulcer Assessment] 2. coccyx -Combined with other wound No -Current Size (cm) - Length 0.8 -Current Size (cm) - Width 0.5 -Current Size (cm) - Depth 0.5 -Total Square Cm 0.40 -Tunneling No -Undermining/Tunneling No -Circular Undermining No -Exudate Amt Small -Exudate Type Serosanguineous -Wound Margin Distinct, Outline Attached -Granulation Amt Medium (34-66%) -Granulation Quality Boyle -Slough/Fibrin Yes -Necrosis Amt Small (1-33%) -Necrotic Tissue Type Adherent Slough -Structure Exposed N/A -Texture (Leigh-wound Skin Appearance) Assessed -Moisture (Leigh-wound Skin Appearance Assessed ) -Color (Leigh-wound Skin Appearance) Assessed -Temperature (Leigh-wound Skin No Abnormality Appearance) (Pt Warm) -Tenderness on Palpation (Leigh-wound No Skin Appearance) -Ulcer Cleansing Wound Cleanser -Foul Odor after Cleansing No -Anesthetic Used 5% Lidocaine Gel WC - Nurse 2 - General Ulcer CM Notes Start: 10/04/19 08:18 Freq: Status: Active Protocol: Activity Type Activity Date Activity User E-Sign Co-Sign Detail Recorded Client Recorded Date Recorded By Document 10/11/19 09:20 MW [id number] 10/11/19 09:30 MW 10/11/19 09:20 Wound Center Nurse 2 [Procedure/Treatment] -Time 09:21 -Correct Patient Yes -Correct Side, Site, Position Yes -Correct Procedure Yes -Procedure Performed Yes -Type of Procedure Debridement -Clinical Debridement Subcutaneous -Post Debridement Size (cm) - Length 0.7 -Post Debridement Size (cm) - Width 0.6 -Post Debridement Size (cm) - Depth 0.4 -Total Square Cm 0.42 -Wound/Ulcer Outcome Not Healed -Ulcer Cleansing Rinsed/ Irrigated with Saline -Foul Odor after Cleansing No -Bioengineered Tissue Yes -Type of bioengineered Tissue EPIFIX -Expiration Date 07/01/24 -Product Lot Number [id number] -Percent Used 100 -Saline Lot Number [id number] -Bleeding Controlled with Pressure -Offloading No -Treatment Response Procedure Tolerated Well [See Physician Procedure note for Specifics] Pain Scale: 0-10 Numeric [Pain] -Is Patient Pain Free? Yes Neurological: Cranial nerves II-XII grossly intact Psych/Mental Status: Normal Affect Debridement Note Post-Debridement Measurements/Treatment - Nurse 2 - General Ulcer CM Notes Start: 10/04/19 08:18 Freq: Status: Active Protocol: Activity Type Activity Date Activity User E-Sign Co-Sign Detail Recorded Client Recorded Date Recorded By Document 10/04/19 09:00 MW [id number] 10/04/19 09:11 MW Document 10/11/19 09:20 MW [id number] 10/11/19 09:30 MW 10/04/19 10/11/19 09:00 09:20 Wound Center Nurse 2 2. coccyx -Time 09:00 09:21 -Correct Patient Yes Yes -Correct Side, Site, Position Yes Yes -Correct Procedure Yes Yes -Procedure Performed Yes Yes -Type of Procedure Debridement Debridement -Clinical Debridement Subcutaneous Subcutaneous -Post Debridement Size (cm) - Length 0.8 0.7 -Post Debridement Size (cm) - Width 0.8 0.6 -Post Debridement Size (cm) - Depth 0.5 0.4 -Total Square Cm 0.64 0.42 -Wound/Ulcer Outcome Not Healed Not Healed -Ulcer Cleansing Rinsed/ Rinsed/ Irrigated with Irrigated with Saline Saline -Foul Odor after Cleansing No No -Bioengineered Tissue No Yes -Type of bioengineered Tissue EPIFIX EPIFIX -Expiration Date 07/01/24 07/01/24 -Product Lot Number [id number] -Percent Used 100 100 -Saline Lot Number [id number] -Bleeding Controlled with Pressure Pressure -Other UNDERMINING @2 , 0.6CM+ -Offloading No No -Treatment Response Procedure Procedure Tolerated Well Tolerated Well Pain Scale: 0-10 Numeric Is Patient Pain Free? Yes Yes Wound debrided: Sacral Wound Grade/Stage: Stage III Type of Debridement: Excisional debridement Anesthesia Used: 4% Lidocaine Solution Depth: Down to and including healthy tissue, in the subcutaneous layer Percentage of wound debrided: 100 Instrument Used: 3mm curette Tissue Removed: Slough and devitalized tissue Severity: Fat Layer Exposed Amount of bleeding with debridement: Mild Bleeding Controlled with: Pressure Patient tolerated procedure well Assessment/Plan Active Problems Malnutrition (Chronic) Pressure injury of sacral region, stage 3 (Chronic) Assessment: 1. Sacral pressure ulcer, Stage 3. 2. Malnutrition Plan: Debridement done as documented above, procedure was well tolerated. 7th application of Epifix done using 100% of product. Moistened with saline, adaptic touch overtop and secured with steristrips. Guaze and ABD over top. Change ABD every other day. Leave Epifix in place for a week. Take Andrae 2-3 times daily. Offloading also recommended. He continues to meet medical necessity for a skin sub due to chronicity of the ulcer and failure to improve with tradtional wound care products and a wound Vac. His questions were answered and was he advised to call with any further questions or concerns. Follow-up in 1 week. This note was generated with [employer] dictation software. It may contain incorrect words, spelling, and punctuation that were not noted in checking the note before signing. Code Visit 150xxx-152xx: [id number] Skin sub graft trnk/arm/leg
[2019-10-18 08:29] VITALS: BP 134/66; PULSE 80; RESP 20; TEMP 36.5; BMI 16.9
--- NOTE | 2019-10-18 09:13 | PN.PCM_ITS ---
(1) Pressure injury of sacral region, stage 3 Status: Chronic Current Visit: Yes Code(s): L89.153 - Pressure ulcer of sacral region, stage 3 (2) Malnutrition Status: Chronic Current Visit: Yes Code(s): E46 - Unspecified protein- calorie malnutrition (3) Microscopic polyangiitis Status: Chronic Current Visit: No Code(s): M31.7 - Microscopic polyangiitis (4) Diabetes mellitus type II, controlled Status: Chronic Current Visit: No Code(s): E11.9 - Type 2 diabetes mellitus without complications Type of Wound Date of Service: 10/18/19 Chief Complaint: Sacral pressure sore. History of Wound: Mr. Bowles is a 73-year-old being managed for a right-sided sacral ulcer. Also history of microscopic polyangiitis on mycophenolate. Mal- nourished with a BMI of 16.9. Has been applying Promogran to also with modest improvement. No significant drainage per His . They report compliance with dressing instructions. He feels well otherwise, denies chills, fever, nausea, vomiting or change in his bowel habit. Progress of Wound: No new cocnerns. Improving. - Physical Exam Vital Signs Temp Pulse Resp BP 97.7 F L 80 20 H 134/66 H 10/18/19 08:29 10/18/19 08:29 10/18/19 08:29 10/18/19 08:29 General: Alert, Oriented x3, Cooperative, No apparent distress HEENT: Atraumatic, Normocephalic Oral: Moist Mucosa Neck: Supple Lungs: Normal air movement Extremities: No cyanosis Skin: Ulcer/ Wound Wound Measurements and Assessment WC - Nurse 1 - General Ulcer Measurement Start: 10/04/19 08:18 Freq: Status: Active Protocol: Activity Type Activity Date Activity User E-Sign Co-Sign Detail Recorded Client Recorded Date Recorded By Document 10/18/19 08:29 DL [id number] 10/18/19 08:35 DL 10/18/19 08:29 Wound Center Nurse 1 [Ulcer Assessment] 2. coccyx -Current Size (cm) - Length 0.8 -Current Size (cm) - Width 0.6 -Current Size (cm) - Depth 0.4 -Total Square Cm 0.48 -Photo Taken No -Maximum Distance #2 (cm) 0.2 -Circular Undermining Yes -Exudate Amt Small -Exudate Type Serosanguineous -Wound Margin Thickened -Granulation Amt Small (1-33%) -Granulation Quality Red -Necrosis Amt None Present (0 %) -Structure Exposed N/A -Texture (Leigh-wound Skin Appearance) Scarring -Moisture (Leigh-wound Skin Appearance Maceration ) -Color (Leigh-wound Skin Appearance) Rubor -Temperature (Leigh-wound Skin No Abnormality Appearance) (Pt Warm) -Tenderness on Palpation (Leigh-wound No Skin Appearance) -Ulcer Cleansing Wound Cleanser -Foul Odor after Cleansing No -Anesthetic Used 5% Lidocaine Gel WC - Nurse 2 - General Ulcer CM Notes Start: 10/04/19 08:18 Freq: Status: Active Protocol: Activity Type Activity Date Activity User E-Sign Co-Sign Detail Recorded Client Recorded Date Recorded By Document 10/18/19 08:50 MW [id number] 10/18/19 08:57 MW 10/18/19 08:50 Wound Center Nurse 2 [Procedure/Treatment] -Time 08:50 -Correct Patient Yes -Correct Side, Site, Position Yes -Correct Procedure Yes -Procedure Performed Yes -Type of Procedure Debridement -Clinical Debridement Subcutaneous -Post Debridement Size (cm) - Length 0.7 -Post Debridement Size (cm) - Width 0.5 -Post Debridement Size (cm) - Depth 0.5 -Total Square Cm 0.35 -Wound/Ulcer Outcome Not Healed -Ulcer Cleansing Rinsed/ Irrigated with Saline -Foul Odor after Cleansing No -Bioengineered Tissue Yes -Type of bioengineered Tissue EPIFIX -Expiration Date 07/01/24 -Product Lot Number [id number] -Percent Used 100 -Saline Lot Number [id number] -Bleeding Controlled with Pressure -Other undermining @2 , 0.6cm -Offloading No -Treatment Response Procedure Tolerated Well [See Physician Procedure note for Specifics] Pain Scale: 0-10 Numeric [Pain] -Is Patient Pain Free? Yes Neurological: Cranial nerves II-XII grossly intact Debridement Note Post-Debridement Measurements/Treatment WC - Nurse 2 - General Ulcer CM Notes Start: 10/04/19 08:18 Freq: Status: Active Protocol: Activity Type Activity Date Activity User E-Sign Co-Sign Detail Recorded Client Recorded Date Recorded By Document 10/04/19 09:00 MW [id number] 10/04/19 09:11 MW Document 10/11/19 09:20 MW [id number] 10/11/19 09:30 MW Document 10/18/19 08:50 MW [id number] 10/18/19 08:57 MW 10/04/19 10/11/19 10/18/19 09:00 09:20 08:50 Wound Center Nurse 2 2. coccyx -Time 09:00 09:21 08:50 -Correct Patient Yes Yes Yes -Correct Side, Site, Position Yes Yes Yes -Correct Procedure Yes Yes Yes -Procedure Performed Yes Yes Yes -Type of Procedure Debridement Debridement Debridement -Clinical Debridement Subcutaneous Subcutaneous Subcutaneous -Post Debridement Size (cm) - Length 0.8 0.7 0.7 -Post Debridement Size (cm) - Width 0.8 0.6 0.5 -Post Debridement Size (cm) - Depth 0.5 0.4 0.5 -Total Square Cm 0.64 0.42 0.35 -Wound/Ulcer Outcome Not Healed Not Healed Not Healed -Ulcer Cleansing Rinsed/ Rinsed/ Rinsed/ Irrigated with Irrigated with Irrigated with Saline Saline Saline -Foul Odor after Cleansing No No No -Bioengineered Tissue No Yes Yes -Type of bioengineered Tissue EPIFIX EPIFIX EPIFIX -Expiration Date 07/01/24 07/01/24 07/01/24 -Product Lot Number [id number] 005 -Percent Used 100 100 100 -Saline Lot Number [id number] -Bleeding Controlled with Pressure Pressure Pressure -Other UNDERMINING @2 undermining @2 , 0.6CM+ , 0.6cm -Offloading No No No -Treatment Response Procedure Procedure Procedure Tolerated Well Tolerated Well Tolerated Well Pain Scale: 0-10 Numeric Is Patient Pain Free? Yes Yes Yes Wound debrided: Sacral Wound Grade/Stage: Stage III Type of Debridement: Excisional debridement Anesthesia Used: 4% Lidocaine Solution Depth: Down to and including healthy tissue, in the subcutaneous layer Percentage of wound debrided: 100 Instrument Used: 3mm curette Tissue Removed: Slough and devitalized tissue Severity: Fat Layer Exposed Amount of bleeding with debridement: Mild Bleeding Controlled with: Pressure Patient tolerated procedure well Assessment/Plan Active Problems Malnutrition (Chronic) Pressure injury of sacral region, stage 3 (Chronic) Assessment: 1. Sacral pressure ulcer, Stage 3. 2. Malnutrition Plan: Debridement done as documented above, procedure was well tolerated. 8th application of Epifix done using 100% of product. Moistened with saline, wound veil overtop and secured with steristrips. Guaze and ABD over top. Change ABD every other day. Leave Epifix in place for a week. Take Andrae 2-3 times daily. Offloading also recommended. He continues to meet medical necessity for a skin sub due to chronicity of the ulcer and failure to improve with tradtional wound care products and a wound Vac. His questions were answered and was he advised to call with any further questions or concerns. Follow-up in 1 week. This note was generated with [employer] dictation software. It may contain incorrect words, spelling, and punctuation that were not noted in checking the note before signing. Code Visit 150xxx-152xx: 16092 Skin sub graft trnk/arm/leg
[2019-10-26 08:24] VITALS: BP 129/83; PULSE 96; RESP 16; TEMP 37; BMI 16.9
--- NOTE | 2019-10-26 11:48 | PN.PCM_ITS ---
(1) Malnutrition Status: Chronic Current Visit: Yes Code(s): E46 - Unspecified protein- calorie malnutrition (2) Pressure injury of sacral region, stage 3 Status: Chronic Current Visit: Yes Code(s): L89.153 - Pressure ulcer of sacral region, stage 3 (3) Anemia of chronic disease Status: Chronic Current Visit: No Code(s): D63.8 - Anemia in other chronic diseases classified elsewhere (4) Debility Status: Chronic Current Visit: No Code(s): R53.81 - Other malaise (5) Diabetes mellitus type II, controlled Status: Chronic Current Visit: No Code(s): E11.9 - Type 2 diabetes mellitus without complications (6) 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 History of Wound: Mr. Bowles is a 73-year-old being managed for a right-sided sacral ulcer. Also history of microscopic polyangiitis on mycophenolate. Mal- nourished with a BMI of 16.9. Has been applying Promogran to also with modest improvement. No significant drainage per His . They report compliance with dressing instructions. He feels well otherwise, denies chills, fever, nausea, vomiting or change in his bowel habit. Progress of Wound: No new concerns, stable. - Physical Exam Vital Signs Temp Pulse Resp BP 98.6 F 96 16 129/83 H 10/26/19 08:24 10/26/19 08:24 10/26/19 08:24 10/26/19 08:24 General: Alert, Oriented x3, Cooperative, No apparent distress HEENT: Atraumatic Oral: Moist Mucosa Lungs: Clear to auscultation, Normal air movement Cardiovascular: Regular rate Abdomen: Soft, Non Tender Extremities: No clubbing, No cyanosis Skin: Ulcer/ Wound - See nursing documentation, slough and devitalized tissue present, no signs of infection at this time Wound Measurements and Assessment WC - Nurse 1 - General Ulcer Measurement Start: 10/04/19 08:18 Freq: Status: Active Protocol: Activity Type Activity Date Activity User E-Sign Co-Sign Detail Recorded Client Recorded Date Recorded By Document 10/26/19 08:24 [facility] [id number] 10/26/19 08:34 BMF 10/26/19 08:24 Wound Center Nurse 1 [Ulcer Assessment] 2. coccyx -Combined with other wound No -Current Size (cm) - Length 0.8 -Current Size (cm) - Width 0.4 -Current Size (cm) - Depth 0.5 -Total Square Cm 0.32 -Date of Last Picture (Recall this 10/26/19 field) -Photo Taken Yes -Epithelialization None Present -Tunneling No -Undermining/Tunneling No -Circular Undermining No -Exudate Amt Medium -Exudate Type Serous -Wound Margin Thickened -Granulation Amt Large (67-100%) -Granulation Quality Red -Slough/Fibrin No -Necrosis Amt None Present (0 %) -Texture (Leigh-wound Skin Appearance) Assessed, Excoriation, Scarring -Moisture (Leigh-wound Skin Appearance Assessed, ) Maceration -Color (Leigh-wound Skin Appearance) Assessed, Erythema,Palor -Temperature (Leigh-wound Skin No Abnormality Appearance) (Pt Warm) -Tenderness on Palpation (Leigh-wound No Skin Appearance) -Ulcer Cleansing soapy water -Foul Odor after Cleansing No -Anesthetic Used 5% Lidocaine Gel WC - Nurse 2 - General Ulcer CM Notes Start: 10/04/19 08:18 Freq: Status: Active Protocol: Activity Type Activity Date Activity User E-Sign Co-Sign Detail Recorded Client Recorded Date Recorded By Document 10/26/19 08:46 MW [id number] 10/26/19 08:53 MW 10/26/19 08:46 Wound Center Nurse 2 [Procedure/Treatment] -Time 08:46 -Correct Patient Yes -Correct Side, Site, Position Yes -Correct Procedure Yes -Procedure Performed Yes -Type of Procedure Debridement -Clinical Debridement Subcutaneous -Post Debridement Size (cm) - Length 1.0 -Post Debridement Size (cm) - Width 0.9 -Post Debridement Size (cm) - Depth 0.8 -Total Square Cm 0.90 -Wound/Ulcer Outcome Not Healed -Ulcer Cleansing Rinsed/ Irrigated with Saline -Foul Odor after Cleansing No -Bioengineered Tissue Yes -Type of bioengineered Tissue EPIFIX -Expiration Date 07/01/24 -Product Lot Number [id number] -Percent Used 100 -Saline Lot Number [id number] -Bleeding Controlled with Pressure -Other EPIFIX 18.0 DISC -Offloading No -Treatment Response Procedure Tolerated Well [See Physician Procedure note for Specifics] Pain Scale: 0-10 Numeric [Pain] -Is Patient Pain Free? Yes Neurological: Neuro grossly intact Psych/Mental Status: Normal Affect, Appropriate Debridement Note Post-Debridement Measurements/Treatment WC - Nurse 2 - General Ulcer CM Notes Start: 10/04/19 08:18 Freq: Status: Active Protocol: Activity Type Activity Date Activity User E-Sign Co-Sign Detail Recorded Client Recorded Date Recorded By Document 10/04/19 09:00 MW [id number] 10/04/19 09:11 MW Document 10/11/19 09:20 MW [id number] 10/11/19 09:30 MW Document 10/18/19 08:50 MW [id number] 10/18/19 08:57 MW Document 10/26/19 08:46 MW [id number] 10/26/19 08:53 MW 10/04/19 10/11/19 10/18/19 09:00 09:20 08:50 Wound Center Nurse 2 2. coccyx -Time 09:00 09:21 08:50 -Correct Patient Yes Yes Yes -Correct Side, Site, Position Yes Yes Yes -Correct Procedure Yes Yes Yes -Procedure Performed Yes Yes Yes -Type of Procedure Debridement Debridement Debridement -Clinical Debridement Subcutaneous Subcutaneous Subcutaneous -Post Debridement Size (cm) - Length 0.8 0.7 0.7 -Post Debridement Size (cm) - Width 0.8 0.6 0.5 -Post Debridement Size (cm) - Depth 0.5 0.4 0.5 -Total Square Cm 0.64 0.42 0.35 -Wound/Ulcer Outcome Not Healed Not Healed Not Healed -Ulcer Cleansing Rinsed/ Rinsed/ Rinsed/ Irrigated with Irrigated with Irrigated with Saline Saline Saline -Foul Odor after Cleansing No No No -Bioengineered Tissue No Yes Yes -Type of bioengineered Tissue EPIFIX EPIFIX EPIFIX -Expiration Date 07/01/24 07/01/24 07/01/24 -Product Lot Number [id number] -Percent Used 100 100 100 -Saline Lot Number [id number] -Bleeding Controlled with Pressure Pressure Pressure -Other UNDERMINING @2 undermining @2 , 0.6CM+ , 0.6cm -Offloading No No No -Treatment Response Procedure Procedure Procedure Tolerated Well Tolerated Well Tolerated Well Pain Scale: 0-10 Numeric Is Patient Pain Free? Yes Yes Yes 10/26/19 08:46 Wound Center Nurse 2 2. coccyx -Time 08:46 -Correct Patient Yes -Correct Side, Site, Position Yes -Correct Procedure Yes -Procedure Performed Yes -Type of Procedure Debridement -Clinical Debridement Subcutaneous -Post Debridement Size (cm) - Length 1.0 -Post Debridement Size (cm) - Width 0.9 -Post Debridement Size (cm) - Depth 0.8 -Total Square Cm 0.90 -Wound/Ulcer Outcome Not Healed -Ulcer Cleansing Rinsed/ Irrigated with Saline -Foul Odor after Cleansing No -Bioengineered Tissue Yes -Type of bioengineered Tissue EPIFIX -Expiration Date 07/01/24 -Product Lot Number [id number] -Percent Used 100 -Saline Lot Number [id number] -Bleeding Controlled with Pressure -Other EPIFIX 18.0 DISC -Offloading No -Treatment Response Procedure Tolerated Well Pain Scale: 0-10 Numeric Is Patient Pain Free? Yes Wound debrided: Stage III sacral pressure injury Type of Debridement: Excisional debridement Anesthesia Used: 5% Lidocaine Gel Depth: in the subcutaneous layer Percentage of wound debrided: 100 Instrument Used: 5mm curette Tissue Removed: Slough and devitalized tissue Severity: Fat Layer Exposed Amount of bleeding with debridement: Mild Bleeding Controlled with: Pressure Patient tolerated procedure well Assessment/Plan Active Problems Malnutrition (Chronic) Pressure injury of sacral region, stage 3 (Chronic) Assessment: 1. Sacral pressure ulcer, Stage 3. 2. Malnutrition Plan: Debridement done as documented above, procedure was well tolerated. 9th application of Epifix done using 100% of product. Moistened with saline, wound veil overtop and secured with steristrips. Guaze and ABD over top. Change ABD every other day. Leave Epifix in place for a week. Take Andrae 2-3 times daily. Offloading also recommended. He continues to meet medical necessity for a skin sub due to chronicity of the ulcer and failure to improve with tradtional wound care products and a wound Vac. His questions were answered and was he advised to call with any further questions or concerns. Follow-up in 1 week. This note was generated with [employer] software. It may contain incorrect words, spelling, and punctuation that were not noted in checking the note before signing. Code Visit 150xxx-152xx: 90736 Skin sub graft trnk/arm/leg
== END 2019-10-30 23:59 ==
LOC: WC 08:30
PROVIDERS: Family Provider Family Medicine; PCP Family Medicine; Referring Provider Internal Medicine; Visit Provider Internal Medicine
DX: E11.622 Type 2 diabetes mellitus with other skin ulcer (principal); L89.153 Pressure ulcer of sacral region, stage 3; M31.7 Microscopic polyangiitis; E46 Unspecified protein-calorie malnutrition; Z68.1 Body mass index [BMI] 19.9 or less, adult
CPT/HCPCS: 15271; Q4186

== ENCOUNTER 2019-11-29 11:30 | Outpatient (RCR) | payer MEDICARE, SELFPAY ==
[2019-10-31 00:32] VITALS: BP 129/83; PULSE 96; RESP 16; TEMP 37
[2019-11-01 13:22] VITALS: BP 144/67; PULSE 94; RESP 16; TEMP 37.2; BMI 16.9
--- NOTE | 2019-11-01 17:06 | PCM.WC.PN ---
(1) Pressure injury of sacral region, stage 3 Status: Chronic Current Visit: Yes Code(s): L89.153 - Pressure ulcer of sacral region, stage 3 (2) Debility Status: Chronic Current Visit: Yes Code(s): R53.81 - Other malaise (3) Diabetes mellitus type II, controlled Status: Chronic Current Visit: Yes Code(s): E11.9 - Type 2 diabetes mellitus without complications (4) Malnutrition Status: Chronic Current Visit: Yes Code(s): E46 - Unspecified protein-calorie malnutrition Type of Wound Date of Service: 11/01/19 Chief Complaint: Sacral pressure sore. History of Wound: Mr. Bowles is a 73-year-old being managed for a right-sided sacral ulcer. Also history of microscopic polyangiitis on mycophenolate. Mal-nourished with a BMI of 16.9. Has been applying Promogran to also with modest improvement. No significant drainage per His . They report compliance with dressing instructions. He feels well otherwise, denies chills, fever, nausea, vomiting or change in his bowel habit. Progress of Wound: Denies any fever, chills, nausea, vomiting, or diarrhea. Denies any signs of infection, including increasing pain, redness, swelling, or drainage from affected area. - Physical Exam Vital Signs Temp Pulse Resp BP 98.9 F 94 16 144/67 H 11/01/19 13:22 11/01/19 13:22 11/01/19 13:22 11/01/19 13:22 General: Alert, Oriented x3, Cooperative, No apparent distress HEENT: Atraumatic, Normocephalic Oral: Moist Mucosa Extremities: No clubbing, No cyanosis Skin: Ulcer/ Wound - Stage III sacral pressure ulcer, slough and vitalized tissue present. Very mild surrounding maceration. No surrounding erythema, swelling, warmth to palpation. No purulent or foul-smelling discharge. Does not probe to bone. Wound Measurements and Assessment WC - Nurse 1 - General Ulcer Measurement Start: 11/01/19 13:22 Freq: Status: Active Protocol: Activity Type Activity Date Activity User E-Sign Co-Sign Detail Recorded Client Recorded Date Recorded By Document 11/01/19 13:22 [facility] [id number] 11/01/19 13:25 [facility] 11/01/19 13:22 Wound Center Nurse 1 [Ulcer Assessment] 2. coccyx -Combined with other wound No -Current Size (cm) - Length 0.6 -Current Size (cm) - Width 0.4 -Current Size (cm) - Depth 0.3 -Total Square Cm 0.24 -Epithelialization Small 1-33% -Tunneling No -Circular Undermining Yes -Exudate Amt Small -Exudate Type Serosanguineous -Wound Margin Distinct, Outline Attached -Granulation Amt Large (67-100%) -Granulation Quality Red -Slough/Fibrin No -Necrosis Amt None Present (0 %) -Texture (Leigh-wound Skin Appearance) Assessed, Scarring -Moisture (Leigh-wound Skin Appearance Assessed, ) Maceration -Color (Leigh-wound Skin Appearance) Assessed,Palor -Temperature (Leigh-wound Skin No Abnormality Appearance) (Pt Warm) -Tenderness on Palpation (Leigh-wound No Skin Appearance) -Ulcer Cleansing soapy water -Foul Odor after Cleansing No -Anesthetic Used 5% Lidocaine Gel WC - Nurse 2 - General Ulcer CM Notes Start: 11/01/19 13:22 Freq: Status: Active Protocol: Activity Type Activity Date Activity User E-Sign Co-Sign Detail Recorded Client Recorded Date Recorded By Document 11/01/19 13:51 DV [id number] 11/01/19 14:05 DV 11/01/19 13:51 Wound Center Nurse 2 [Procedure/Treatment] -Time 13:52 -Correct Patient Yes -Correct Side, Site, Position Yes -Correct Procedure Yes -Procedure Performed Yes -Type of Procedure Debridement -Clinical Debridement Subcutaneous -Post Debridement Size (cm) - Length 0.9 -Post Debridement Size (cm) - Width 0.6 -Post Debridement Size (cm) - Depth 0.6 -Total Square Cm 0.54 -Wound/Ulcer Outcome Not Healed -Ulcer Cleansing Rinsed/ Irrigated with Saline -Foul Odor after Cleansing No -Bioengineered Tissue No -Bleeding Controlled with Pressure -Offloading No -Treatment Response Procedure Tolerated Well [See Physician Procedure note for Specifics] Pain Scale: 0-10 Numeric [Pain] -Is Patient Pain Free? Yes Psych/Mental Status: Normal Affect, Appropriate Debridement Note Post-Debridement Measurements/Treatment WC - Nurse 2 - General Ulcer CM Notes Start: 11/01/19 13:22 Freq: Status: Active Protocol: Activity Type Activity Date Activity User E-Sign Co-Sign Detail Recorded Client Recorded Date Recorded By Document 11/01/19 13:51 DV [id number] 11/01/19 14:05 DV 11/01/19 13:51 Wound Center Nurse 2 2. coccyx -Time 13:52 -Correct Patient Yes -Correct Side, Site, Position Yes -Correct Procedure Yes -Procedure Performed Yes -Type of Procedure Debridement -Clinical Debridement Subcutaneous -Post Debridement Size (cm) - Length 0.9 -Post Debridement Size (cm) - Width 0.6 -Post Debridement Size (cm) - Depth 0.6 -Total Square Cm 0.54 -Wound/Ulcer Outcome Not Healed -Ulcer Cleansing Rinsed/ Irrigated with Saline -Foul Odor after Cleansing No -Bioengineered Tissue No -Bleeding Controlled with Pressure -Offloading No -Treatment Response Procedure Tolerated Well Pain Scale: 0-10 Numeric Is Patient Pain Free? Yes Wound debrided: Sacral pressure ulcer, stage III Wound Grade/Stage: Stage III Type of Debridement: Excisional debridement Anesthesia Used: 5% Lidocaine Gel Depth: in the subcutaneous layer Percentage of wound debrided: 100 Instrument Used: 5mm curette Tissue Removed: Slough and devitalized tissue Severity: Fat Layer Exposed Amount of bleeding with debridement: Mild Bleeding Controlled with: Compression and gauze Patient tolerated procedure well Assessment/Plan Active Problems Malnutrition (Chronic) Pressure injury of sacral region, stage 3 (Chronic) Debility (Chronic) Diabetes mellitus type II, controlled (Chronic) Assessment: 1. Sacral pressure ulcer, Stage 3. 2. Malnutrition Plan: Debridement done as documented above, procedure was well tolerated. Patient's insurance requires reapproval for use of Epi-Fix, prior authorization needed. [employer] applied to wound bed today and covered with gauze and secured with Medipore tape. 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 Take Andrae 2-3 times daily. Offloading also recommended. He continues to meet medical necessity for a skin sub due to chronicity of the ulcer and failure to improve with tradtional wound care products and a wound Vac. His questions were answered and was he advised to call with any further questions or concerns. Follow-up in 1 week. Follow-up sooner or report to emergency department if symptoms worsen or if new symptoms arise. Note: [employer] speech recognition medical billing instructor software was used to create portions of this document. Sound-alike and misspelled words, as well as other medical billing instructor errors may be contained in the documentation. Code Visit 111xxx-113xx: [id number] Gertrudis subq tissue 20 sq cm/<
[2019-11-08 08:40] VITALS: BP 120/72; PULSE 88; RESP 16; TEMP 36.9; BMI 16.9
--- NOTE | 2019-11-08 12:57 | PN.PCM_ITS ---
(1) Pressure injury of sacral region, stage 3 Status: Chronic Current Visit: Yes Code(s): L89.153 - Pressure ulcer of sacral region, stage 3 (2) Malnutrition Status: Chronic Current Visit: Yes Code(s): E46 - Unspecified protein- calorie malnutrition (3) Microscopic polyangiitis Status: Chronic Current Visit: No Code(s): M31.7 - Microscopic polyangiitis (4) Wegeners granulomatosis Status: Chronic Current Visit: No Code(s): M31.30 - Jeannette's granulomatosis without renal involvement Type of Wound Date of Service: 11/08/19 Chief Complaint: Sacral pressure sore. History of Wound: Mr. Bowles is a 73-year-old being managed for a right-sided sacral ulcer. Also history of microscopic polyangiitis on mycophenolate. Mal- nourished with a BMI of 16.9. Has been applying Promogran to also with modest improvement. No significant drainage per His . They report compliance with dressing instructions. He feels well otherwise, denies chills, fever, nausea, vomiting or change in his bowel habit. Progress of Wound: Has had 9 applications of epi-fix so far with significant improvement however has had a break, awaiting insurance precertification. No new concerns at this time. - Physical Exam Vital Signs Temp Pulse Resp BP 98.4 F 88 16 120/72 11/08/19 08:40 11/08/19 08:40 11/08/19 08:40 11/08/19 08:40 General: Alert, Oriented x3, Cooperative, No apparent distress HEENT: Atraumatic, Normocephalic Oral: Moist Mucosa Neck: Supple Skin: Ulcer/ Wound Wound Measurements and Assessment WC - Nurse 1 - General Ulcer Measurement Start: 11/01/19 13:22 Freq: Status: Active Protocol: Activity Type Activity Date Activity User E-Sign Co-Sign Detail Recorded Client Recorded Date Recorded By Document 11/08/19 08:40 DONNA [id number] 11/08/19 08:45 DONNA 11/08/19 08:40 Wound Center Nurse 1 [Ulcer Assessment] 2. coccyx -Combined with other wound No -Current Size (cm) - Length 0.9 -Current Size (cm) - Width 0.5 -Current Size (cm) - Depth 0.4 -Total Square Cm 0.45 -Photo Taken No -Epithelialization Small 1-33% -Tunneling No -Undermining/Tunneling Yes -Undermining/Tunneling Starts (O' 6 clock) -Undermining/Tunneling Ends (O'clock) 12 -Maximum Distance (cm) 0.5 -Circular Undermining No -Exudate Amt Small -Exudate Type Serosanguineous -Wound Margin Flat & Intact -Granulation Amt Large (67-100%) -Granulation Quality Red -Slough/Fibrin Yes -Necrosis Amt Small (1-33%) -Necrotic Tissue Type Adherent Slough -Structure Exposed N/A -Texture (Leigh-wound Skin Appearance) Assessed -Moisture (Leigh-wound Skin Appearance Assessed,Dry/ ) Scaly -Color (Leigh-wound Skin Appearance) Assessed -Temperature (Leigh-wound Skin No Abnormality Appearance) (Pt Warm) -Tenderness on Palpation (Leigh-wound No Skin Appearance) -Ulcer Cleansing Rinsed/ Irrigated with Saline -Foul Odor after Cleansing No -Anesthetic Used 5% Lidocaine Gel [Edema Assessment] -Lower Limb Edema Present NA WC - Nurse 2 - General Ulcer CM Notes Start: 11/01/19 13:22 Freq: Status: Active Protocol: Activity Type Activity Date Activity User E-Sign Co-Sign Detail Recorded Client Recorded Date Recorded By Document 11/08/19 09:20 MW [id number] 11/08/19 09:25 MW 11/08/19 09:20 Wound Center Nurse 2 [Procedure/Treatment] 2. coccyx -Time 09:20 -Correct Patient Yes -Correct Side, Site, Position Yes -Correct Procedure Yes -Procedure Performed Yes -Type of Procedure Debridement -Clinical Debridement Subcutaneous -Post Debridement Size (cm) - Length 0.7 -Post Debridement Size (cm) - Width 0.4 -Post Debridement Size (cm) - Depth 0.6 -Total Square Cm 0.28 -Wound/Ulcer Outcome Not Healed -Ulcer Cleansing Rinsed/ Irrigated with Saline -Foul Odor after Cleansing No -Bioengineered Tissue No -Bleeding Controlled with Pressure -Offloading No -Treatment Response Procedure Tolerated Well [See Physician Procedure note for Specifics] Pain Scale: 0-10 Numeric [Pain] -Is Patient Pain Free? Yes Neurological: Cranial nerves II-XII grossly intact Psych/Mental Status: Normal Affect Debridement Note Post-Debridement Measurements/Treatment WC - Nurse 2 - General Ulcer CM Notes Start: 11/01/19 13:22 Freq: Status: Active Protocol: Activity Type Activity Date Activity User E-Sign Co-Sign Detail Recorded Client Recorded Date Recorded By Document 11/01/19 13:51 DV [id number] 11/01/19 14:05 DV Document 11/08/19 09:20 MW [id number] 11/08/19 09:25 MW 11/01/19 11/08/19 13:51 09:20 Wound Center Nurse 2 2. coccyx -Time 13:52 09:20 -Correct Patient Yes Yes -Correct Side, Site, Position Yes Yes -Correct Procedure Yes Yes -Procedure Performed Yes Yes -Type of Procedure Debridement Debridement -Clinical Debridement Subcutaneous Subcutaneous -Post Debridement Size (cm) - Length 0.9 0.7 -Post Debridement Size (cm) - Width 0.6 0.4 -Post Debridement Size (cm) - Depth 0.6 0.6 -Total Square Cm 0.54 0.28 -Wound/Ulcer Outcome Not Healed Not Healed -Ulcer Cleansing Rinsed/ Rinsed/ Irrigated with Irrigated with Saline Saline -Foul Odor after Cleansing No No -Bioengineered Tissue No No -Bleeding Controlled with Pressure Pressure -Offloading No No -Treatment Response Procedure Procedure Tolerated Well Tolerated Well Pain Scale: 0-10 Numeric Is Patient Pain Free? Yes Yes Wound debrided: Sacral Wound Grade/Stage: Stage III Type of Debridement: Excisional debridement Anesthesia Used: 4% Lidocaine Solution Depth: Down to and including healthy tissue, in the subcutaneous layer Percentage of wound debrided: 100 Instrument Used: 3mm curette Tissue Removed: Slough and devitalized tissue Severity: Fat Layer Exposed Amount of bleeding with debridement: Mild Bleeding Controlled with: Pressure Patient tolerated procedure well Assessment/Plan Active Problems Malnutrition (Chronic) Pressure injury of sacral region, stage 3 (Chronic) Debility (Chronic) Diabetes mellitus type II, controlled (Chronic) Assessment: 1. Sacral pressure ulcer, Stage 3. 2. Malnutrition Plan: Debridement done as documented above, procedure was well tolerated. Patient's insurance requires reapproval for use of Epi-Fix, still awaiting approval. For now, Promogran daily with Adaptic over top. Take Andrae 2-3 times daily. Offloading also recommended. He continues to meet medical necessity for a skin sub due to chronicity of the ulcer and failure to improve with tradtional wound care products and a wound Vac. His questions were answered and was he advised to call with any further questions or concerns. Follow-up in 1 week. Note: [employer] speech recognition enrichment specialist software was used to create portions of this document. Sound-alike and misspelled words, as well as other enrichment specialist errors may be contained in the documentation. Code Visit 111xxx-113xx: [id number] Gertrudis subq tissue 20 sq cm/<
[2019-11-15 08:26] VITALS: BP 119/70; PULSE 124; RESP 18; TEMP 36.6; BMI 16.9
--- NOTE | 2019-11-15 08:50 | PN.PCM_ITS ---
(1) Pressure injury of sacral region, stage 3 Status: Chronic Current Visit: Yes Code(s): L89.153 - Pressure ulcer of sacral region, stage 3 (2) Malnutrition Status: Chronic Current Visit: Yes Code(s): E46 - Unspecified protein- calorie malnutrition (3) Microscopic polyangiitis Status: Chronic Current Visit: No Code(s): M31.7 - Microscopic polyangiitis (4) Wegeners granulomatosis Status: Chronic Current Visit: No Code(s): M31.30 - Jeannette's granulomatosis without renal involvement Type of Wound Date of Service: 11/15/19 Chief Complaint: Sacral pressure sore. History of Wound: Mr. Bowles is a 73-year-old being managed for a right-sided sacral ulcer. Also history of microscopic polyangiitis on mycophenolate. Mal- nourished with a BMI of 16.9. Has been applying Promogran to also with modest improvement. No significant drainage per His . They report compliance with dressing instructions. He feels well otherwise, denies chills, fever, nausea, vomiting or change in his bowel habit. Progress of Wound: Has had 9 applications of epi-fix so far. No new concerns. - Physical Exam Vital Signs Temp Pulse Resp BP 98 F 124 H 18 119/70 11/15/19 08:26 11/15/19 08:26 11/15/19 08:26 11/15/19 08:26 General: Alert, Oriented x3, Cooperative, No apparent distress HEENT: Atraumatic, Normocephalic Oral: Moist Mucosa Neck: Supple Lungs: Normal air movement Extremities: No cyanosis Skin: Ulcer/ Wound Wound Measurements and Assessment WC - Nurse 1 - General Ulcer Measurement Start: 11/01/19 13:22 Freq: Status: Active Protocol: Activity Type Activity Date Activity User E-Sign Co-Sign Detail Recorded Client Recorded Date Recorded By Document 11/15/19 08:26 JF [id number] 11/15/19 08:29 DONNA 11/15/19 08:26 Wound Center Nurse 1 [Ulcer Assessment] 2. coccyx -Combined with other wound No -Current Size (cm) - Length 0.8 -Current Size (cm) - Width 0.4 -Current Size (cm) - Depth 0.5 -Total Square Cm 0.32 -Photo Taken No -Epithelialization Small 1-33% -Tunneling No -Undermining/Tunneling No -Circular Undermining Yes -Exudate Amt Small -Exudate Type Serosanguineous -Wound Margin Flat & Intact -Granulation Amt Large (67-100%) -Granulation Quality Red -Necrotic Tissue Type Adherent Slough -Structure Exposed N/A -Texture (Leigh-wound Skin Appearance) Assessed -Moisture (Leigh-wound Skin Appearance Assessed,Dry/ ) Scaly -Color (Leigh-wound Skin Appearance) Assessed -Temperature (Leigh-wound Skin No Abnormality Appearance) (Pt Warm) -Tenderness on Palpation (Leigh-wound No Skin Appearance) -Ulcer Cleansing Rinsed/ Irrigated with Saline -Foul Odor after Cleansing No -Anesthetic Used 5% Lidocaine Gel [Edema Assessment] -Lower Limb Edema Present NA WC - Nurse 2 - General Ulcer CM Notes Start: 11/01/19 13:22 Freq: Status: Active Protocol: Activity Type Activity Date Activity User E-Sign Co-Sign Detail Recorded Client Recorded Date Recorded By Document 11/15/19 08:36 MW [id number] 11/15/19 08:43 MW 11/15/19 08:36 Wound Center Nurse 2 [Procedure/Treatment] 2. coccyx -Time 08:36 -Correct Patient Yes -Correct Side, Site, Position Yes -Correct Procedure Yes -Procedure Performed Yes -Type of Procedure Debridement -Clinical Debridement Subcutaneous -Post Debridement Size (cm) - Length 0.6 -Post Debridement Size (cm) - Width 0.5 -Post Debridement Size (cm) - Depth 0.4 -Total Square Cm 0.30 -Wound/Ulcer Outcome Not Healed -Ulcer Cleansing Rinsed/ Irrigated with Saline -Foul Odor after Cleansing No -Bioengineered Tissue Yes -Type of bioengineered Tissue EPIFIX -Expiration Date 07/31/24 -Product Lot Number [id number] -Percent Used 100 -Saline Lot Number [id number] -Bleeding Controlled with Pressure -Offloading No -Treatment Response Procedure Tolerated Well [See Physician Procedure note for Specifics] Pain Scale: 0-10 Numeric [Pain] -Is Patient Pain Free? Yes Neurological: Cranial nerves II-XII grossly intact Psych/Mental Status: Normal Affect Debridement Note Post-Debridement Measurements/Treatment WC - Nurse 2 - General Ulcer CM Notes Start: 11/01/19 13:22 Freq: Status: Active Protocol: Activity Type Activity Date Activity User E-Sign Co-Sign Detail Recorded Client Recorded Date Recorded By Document 11/01/19 13:51 DV [id number] 11/01/19 14:05 DV Document 11/08/19 09:20 MW [id number] 11/08/19 09:25 MW Document 11/15/19 08:36 MW [id number] 11/15/19 08:43 MW 11/01/19 11/08/19 11/15/19 13:51 09:20 08:36 Wound Center Nurse 2 2. coccyx -Time 13:52 09:20 08:36 -Correct Patient Yes Yes Yes -Correct Side, Site, Position Yes Yes Yes -Correct Procedure Yes Yes Yes -Procedure Performed Yes Yes Yes -Type of Procedure Debridement Debridement Debridement -Clinical Debridement Subcutaneous Subcutaneous Subcutaneous -Post Debridement Size (cm) - Length 0.9 0.7 0.6 -Post Debridement Size (cm) - Width 0.6 0.4 0.5 -Post Debridement Size (cm) - Depth 0.6 0.6 0.4 -Total Square Cm 0.54 0.28 0.30 -Wound/Ulcer Outcome Not Healed Not Healed Not Healed -Ulcer Cleansing Rinsed/ Rinsed/ Rinsed/ Irrigated with Irrigated with Irrigated with Saline Saline Saline -Foul Odor after Cleansing No No No -Bioengineered Tissue No No Yes -Type of bioengineered Tissue EPIFIX -Expiration Date 07/31/24 -Product Lot Number [id number] -Percent Used 100 -Saline Lot Number [id number] -Bleeding Controlled with Pressure Pressure Pressure -Offloading No No No -Treatment Response Procedure Procedure Procedure Tolerated Well Tolerated Well Tolerated Well Pain Scale: 0-10 Numeric Is Patient Pain Free? Yes Yes Yes Wound debrided: Sacral Wound Grade/Stage: Stage III Type of Debridement: Excisional debridement Anesthesia Used: 4% Lidocaine Solution Depth: Down to and including healthy tissue, in the subcutaneous layer Percentage of wound debrided: 100 Instrument Used: 3mm curette Tissue Removed: Slough and devitalized tissue Severity: Fat Layer Exposed Amount of bleeding with debridement: Mild Bleeding Controlled with: Pressure Patient tolerated procedure well Assessment/Plan Active Problems Malnutrition (Chronic) Pressure injury of sacral region, stage 3 (Chronic) Debility (Chronic) Diabetes mellitus type II, controlled (Chronic) Assessment: 1. Sacral pressure ulcer, Stage 3. 2. Malnutrition Plan: Debridement done as documented above, procedure was well tolerated. 10th application of epifx done today using 100% of product. Moistened with saline. Wound veil overtop and secured with steristrips. Leave in place for a week. Take Andrae 2-3 times daily. Offloading also recommended. He continues to meet medical necessity for a skin sub due to chronicity of the ulcer and failure to improve with tradtional wound care products and a wound Vac. No further applications of Epifix however approved by Insurance. Will switch to Pomogran next week. His questions were answered and was he advised to call with any further questions or concerns. Follow-up in 1 week. Note: [employer] speech recognition flowers salesperson software was used to create portions of this document. Sound-alike and misspelled words, as well as other flowers salesperson errors may be contained in the documentation. Code Visit 150xxx-152xx: 59698 Skin sub graft trnk/arm/leg
[2019-11-22 08:51] VITALS: RESP 16; TEMP 36.6; BMI 16.9
--- NOTE | 2019-11-22 12:00 | PN.PCM_ITS ---
(1) Pressure injury of sacral region, stage 3 Status: Chronic Current Visit: Yes Code(s): L89.153 - Pressure ulcer of sacral region, stage 3 (2) Malnutrition Status: Chronic Current Visit: Yes Code(s): E46 - Unspecified protein- calorie malnutrition (3) Microscopic polyangiitis Status: Chronic Current Visit: No Code(s): M31.7 - Microscopic polyangiitis (4) Wegeners granulomatosis Status: Chronic Current Visit: No Code(s): M31.30 - Jeannette's granulomatosis without renal involvement Type of Wound Date of Service: 11/22/19 Chief Complaint: Sacral pressure sore. History of Wound: Mr. Bowles is a 73-year-old being managed for a right-sided sacral ulcer. Also history of microscopic polyangiitis on mycophenolate. Mal- nourished with a BMI of 16.9. Has been applying Promogran to also with modest improvement. No significant drainage per His . They report compliance with dressing instructions. He feels well otherwise, denies chills, fever, nausea, vomiting or change in his bowel habit. Progress of Wound: Has had 10 applications of epi-fix so far. Ulcer is stable with no significant progress of the past weeks. - Physical Exam Vital Signs Temp Pulse Resp BP 97.9 F 124 H 16 119/70 11/22/19 08:51 11/15/19 08:26 11/22/19 08:51 11/15/19 08:26 General: Alert, Oriented x3, Cooperative, No apparent distress HEENT: Atraumatic, Normocephalic Oral: Moist Mucosa Neck: Supple Lungs: Normal air movement Extremities: No cyanosis Skin: Ulcer/ Wound Wound Measurements and Assessment WC - Nurse 1 - General Ulcer Measurement Start: 11/01/19 13:22 Freq: Status: Active Protocol: Activity Type Activity Date Activity User E-Sign Co-Sign Detail Recorded Client Recorded Date Recorded By Document 11/22/19 08:51 DONNA [id number] 11/22/19 08:57 DONNA 11/22/19 08:51 Wound Center Nurse 1 [Ulcer Assessment] 2. coccyx -Combined with other wound No -Current Size (cm) - Length 0.6 -Current Size (cm) - Width 0.4 -Current Size (cm) - Depth 0.6 -Total Square Cm 0.24 -Photo Taken No -Epithelialization None Present -Tunneling No -Undermining/Tunneling No -Circular Undermining No -Exudate Amt Small -Exudate Type Serosanguineous -Wound Margin Flat & Intact -Granulation Amt Large (67-100%) -Granulation Quality Red -Slough/Fibrin Yes -Necrosis Amt Small (1-33%) -Necrotic Tissue Type Adherent Slough -Structure Exposed N/A -Texture (Leigh-wound Skin Appearance) Assessed,Callus -Moisture (Leigh-wound Skin Appearance Assessed,Dry/ ) Scaly -Color (Leigh-wound Skin Appearance) Assessed -Temperature (Leigh-wound Skin No Abnormality Appearance) (Pt Warm) -Tenderness on Palpation (Leigh-wound No Skin Appearance) -Ulcer Cleansing Wound Cleanser -Foul Odor after Cleansing No -Anesthetic Used 4% Lidocaine Solution [Edema Assessment] -Lower Limb Edema Present NA WC - Nurse 2 - General Ulcer CM Notes Start: 11/01/19 13:22 Freq: Status: Active Protocol: Activity Type Activity Date Activity User E-Sign Co-Sign Detail Recorded Client Recorded Date Recorded By Document 11/22/19 09:15 MW [id number] 11/22/19 09:21 MW 11/22/19 09:15 Wound Center Nurse 2 [Procedure/Treatment] 2. coccyx -Time 09:16 -Correct Patient Yes -Correct Side, Site, Position Yes -Correct Procedure Yes -Procedure Performed Yes -Type of Procedure Debridement -Clinical Debridement Subcutaneous -Post Debridement Size (cm) - Length 0.6 -Post Debridement Size (cm) - Width 0.4 -Post Debridement Size (cm) - Depth 0.7 -Total Square Cm 0.24 -Wound/Ulcer Outcome Not Healed -Ulcer Cleansing Rinsed/ Irrigated with Saline -Foul Odor after Cleansing No -Bioengineered Tissue No -Bleeding Controlled with Pressure -Other undermining @2, 0.7cm -Offloading No -Treatment Response Procedure Tolerated Well [See Physician Procedure note for Specifics] Pain Scale: 0-10 Numeric [Pain] -Is Patient Pain Free? Yes Neurological: Cranial nerves II-XII grossly intact Psych/Mental Status: Normal Affect Debridement Note Post-Debridement Measurements/Treatment WC - Nurse 2 - General Ulcer CM Notes Start: 11/01/19 13:22 Freq: Status: Active Protocol: Activity Type Activity Date Activity User E-Sign Co-Sign Detail Recorded Client Recorded Date Recorded By Document 11/01/19 13:51 DV [id number] 11/01/19 14:05 DV Document 11/08/19 09:20 MW [id number] 11/08/19 09:25 MW Document 11/15/19 08:36 MW [id number] 11/15/19 08:43 MW Document 11/22/19 09:15 MW [id number] 11/22/19 09:21 MW 11/01/19 11/08/19 11/15/19 13:51 09:20 08:36 Wound Center Nurse 2 2. coccyx -Time 13:52 09:20 08:36 -Correct Patient Yes Yes Yes -Correct Side, Site, Position Yes Yes Yes -Correct Procedure Yes Yes Yes -Procedure Performed Yes Yes Yes -Type of Procedure Debridement Debridement Debridement -Clinical Debridement Subcutaneous Subcutaneous Subcutaneous -Post Debridement Size (cm) - Length 0.9 0.7 0.6 -Post Debridement Size (cm) - Width 0.6 0.4 0.5 -Post Debridement Size (cm) - Depth 0.6 0.6 0.4 -Total Square Cm 0.54 0.28 0.30 -Wound/Ulcer Outcome Not Healed Not Healed Not Healed -Ulcer Cleansing Rinsed/ Rinsed/ Rinsed/ Irrigated with Irrigated with Irrigated with Saline Saline Saline -Foul Odor after Cleansing No No No -Bioengineered Tissue No No Yes -Type of bioengineered Tissue EPIFIX -Expiration Date 07/31/24 -Product Lot Number [id number] -Percent Used 100 -Saline Lot Number [id number] -Bleeding Controlled with Pressure Pressure Pressure -Other -Offloading No No No -Treatment Response Procedure Procedure Procedure Tolerated Well Tolerated Well Tolerated Well Pain Scale: 0-10 Numeric Is Patient Pain Free? Yes Yes Yes 11/22/19 09:15 Wound Center Nurse 2 2. coccyx -Time 09:16 -Correct Patient Yes -Correct Side, Site, Position Yes -Correct Procedure Yes -Procedure Performed Yes -Type of Procedure Debridement -Clinical Debridement Subcutaneous -Post Debridement Size (cm) - Length 0.6 -Post Debridement Size (cm) - Width 0.4 -Post Debridement Size (cm) - Depth 0.7 -Total Square Cm 0.24 -Wound/Ulcer Outcome Not Healed -Ulcer Cleansing Rinsed/ Irrigated with Saline -Foul Odor after Cleansing No -Bioengineered Tissue No -Type of bioengineered Tissue -Expiration Date -Product Lot Number -Percent Used -Saline Lot Number -Bleeding Controlled with Pressure -Other undermining @2, 0.7cm -Offloading No -Treatment Response Procedure Tolerated Well Pain Scale: 0-10 Numeric Is Patient Pain Free? Yes Wound debrided: Sacral Ulcer Wound Grade/Stage: Stage III Type of Debridement: Excisional debridement Anesthesia Used: 4% Lidocaine Solution Depth: Down to and including healthy tissue, in the subcutaneous layer Percentage of wound debrided: 100 Instrument Used: 3mm curette Tissue Removed: Slough and devitalized tissue Severity: Fat Layer Exposed Amount of bleeding with debridement: Mild Bleeding Controlled with: Pressure Patient tolerated procedure well Assessment/Plan Active Problems Malnutrition (Chronic) Pressure injury of sacral region, stage 3 (Chronic) Debility (Chronic) Diabetes mellitus type II, controlled (Chronic) Assessment: 1. Sacral pressure ulcer, Stage 3. 2. Malnutrition Plan: Debridement done as documented above, procedure was well tolerated. No further applications of epi-fix approved per insurance though this was the only product that helped with significant wound progress. Will switch to Promogran daily. Optifoam/ABD over top. Offloading also recommended. His questions were answered and he was advised to call with any further questions or concerns. Follow-up in 1 week. Note: [employer] speech recognition pipe organ builder software was used to create portions of this document. Sound-alike and misspelled words, as well as other pipe organ builder errors may be contained in the documentation. Code Visit 111xxx-113xx: [id number] Gertrudis subq tissue 20 sq cm/<
[2019-11-29 11:47] VITALS: BP 119/76; PULSE 88; RESP 16; TEMP 36.7; BMI 16.9
--- NOTE | 2019-11-29 12:39 | PCM.WC.PN ---
(1) Pressure injury of sacral region, stage 3 Status: Chronic Current Visit: Yes Code(s): L89.153 - Pressure ulcer of sacral region, stage 3 (2) Malnutrition Status: Chronic Current Visit: Yes Code(s): E46 - Unspecified protein-calorie malnutrition (3) Microscopic polyangiitis Status: Chronic Current Visit: No Code(s): M31.7 - Microscopic polyangiitis (4) Wegeners granulomatosis Status: Chronic Current Visit: No Code(s): M31.30 - Jeannette's granulomatosis without renal involvement Type of Wound Date of Service: 11/29/19 Chief Complaint: Sacral pressure sore. History of Wound: Mr. Bowles is a 73-year-old being managed for a right-sided sacral ulcer. Also history of microscopic polyangiitis on mycophenolate. Mal-nourished with a BMI of 16.9. Has been applying Promogran to also with modest improvement. No significant drainage per His . They report compliance with dressing instructions. He feels well otherwise, denies chills, fever, nausea, vomiting or change in his bowel habit. Progress of Wound: Has had 10 applications of epi-fix so far. Ulcer no significant improvement with Promogran over the last couple of weeks. He denies any new concerns. - Physical Exam Vital Signs Temp Pulse Resp BP 98.0 F 88 16 119/76 11/29/19 11:47 11/29/19 11:47 11/29/19 11:47 11/29/19 11:47 General: Alert, Oriented x3, Cooperative, No apparent distress HEENT: Atraumatic, Normocephalic Oral: Moist Mucosa Neck: Supple Lungs: Normal air movement Extremities: No cyanosis Skin: Ulcer/ Wound Wound Measurements and Assessment WC - Nurse 1 - General Ulcer Measurement Start: 11/01/19 13:22 Freq: Status: Active Protocol: Activity Type Activity Date Activity User E-Sign Co-Sign Detail Recorded Client Recorded Date Recorded By Document 11/29/19 11:47 DONNA [id number] 11/29/19 11:55 DONNA 11/29/19 11:47 Wound Center Nurse 1 [Ulcer Assessment] 2. coccyx -Combined with other wound No -Current Size (cm) - Length 0.5 -Current Size (cm) - Width 0.3 -Current Size (cm) - Depth 0.6 -Total Square Cm 0.15 -Photo Taken No -Epithelialization Small 1-33% -Tunneling No -Undermining/Tunneling No -Circular Undermining No -Exudate Amt Small -Exudate Type Serosanguineous -Wound Margin Flat & Intact -Granulation Amt Large (67-100%) -Granulation Quality Red -Slough/Fibrin Yes -Necrosis Amt Small (1-33%) -Necrotic Tissue Type Adherent Slough -Structure Exposed N/A -Texture (Leigh-wound Skin Appearance) Assessed -Moisture (Leigh-wound Skin Appearance Assessed,Dry/ ) Scaly -Color (Leigh-wound Skin Appearance) Assessed -Temperature (Leigh-wound Skin No Abnormality Appearance) (Pt Warm) -Tenderness on Palpation (Leigh-wound Yes Skin Appearance) -Ulcer Cleansing Rinsed/ Irrigated with Saline -Foul Odor after Cleansing No -Anesthetic Used 5% Lidocaine Gel [Edema Assessment] -Lower Limb Edema Present NA WC - Nurse 2 - General Ulcer CM Notes Start: 11/01/19 13:22 Freq: Status: Active Protocol: Activity Type Activity Date Activity User E-Sign Co-Sign Detail Recorded Client Recorded Date Recorded By Document 11/29/19 12:06 MW [id number] 11/29/19 12:12 MW 11/29/19 12:06 Wound Center Nurse 2 [Procedure/Treatment] 2. coccyx -Time 12:07 -Correct Patient Yes -Correct Side, Site, Position Yes -Correct Procedure Yes -Procedure Performed Yes -Type of Procedure Debridement -Clinical Debridement Subcutaneous -Post Debridement Size (cm) - Length 0.6 -Post Debridement Size (cm) - Width 0.3 -Post Debridement Size (cm) - Depth 0.7 -Total Square Cm 0.18 -Wound/Ulcer Outcome Not Healed -Ulcer Cleansing Rinsed/ Irrigated with Saline -Foul Odor after Cleansing No -Bioengineered Tissue No -Bleeding Controlled with Pressure -Other undermining @2, 0.7cm -Offloading No -Treatment Response Procedure Tolerated Well [See Physician Procedure note for Specifics] Pain Scale: 0-10 Numeric [Pain] -Is Patient Pain Free? Yes Neurological: Cranial nerves II-XII grossly intact Psych/Mental Status: Normal Affect Debridement Note Post-Debridement Measurements/Treatment WC - Nurse 2 - General Ulcer CM Notes Start: 11/01/19 13:22 Freq: Status: Active Protocol: Activity Type Activity Date Activity User E-Sign Co-Sign Detail Recorded Client Recorded Date Recorded By Document 11/01/19 13:51 DV [id number] 11/01/19 14:05 DV Document 11/08/19 09:20 MW [id number] 11/08/19 09:25 MW Document 11/15/19 08:36 MW [id number] 11/15/19 08:43 MW Document 11/22/19 09:15 MW [id number] 11/22/19 09:21 MW Document 11/29/19 12:06 MW [id number] 11/29/19 12:12 MW 11/01/19 11/08/19 11/15/19 13:51 09:20 08:36 Wound Center Nurse 2 2. coccyx -Time 13:52 09:20 08:36 -Correct Patient Yes Yes Yes -Correct Side, Site, Position Yes Yes Yes -Correct Procedure Yes Yes Yes -Procedure Performed Yes Yes Yes -Type of Procedure Debridement Debridement Debridement -Clinical Debridement Subcutaneous Subcutaneous Subcutaneous -Post Debridement Size (cm) - Length 0.9 0.7 0.6 -Post Debridement Size (cm) - Width 0.6 0.4 0.5 -Post Debridement Size (cm) - Depth 0.6 0.6 0.4 -Total Square Cm 0.54 0.28 0.30 -Wound/Ulcer Outcome Not Healed Not Healed Not Healed -Ulcer Cleansing Rinsed/ Rinsed/ Rinsed/ Irrigated with Irrigated with Irrigated with Saline Saline Saline -Foul Odor after Cleansing No No No -Bioengineered Tissue No No Yes -Type of bioengineered Tissue EPIFIX -Expiration Date 07/31/24 -Product Lot Number [id number] -Percent Used 100 -Saline Lot Number [id number] -Bleeding Controlled with Pressure Pressure Pressure -Other -Offloading No No No -Treatment Response Procedure Procedure Procedure Tolerated Well Tolerated Well Tolerated Well Pain Scale: 0-10 Numeric Is Patient Pain Free? Yes Yes Yes 11/22/19 11/29/19 09:15 12:06 Wound Center Nurse 2 2. coccyx -Time 09:16 12:07 -Correct Patient Yes Yes -Correct Side, Site, Position Yes Yes -Correct Procedure Yes Yes -Procedure Performed Yes Yes -Type of Procedure Debridement Debridement -Clinical Debridement Subcutaneous Subcutaneous -Post Debridement Size (cm) - Length 0.6 0.6 -Post Debridement Size (cm) - Width 0.4 0.3 -Post Debridement Size (cm) - Depth 0.7 0.7 -Total Square Cm 0.24 0.18 -Wound/Ulcer Outcome Not Healed Not Healed -Ulcer Cleansing Rinsed/ Rinsed/ Irrigated with Irrigated with Saline Saline -Foul Odor after Cleansing No No -Bioengineered Tissue No No -Type of bioengineered Tissue -Expiration Date -Product Lot Number -Percent Used -Saline Lot Number -Bleeding Controlled with Pressure Pressure -Other undermining @2, undermining @2, 0.7cm 0.7cm -Offloading No No -Treatment Response Procedure Procedure Tolerated Well Tolerated Well Pain Scale: 0-10 Numeric Is Patient Pain Free? Yes Yes Wound debrided: Sacral Wound Grade/Stage: Stage III Type of Debridement: Excisional debridement Anesthesia Used: 4% Lidocaine Solution Depth: Down to and including healthy tissue, in the subcutaneous layer Percentage of wound debrided: 100 Instrument Used: 3mm curette Tissue Removed: Slough and devitalized tissue Severity: Fat Layer Exposed Amount of bleeding with debridement: Mild Bleeding Controlled with: Pressure Patient tolerated procedure well Assessment/Plan Active Problems Malnutrition (Chronic) Pressure injury of sacral region, stage 3 (Chronic) Debility (Chronic) Diabetes mellitus type II, controlled (Chronic) Assessment: 1. Sacral pressure ulcer, Stage 3. 2. Malnutrition Plan: Debridement done as documented above, procedure was well tolerated. No further applications of epi-fix approved per insurance though this was the only product that helped with significant wound progress. Will try applying for Amniocel. Continue Promogran daily. Optifoam/ABD over top. Offloading also recommended. His questions were answered and he was advised to call with any further questions or concerns. Follow-up in 1 week. Note: [employer] speech recognition elevator installer apprentice software was used to create portions of this document. Sound-alike and misspelled words, as well as other elevator installer apprentice errors may be contained in the documentation. Code Visit 111xxx-113xx: 66120 Gertrudis subq tissue 20 sq cm/<
== END 2019-11-30 23:59 ==
LOC: WC 11:30
PROVIDERS: Family Provider Family Medicine; PCP Family Medicine; Referring Provider Internal Medicine; Visit Provider Internal Medicine
DX: E11.622 Type 2 diabetes mellitus with other skin ulcer (principal); L89.153 Pressure ulcer of sacral region, stage 3; E46 Unspecified protein-calorie malnutrition; Z68.1 Body mass index [BMI] 19.9 or less, adult; M31.7 Microscopic polyangiitis; M31.30 Wegener's granulomatosis without renal involvement
CPT/HCPCS: 11042; 15271; Q4186

== ENCOUNTER 2019-12-20 08:54 | Outpatient (RCR) | payer MEDICARE, SELFPAY ==
[2019-12-01 00:35] VITALS: BP 119/76; PULSE 88; RESP 16; TEMP 36.7
[2019-12-20 08:55] VITALS: BP 123/65; PULSE 88; RESP 18; TEMP 36.8; BMI 16.9
--- NOTE | 2019-12-20 10:53 | PN.PCM_ITS ---
(1) Pressure injury of sacral region, stage 3 Status: Chronic Current Visit: Yes Code(s): L89.153 - Pressure ulcer of sacral region, stage 3 (2) Wegeners granulomatosis Status: Chronic Current Visit: Yes Code(s): M31.30 - Jeannette's granulomatosis without renal involvement (3) Diabetes mellitus type II, controlled Status: Chronic Current Visit: Yes Code(s): E11.9 - Type 2 diabetes mellitus without complications Type of Wound Date of Service: 12/20/19 Chief Complaint: Sacral pressure sore. History of Wound: Mr. Bowles is a 73-year-old being managed for a right-sided sacral ulcer. Also history of microscopic polyangiitis on mycophenolate. Mal- nourished with a BMI of 16.9. Has been applying Promogran to also with modest improvement. No significant drainage per His . They report compliance with dressing instructions. He feels well otherwise, denies chills, fever, nausea, vomiting or change in his bowel habit. Progress of Wound: Some improvememnt noted over the past week. Undermining still present. Sample of amniocel used today. - Physical Exam Vital Signs Temp Pulse Resp BP 98.2 F 88 18 123/65 H 12/20/19 08:55 12/20/19 08:55 12/20/19 08:55 12/20/19 08:55 General: Alert, Oriented x3, Cooperative, No apparent distress HEENT: Atraumatic, Normocephalic Oral: Moist Mucosa Neck: Supple Extremities: No cyanosis Skin: Ulcer/ Wound Wound Measurements and Assessment WC - Nurse 1 - General Ulcer Measurement Start: 12/20/19 08:55 Freq: Status: Active Protocol: Activity Type Activity Date Activity User E-Sign Co-Sign Detail Recorded Client Recorded Date Recorded By Document 12/20/19 08:55 RB [id number] 12/20/19 08:57 RB 12/20/19 08:55 Wound Center Nurse 1 [Ulcer Assessment] 2. coccyx -Combined with other wound No -Current Size (cm) - Length 0.5 -Current Size (cm) - Width 0.3 -Current Size (cm) - Depth 0.3 -Total Square Cm 0.15 -Tunneling No -Undermining/Tunneling Yes -Undermining/Tunneling Starts (O' 12 clock) -Undermining/Tunneling Ends (O'clock) 12 -Maximum Distance (cm) 0.2 -Exudate Amt Small -Exudate Type Serosanguineous -Wound Margin Thickened -Granulation Amt Medium (34-66%) -Granulation Quality [place] -Slough/Fibrin Yes -Necrosis Amt Small (1-33%) -Necrotic Tissue Type Adherent Slough -Structure Exposed N/A -Texture (Leigh-wound Skin Appearance) Assessed -Moisture (Leigh-wound Skin Appearance Assessed ) -Color (Leigh-wound Skin Appearance) Assessed -Temperature (Leigh-wound Skin No Abnormality Appearance) (Pt Warm) -Tenderness on Palpation (Leigh-wound No Skin Appearance) -Ulcer Cleansing Wound Cleanser -Foul Odor after Cleansing No -Anesthetic Used 5% Lidocaine Gel WC - Nurse 2 - General Ulcer CM Notes Start: 12/20/19 08:55 Freq: Status: Active Protocol: Activity Type Activity Date Activity User E-Sign Co-Sign Detail Recorded Client Recorded Date Recorded By Document 12/20/19 09:16 MW [id number] 12/20/19 09:25 MW 12/20/19 09:16 Wound Center Nurse 2 [Procedure/Treatment] -Time 09:21 -Correct Patient Yes -Correct Side, Site, Position Yes -Correct Procedure Yes -Procedure Performed Yes -Type of Procedure Debridement -Clinical Debridement Subcutaneous -Post Debridement Size (cm) - Length 0.4 -Post Debridement Size (cm) - Width 0.2 -Post Debridement Size (cm) - Depth 0.1 -Total Square Cm 0.08 -Wound/Ulcer Outcome Not Healed -Ulcer Cleansing Rinsed/ Irrigated with Saline -Foul Odor after Cleansing No -Bioengineered Tissue No -Bleeding Controlled with Pressure -Offloading No -Treatment Response Procedure Tolerated Well [See Physician Procedure note for Specifics] Pain Scale: 0-10 Numeric [Pain] -Is Patient Pain Free? Yes Neurological: Cranial nerves II-XII grossly intact Psych/Mental Status: Normal Affect Debridement Note Post-Debridement Measurements/Treatment WC - Nurse 2 - General Ulcer CM Notes Start: 12/20/19 08:55 Freq: Status: Active Protocol: Activity Type Activity Date Activity User E-Sign Co-Sign Detail Recorded Client Recorded Date Recorded By Document 12/20/19 09:16 MW [id number] 12/20/19 09:25 MW 12/20/19 09:16 Wound Center Nurse 2 2. coccyx -Time 09:21 -Correct Patient Yes -Correct Side, Site, Position Yes -Correct Procedure Yes -Procedure Performed Yes -Type of Procedure Debridement -Clinical Debridement Subcutaneous -Post Debridement Size (cm) - Length 0.4 -Post Debridement Size (cm) - Width 0.2 -Post Debridement Size (cm) - Depth 0.1 -Total Square Cm 0.08 -Wound/Ulcer Outcome Not Healed -Ulcer Cleansing Rinsed/ Irrigated with Saline -Foul Odor after Cleansing No -Bioengineered Tissue No -Bleeding Controlled with Pressure -Offloading No -Treatment Response Procedure Tolerated Well Pain Scale: 0-10 Numeric Is Patient Pain Free? Yes Wound debrided: Sacral Wound Grade/Stage: Stage III Type of Debridement: Excisional debridement Anesthesia Used: 4% Lidocaine Solution Depth: Down to and including healthy tissue, in the subcutaneous layer Percentage of wound debrided: 100 Instrument Used: - - 1mm Tissue Removed: Devitalized tissue Severity: Fat Layer Exposed Amount of bleeding with debridement: Mild Bleeding Controlled with: Pressure Patient tolerated procedure well Assessment/Plan Active Problems Pressure injury of sacral region, stage 3 (Chronic) Diabetes mellitus type II, controlled (Chronic) Wegeners granulomatosis (Chronic) Assessment: 1. Sacral pressure ulcer, Stage 3. 2. Malnutrition Plan: Debridement done as documented above, procedure was well tolerated. Amniocel applied using 100% of product. Moistened with saline. Wound veil over top and secured with steristrips. leave in place for a week. ABD over top. Offloading also recommended. His questions were answered and he was advised to call with any further questions or concerns. Follow-up in 1 week. Note: [employer] speech recognition regional medical director software was used to create portions of this document. Sound-alike and misspelled words, as well as other regional medical director errors may be contained in the documentation. Code Visit 111xxx-113xx: 53371 Gertrudis subq tissue 20 sq cm/<
== END 2019-12-29 23:59 ==
LOC: WC 08:54
PROVIDERS: Family Provider Family Medicine; PCP Family Medicine; Referring Provider Internal Medicine; Visit Provider Internal Medicine
DX: L89.153 Pressure ulcer of sacral region, stage 3 (principal); M31.30 Wegener's granulomatosis without renal involvement; E11.9 Type 2 diabetes mellitus without complications; M31.7 Microscopic polyangiitis
CPT/HCPCS: 11042

== ENCOUNTER 2020-01-24 08:00 | Outpatient (RCR) | payer MEDICARE, SELFPAY ==
[2019-12-30 00:29] VITALS: BP 123/65; PULSE 88; RESP 18; TEMP 36.8
[2020-01-03 08:53] VITALS: BP 105/76; PULSE 90; RESP 16; TEMP 37.3; BMI 16.9
--- NOTE | 2020-01-03 09:35 | PCM.WC.PN ---
(1) Pressure injury of sacral region, stage 3 Status: Chronic Current Visit: Yes Code(s): L89.153 - Pressure ulcer of sacral region, stage 3 (2) Microscopic polyangiitis Status: Chronic Current Visit: Yes Code(s): M31.7 - Microscopic polyangiitis (3) Wegeners granulomatosis Status: Chronic Current Visit: Yes Code(s): M31.30 - Jeannette's granulomatosis without renal involvement Type of Wound Date of Service: 01/03/20 Chief Complaint: Sacral pressure sore. History of Wound: Mr. Bowles is a 73-year-old being managed for a right-sided sacral ulcer. Also history of microscopic polyangiitis on mycophenolate. Mal-nourished with a BMI of 16.9. Has been applying Promogran to also with modest improvement. No significant drainage per His . They report compliance with dressing instructions. He feels well otherwise, denies chills, fever, nausea, vomiting or change in his bowel habit. Progress of Wound: No new concerns. - Physical Exam Vital Signs Temp Pulse Resp BP 99.1 F 90 16 105/76 01/03/20 08:53 01/03/20 08:53 01/03/20 08:53 01/03/20 08:53 General: Alert, Oriented x3, Cooperative, No apparent distress HEENT: Atraumatic, Normocephalic Oral: Moist Mucosa Lungs: Normal air movement Skin: Ulcer/ Wound Wound Measurements and Assessment WC - Nurse 1 - General Ulcer Measurement Start: 01/03/20 08:52 Freq: Status: Active Protocol: Activity Type Activity Date Activity User E-Sign Co-Sign Detail Recorded Client Recorded Date Recorded By Document 01/03/20 08:53 MW [id number] 01/03/20 09:01 MW 01/03/20 08:53 Wound Center Nurse 1 [Ulcer Assessment] 2. coccyx -Combined with other wound No -Current Size (cm) - Length 0.1 -Current Size (cm) - Width 0.1 -Current Size (cm) - Depth 0.1 -Total Square Cm 0.01 -Date of Last Picture (Recall this 01/03/20 field) -Photo Taken Yes -Epithelialization None Present -Tunneling No -Undermining/Tunneling No -Circular Undermining No -Exudate Amt Small -Exudate Type Serosanguineous -Wound Margin Flat & Intact -Granulation Amt None Present (0 %) -Granulation Quality N/A -Slough/Fibrin Yes -Necrosis Amt Small (1-33%) -Necrotic Tissue Type Adherent Slough -Structure Exposed N/A -Texture (Leigh-wound Skin Appearance) Assessed, Scarring -Moisture (Leigh-wound Skin Appearance Assessed, ) Maceration -Color (Leigh-wound Skin Appearance) No Abnormality, Assessed -Temperature (Leigh-wound Skin No Abnormality Appearance) (Pt Warm) -Tenderness on Palpation (Leigh-wound No Skin Appearance) -Ulcer Cleansing Rinsed/ Irrigated with Saline -Foul Odor after Cleansing No -Anesthetic Used 5% Lidocaine Gel [Edema Assessment] -Lower Limb Edema Present No WC - Nurse 2 - General Ulcer CM Notes Start: 01/03/20 08:52 Freq: Status: Active Protocol: Activity Type Activity Date Activity User E-Sign Co-Sign Detail Recorded Client Recorded Date Recorded By Document 01/03/20 09:13 MW [id number] 01/03/20 09:25 MW 01/03/20 09:13 Wound Center Nurse 2 [Procedure/Treatment] 2. coccyx -Time 09:14 -Correct Patient Yes -Correct Side, Site, Position Yes -Correct Procedure Yes -Procedure Performed Yes -Type of Procedure Debridement -Clinical Debridement Subcutaneous -Post Debridement Size (cm) - Length 0.4 -Post Debridement Size (cm) - Width 0.1 -Post Debridement Size (cm) - Depth 0.3 -Total Square Cm 0.04 -Wound/Ulcer Outcome Not Healed -Ulcer Cleansing Rinsed/ Irrigated with Saline -Foul Odor after Cleansing No -Bioengineered Tissue No -Bleeding Controlled with Pressure -Offloading No -Treatment Response Procedure Tolerated Well [See Physician Procedure note for Specifics] Pain Scale: 0-10 Numeric [Pain] -Is Patient Pain Free? Yes Neurological: Cranial nerves II-XII grossly intact Debridement Note Post-Debridement Measurements/Treatment WC - Nurse 2 - General Ulcer CM Notes Start: 01/03/20 08:52 Freq: Status: Active Protocol: Activity Type Activity Date Activity User E-Sign Co-Sign Detail Recorded Client Recorded Date Recorded By Document 01/03/20 09:13 MW [id number] 01/03/20 09:25 MW 01/03/20 09:13 Wound Center Nurse 2 2. coccyx -Time 09:14 -Correct Patient Yes -Correct Side, Site, Position Yes -Correct Procedure Yes -Procedure Performed Yes -Type of Procedure Debridement -Clinical Debridement Subcutaneous -Post Debridement Size (cm) - Length 0.4 -Post Debridement Size (cm) - Width 0.1 -Post Debridement Size (cm) - Depth 0.3 -Total Square Cm 0.04 -Wound/Ulcer Outcome Not Healed -Ulcer Cleansing Rinsed/ Irrigated with Saline -Foul Odor after Cleansing No -Bioengineered Tissue No -Bleeding Controlled with Pressure -Offloading No -Treatment Response Procedure Tolerated Well Pain Scale: 0-10 Numeric Is Patient Pain Free? Yes Wound debrided: Sacral Wound Grade/Stage: Stage III Type of Debridement: Excisional debridement Anesthesia Used: 4% Lidocaine Solution, 5% Lidocaine Gel Depth: Down to and including healthy tissue, in the subcutaneous layer Percentage of wound debrided: 100 Instrument Used: 3mm curette Tissue Removed: Slough and devitalized tissue Severity: Fat Layer Exposed Amount of bleeding with debridement: Mild Bleeding Controlled with: Pressure Patient tolerated procedure well Assessment/Plan Active Problems Pressure injury of sacral region, stage 3 (Chronic) Microscopic polyangiitis (Chronic) Wegeners granulomatosis (Chronic) Assessment: 1. Sacral pressure ulcer, Stage 3. 2. Malnutrition Plan: Debridement done as documented above, procedure was well tolerated. Sample Amniocel applied using 100% of product. Moistened with saline. Wound veil over top and secured with steristrips. leave in place for a week. ABD over top. Offloading also recommended. His questions were answered and he was advised to call with any further questions or concerns. Follow-up in 2 weeks. may apply pomogran in ulcer if dressing come off. Note: [employer] speech recognition turntable operator software was used to create portions of this document. Sound-alike and misspelled words, as well as other turntable operator errors may be contained in the documentation. Code Visit 111xxx-113xx: 45594 Gertrudis subq tissue 20 sq cm/<
[2020-01-24 08:21] VITALS: BP 114/74; PULSE 89; RESP 18; TEMP 36.4; BMI 16.9
--- NOTE | 2020-01-24 09:16 | PCM.WC.PN ---
(1) Pressure injury of sacral region, stage 3 Status: Chronic Current Visit: Yes Code(s): L89.153 - Pressure ulcer of sacral region, stage 3 (2) Microscopic polyangiitis Status: Chronic Current Visit: Yes Code(s): M31.7 - Microscopic polyangiitis (3) Wegeners granulomatosis Status: Chronic Current Visit: Yes Code(s): M31.30 - Jeannette's granulomatosis without renal involvement Type of Wound Date of Service: 01/24/20 Chief Complaint: Sacral pressure sore. History of Wound: Mr. Bowles is a 73-year-old being managed for a right-sided sacral ulcer. Also history of microscopic polyangiitis on mycophenolate. Mal-nourished with a BMI of 16.9. Has been applying Promogran to also with modest improvement. No significant drainage per His . They report compliance with dressing instructions. He feels well otherwise, denies chills, fever, nausea, vomiting or change in his bowel habit. Progress of Wound: Healed. - Physical Exam Vital Signs Temp Pulse Resp BP 97.6 F L 89 18 114/74 01/24/20 08:21 01/24/20 08:21 01/24/20 08:21 01/24/20 08:21 General: Alert, Oriented x3, Cooperative, No apparent distress HEENT: Atraumatic, Normocephalic Oral: Moist Mucosa Lungs: Normal air movement Extremities: No cyanosis Wound Measurements and Assessment WC - Nurse 1 - General Ulcer Measurement Start: 01/03/20 08:52 Freq: Status: Active Protocol: Activity Type Activity Date Activity User E-Sign Co-Sign Detail Recorded Client Recorded Date Recorded By Document 01/24/20 08:21 [place] [id number] 01/24/20 08:26 [place] 01/24/20 08:21 Wound Center Nurse 1 [Ulcer Assessment] 2. coccyx -Current Size (cm) - Length 0.1 -Current Size (cm) - Width 0.1 -Current Size (cm) - Depth 0.1 -Total Square Cm 0.01 -Exudate Amt None Present -Granulation Quality Pale,[place] -Slough/Fibrin No -Texture (Leigh-wound Skin Appearance) Assessed -Moisture (Leigh-wound Skin Appearance Assessed ) -Color (Leigh-wound Skin Appearance) Assessed -Temperature (Leigh-wound Skin No Abnormality Appearance) (Pt Warm) -Tenderness on Palpation (Leigh-wound No Skin Appearance) -Ulcer Cleansing Rinsed/ Irrigated with Saline -Foul Odor after Cleansing No -Anesthetic Used 4% Lidocaine Solution [Edema Assessment] -Lower Limb Edema Present NA - Nurse 2 - General Ulcer CM Notes Start: 01/03/20 08:52 Freq: Status: Active Protocol: Activity Type Activity Date Activity User E-Sign Co-Sign Detail Recorded Client Recorded Date Recorded By Document 01/24/20 08:36 MW [id number] 01/24/20 08:37 MW 01/24/20 08:36 Wound Center Nurse 2 [Procedure/Treatment] 2. coccyx -Time 08:36 -Correct Patient Yes -Correct Side, Site, Position Yes -Correct Procedure Yes -Procedure Performed No -Post Debridement Size (cm) - Length 0 -Post Debridement Size (cm) - Width 0 -Post Debridement Size (cm) - Depth 0 -Total Square Cm 0 -Wound/Ulcer Outcome Healed- Epithelialized [See Physician Procedure note for Specifics] Musculoskeletal: No Muscle Wasting Neurological: Cranial nerves II-XII grossly intact Psych/Mental Status: Normal Affect Debridement Note Post-Debridement Measurements/Treatment - Nurse 2 - General Ulcer CM Notes Start: 01/03/20 08:52 Freq: Status: Active Protocol: Activity Type Activity Date Activity User E-Sign Co-Sign Detail Recorded Client Recorded Date Recorded By Document 01/03/20 09:13 MW [id number] 01/03/20 09:25 MW Document 01/24/20 08:36 MW [id number] 01/24/20 08:37 MW 01/03/20 01/24/20 09:13 08:36 Wound Center Nurse 2 2. coccyx -Time 09:14 08:36 -Correct Patient Yes Yes -Correct Side, Site, Position Yes Yes -Correct Procedure Yes Yes -Procedure Performed Yes No -Type of Procedure Debridement -Clinical Debridement Subcutaneous -Post Debridement Size (cm) - Length 0.4 0 -Post Debridement Size (cm) - Width 0.1 0 -Post Debridement Size (cm) - Depth 0.3 0 -Total Square Cm 0.04 0 -Wound/Ulcer Outcome Not Healed Healed- Epithelialized -Ulcer Cleansing Rinsed/ Irrigated with Saline -Foul Odor after Cleansing No -Bioengineered Tissue No -Bleeding Controlled with Pressure -Offloading No -Treatment Response Procedure Tolerated Well Pain Scale: 0-10 Numeric Is Patient Pain Free? Yes No debridement was completed today Assessment/Plan Active Problems Pressure injury of sacral region, stage 3 (Chronic) Microscopic polyangiitis (Chronic) Wegeners granulomatosis (Chronic) Assessment: 1. Sacral pressure ulcer, Stage 3. 2. Malnutrition Plan: Very very minimal area/ pin hole left. May apply pomogran and guaze in area until it totally closes off. Continued Offloading also recommended. His questions were answered and he was advised to call with any further questions or concerns. No signiifcant ulcer left. Discharged from the wound clinic. Note: [employer] speech recognition turret lathe machinist software was used to create portions of this document. Sound-alike and misspelled words, as well as other turret lathe machinist errors may be contained in the documentation. Office Visits / Consults: [id number] L3 Est
== END 2020-01-29 23:59 ==
LOC: WC 08:00
PROVIDERS: Family Provider Family Medicine; PCP Family Medicine; Referring Provider Internal Medicine; Visit Provider Internal Medicine
DX: L89.153 Pressure ulcer of sacral region, stage 3 (principal); M31.30 Wegener's granulomatosis without renal involvement; M31.7 Microscopic polyangiitis
CPT/HCPCS: 11042; 99213; G0463

== ENCOUNTER → 2021-02-10 08:25 | Outpatient (CLI) | payer MEDICARE, SELFPAY ==
[2021-02-06 11:18] LABS: Hematocrit 45.8 % (40-54); Hemoglobin 13.9 g/dL (13.0-16.5); Mean Corp Hgb Conc 30.3 g/dL (32-36); Mean Corpuscular Hgb 30.3 pg (27.0-32.0); Mean Corpuscular Volume 99.8 fL (80-94); Mean Platelet Vol. 9.6 fl (6.2-12.0); Platelet Count 268 K/mm3 (150-450); RBC Distribution Width CV 14.4 % (11.6-14.6); RBC Distribution Width SD 52.7 fl (35.1-43.9); Red Blood Count 4.59 M/mm3 (4.6-6.2); White Blood Count 9.3 K/mm3 (4.4-11.0)
[2021-02-06 11:42] LABS: Albumin, Serum 3.1 g/dL (3.2-5.0); BUN 22 mg/dL (7-18); Chloride 104 mmol/L (98-107); Creatinine, Serum 1.47 mg/dL (0.70-1.30); EST Glomerular Filtration Rate 49 mL/min (>60); Est Glom Filt Rate - Afr Amer 60 mL/min (>60); Glucose 128 mg/dL (74-106); Phosphorus 1.7 mg/dL (2.5-4.9); Potassium 4.5 mmol/L (3.5-5.1); Sodium Level 137 mmol/L (136-145)
[2021-02-10] VITALS (8 sets, daily range): BP systolic 118–160; BP diastolic 66–93; PULSE 86–111; RESP 17–21; TEMP 36.6–36.9; O2SAT 95–100; BMI 20.8
--- NOTE | 2021-02-10 | KID_PTH ---
PATIENT: SRAVAN MAYNARD Jr. LOC: [place] U#:[id number] AGE/SX: 80/M ROOM: RE02/10/[address]: Dr. Lilibeth Barnett DO : 1945 BED: DIS: SPEC #: [id number] RECD: 02/10/21 10:05 STATUS: DESTIN REQ #: [id number] ATUL: 02/10/21 00:[address]: Lilibeth Barnett DEPT: SURGICAL PATHOLOGY RECD BY: Tru Wiseman ENTERED: 02/10/21 10:05 SP TYPE: KIDNEY OTHR DR: Dr. 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 Acute tubular necrosis (see Microscopic Description and Comment). COMMENT Taken together, the light, immunofluorescence and electron microscopy findings demonstrate diffuse global glomerulosclerosis and acute tubular necrosis. There is no evidence for an active glomerular process in the biopsy specimen. Additional history obtained, increased creatinine, ANCA vasculitis in 2014. Currently increased kappa to lambda ratio, but no M spike. MICROSCOPIC DESCRIPTION A needle biopsy is available for review. There are approximately 28 glomeruli present, 16 of which are globally sclerotic. Glomeruli show no evidence of crescent formation, segmental scars, necrosis, thrombosis or inflammation. PAS, silver and trichrome stains show no evidence of glomerular basement membrane double contours, spikes or fuchsinophilic immune-type deposits. A [place] red stain for amyloid is negative. Trichrome highlights a mild degree of interstitial fibrosis and a moderate degree of tubular atrophy. There is overall minimal and focally mild interstitial inflammation predominantly composed of lymphocytes. Scattered tubules contain hyaline casts. There is acute tubular necrosis. Arteries show mild arteriosclerosis and arterioles show no significant arteriolosclerosis. The tissue submitted for immunofluorescence contains 6 glomeruli, 1 of which is globally sclerotic. IgM shows 1+ patchy granular capillary loop staining in some glomeruli which is interpreted as nonspecific staining. IgG, IgA, C3, C1q, albumin, fibrinogen and kappa and lambda light chains all show nonspecific staining. The tissue submitted for electron microscopy studies contains 4 glomeruli, 1 of which is globally sclerotic. Two glomeruli are imaged. The glomerular capillary loops are partially compressed by an increase in mesangial matrix material. The glomerular basement membranes are of approximately normal caliber. There is no evidence of basement membrane duplication. The visceral epithelial foot processes are not well preserved, but in the nonsclerotic areas, the foot processes are intact and do not show effacement. There is no evidence of electron-dense immune-type deposits. Tubules show degenerative change. GROSS DESCRIPTION The specimen is sent entirely to [facility] for diagnosis. Received within transport media labeled with the patient?s name and ?kidney biopsy? are three cores of laughlin-pink soft tissue ranging in size from 0.8 to 1.1 cm in length. Tissue is submitted fresh for immunofluorescence, in glutaraldehyde for electron microscopy and the remaining in formalin for light microscopy (cassette A1).
--- NOTE | 2021-02-10 08:41 | CT_ITS ---
PROCEDURE: CT GUIDED PERCUTANEOUS KIDNEY BIOPSY. DATE: 02/10/2021 INDICATION: Male, 75 years old. Acute on chronic renal failure. PHYSICIAN: Edgar Shanks M.D. MEDICATIONS: 2 mg of VERSED and 50 mcg of FENTANYL intravenously. Conscious sedation was started at 9:36 AM and terminated at 9:50 AM. The patient was independently monitored by the department nurse. ACCESS SITE: Lower pole of the left kidney. NEEDLE: 18-gauge core biopsy needle. SPECIMEN: 4 18-gauge cores . EBL: None. COMPLICATIONS: None immediate. RADIATION DOSAGE (If Supplied By Facility): CTDIvol = ( 9.5 ) mGy, DLP = ( 201.56 ) mGycm. Individualized dose optimization techniques were utilized. The risks, benefits, and alternatives to the procedure and sedation were explained to the patient. The specific risk of hemorrhage requiring further treatment or intervention was detailed and accepted. Written informed consent was obtained. The patient was placed on the CT table in the prone position. Multiple axial images were obtained from the lung base through the caudal extent of the kidneys. An appropriate entry site was identified and a félix made on the skin. The skin overlying the [ left] posterior flank was prepped and draped in sterile fashion. 1% lidocaine was administered subcutaneously for local anesthesia. Initially, a 22 gauge needle was advanced and CT images confirmed good needle position. The 22 gauge needle was then exchanged for an 17 gauge introducer needle which was advanced. Repeat CT images confirmed good needle trajectory and tip position. The introducer needle was then advanced into the periphery of the inferior renal pole, and CT images were again obtained to confirm exact tip location. The inner stylet of the introducer needle was then removed and an 18 gauge coaxial needle was advanced thru the introducer needle and biopsy performed. A total of [4 ] passes were performed and the specimen collected was sent to Pathology for further evaluation. The needle was withdrawn. Hemostasis was achieved with manual compression and a sterile dressing was applied. Repeat CT images of the biopsy area was performed which demonstrated no gross bleeding or hematoma. The patient tolerated the procedure well without immediate complications. The patient was transported to the [floor/recovery area] in stable condition. CT/Biopsy/Inj or Needle Placement IMPRESSION: Successful CT guided percutaneous kidney biopsy. Conscious sedation protocol was followed. Electronically Signed: Edgar Shanks MD at 11:13 EDT , Service support ,
[2021-02-10] MEDS: Midazolam 2 MG/2 ML Syringe IV (09:36)
[2021-02-10] MEDS: fentaNYL 100 MCG/2 ML Ampul IV (09:36)
== END ==
PROVIDERS: PCP Family Medicine; Referring Provider Internal Medicine Nephrology; Visit Provider Internal Medicine Nephrology
DX: N17.0 Acute kidney failure with tubular necrosis (principal); N18.32 Chronic kidney disease, stage 3b; E11.22 Type 2 diabetes mellitus with diabetic chronic kidney disease; I12.9 Hypertensive chronic kidney disease with stage 1 through stage 4 chronic kidney disease, or unspecified chronic kidney disease; M31.7 Microscopic polyangiitis; D59.10 Autoimmune hemolytic anemia, unspecified; J84.10 Pulmonary fibrosis, unspecified; K21.9 Gastro-esophageal reflux disease without esophagitis; E55.9 Vitamin D deficiency, unspecified; Z86.718 Personal history of other venous thrombosis and embolism; Z86.711 Personal history of pulmonary embolism; Z87.19 Personal history of other diseases of the digestive system; Z90.81 Acquired absence of spleen; Z79.02 Long term (current) use of antithrombotics/antiplatelets; Z79.52 Long term (current) use of systemic steroids; Z79.899 Other long term (current) drug therapy
CPT/HCPCS: 50200; 36415; 77012; 80069; 85027; 85610; 88300; 88305; 88313; 88346; 88348; 88350; J7040; A4216

== ENCOUNTER 2021-06-28 20:40 | Inpatient (IN) | payer MEDICARE, SELFPAY ==
[2021-06-28 20:41] VITALS: BP 116/92; PULSE 111; RESP 22; TEMP 36.9; O2SAT 93; BMI 19.5
[2021-06-28 20:55] VITALS: BP 116/92; PULSE 97; RESP 24; TEMP 36.9; O2SAT 97
[2021-06-28 21:06] LABS: Absolute Lymphocyte Count 0.78 X10^3/uL (0.83-4.51); Absolute Neutrophil Count 8.7 X10^3/uL (2.0-7.7); Basophil# 0.02 X10^3/uL; Basophil% 0.2 % (0-1); Hematocrit 53.3 % (40-54); Hemoglobin 16.6 g/dL (13.0-16.5); Lymphocyte # 0.78 X10^3/ul (0.83-4.51); Lymphocyte % 7.6 % (19-41); Mean Corp Hgb Conc 31.1 g/dL (32-36); Mean Corpuscular Hgb 29.7 pg (27.0-32.0); Mean Corpuscular Volume 95.5 fL (80-94); Mean Platelet Vol. 9.6 fl (6.2-12.0); Monocyte# 0.76 X10^3/uL; Monocyte% 7.4 % (0-10); NRBC Flagged by Analyzer 0 % (0-5); Neutrophil # 8.68 X10^3/uL (2.7-7.7); Neutrophil % 84.5 % (47-70); Platelet Count 275 K/mm3 (150-450); RBC Distribution Width CV 14.5 % (11.6-14.6); Red Blood Count 5.58 M/mm3 (4.6-6.2); White Blood Count 10.3 K/mm3 (4.4-11.0)
[2021-06-28 21:17] LABS: Anion Gap 11 (5-15); BUN 31 mg/dL (7-18); BUN/Creat Ratio 17.3 RATIO (10-20); Calcium,Total 9.5 mg/dL (8.5-10.1); Chloride 96 mmol/L (98-107); Creatinine, Serum 1.79 mg/dL (0.70-1.30); EST Glomerular Filtration Rate 39 mL/min (>60); Est Glom Filt Rate - Afr Amer 48 mL/min (>60); Estimated Creatinine Clearance 28.15 ml/min; Glucose 176 mg/dL (74-106); Potassium 4.8 mmol/L (3.5-5.1); Sodium Level 134 mmol/L (136-145)
[2021-06-28 21:30] LABS: AST(SGOT) 23 U/L (15-37); Alanine Aminotransfer ALT/SGPT 20 U/L (16-61); Albumin, Serum 3.3 g/dL (3.2-5.0); Alkaline Phosphatase 122 U/L (45-117); Bilirubin, Direct 0.28 mg/dL (0.00-0.30); Globulin 4.8 g/dL (2.2-4.2); Lipase 68 U/L (73-393); Protein, Total 8.1 g/dL (6.4-8.2); Troponin-I HS 44 pg/mL (3.0-78.0)
--- NOTE | 2021-06-28 21:46 | CT_ITS ---
INDICATION: abd pain EXAMINATION: CT Abdomen And Pelvis W/ Contrast Injection TECHNIQUE: Helically acquired images were obtained of the abdomen and pelvis after IV contrast. A radiation dose optimization technique was used for this scan. IV Contrast dosage and agent: IV 100mL Isovue-300 Oral contrast: None. COMPARISON: 05/19/2016. FINDINGS: Visualized lung bases: Chronic interstitial lung disease. Liver: Unremarkable Gallbladder: Unremarkable Spleen: Surgically absent. Pancreas: Unremarkable Adrenal Glands: Unremarkable Kidneys: Mildly atrophic bilaterally. Bilateral simple renal cysts. Vasculature: Moderate aortoiliac atherosclerotic disease. GI Tract: Scattered diverticula throughout the colon without evidence of inflammation. There are multiple dilated loops of small bowel with air-fluid levels measuring up to 2.7 cm in diameter. There is a possible transition point in the right lower abdominal quadrant (image 81, series 601). Lymphadenopathy: None Peritoneum: No ascites. Bladder: Evidence of chronic bladder outlet obstruction. Reproductive organs: Unremarkable Bones/Soft tissues: There are diffuse degenerative changes of the spine. Multiple chronic compression deformities of the visualized thoracolumbar spine. CT/Abdomen/Pelvis W IV Cont ONLY IMPRESSION: Findings concerning for small bowel obstruction with possible transition point in the right lower abdominal quadrant. No free air or focal fluid collection. Multiple chronic compression deformities of the visualized thoracolumbar spine. Electronically Signed: Esau Case MD at 22:52 EDT Tel , Service support ,
[2021-06-28 23:02] VITALS: BP 148/93; PULSE 95; RESP 18; TEMP 36.3; O2SAT 99
--- NOTE | 2021-06-28 23:19 | EDS_ITS ---
HPI HPI - GI History of Present Illness Chief Complaint: Abd Pain Informant: patient and spouse/S.O. Narrative Narrative: Patient states he started with some cramping of his upper abdomen last night. He had some nausea and some mild dry heaves but no actual vomiting. He had a little bit more today. He states right now his stomach does not hurt at all and is not at all nauseated. He feels back to baseline right now. But he says he has had episodes of this. He has never had chest pain. He has chronic dyspnea due to pulmonary fibrosis but there is been no change in this. The only changes that he started a new medicine, Ofev 1 week before the symptoms started. He he was told he can cause a lot of nausea vomiting. He did stop the medicine the last 2 days now. PFSH PFSH Home Medications finasteride 5 mg PO DAILY 03/21/14 [History Last Taken 05/19/16 08:00 5 mg] mycophenolate mofetil 1,000 mg PO DAILY 03/21/14 [History Last Taken 05/20/16 1000 mg] clopidogrel 75 mg PO DAILY 08/30/19 [History Last Taken Unknown] pantoprazole 20 mg PO DAILY 02/10/21 [History Last Taken 02/10/21] nintedanib [Ofev] 150 mg PO BID 06/28/21 [History Last Taken Unknown] Allergy/AdvReac Type Severity Reaction Status Date / Time sulfamethoxazole AdvReac Unknown Verified 06/28/21 20:44 [From Bactrim] trimethoprim [From Bactrim] AdvReac Unknown Verified 06/28/21 20:44 Surgical History Hx of splenectomy Social History Smoking Status: Never smoker ROS ROS ED Constitutional Constitutional ED: Denies chills or fever(s) ENT ENT ED: Denies sore throat Cardiovascular Cardiovascular: Denies chest pain or palpitations Respiratory/Chest Respiratory/Chest: Reports other Details: Chronic dyspnea but no change. No sputum. ; Denies cough Gastrointestinal Gastrointestinal: Reports abdominal pain, nausea, vomiting and other Details: Patient states he did not move his bowels much for couple days. He did move them somewhat this morning. No blood. ; Denies constipation or diarrhea Genitourinary Genitourinary ED: Denies dysuria or hematuria Musculoskeletal Musculoskeletal: Denies arthralgias Integumentary Denies rash Neurologic Neurologic: Denies headache(s) or weakness Endocrine Endocrinology: Denies polydipsia or polyuria Hematologic/Lymphatic Hematologic/Lymphatic: Denies easy bruising Allergic/Immunologic Allergic/Immunologic ED: Denies urticaria EXAM Physical Exam Const Vital Signs: 06/28/21 20:41 06/28/21 20:55 06/28/21 23:02 Temperature 98.5 F 98.5 F 97.3 F L Temperature Source Temporal Temporal Temporal Pulse Rate 111 H 97 95 Respiratory Rate 22 H 24 H 18 Blood Pressure 116/92 H 116/92 H 148/93 H Blood Pressure Mean 100 100 111 Pulse Ox 93 97 99 Oxygen Delivery Method Room Air Nasal Cannula Room Air Oxygen Flow Rate (L/min) 2 Positive well nourished and well developed Constitutional Narrative: Thin but nontoxic in appearance. General Appearance ED: well developed and NAD HEENT Reports moist mucous membranes normocephalic and atraumatic Neck supple Resp normal respiratory effort Resp Narrative: Diffuse mild dry crackles. Cardio regular rate and regular rhythm GI non-tender and non-distended GI Narrative: Patient's abdomen is actually quite benign for now. It is not distended. His bowel sounds are little bit quiet. But he is not having tenderness. He states he feels a little pressure with palpation but it does not really hurt. Palpation: soft Back/Spine no CVA tenderness Neuro Sensorium / Orientation: alert and oriented to person Psych mental status grossly normal Skin Lesions: no lesions Rashes: no rashes MDM MDM MDM Narrative Medical decision making narrative: Patient has a mildly elevated hemoglobin. He has had a prior splenectomy. White count is normal. Electrolytes show mild elevation in creatinine. Liver function test and lipase show no marked abnormalities. His CT is concerning for small bowel obstruction with a possible transition point in the right lower quadrant. I went back and talked to the patient. He is still quite comfortable. He is not having nausea and his abdomen is not distended. I have general surgery on page to discuss at this time. Patient does have a somewhat complex medical history due to his autoimmune immune disease and his medications. I discussed case with general surgery as well as hospitalist and the patient will be admitted. Lab Data Labs: Laboratory Results - last 24 hr 06/28/21 06/28/21 06/28/21 20:55 20:55 Unknown WBC 10.3 RBC 5.58 Hgb 16.6 H Hct 53.3 MCV 95.5 H MCH 29.7 MCHC 31.1 L RDW Std Deviation 50.0 H RDW Coeff of Alber 14.5 Plt Count 275 MPV 9.6 Immature Gran % (Auto) 0.300 Neut % (Auto) 84.5 H Lymph % (Auto) 7.6 L [place] % (Auto) 7.4 Eos % (Auto) 0.0 Baso % (Auto) 0.2 Absolute Neuts (auto) 8.7 H Absolute Lymphs (auto) 0.78 L Nucleated RBC % 0 Sodium 134 L Potassium 4.8 Chloride 96 L Carbon Dioxide 27.0 Anion Gap 11 BUN 31 H Creatinine 1.79 H Estim Creat Clear Calc 28.15 Est GFR (MDRD) Af Amer 48 L Est GFR (MDRD) Non-Af 39 L BUN/Creatinine Ratio 17.3 Glucose 176 H Calcium 9.5 Total Bilirubin 1.00 Direct Bilirubin 0.28 AST 23 ALT 20 Alkaline Phosphatase 122 H Troponin I High Sens 44 Total Protein 8.1 Albumin 3.3 Globulin 4.8 H Lipase 68 L Radiography Diagnostic Testing: Radiology Impression Abdomen/Pelvis CT 06/28/21 21:46 IMPRESSION: Findings concerning for small bowel obstruction with possible transition point in the right lower abdominal quadrant. No free air or focal fluid collection. Multiple chronic compression deformities of the visualized thoracolumbar spine. Electronically Signed: Esau Case MD at 22:52 EDT Tel , Service support , Discharge Plan Triage Chief Complaint: Abd Pain ED Provider: Silvio Lazo Dx/Rx/DC Orders Clinical Impression: Partial small bowel obstruction Prescriptions: No Action mycophenolate mofetil 250 MG capsule 1,000 mg PO DAILY RF: 0 finasteride 5 MG tablet 5 mg PO DAILY RF: 0 clopidogrel 75 MG tablet 75 mg PO DAILY RF: 0 pantoprazole 20 MG tablet 20 mg PO DAILY RF: 0 Ofev 150 mg capsule 150 mg PO BID RF: 0 Primary Care Provider: Remy Bill Referrals: Remy Bill MD [Primary Care Provider] - Disposition Disposition: Acute Care Hospital [facility]
--- NOTE | 2021-06-28 23:51 | EKG12_ITS ---
Test Reason : DYSRYTHMIA Blood Pressure : / mmHG Vent. Rate : 094 BPM Atrial Rate : 094 BPM P-R Int : 192 ms QRS Dur : 134 ms QT Int : 398 ms P-R-T Axes : 049 -81 040 degrees QTc Int : 497 ms Normal sinus rhythm Left axis deviation Right bundle branch block Septal infarct , age undetermined Abnormal ECG Confirmed by TEAGAN MCGOWAN, CYNTHIA ([id number]), technical writer and editor ELIO HOFFMAN ([id number]) on 06/30/2021 9:34:12 AM Referred By: MARTINE Confirmed By:CYNTHIA CANDELARIA MD
[2021-06-28] MEDS: Lidocaine 4% 5 ML Ampul 2 ML INHALATION (23:53)
[2021-06-29] VITALS (24 sets, daily range): BP systolic 113–166; BP diastolic 81–102; PULSE 84–158; RESP 16–26; TEMP 36.4–37.2; O2SAT 92–100
--- NOTE | 2021-06-29 | RAD_ITS ---
STUDY: X-RAY - ABDOMEN REASON FOR EXAM: Male, 76 years old. NG Tube pplacement -- KUB with both diaphragms for NG/OG Verification TECHNIQUE: Single AP portable upright view of the abdomen. The pelvis is not included in the image. COMPARISON: CT scan abdomen and pelvis 06/29/2021. FINDINGS: There are fibrotic and emphysematous changes in the visualized lung bases. There is a nasogastric tube with its tip and sidehole in the expected region of the gastric fundus. There is gaseous distention of small bowel loops, consistent with obstruction. There is no demonstrated free abdominal air. Normal soft tissue structures. There are degenerative changes of the lumbar spine with dextroscoliosis. RAD/Abdomen Single View (Portable) IMPRESSION: Nasogastric tube is in adequate position. Persistent gaseous distention of small bowel loops, consistent with obstruction. Electronically Signed: Bartolome Longoria MD at 2:31 EDT , Service support ,
--- NOTE | 2021-06-29 00:05 | HP.PCM.HOS_ITS ---
HPI - General General Date of Admission: 06/29/21 Date of Service: 06/29/21 Chief Complaint: Abdominal pain. HPI Narrative The patient is an 76 y/o M w/ PMHx: Wegeners granulomatosis/Microscopic polyarteritis nodosa, Lung Fibrosis, Hx GI bleed/Duodenal Ulcer, Hx Autoimmune Hemolytic Anemia, CKD stage IIIb, AOCD, Diabetes mellitus type II, BPH, Hx PE, Hx SBO who presents to the [facility] ED on 06/28/21 with history of mild abdominal cramping, dry heaves the day prior with no BM x 2-3 days, improved mildly but then recurrent pain onset prompting eventual ED presentation with no specific abdominal distention despite CT findings and upon ED presentation resolved nausea. Patient currently denying any abdominal pain. He does state when he w ould started having the initial abdominal cramping and dry heaves his discomfort was rated 4-5 out of 10 in severity. Work-up in the ED included T 98.5, heart 97, BP 116/92, respiratory rate 24, 97% room air, CBC with WBC 10.3, hemoglobin 16.6, platelet 275 with left shift and lymphopenia, CMP with sodium 134, chloride 96, BUN/creatinine 31/1.79, glucose 176, alk phos 122, high-sensitivity troponin 44, lipase 68, CT abdomen and pelvis with findings consistent with SBO with possible transition point RLQ with no free air or focal fluid collection with multiple chronic compression deformities of the visualized thoracolumbar spine. NG tube being placed in the ED. ED physician did discuss case with general surgery. M-CVA, colon CA F-CVA Spouse, negative x 3 Splenectomy, embolization duodenal ulcer [facility] Medical History (Updated 06/29/21 @ 02:[address] Evie Marcum MD) Anemia of chronic disease Anxiety disorder Benign prostatic hypertrophy Diabetes mellitus type II, controlled Malnutrition Microscopic polyangiitis Pulmonary emboli Wegeners granulomatosis Home Medications finasteride 5 mg PO DAILY 03/21/14 [History Last Taken 05/19/16 08:00 5 mg] mycophenolate mofetil 1,000 mg PO DAILY 03/21/14 [History Last Taken 05/20/16 1000 mg] clopidogrel 75 mg PO DAILY 08/30/19 [History Last Taken Unknown] pantoprazole 20 mg PO DAILY 02/10/21 [History Last Taken 02/10/21] nintedanib [Ofev] 150 mg PO BID 06/28/21 [History Last Taken Unknown] Allergy/AdvReac Type Severity Reaction Status Date / Time sulfamethoxazole AdvReac Unknown Verified 06/28/21 20:44 [From Bactrim] trimethoprim [From Bactrim] AdvReac Unknown Verified 06/28/21 20:44 Family History (Updated 06/29/21 @ 02:[address] Evie Marcum MD) Mother CVA (cerebral vascular accident) Colon cancer Father CVA (cerebral vascular accident) Surgical History (Updated 06/29/21 @ 02:[address] Evie Marcum MD) Hx of splenectomy S/P tonsillectomy and adenoidectomy Social History (Updated 06/29/21 @ 02:[address] Evie Marcum MD) household members: spouse Smoking Status: Never smoker alcohol intake: never substance use type: does not use ROS ROS Narrative Admission Review of Systems: CONSTITUTIONAL: No weight loss, fever, chills, + weakness or fatigue. HEENT: Eyes: No visual loss, blurred vision, double vision or yellow sclerae. Ears, Nose, Throat: No hearing loss, sneezing, congestion, runny nose or sore throat. SKIN: No rash or itching, lesions, wounds. CARDIOVASCULAR: No chest pain, chest pressure or chest discomfort, palpitations, edema, orthopnea, syncopal events. RESPIRATORY: + shortness of breath, No marked cough or sputum, wheezing, hemoptysis. GASTROINTESTINAL: + anorexia, nausea, vomiting, abdominal pain, No melena, BRBPR. GENITOURINARY: No dysuria, frequency, urgency or retention. NEUROLOGICAL: No headache, dizziness, syncope, paralysis, ataxia, numbness or tingling in the extremities, focal weakness, change in bowel or bladder control, seizure. MUSCULOSKELETAL: + muscle, back pain, joint pain or stiffness. HEMATOLOGIC: + anemia, bleeding or bruising. LYMPHATICS: No enlarged nodes. No history of splenectomy. PSYCHIATRIC: + history of depression or anxiety. ENDOCRINOLOGIC: No reports of sweating, cold or heat intolerance. No polyuria or polydipsia. ALLERGIES: No history of asthma, hives, eczema or rhinitis. Vital Signs Vital Signs Vital Signs: 06/28/21 20:41 06/28/21 20:55 06/28/21 23:02 Temperature 98.5 F 98.5 F 97.3 F L Temperature Source Temporal Temporal Temporal Pulse Rate 111 H 97 95 Respiratory Rate 22 H 24 H 18 Blood Pressure 116/92 H 116/92 H 148/93 H Blood Pressure Mean 100 100 111 Pulse Ox 93 97 99 Oxygen Delivery Method Room Air Nasal Cannula Room Air Oxygen Flow Rate (L/min) 2 Weight Weight: 129 lb Body Mass Index (BMI) 19.5 Physical Exam Narrative Physical Examination: General: Awake, alert, oriented x 3 and cooperative, seated upright in the bed, fatigued appearing otherwise no acute distress, denies current abdominal pain. Skin: Normal color, normal turgor, no icterus, no cyanosis. HEENT: AT/NC, EOMI, PERRLA, dry MM, no carotid bruits or JVD noted. Lungs: Diminished, greater bases, appropriate effort, diffuse crackles consistent with underlying pulmonary disease, no obvious rhonchi or wheezing. Heart: Regular rate and rhythm; no gallop, rub audible. Abdomen: Soft, thin cachectic habitus, diminished bowel sounds, no obvious distention and not severely tender to palpation despite the CT findings, no obvious HSM. NG tube going to be placed shortly. Extremities: No cyanosis, clubbing, or edema, obvious muscle loss. Neurological: Patient awake, alert, oriented as noted, cognitive function intact; pupils equally reactive to light and accommodation, cranial nerves II- XII grossly normal, moving all 4 extremities, no focal deficits, strength moderately to severely global decrease secondary to acute presentation. Psychiatric: Affect appears fatigued otherwise normal, no acute evidence of depressive or anxiety feelings. Results Lab / Micro Data Result Diagrams: 06/28/21 20:55 06/28/21 20:55 Labs: Laboratory Results - last 24 hr 06/28/21 20:55: WBC 10.3, RBC 5.58, Hgb 16.6 H, Hct 53.3, MCV 95.5 H, MCH 29.7, MCHC 31.1 L, RDW Std Deviation 50.0 H, RDW Coeff of Alber 14.5, Plt Count 275, MPV 9.6, Immature Gran % (Auto) 0.300, Neut % (Auto) 84.5 H, Lymph % (Auto) 7.6 L, [place] % (Auto) 7.4, Eos % (Auto) 0.0, Baso % (Auto) 0.2, Absolute Neuts (auto) 8.7 H, Absolute Lymphs (auto) 0.78 L, Nucleated RBC % 0 06/28/21 20:55: Sodium 134 L, Potassium 4.8, Chloride 96 L, Carbon Dioxide 27.0, Anion Gap 11, BUN 31 H, Creatinine 1.79 H, Estim Creat Clear Calc 28.15, Est GFR (MDRD) Af Amer 48 L, Est GFR (MDRD) Non-Af 39 L, BUN/Creatinine Ratio 17.3, Glucose 176 H, Calcium 9.5 06/28/21 : Total Bilirubin 1.00, Direct Bilirubin 0.28, AST 23, ALT 20, Alkaline Phosphatase 122 H, Troponin I High Sens 44, Total Protein 8.1, Albumin 3.3, Globulin 4.8 H, Lipase 68 L Radiology Impression Abdomen/Pelvis CT 06/28/21 21:46 IMPRESSION: Findings concerning for small bowel obstruction with possible transition point in the right lower abdominal quadrant. No free air or focal fluid collection. Multiple chronic compression deformities of the visualized thoracolumbar spine. Electronically Signed: Esau Case MD at 22:52 EDT Tel , Service support , Assessment & Plan Assessment/Plan (1) SBO (small bowel obstruction): PLAN: The patient is an 76 y/o M w/ PMHx: Wegeners g ranulomatosis/Microscopic polyarteritis nodosa, Lung Fibrosis, Hx GI bleed/Duodenal Ulcer, Hx Autoimmune Hemolytic Anemia, CKD stage IIIb, AOCD, Diabetes mellitus type II, BPH, Hx PE, Hx SBO who presents to the [facility] ED on 06/28/21 with history of mild abdominal cramping, dry heaves the day prior with no BM x 2-3 days, improved mildly but then recurrent pain onset prompting eventual ED presentation with no specific abdominal distention despite CT findings and upon ED presentation resolved nausea. 1. Abdominal pain, nausea, emesis w/ SBO: Will admit to [facility], maintain on IVFs, continue NGT to suction, strict I&Os, IV pain/anti-emetics PRN, serial KUB as needed to montior bowel function, Protonix IV, maintain NPO on bowel rest. General surgery consulted, pending. 2. Chronic Kidney Disease Stage III B with acute renal insufficiency: Admission BUN/Cr 31/1.79, baseline renal function most recently 02/06/2021 1.47, following with Dr. Lilibeth Barnett, repeat CMP in AM. 3. Chronic pulmonary fibrosis: We will continue patient nintedanib home regimen. 4. Jeannette's granulomatosis: We will continue patient home mycophenolate regimen. From current list patient is not on any prednisone therapy therefore patient is not on prophylactic Bactrim although allergy listed but unknown reaction. Patient currently on Plavix with prior history of Coumadin, de- escalation given Jeannette's disease, holding. 5. Diabetes mellitus type II: Hold oral home regimen, n.p.o. status given notable abdominal pain pending surgery evaluation, accu checks w/ ISS. 6. AOCD: Admission Hgb 16.6, however last noted 02/06/21 13.9 and prior to this baseline had been 9 range, repeat CBC in AM. 7. GERD: We will maintain on PPI. 8. BPH: We will continue patient home finasteride regimen. 9. History of PE: Patient with reported history of pulmonary embolism, not anticoagulated likely secondary to Jeannette's granulomatosis, on plavix, will hold in case of OR needs. Placed on chemoprophylaxis as noted. 10. History of chronic right-sided sacral ulcer: Resolved, patient following previously with wound care clinic, encourage frequent positional changes, offloading, barrier cream if needed. 11. Severe protein calorie malnutrition: Evidenced by BMI, muscle and fat loss, nutrition consulted for recommendations 12. History of Hemolytic Anemia: Unclear if patient previously required glucocorticoids, IVIG or monoclonal antibody, status post eventual splenectomy. 13. DVT prophylaxis: SCDs, Lovenox. 14. CODE status: Patient HCPOA is his and living will is in place. Discussed CODE status at length including difference between FULL code, DNR-CCA and DNR-CC status. Following discussions about the differences in these status, requested Full Code status. Notes that if efforts became futile he would prefer to transition to comfort. Advanced Care Planning Face to Face Time: 16 minutes. Charges/Coding Visit Charges Inpatient E&M: 13965 Init Hosp L3 Procedures Hospitalists Procedures: 04909 Advncd Care Plan 30 Min
[2021-06-29] MEDS: 0.9% Normal Saline 1,000 ML 1000 ML IV (00:16)
[2021-06-29] MEDS: Oxymetazoline 0.05% 1 SPRAY SPRAY.BTL 2 SPRAY NASAL (00:16)
--- NOTE | 2021-06-29 00:16 | ED.RN ---
Attempted NG, failed. Matthew, fuse cup expander, notified.
[2021-06-29 03:11] LABS: Mucous, Urine 0 SEEN /hpf (<or=2+); Squamous Epithelial Cells - UA 0 SEEN /hpf (0-5)
[2021-06-29 03:28] LABS: Color, Urine Yellow (Yellow); Glucose, Dipstick Normal (Normal); Ketone-Dipstick 50 mg/dl (Negative); Leukocyte Esterase-Dipstick 25 /ul (Negative); Nitrite-Dipstick Negative (Negative); Occult Blood-Urine 150 /ul (Negative); Protein-Dipstick 30 mg/dl (Negative); Specific Gravity, Urine 1.015 (1.002-1.030); Urine Bilirubin Dipstick Negative (Negative); Urine Clarity Clear (Clear); Urine Urobilinogen 1 mg/dl (Normal)
[2021-06-29 03:45] LABS: Bacteria 1+ /hpf (None Seen); Red Blood Cells-Urine 5-10 SEEN /hpf (0-5); White Blood Cells 0-5 SEEN /hpf (0-5)
--- NOTE | 2021-06-29 05:05 | EX.PCM.CON.S ---
Assessment & Plan Assessment/Plan (1) SBO (small bowel obstruction): PLAN: Discussed with patient would plan a small bowel follow-through with Gastrografin. Keep n.p.o./IV fluids/NG. Plan for conservative management currently. Addendum: Patient's current small bowel follow-through does not appear to be going anywhere after 1 hour we will wait for the last next x-ray but likely patient will need surgery. This was discussed with the patient. Would plan for exploratory laparoscopy, possible laparotomy, possible bowel resection including risk but not limited to bleeding, infection, injury to another organ, issues with wound healing due to patient CellCept, and anesthesia. Patient no further questions this time. Margot Phillips M.D. Pager: [phone] [facility] [address] [place] [address], [address] [place] [address] Office: [phone] HPI Consult Data Date of Consult: 06/29/21 HPI Narrative HPI Narrative: SRAVAN MAYNARD, is a 76 M who presents to the ER due to abdominal pain. Patient did state the pain did seem to improve when he got there. Patient denies any nausea or vomiting. CT abdomen pelvis was done did show dilated small bowel consistent with bowel obstruction. Patient denies flatus this morning. Patient had NG placed in the ER unsure how much initially came out currently not much out of the canister. Patient has last having a bowel movement was Tuesday or Tuesday denies any flatus or bowel movement since then. Still denies any abdominal pain. Patient's last colonoscopy was 4 to 5 years ago negative per patient [facility] Medical History Anemia of chronic disease Anxiety disorder Benign prostatic hypertrophy Diabetes mellitus type II, controlled Malnutrition Microscopic polyangiitis Pulmonary emboli Wegeners granulomatosis Home Medications finasteride 5 mg PO DAILY 03/21/14 [History Last Taken 06/28/21] mycophenolate mofetil 1,000 mg PO QHS 03/21/14 [History Last Taken 06/27/21] clopidogrel 75 mg PO DAILY 08/30/19 [History Last Taken 06/28/21] pantoprazole 20 mg PO DAILY 02/10/21 [History Last Taken 06/28/21] nintedanib [Ofev] 150 mg PO BID 06/28/21 [History Last Taken 06/27/21] Allergy/AdvReac Type Severity Reaction Status Date / Time sulfamethoxazole AdvReac Unknown Verified 06/28/21 20:44 [From Bactrim] trimethoprim [From Bactrim] AdvReac Unknown Verified 06/28/21 20:44 Family History (Updated 06/29/21 @ 02:[address] Evie Marcum MD) Mother CVA (cerebral vascular accident) Colon cancer Father CVA (cerebral vascular accident) Surgical History Hx of splenectomy S/P tonsillectomy and adenoidectomy Social History (Updated 06/29/21 @ 02:[address] Evie Marcum MD) household members: spouse Smoking Status: Never smoker alcohol intake: never substance use type: does not use Physical Exam Const alert, oriented x3 and no apparent distress HEENT normocephalic and head/scalp atraumatic HEENT Narrative: NG in place Resp normal respiratory effort Cardio regular rate GI soft to palpation and non-tender; Negative for non-distended Palpation: Negative for guarding Extremity no clubbing, cyanosis or edema Neuro CN's II-XII intact bilaterally Psych mental status grossly normal Lab / Micro Data Result Diagrams: 06/29/21 05:45 06/29/21 05:45 Labs: Laboratory Results - last 24 hr 06/28/21 20:55: WBC 10.3, RBC 5.58, Hgb 16.6 H, Hct 53.3, MCV 95.5 H, MCH 29.7, MCHC 31.1 L, RDW Std Deviation 50.0 H, RDW Coeff of Alber 14.5, Plt Count 275, MPV 9.6, Immature Gran % (Auto) 0.300, Neut % (Auto) 84.5 H, Lymph % (Auto) 7.[address] L, [place] % (Auto) 7.4, Eos % (Auto) 0.0, Baso % (Auto) 0.2, Absolute Neuts (auto) 8.7 H, Absolute Lymphs (auto) 0.78 L, Nucleated RBC % 0 06/28/21 20:55: Sodium 134 L, Potassium 4.8, Chloride 96 L, Carbon Dioxide 27.0, Anion Gap 11, BUN 31 H, Creatinine 1.79 H, Estim Creat Clear Calc 28.15, Est GFR (MDRD) Af Amer 48 L, Est GFR (MDRD) Non-Af 39 L, BUN/Creatinine Ratio 17.3, Glucose 176 H, Calcium 9.5 06/28/21 : Total Bilirubin 1.00, Direct Bilirubin 0.28, AST 23, ALT 20, Alkaline Phosphatase 122 H, Troponin I High Sens 44, Total Protein 8.1, Albumin 3.3, Globulin 4.8 H, Lipase 68 L 06/29/21 03:00: Urine Color Yellow, Urine Clarity Clear, Urine pH 5.0, Ur Specific [place] 1.015, Urine Protein 30 H, Urine Glucose (UA) Normal, Urine Ketones 50 H, Urine Occult Blood 150 H, Urine Nitrite Negative, Urine Bilirubin Negative, Urine Urobilinogen 1 H, Ur Leukocyte Esterase 25 H, Urine RBC 5-10 SEEN, Urine WBC 0-5 SEEN, Ur Squamous Epith Cells 0 SEEN, Urine Bacteria 1+, Urine Mucus 0 SEEN Radiology Impression Abdomen/Pelvis CT 06/28/21 21:46 IMPRESSION: Findings concerning for small bowel obstruction with possible transition point in the right lower abdominal quadrant. No free air or focal fluid collection. Multiple chronic compression deformities of the visualized thoracolumbar spine. Electronically Signed: Esau Case MD at 22:52 EDT Tel , Service support , KUB X-Ray 06/29/21 00:00 IMPRESSION: Nasogastric tube is in adequate position. Persistent gaseous distention of small bowel loops, consistent with obstruction. Electronically Signed: Bartolome Longoria MD at 2:31 EDT , Service support , Procedure Criteria Type of Procedure Procedure Type: Elective Elective Risks - COVID COVID Risk Discussion: The surgeon/proceduralist and patient have discussed in detail the risk of exposure to and/or potential harm posed by the COVID-19 virus with having a surgery/procedure at this time versus the risk of delaying the surgery/procedure. It is not possible to know either the risk of delaying the surgery or procedure or chance of getting an infection with perfect accuracy, but a joint decision was made between the patient and the surgeon/proceduralist to proceed at this time with the scheduled surgery/procedure as indicated on the consent form. Charges/Coding Visit Charges Inpatient E&M: 55298 Init Hosp L3
[2021-06-29 05:45] LABS: Bedside Glucose 108 mg/dL (70-110)
[2021-06-29] MEDS: BENZOCAINE/MENTHOL 1 LOZENGE MUCOUS MEM (05:45)
[2021-06-29 07:14] LABS: Absolute Lymphocyte Count 0.73 X10^3/uL (0.83-4.51); Absolute Neutrophil Count 9.7 X10^3/uL (2.0-7.7); Basophil# 0.02 X10^3/uL; Basophil% 0.2 % (0-1); Hematocrit 48.1 % (40-54); Hemoglobin 14.9 g/dL (13.0-16.5); Lymphocyte # 0.73 X10^3/ul (0.83-4.51); Lymphocyte % 6.4 % (19-41); Mean Corpuscular Hgb 29.1 pg (27.0-32.0); Mean Corpuscular Volume 93.9 fL (80-94); Mean Platelet Vol. 10.3 fl (6.2-12.0); Monocyte# 0.83 X10^3/uL; Monocyte% 7.3 % (0-10); NRBC Flagged by Analyzer 0 % (0-5); Neutrophil # 9.71 X10^3/uL (2.7-7.7); Neutrophil % 85.7 % (47-70); Platelet Count 296 K/mm3 (150-450); RBC Distribution Width CV 14.5 % (11.6-14.6); Red Blood Count 5.12 M/mm3 (4.6-6.2); White Blood Count 11.3 K/mm3 (4.4-11.0)
[2021-06-29 08:52] LABS: ALB/GLOB Ratio 0.7 RATIO (0.9-2.4); AST(SGOT) 24 U/L (15-37); Alanine Aminotransfer ALT/SGPT 18 U/L (16-61); Albumin, Serum 3.1 g/dL (3.2-5.0); Alkaline Phosphatase 103 U/L (45-117); Anion Gap 6 (5-15); BUN 29 mg/dL (7-18); BUN/Creat Ratio 21.2 RATIO (10-20); Calcium,Total 8.9 mg/dL (8.5-10.1); Chloride 100 mmol/L (98-107); Creatinine, Serum 1.37 mg/dL (0.70-1.30); EST Glomerular Filtration Rate 53 mL/min (>60); Est Glom Filt Rate - Afr Amer 65 mL/min (>60); Estimated Creatinine Clearance 37.59 ml/min; Globulin 4.2 g/dL (2.2-4.2); Glucose 100 mg/dL (74-106); Potassium 4.7 mmol/L (3.5-5.1); Protein, Total 7.3 g/dL (6.4-8.2); Sodium Level 136 mmol/L (136-145)
[2021-06-29] MEDS: Lactated Ringers 1,000 ML 75 ML IV ×2 (09:02→22:47)
--- NOTE | 2021-06-29 09:03 | NURSING ---
Being brought down to Radiology via bed at this time.
--- NOTE | 2021-06-29 09:15 | RAD_ITS ---
INDICATION: sbo -- gastrografin EXAMINATION/TECHNIQUE: Gastrograffin oral contrast was administered orally via nasogastric tube to the patient. Number of Fluoroscopic Images: 8 COMPARISON: CT scan obtained 06/28/2021. FINDINGS: Initial advance scout abdominal x-ray demonstrates a nasogastric tube within the stomach. Residual contrast within the urinary bladder. Distended loops of small and large bowel are visualized, no evidence of free air within the peritoneal cavity. Oral contrast was then administered through the nasogastric tube and the superior fluoroscopic images were obtained up to 120 minutes demonstrating no evidence of transit of contrast from the stomach into the small bowel, patient was transferred to the floor and follow-up images will be obtained. Limited evaluation of the lower lung pearl demonstrates a prominence of the bronchovascular interstitial lung markings scattered areas of patchy airspace opacification. RAD/Small Bowel Series Only IMPRESSION: Small bowel obstruction. Electronically Signed: Edmundo Aviles MD at 12:00 EDT Tel , Service support ,
--- NOTE | 2021-06-29 09:26 | PCM.HOSP.N ---
Hospitalist Note 76-year-old male admitted early this morning with a past medical history of Jeannette's granulomatosis who presented complaining of abdominal pain. His pain has improved. He had no nausea or vomiting. A CT of his abdomen pelvis was done and showed dilated small bowel consistent with obstruction. NG was placed in the emergency department. Patient is currently not passing any flatus and bowel sounds are hypoactive. Small bowel follow-through is pending. Dr. Mayfield is following. Initiate incentive spirometry and start IV fluids at 75 cc/h with lactated Ringer's. Diagnoses: Small bowel obstruction Jeannette's granulomatosis/microscopic PALOMINO Lung fibrosis History of duodenal ulcer History of autoimmune hemolytic anemia CKD stage IIIb DM-2 BPH History of PE
--- NOTE | 2021-06-29 11:38 | NURSING ---
This nurse was told not to hook NG back to LIWS and keep clamped when he returned back to room at approximately 1040 b/c Radiology was coming at 1120 to do more of the small bowel series at his bedside. This nurse was just imformed by Mya GIRALDO charge, that it is okay to hook pt back up to suction. this nurse hooked him back up to suction at this time and flushed NG with 125ml sterile water. is at bedside and Dr. Andrews in recently with pt and talked to him about possible surgery. Consent is signed.
--- NOTE | 2021-06-29 11:55 | CASEMGMT ---
ENZO VEGA Assessment: Face to Face with pt for initial transition planning/care coordination assessment. ENZO VEGA introduced self and role at [facility], pt voices understanding and consents to assessment. Pt is A/O x4. Pt lying in bed with NG in and eyes closed. Pt requests to answer the assessment questions but does interject at times. Care providers, pharmacy, and demographics verified/updated. Admitting Dx: SBO PCP:Tom Specialists: glenna Chaparro; Sydney- has seen in the past; PAL Castaneda autoimmune specialist Preferred Pharmacy: [facility] Insurance: [employer] [facility] Prescription Benefit: yes LW/HPOA: Pt has a LW/DPOA on file at [facility]. His DPOA is his Thania Bowles. LNOK: Thania Bowles, ; Roger Bowles, son Living Arrangements: Pt lives with in a single story house with two steps to enter. Pt is I in ADL's prior to hospitalization. Transportation: Pt transports pt to medical appts. Pt does not currently drive. DME/HHC/SNF: Pt has a quad cane and O2 at 2.5 liters with exertion through [facility]. Pt has had [facility] as well as [facility]. Pt previously need wound care. No open wounds currently. Denies previous SNF stays. Pt states no concerns with going home at time of dc. Pt states no further concerns/needs. CM to follow. Advised pt to ask CM if any further question/concerns/needs arise, voices understanding. Pt Goal: Home Plan: Home
--- NOTE | 2021-06-29 13:47 | NURSING ---
This nurse in to get pt's vitals and noticed HR was going from 80-100 on the monitor. This nurse listened to apical and apical HR was 130min. Pt is asymptomatic. Pt and in room and states never had irregular HR or Afib. EKG obtained and looks like AFIB. Picture send to Dr. Barnett at this time and informed Kayla in surgery who was going to talk to Anestheia.
--- NOTE | 2021-06-29 13:49 | EKG12_ITS ---
Test Reason : Blood Pressure : / mmHG Vent. Rate : 158 BPM Atrial Rate : 083 BPM P-R Int : 000 ms QRS Dur : 134 ms QT Int : 320 ms P-R-T Axes : 000 -79 -05 degrees QTc Int : 518 ms Atrial fibrillation Left axis deviation Right bundle branch block Septal infarct , age undetermined Abnormal ECG Confirmed by TEAGAN MCGOWAN, CYNTHIA ([id number]), assistant editor ELIO HOFFMAN ([id number]) on 06/30/2021 9:45:37 AM Referred By: CATALINO Confirmed By:CYNTHIA CANDELARIA MD
[2021-06-29 13:56] LABS: Bedside Glucose 115 mg/dL (70-110)
--- NOTE | 2021-06-29 14:01 | ECHOD_ITS ---
Reason For Study: New Onset Afib/Flutter Procedure This was a 2D Doppler, Color Flow transthoracic echocardiogram. Technically difficult study. Patient scanned sitting upright due to recent abdominal surgery and discomfort. The study was technically difficult. Exam performed portable in patient room. Left Ventricle Normal LV size. Moderate concentric left ventricular hypertrophy. Left ventricular systolic function is normal. The estimated ejection fraction is 65 %. Diastolic function is indeterminate. No regional wall motion abnormalities noted. Right Ventricle Normal RV size. Normal systolic function. Atria Normal left atrium. Normal right atrium. No doppler evidence for ASD. Mitral Valve There is no mitral annular calcification. Normal mitral valve. Trivial mitral valve insufficiency. Tricuspid Valve Normal tricuspid valve. Mild tricuspid valve insufficiency. Right ventricular systolic pressure estimated to be 44 mmHg. Aortic Valve Trisinus/trileaflet aortic valve. Mild focal aortic valve calcification. Pulmonic Valve The pulmonic valve is not well visualized. Trivial pulmonic valve insufficiency. Great Vessels The aortic root is not well visualized. Pericardium/Pleural No pericardial effusion. MMode/2D Measurements & Calculations LVIDd: 4.5 cm IVSd: 1.5 cm LA dimension: 3.6 cm LVIDs: 3.2 cm LVPWd: 1.4 cm FS: 29.6 % LAV(MOD-bp): 33.4 ml LA A4 area: 13.7 cm2 RA A4 area: 11.5 cm2 LAV(MOD-bp) Indexed: 19.6 ml/m2 LAV(MOD-sp2): 33.7 ml LAV(MOD-sp4): 33.6 ml Time Measurements MV dec time: 0.22 sec Doppler Measurements & Calculations MV E max martin: 48.2 cm/sec Lat Peak E' Martin: 8.2 cm/sec Med Peak E' Martin: 5.0 cm/sec MV A max martin: 74.7 cm/sec E/E' lat: 5.9 E/E' med: 9.7 MV E/A: 0.65 MV V2 max: 93.2 cm/sec MV P1/2t max martin: 50.5 cm/sec Ao V2 max: 92.9 cm/sec MV max P.5 mmHg MV P1/2t: 79.3 msec Ao max P.4 mmHg MV V2 mean: 49.2 cm/sec MV dec slope: 186.4 cm/sec2 MV mean P.2 mmHg MVA(P1/2t): 2.8 cm2 MV V2 VTI: 19.8 cm LV V1 max: 77.3 cm/sec PA V2 max: 77.0 cm/sec TR max martin: 320.9 cm/sec LV V1 max P.4 mmHg TR max P.2 mmHg ECHO/Echo Complete Interpretation Summary The study was technically difficult. Left ventricular systolic function is normal. The estimated ejection fraction is 65 %. Moderate concentric left ventricular hypertrophy. Trivial mitral valve insufficiency. Mild tricuspid valve insufficiency. Mild focal aortic valve calcification. Trivial pulmonic valve insufficiency. Right ventricular systolic pressure estimated to be 44 mmHg. Diastolic function is indeterminate. Ordering Physician: Shara Barnett Referring Physician: Remy Bill Performed By: Mauricio Torres RCS
--- NOTE | 2021-06-29 14:02 | PCM.HOSP.N ---
Hospitalist Note Called by general surgery at approximately 2 PM. Patient had developed A. fib with RVR and anesthesia would like us to slow his heart rate down prior to going to the operating room. The patient's heart rates 130 and EKG is consistent with A. fib with RVR. Patient has no documented history of this previously. At baseline he is on no rate controlling medication or anticoagulant. Blood pressure is stable. Metoprolol 5 mg IV push x1 dose stat. Metoprolol 5 mg IV push every 6 hours with hold parameters for systolic blood pressure less than 90 was started. If we are unable to get his heart rate down with this we may need to consider Cardizem. No previously documented echocardiograms here and patient does not follow with cardiology as an outpatient in our system. A.m. TSH ordered. Echocardiogram ordered. May need cardiology to assist if unable to get rate controlled. Hold anticoagulation given pending surgery and would initiate once okay with general surgery. ChadsVas score is 2. Patient will go to PCU following surgery as long as there are no intensive care needs in the postoperative period. Diagnosis: New onset atrial fibrillation
[2021-06-29] MEDS: 0.9% Saline Lock 10 ML Syringe IV (14:30)
[2021-06-29] MEDS: Metoprolol Tartrate 5 MG/5 ML Vial IV ×3 (14:30→23:57)
--- NOTE | 2021-06-29 14:42 | NURSING ---
This nurse informed Dr. Phillips that Lopressor 5mg IvP given and HR on monitor is now 125-133. Order for BMP, MG, and Troponins ordered and lab called and made aware of stat order.
--- NOTE | 2021-06-29 15:11 | PCM.PN.BLA ---
Progress Note Patient went into new onset A. fib just this afternoon. Patient will need heart rate better controlled prior to going to the OR per anesthesia. Currently patient did get labetalol 5 mg currently in the process of being transferred to ICU for an amiodarone drip. We will still plan for surgery tonight once patient is stabilized. troponin and BMP/Mag- pending.
[2021-06-29 15:34] LABS: Anion Gap 7 (5-15); BUN 31 mg/dL (7-18); BUN/Creat Ratio 22.3 RATIO (10-20); Chloride 101 mmol/L (98-107); Creatinine, Serum 1.39 mg/dL (0.70-1.30); EST Glomerular Filtration Rate 53 mL/min (>60); Est Glom Filt Rate - Afr Amer 64 mL/min (>60); Estimated Creatinine Clearance 37.05 ml/min; Glucose 116 mg/dL (74-106); Magnesium 2.6 mg/dL (1.6-2.6); Potassium 4.5 mmol/L (3.5-5.1); Sodium Level 136 mmol/L (136-145); Troponin-I HS 56 pg/mL (3.0-78.0)
[2021-06-29] MEDS: Bupivacaine Mpf 0.5% 30 ML VIAL (17:40)
--- NOTE | 2021-06-29 17:42 | PCM.OPRPT ---
Report of Operation Date of Procedure: 06/29/21 Pre-Operative Diagnosis: Small bowel obstruction Post-Operative Diagnosis: Same Surgery/Procedure Performed:: Exploratory laparoscopic converted to laparotomy Description of Surgical Findings:: No adhesions were found--obstruction may have been been a twist due to patient's small body habitus and distended bowel. There was evidence of the area of transition but it was patent just had some fibrous debris that was able to be milked through easily. The entire small bowel was ran. Surgeon: Margot Phillips Type of Anesthesia: General/Supplemental Anesthesiologist: Reynaldo Kim Special Medications: Cefotetan 2 g IV x1 Estimated Blood Loss (mL): < 10 cc Fluids Replaced: 1600 cc Description of Procedure: Indication: 76-year-old male presented with small bowel obstruction. Patient had a contrast dye which did not leave the stomach in 2 hours. Patient was agreeable for exploratory laparoscopic, possible laparotomy, possible bowel resection. Description: Patient was brought into the operating placed prone on the operating table. Timeout was completed verifying correct patient, procedure, site, positioning, and special from prior to beginning procedure. General anesthesia was induced. Devi catheter was placed. An incision was made above the umbilicus with a 15 blade scalpel this was deepened to the fascia. The fascia was elevated and incised. Abdomen was entered under direct visualization. Kohler trocar was placed. The abdomen was insufflated 12 to 15 mmHg. Patient did have a small/tight abdominal cavity, majority of the small bowel was very distended there was some decompressed small bowel in the right lower quadrant. Did place a 5 mm trocar infraumbilically midline. However due to the limited visualization and the distended small bowel the midline incision was enlarged. Midline incision was made with a 15 blade scalpel. Electrocautery was used to deepen to the fascia. The and the fascia was entered under direct visualization. Wound protector was placed. The small bowel was ran from the ligament of Treitz to the cecum. There was decompressed bowel in the right lower quadrant which immediately filled with air after bringing the distended bowel out of the abdomen. The area of transition was noted to be patent unsure if this transition was caused due to limited abdominal cavity/distended bowel. As no adhesions were seen. There was fibrous debris in the bowel proximally. This was able to be milked into the decompressed bowel easily. The incision was closed with 1-0 PDS sutures. Wound was irrigated. 0.5% Marcaine 30 cc was used for local anesthesia. Skin was closed with johana. Incision was dressed with Telfa OpSite. Patient was extubated. Patient tolerated procedure well. Patient was taken to PACU in stable condition. Complications none
--- NOTE | 2021-06-29 17:42 | CASEMGMT ---
Social Work Note Per diamond broker questions, pt has completed HCPOA and LW and provided documents to [facility]. SW reviewed chart, both HCPOA and LW are on file. SW printed off documents and placed on pt's chart. Shanice Tucker [employer]TER [employer], TELECOMMUNICATIONS NETWORK ENGINEER
[2021-06-29 19:16] LABS: Bedside Glucose 122 mg/dL (70-110)
[2021-06-30] VITALS (19 sets, daily range): BP systolic 102–142; BP diastolic 72–90; PULSE 71–866; RESP 16–22; TEMP 36.6–37; O2SAT 93–99
[2021-06-30 00:01] LABS: Bedside Glucose 111 mg/dL (70-110)
--- NOTE | 2021-06-30 01:38 | PCS.PANDOC ---
PANDEMIC DOCUMENTATION INITIATED: Date: 06/15/2021 Time: 190
[2021-06-30] MEDS: Metoprolol Tartrate 5 MG/5 ML Vial IV ×3 (06:22→17:46)
[2021-06-30 06:35] LABS: Bedside Glucose 90 mg/dL (70-110)
--- NOTE | 2021-06-30 08:26 | PCM.PN.SRG ---
Subjective Subjective Patient currently in sinus rhythm. Patient denies any nausea or vomiting, had about 250 cc out of NG overnight denies flatus. Objective Data Objective Data Vital Signs: Vital Signs Temp Pulse Resp BP Pulse Ox 97.8 F 81 18 136/82 H 96 06/30/21 08:18 06/30/21 08:18 06/30/21 08:18 06/30/21 08:18 06/30/21 08:18 Oxygen Flow Rate (L/min) 1 Oxygen Delivery Method Nasal Cannula Weight: 136 lb 7.458 oz Body Mass Index (BMI) 20.0 Intake & Output: Intake and Output for Last 24 Hours 06/28/21 06/29/21 06/30/21 23:59 23:59 23:59 Intake Total 2460.00 / 2460.00 350 / 350 Output Total 1210 / 1560 500 / 500 Balance 1250.00 / 900.00 -150 / -150 Lab / Micro Data Result Diagrams: 06/29/21 05:45 06/29/21 15:00 Labs: Laboratory Results - last 24 hr 06/29/21 05:45: Sodium 136, Potassium 4.7, Chloride 100, Carbon Dioxide 30.0, Anion Gap 6, BUN 29 H, Creatinine 1.37 H, Estim Creat Clear Calc 37.59, Est GFR (MDRD) Af Amer 65, Est GFR (MDRD) Non-Af 53 L, BUN/Creatinine Ratio 21.2 H, Glucose 100, Calcium 8.9, Total Bilirubin 1.00, AST 24, ALT 18, Alkaline Phosphatase 103, Total Protein 7.3, Albumin 3.1 L, Globulin 4.2, Albumin/Globulin Ratio 0.7 L 06/29/21 13:04: POC Glucose 115 H 06/29/21 15:00: Sodium 136, Potassium 4.5, Chloride 101, Carbon Dioxide 28.0, Anion Gap 7, BUN 31 H, Creatinine 1.39 H, Estim Creat Clear Calc 37.05, Est GFR (MDRD) Af Amer 64, Est GFR (MDRD) Non-Af 53 L, BUN/Creatinine Ratio 22.3 H, Glucose 116 H, Calcium 9.0, Magnesium 2.6, Troponin I High Sens 56 06/29/21 19:06: POC Glucose 122 H 06/29/21 23:51: POC Glucose 111 H 06/30/21 06:19: POC Glucose 90 Radiography Diagnostic Testing: Radiology Impression Small Bowel X-Ray 06/29/21 09:15 IMPRESSION: Small bowel obstruction. Electronically Signed: Edmundo Aviles MD at 12:00 EDT Tel , Service support , Physical Exam Narrative Abdomen: Soft, appropriately tender near incision dressed?midline incision closed with johana., Nondistended, no peritoneal signs Assessment & Plan Assessment/Plan (1) SBO (small bowel obstruction): PLAN: POD 1 status post exploratory laparotomy. Continue n.p.o./IV fluids await bowel function. Okay for anticoagulation Hold CellCept due to wound healing probably for 2 to 4 weeks. Margot Phillips M.D. Pager: [phone] [facility] [address] [place] [address], [facility], [address] [place] [address] Office: [phone]
[2021-06-30] MEDS: BENZOCAINE/MENTHOL 1 LOZENGE MUCOUS MEM ×3 (08:28→23:00)
[2021-06-30] MEDS: 0.9% Saline Lock 10 ML Syringe IV ×3 (08:40→17:44)
[2021-06-30] MEDS: Morphine 2 MG/ML Syringe IV (08:40)
[2021-06-30 09:11] LABS: Absolute Lymphocyte Count 0.47 X10^3/uL (0.83-4.51); Absolute Neutrophil Count 8.3 X10^3/uL (2.0-7.7); Basophil# 0.01 X10^3/uL; Basophil% 0.1 % (0-1); Hemoglobin 14.5 g/dL (13.0-16.5); Lymphocyte # 0.47 X10^3/ul (0.83-4.51); Lymphocyte % 4.6 % (19-41); Mean Corp Hgb Conc 30.9 g/dL (32-36); Mean Corpuscular Volume 97.3 fL (80-94); Mean Platelet Vol. 9.7 fl (6.2-12.0); Monocyte# 1.34 X10^3/uL; Monocyte% 13.2 % (0-10); NRBC Flagged by Analyzer 0 % (0-5); Neutrophil # 8.31 X10^3/uL (2.7-7.7); Neutrophil % 81.7 % (47-70); POSITIVE DIFFERENTIAL YES; POSITIVE MORPHOLOGY YES; Platelet Count 251 K/mm3 (150-450); RBC Distribution Width CV 14.7 % (11.6-14.6); RBC Distribution Width SD 52.6 fl (35.1-43.9); Red Blood Count 4.83 M/mm3 (4.6-6.2); White Blood Count 10.2 K/mm3 (4.4-11.0)
[2021-06-30 09:12] LABS: Differential Indicated SCAN CRITERIA MET
[2021-06-30 09:35] LABS: Anion Gap 5 (5-15); BUN 35 mg/dL (7-18); BUN/Creat Ratio 21.2 RATIO (10-20); Calcium,Total 8.5 mg/dL (8.5-10.1); Chloride 102 mmol/L (98-107); Creatinine, Serum 1.65 mg/dL (0.70-1.30); EST Glomerular Filtration Rate 43 mL/min (>60); Est Glom Filt Rate - Afr Amer 52 mL/min (>60); Glucose 99 mg/dL (74-106); Magnesium 2.4 mg/dL (1.6-2.6); Potassium 4.6 mmol/L (3.5-5.1); Sodium Level 139 mmol/L (136-145); Thyroid Stim Hormone (TSH) 0.89 uIU/mL (0.358-3.74)
[2021-06-30] MEDS: Lactated Ringers 1,000 ML 75 ML IV (11:21)
[2021-06-30 11:31] LABS: Bedside Glucose 74 mg/dL (70-110)
--- NOTE | 2021-06-30 13:05 | EKG12_ITS ---
Test Reason : ARRYTHMIA Blood Pressure : / mmHG Vent. Rate : 129 BPM Atrial Rate : 129 BPM P-R Int : 156 ms QRS Dur : 140 ms QT Int : 420 ms P-R-T Axes : 000 -73 -63 degrees QTc Int : 615 ms Sinus tachycardia Left axis deviation Right bundle branch block Nonspecific T wave abnormality Abnormal ECG Confirmed by ISSA MCGOWAN, CHARLOTTE ([id number]), health editor ELIO HOFFMAN ([id number]) on 07/02/2021 9:15:58 AM Referred By: CATALINO Confirmed By:CHARLOTTE PARSONS MD
--- NOTE | 2021-06-30 14:01 | CASEMGMT ---
RN CM in to discuss discharge planning with patient. Patient unsure of need for HHC at discharge. Patient states he has walker, wheelchair, and shower chair at home that he does not use. Patient states he quad cane that he mostly uses. Patient had no further concerns at this time. Will monitor for need for HHC.
[2021-06-30 14:16] LABS: Bedside Glucose 85 mg/dL (70-110)
--- NOTE | 2021-06-30 14:30 | PN.HOSP_ITS ---
Documented by User: Afsaneh Chanel NP, AFTER SCHOOL COORDINATOR-C 06/30/21 14:45 Subjective Subjective Patient seen and examined. Denies further abdominal pain. Converted to sinus rhythm however remains tachycardic. Denies chest pain, shortness of breath, palpitations. Denies flatus, BM. Objective Data Objective Data Vital Signs: Vital Signs Temp Pulse Resp BP Pulse Ox 98.4 F 125 H 16 102/72 93 06/30/21 11:05 06/30/21 11:29 06/30/21 11:05 06/30/21 11:08 06/30/21 11:05 Oxygen Flow Rate (L/min) 2 Oxygen Delivery Method Nasal Cannula Weight: 136 lb 7.458 oz Body Mass Index (BMI) 20.0 Intake & Output: Intake and Output for Last 24 Hours 06/28/21 06/29/21 06/30/21 23:59 23:59 23:59 Intake Total 2460.00 / 2460.00 1418.75 / 1418.75 Output Total 1210 / 1560 850 / 850 Balance 1250.00 / 900.00 568.75 / 568.75 Lab / Micro Data Result Diagrams: 06/30/21 09:00 06/30/21 09:00 Labs: Laboratory Results - last 24 hr 06/29/21 15:00: Sodium 136, Potassium 4.5, Chloride 101, Carbon Dioxide 28.0, Anion Gap 7, BUN 31 H, Creatinine 1.39 H, Estim Creat Clear Calc 37.05, Est GFR (MDRD) Af Amer 64, Est GFR (MDRD) Non-Af 53 L, BUN/Creatinine Ratio 22.3 H, Glucose 116 H, Calcium 9.0, Magnesium 2.6, Troponin I High Sens 56 06/29/21 19:06: POC Glucose 122 H 06/29/21 23:51: POC Glucose 111 H 06/30/21 06:19: POC Glucose 90 06/30/21 09:00: Sodium 139, Potassium 4.6, Chloride 102, Carbon Dioxide 32.0, Anion Gap 5, BUN 35 H, Creatinine 1.65 H, Estim Creat Clear Calc 32.30, Est GFR (MDRD) Af Amer 52 L, Est GFR (MDRD) Non-Af 43 L, BUN/Creatinine Ratio 21.2 H, Glucose 99, Calcium 8.5, Magnesium 2.4, TSH 0.89 06/30/21 09:00: WBC 10.2, RBC 4.83, Hgb 14.5, Hct 47.0, MCV 97.3 H, MCH 30.0, MCHC 30.9 L, RDW Std Deviation 52.6 H, RDW Coeff of Alber 14.7 H, Plt Count 251, MPV 9.7, Immature Gran % (Auto) 0.400, Neut % (Auto) 81.7 H, Lymph % (Auto) 4.6 L, [place] % (Auto) 13.2 H, Eos % (Auto) 0.0, Baso % (Auto) 0.1, Absolute Neuts (auto) 8.3 H, Absolute Lymphs (auto) 0.47 L, Nucleated RBC % 0, Differential Comment COMMENT 06/30/21 11:11: POC Glucose 74 06/30/21 14:02: POC Glucose 85 Radiography Diagnostic Testing: Radiology Impression Echocardiogram 06/29/21 14:01 Interpretation Summary The study was technically difficult. Left ventricular systolic function is normal. The estimated ejection fraction is 65 %. Moderate concentric left ventricular hypertrophy. Trivial mitral valve insufficiency. Mild tricuspid valve insufficiency. Mild focal aortic valve calcification. Trivial pulmonic valve insufficiency. Right ventricular systolic pressure estimated to be 44 mmHg. Diastolic function is indeterminate. Ordering Physician: Shara Barnett Referring Physician: Remy Bill Performed By: Mauricio Torres RCS Physical Exam Const alert, oriented x3 and no apparent distress Constitutional Narrative: NG tube in place. Orientation / Consciousness: awake, oriented to person, oriented to place and oriented to time HEENT normocephalic Mouth: dry mucous membranes Eyes PERRL, EOMs intact bilaterally and conjunctivae normal Neck no lymphadenopathy Resp normal respiratory effort and clear to auscultation bilaterally Cardio regular rhythm and no murmurs Rate: tachycardic Peripheral Pulses: pulses 2+ throughout GI normal to inspection, nondistended, normoactive bowel sounds, non-tender and non-distended Extremity normal to inspection Skin no rashes or lesions noted Lesions: no lesions Rashes: no rashes Trauma: no lacerations or abrasions Neuro CN's II-XII intact bilaterally, no focal motor deficits, no sensory deficits noted and deep tendon reflexes 2+ bilaterally Psych mental status grossly normal and affect normal Assessment & Plan Assessment/Plan (1) SBO (small bowel obstruction): PLAN: 1. Small bowel obstruction-underwent exploratory laparotomy 06/29/2021. NG in place. Remains n.p.o. General surgery following. 2. New onset atrial fibrillation with RVR- Initially on amiodarone. ChadsVas score is 2. Converted to sinus rhythm however remains tachycardic. Scheduled IV metoprolol. Remains NPO. IV Cardizem x1 for further rate control. 3. Type 2 diabetes [id number] with sliding scale insulin. 4. History of autoimmune hemolytic anemia/anemia of chronic disease-stable, trend CBC. 5. Chronic lung fibrosis- on nintedanib. 6. Chronic kidney disease stage IIIb-at baseline, trend BMP. 7. 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 8. History of PE-no longer on anticoagulation. On Plavix. 9. History of chronic right-sided sacral ulcer-wound RN consult. 10. Severe protein calorie malnutrition-dietitian consult. 11. BPH-on finasteride. 12. GERD-continue PPI. DVT prophylaxis-SCDs This patient was seen by CARRINGTON Lyons under the supervision of Dr. Meadows. Documented by User: Dr. Dino Meadows DO 06/30/21 17:06 Objective Data Lab / Micro Data Result Diagrams: 06/30/21 09:00 06/30/21 09:00 Charges/Coding Addendum Addendum: Patient seen and examined independently. Data and vitals reviewed. I agree with the above note by the nurse practitioner. Feels well at this time. Physical exam: Patient is no acute distress and afebrile. NG tube in place. Heart regular. Lungs are clear to auscultation bilaterally. Abdomen is distended but soft with hypoactive bowel sounds. Extremity without any sinus clubbing or edema. Assessment and plan 1. Small bowel obstruction Underwent exploratory laparotomy on the . No adhesions noted but patient was noted to have a twist in his a small small bowel. Was manually reduced. Supportive management per general surgery. 2. Atrial fibrillation with RVR Developed this morning and then did receive IV metoprolol but still is tachycardic and then again received IV diltiazem and is converted to normal sinus rhythm Likely exacerbated due to the small bowel obstruction Visit Charges Inpatient E&M: 97615 Subs Hosp L2
[2021-06-30] MEDS: dilTIAZem 25 MG/5 ML Vial 10 MG IV BOLUS (15:45)
[2021-06-30 18:36] LABS: Bedside Glucose 83 mg/dL (70-110)
[2021-06-30] MEDS: Lactated Ringers 1,000 ML 125 ML IV (23:02)
[2021-07-01] VITALS (20 sets, daily range): BP systolic 115–148; BP diastolic 67–90; PULSE 67–84; RESP 16–20; TEMP 36.5–36.9; O2SAT 80–100
[2021-07-01 00:21] LABS: Bedside Glucose 77 mg/dL (70-110)
[2021-07-01] MEDS: Metoprolol Tartrate 5 MG/5 ML Vial IV ×4 (00:24→17:16)
[2021-07-01 05:07] LABS: Absolute Lymphocyte Count 0.75 X10^3/uL (0.83-4.51); Absolute Neutrophil Count 6.2 X10^3/uL (2.0-7.7); Basophil# 0.03 X10^3/uL; Basophil% 0.4 % (0-1); Eosinophil# 0.01 X10^3/uL; Eosinophils% 0.1 % (0-5); Hematocrit 43.5 % (40-54); Lymphocyte # 0.75 X10^3/ul (0.83-4.51); Lymphocyte % 9.4 % (19-41); Mean Corp Hgb Conc 29.9 g/dL (32-36); Mean Corpuscular Hgb 29.6 pg (27.0-32.0); Mean Corpuscular Volume 99.1 fL (80-94); Mean Platelet Vol. 9.8 fl (6.2-12.0); Monocyte# 0.94 X10^3/uL; Monocyte% 11.8 % (0-10); NRBC Flagged by Analyzer 0 % (0-5); Neutrophil # 6.24 X10^3/uL (2.7-7.7); Neutrophil % 78.2 % (47-70); Platelet Count 218 K/mm3 (150-450); RBC Distribution Width CV 14.7 % (11.6-14.6); RBC Distribution Width SD 53.8 fl (35.1-43.9); Red Blood Count 4.39 M/mm3 (4.6-6.2)
[2021-07-01 05:26] LABS: Anion Gap 4 (5-15); BUN 39 mg/dL (7-18); BUN/Creat Ratio 29.5 RATIO (10-20); Calcium,Total 8.1 mg/dL (8.5-10.1); Chloride 104 mmol/L (98-107); Creatinine, Serum 1.32 mg/dL (0.70-1.30); EST Glomerular Filtration Rate 56 mL/min (>60); Est Glom Filt Rate - Afr Amer 68 mL/min (>60); Estimated Creatinine Clearance 40.38 ml/min; Glucose 78 mg/dL (74-106); Potassium 4.4 mmol/L (3.5-5.1); Sodium Level 140 mmol/L (136-145)
[2021-07-01] MEDS: Dextrose 50%-Water 25 GM/50 ML DISP.SYRIN IV (06:26)
[2021-07-01 06:56] LABS: Bedside Glucose 124 mg/dL (70-110)
[2021-07-01 06:56] LABS: Bedside Glucose 62 mg/dL (70-110)
--- NOTE | 2021-07-01 08:39 | PN.SURG_ITS ---
Subjective Subjective Patient did have sinus tachycardia yesterday-resolved currently. Patient denies any nausea or vomiting did say he had flatus this morning. Looks like maybe only 100cc out from 7 PM to 6 AM per the canister. Objective Data Objective Data Vital Signs: Vital Signs Temp Pulse Resp BP Pulse Ox 97.7 F L 73 18 142/67 H 97 07/01/21 07:56 07/01/21 07:56 07/01/21 07:56 07/01/21 07:56 07/01/21 07:59 Oxygen Flow Rate (L/min) 1 Oxygen Delivery Method Nasal Cannula Weight: 135 lb 12.876 oz Body Mass Index (BMI) 20.0 Intake & Output: Intake and Output for Last 24 Hours 06/29/21 06/30/21 07/01/21 23:59 23:59 23:59 Intake Total 2460.00 / 2460.00 2887.50 / 2887.50 375 / 375 Output Total 1210 / 1560 1000 / 1000 250 / 250 Balance 1250.00 / 900.00 1887.50 / 1887.50 125 / 125 Lab / Micro Data Result Diagrams: 07/01/21 04:48 07/01/21 04:48 Labs: Laboratory Results - last 24 hr 06/30/21 09:00: Sodium 139, Potassium 4.6, Chloride 102, Carbon Dioxide 32.0, Anion Gap 5, BUN 35 H, Creatinine 1.65 H, Estim Creat Clear Calc 32.30, Est GFR (MDRD) Af Amer 52 L, Est GFR (MDRD) Non-Af 43 L, BUN/Creatinine Ratio 21.2 H, Glucose 99, Calcium 8.5, Magnesium 2.4, TSH 0.89 06/30/21 09:00: WBC 10.2, RBC 4.83, Hgb 14.5, Hct 47.0, MCV 97.3 H, MCH 30.0, MCHC 30.9 L, RDW Std Deviation 52.6 H, RDW Coeff of Alber 14.7 H, Plt Count 251, MPV 9.7, Immature Gran % (Auto) 0.400, Neut % (Auto) 81.7 H, Lymph % (Auto) 4.6 L, [place] % (Auto) 13.2 H, Eos % (Auto) 0.0, Baso % (Auto) 0.1, Absolute Neuts (auto) 8.3 H, Absolute Lymphs (auto) 0.47 L, Nucleated RBC % 0, Differential Comment COMMENT 06/30/21 11:11: POC Glucose 74 06/30/21 14:02: POC Glucose 85 06/30/21 17:38: POC Glucose 83 07/01/21 00:12: POC Glucose 77 07/01/21 04:48: WBC 8.0, RBC 4.39 L, Hgb 13.0, Hct 43.5, MCV 99.1 H, MCH 29.6, MCHC 29.9 L, RDW Std Deviation 53.8 H, RDW Coeff of Alber 14.7 H, Plt Count 218, MPV 9.8, Immature Gran % (Auto) 0.100, Neut % (Auto) 78.2 H, Lymph % (Auto) 9.4 L, [place] % (Auto) 11.8 H, Eos % (Auto) 0.1, Baso % (Auto) 0.4, Absolute Neuts (auto) 6.2, Absolute Lymphs (auto) 0.75 L, Nucleated RBC % 0 07/01/21 04:48: Sodium 140, Potassium 4.4, Chloride 104, Carbon Dioxide 32.0, Anion Gap 4 L, BUN 39 H, Creatinine 1.32 H, Estim Creat Clear Calc 40.38, Est GFR (MDRD) Af Amer 68, Est GFR (MDRD) Non-Af 56 L, BUN/Creatinine Ratio 29.5 H, Glucose 78, Calcium 8.1 L 07/01/21 06:13: POC Glucose 62 L 07/01/21 06:40: POC Glucose 124 H Radiography Diagnostic Testing: Radiology Impression Echocardiogram 06/29/21 14:01 Interpretation Summary The study was technically difficult. Left ventricular systolic function is normal. The estimated ejection fraction is 65 %. Moderate concentric left ventricular hypertrophy. Trivial mitral valve insufficiency. Mild tricuspid valve insufficiency. Mild focal aortic valve calcification. Trivial pulmonic valve insufficiency. Right ventricular systolic pressure estimated to be 44 mmHg. Diastolic function is indeterminate. Ordering Physician: Shara Barnett Referring Physician: Remy Bill Performed By: Mauricio Torres RCS Physical Exam Narrative Abdomen: Soft, appropriately tender near incision dressed?midline incision closed with johana., Nondistended, no peritoneal signs Assessment & Plan Assessment/Plan (1) SBO (small bowel obstruction): PLAN: POD 2 status post exploratory laparotomy. Continue n.p.o./IV fluids patient is having some flatus we will clamp NG for 4 hours and check residual. Okay for anticoagulation Hold CellCept due to wound healing probably for 2 to 4 weeks. Margot Phillips M.D. Pager: [phone] [facility] [address] [place] [address], [facility], [address] [place] [address] Office: [phone]
[2021-07-01] MEDS: Lactated Ringers 1,000 ML 125 ML IV ×2 (09:25→18:08)
[2021-07-01] MEDS: BENZOCAINE/MENTHOL 1 LOZENGE MUCOUS MEM ×2 (09:25→16:08)
[2021-07-01] MEDS: Enoxaparin 30 MG/0.3 ML Syringe SC (09:32)
--- NOTE | 2021-07-01 10:34 | PN.HOSP_ITS ---
Documented by User: Afsaneh Chanel NP, CCTV TECHNICIAN-C 07/01/21 10:55 Subjective Subjective Patient seen and examined. States he is passing flatus. NG clamped this morning. Denies nausea, vomiting, abdominal pain. Heart rate improved. Objective Data Objective Data Vital Signs: Vital Signs Temp Pulse Resp BP Pulse Ox 97.7 F L 73 18 142/67 H 97 07/01/21 07:56 07/01/21 07:56 07/01/21 07:56 07/01/21 07:56 07/01/21 07:59 Oxygen Flow Rate (L/min) 1 Oxygen Delivery Method Nasal Cannula Weight: 135 lb 12.876 oz Body Mass Index (BMI) 20.0 Intake & Output: Intake and Output for Last 24 Hours 06/29/21 06/30/21 07/01/21 23:59 23:59 23:59 Intake Total 2460.00 / 2460.00 2887.50 / 2887.50 1485 / 1485 Output Total 1210 / 1560 1000 / 1000 250 / 250 Balance 1250.00 / 900.00 1887.50 / 1887.50 1235 / 1235 Lab / Micro Data Result Diagrams: 07/01/21 04:48 07/01/21 04:48 Labs: Laboratory Results - last 24 hr 06/30/21 11:11: POC Glucose 74 06/30/21 14:02: POC Glucose 85 06/30/21 17:38: POC Glucose 83 07/01/21 00:12: POC Glucose 77 07/01/21 04:48: WBC 8.0, RBC 4.39 L, Hgb 13.0, Hct 43.5, MCV 99.1 H, MCH 29.6, MCHC 29.9 L, RDW Std Deviation 53.8 H, RDW Coeff of Alber 14.7 H, Plt Count 218, MPV 9.8, Immature Gran % (Auto) 0.100, Neut % (Auto) 78.2 H, Lymph % (Auto) 9.4 L, [place] % (Auto) 11.8 H, Eos % (Auto) 0.1, Baso % (Auto) 0.4, Absolute Neuts (auto) 6.2, Absolute Lymphs (auto) 0.75 L, Nucleated RBC % 0 07/01/21 04:48: Sodium 140, Potassium 4.4, Chloride 104, Carbon Dioxide 32.0, Anion Gap 4 L, BUN 39 H, Creatinine 1.32 H, Estim Creat Clear Calc 40.38, Est GFR (MDRD) Af Amer 68, Est GFR (MDRD) Non-Af 56 L, BUN/Creatinine Ratio 29.5 H, Glucose 78, Calcium 8.1 L 07/01/21 06:13: POC Glucose 62 L 07/01/21 06:40: POC Glucose 124 H Physical Exam Const alert, oriented x3 and no apparent distress Constitutional Narrative: NG tube in place, clamped. Orientation / Consciousness: awake, oriented to person, oriented to place and oriented to time HEENT normocephalic Mouth: dry mucous membranes Eyes PERRL, EOMs intact bilaterally and conjunctivae normal Neck no lymphadenopathy Resp normal respiratory effort and clear to auscultation bilaterally Cardio regular rate, regular rhythm and no murmurs Peripheral Pulses: pulses 2+ throughout GI normal to inspection, nondistended, normoactive bowel sounds, non-tender and non-distended Extremity normal to inspection Skin no rashes or lesions noted Lesions: no lesions Rashes: no rashes Trauma: no lacerations or abrasions Neuro CN's II-XII intact bilaterally, no focal motor deficits, no sensory deficits noted and deep tendon reflexes 2+ bilaterally Psych mental status grossly normal and affect normal Assessment & Plan Assessment/Plan (1) SBO (small bowel obstruction): PLAN: 1. Small bowel obstruction-underwent exploratory laparotomy 06/29/2021. NG in place. Clamped this morning for 4-hour trial. General s urgery following. Remains n.p.o. pending trial of NG clamping 2. New onset atrial fibrillation with RVR- Initially on amiodarone. ChadsVas score is 2. Scheduled IV metoprolol while n.p.o. Received IV Cardizem bolus x1 last evening due to sinus tachycardia and rate has remained controlled since. A. fib appears fairly transient as most of telemetry consistent with sinus tach. Echocardiogram demonstrates an EF of 65%, moderate left ventricular hypertrophy, RVSP estimated to be 44 mmHg. Given transient episode, likely exacerbated by #1, do not feel anticoagulation is appropriate and also not a candidate for anticoagulation due to Jeannette's granulomatosis. Previously on Coumadin for history of PE which was discontinued. 3. Type 2 diabetes [id number] with sliding scale insulin. 4. History of autoimmune hemolytic anemia/anemia of chronic disease-stable, trend CBC. 5. Chronic lung fibrosis- on nintedanib. Surgery recommends holding at this time. 6. Chronic kidney disease stage IIIb-at baseline, trend BMP. 7. 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 8. History of PE-no longer on anticoagulation. On Plavix. 9. History of chronic right-sided sacral ulcer-wound RN consult. 10. Severe protein calorie malnutrition-dietitian consult. 11. BPH-on finasteride. 12. GERD-continue PPI. DVT prophylaxis-Lovenox subcu This patient was seen by Afsaneh Chanel NP-C under the supervision of Dr. Meadows. Documented by User: Dr. Dino Meadows, 07/01/21 16:09 Subjective Subjective NG clamped. Abdomen feeling well. Objective Data Lab / Micro Data Result Diagrams: 07/01/21 04:48 07/01/21 04:48 Physical Exam Const alert Resp normal respiratory effort, no retractions, no use of accessory muscles and clear to auscultation bilaterally Cardio regular rate, regular rhythm, S1 normal heart sound and S2 normal heart sound GI normal to inspection, nondistended, normoactive bowel sounds and soft to palpation Auscultation: hypoactive bowel sounds Palpation: tender Extremity normal to inspection and full ROM Assessment & Plan Assessment/Plan (1) SBO (small bowel obstruction): PLAN: Patient seen and examined independently. Data and vitals reviewed. I agree with the above note by the nurse practitioner. 1. Small bowel obstruction Underwent exploratory laparotomy on the . No adhesions noted but patient was noted to have a twist in his a small small bowel. Was manually reduced. Supportive management per general surgery. NPT clamped 2. Atrial fibrillation with RVR Developed this morning and then did receive IV metoprolol but still is tachycardic and then again received IV diltiazem and is converted to normal sinus rhythm Likely exacerbated due to the small bowel obstruction Charges/Coding Visit Charges Inpatient E&M: 86423 Subs Hosp L2
[2021-07-01 12:31] LABS: Bedside Glucose 69 mg/dL (70-110)
[2021-07-01 17:25] LABS: Bedside Glucose 98 mg/dL (70-110)
[2021-07-01] MEDS: Dextrose 5%-Lactated Ringers 1,000 ML 60 ML IV (19:18)
[2021-07-01] MEDS: Acetaminophen 325 MG Tablet 650 MG PO (23:09)
[2021-07-02] VITALS (15 sets, daily range): BP systolic 122–148; BP diastolic 69–85; PULSE 64–88; RESP 16–18; TEMP 36.4–37.2; O2SAT 94–100
[2021-07-02] MEDS: Metoprolol Tartrate 5 MG/5 ML Vial IV ×2 (01:01→06:44)
[2021-07-02 03:30] LABS: Bedside Glucose 90 mg/dL (70-110)
[2021-07-02 06:50] LABS: Absolute Lymphocyte Count 0.57 X10^3/uL (0.83-4.51); Absolute Neutrophil Count 4.7 X10^3/uL (2.0-7.7); Basophil# 0.01 X10^3/uL; Basophil% 0.2 % (0-1); Eosinophil# 0.16 X10^3/uL; Eosinophils% 2.6 % (0-5); Hematocrit 41.3 % (40-54); Hemoglobin 12.5 g/dL (13.0-16.5); Lymphocyte # 0.57 X10^3/ul (0.83-4.51); Lymphocyte % 9.4 % (19-41); Mean Corp Hgb Conc 30.3 g/dL (32-36); Monocyte# 0.63 X10^3/uL; Monocyte% 10.4 % (0-10); NRBC Flagged by Analyzer 0 % (0-5); Neutrophil # 4.66 X10^3/uL (2.7-7.7); Neutrophil % 77.1 % (47-70); POSITIVE DIFFERENTIAL YES; Platelet Count 196 K/mm3 (150-450); RBC Distribution Width CV 14.6 % (11.6-14.6); RBC Distribution Width SD 53.3 fl (35.1-43.9); Red Blood Count 4.17 M/mm3 (4.6-6.2); White Blood Count 6.1 K/mm3 (4.4-11.0)
[2021-07-02 06:52] LABS: Differential Indicated SCAN CRITERIA MET
[2021-07-02 07:12] LABS: Differential Comment SCANNED
[2021-07-02 07:34] LABS: Anion Gap 1 (5-15); BUN 29 mg/dL (7-18); BUN/Creat Ratio 29.2 RATIO (10-20); Calcium,Total 8.3 mg/dL (8.5-10.1); Chloride 104 mmol/L (98-107); Creatinine, Serum 0.99 mg/dL (0.70-1.30); EST Glomerular Filtration Rate 77 mL/min (>60); Est Glom Filt Rate - Afr Amer 94 mL/min (>60); Estimated Creatinine Clearance 53.58 ml/min; Glucose 99 mg/dL (74-106); Potassium 4.2 mmol/L (3.5-5.1); Sodium Level 138 mmol/L (136-145)
[2021-07-02 08:25] LABS: Bedside Glucose 106 mg/dL (70-110)
[2021-07-02] MEDS: Enoxaparin 40 MG/0.4 ML Syringe SC (08:40)
[2021-07-02] MEDS: Finasteride 5 MG Tablet PO (08:40)
[2021-07-02] MEDS: Clopidogrel Bisulfate 75 MG Tablet PO (08:40)
--- NOTE | 2021-07-02 08:49 | PCM.PN.SRG ---
Subjective Subjective Patient still continues to have flatus. Tolerated some clears but does not sound like he had much yesterday we will see how he does with clears this morning for breakfast. Denies any nausea or vomiting Objective Data Objective Data Vital Signs: Vital Signs Temp Pulse Resp BP Pulse Ox 97.5 F L 64 16 122/75 H 94 07/02/21 06:00 07/02/21 07:25 07/02/21 06:00 07/02/21 06:44 07/02/21 07:59 Oxygen Flow Rate (L/min) 2 Oxygen Delivery Method Nasal Cannula Weight: 135 lb 12.876 oz Body Mass Index (BMI) 20.0 Intake & Output: Intake and Output for Last 24 Hours 06/30/21 07/01/21 07/02/21 23:59 23:59 23:59 Intake Total 2887.50 / 2887.50 3155.83 / 3155.83 110 / 110 Output Total 1000 / 1000 925 / 925 600 / 600 Balance 1887.50 / 1887.50 2230.83 / 2230.83 -490 / -490 Lab / Micro Data Result Diagrams: 07/02/21 06:00 07/02/21 06:00 Labs: Laboratory Results - last 24 hr 07/01/21 12:16: POC Glucose 69 L 07/01/21 17:16: POC Glucose 98 07/02/21 00:56: POC Glucose 90 07/02/21 06:00: WBC 6.1, RBC 4.17 L, Hgb 12.5 L, Hct 41.3, MCV 99.0 H, MCH 30.0, MCHC 30.3 L, RDW Std Deviation 53.3 H, RDW Coeff of Alber 14.6, Plt Count 196, MPV 10.0, Immature Gran % (Auto) 0.300, Neut % (Auto) 77.1 H, Lymph % (Auto) 9.4 L, [place] % (Auto) 10.4 H, Eos % (Auto) 2.6, Baso % (Auto) 0.2, Absolute Neuts (auto) 4.7, Absolute Lymphs (auto) 0.57 L, Nucleated RBC % 0, Differential Comment SCANNED 07/02/21 06:00: Sodium 138, Potassium 4.2, Chloride 104, Carbon Dioxide 33.0 H, Anion Gap 1 L, BUN 29 H, Creatinine 0.99, Estim Creat Clear Calc 53.58, Est GFR (MDRD) Af Amer 94, Est GFR (MDRD) Non-Af 77, BUN/Creatinine Ratio 29.2 H, Glucose 99, Calcium 8.3 L 07/02/21 07:35: POC Glucose 106 Physical Exam Narrative Abdomen: Soft, appropriately tender near incision dressed?midline incision closed with johana., Nondistended, no peritoneal signs Assessment & Plan Assessment/Plan (1) SBO (small bowel obstruction): PLAN: POD 3 status post exploratory laparotomy. Clears if patient tolerates okay to advance to regular diet, patient able to tolerate regular diet would be okay to DC per general surgery. Noted patient follow-up in about 12 days from surgery for staple removal in office. Okay for anticoagulation Hold CellCept due to wound healing probably for 2 to 4 weeks. Margot Phillips M.D. Pager: [phone] [facility] [address] [place] [address], [facility], [address] [place] [address] Office: [phone]
[2021-07-02] MEDS: Tamsulosin HCl 0.4 MG Capsule PO (12:21)
[2021-07-02] MEDS: Metoprolol Tartrate 50 MG Tablet PO ×2 (12:21→20:31)
[2021-07-02] MEDS: Dextrose 5%-Lactated Ringers 1,000 ML 60 ML IV (12:27)
[2021-07-02 12:45] LABS: Bedside Glucose 116 mg/dL (70-110)
--- NOTE | 2021-07-02 15:08 | PN.HOSP_ITS ---
Subjective Subjective Tolerated some clears earlier today. Objective Data Objective Data Vital Signs: Vital Signs Temp Pulse Resp BP Pulse Ox 36.8 C 72 18 133/78 H 97 07/02/21 12:25 07/02/21 14:55 07/02/21 12:25 07/02/21 12:25 07/02/21 12:25 Oxygen Flow Rate (L/min) 2 Oxygen Delivery Method Nasal Cannula Weight: 61.6 kg Body Mass Index (BMI) 20.0 Intake & Output: Intake and Output for Last 24 Hours 06/30/21 07/01/21 07/02/21 23:59 23:59 23:59 Intake Total 2887.50 / 2887.50 3155.83 / 3155.83 1720 / 1720 Output Total 1000 / 1000 925 / 925 600 / 600 Balance 1887.50 / 1887.50 2230.83 / 2230.83 1120 / 1120 Lab / Micro Data Result Diagrams: 07/02/21 06:00 07/02/21 06:00 Labs: Laboratory Results - last 24 hr 07/01/21 17:16: POC Glucose 98 07/02/21 00:56: POC Glucose 90 07/02/21 06:00: WBC 6.1, RBC 4.17 L, Hgb 12.5 L, Hct 41.3, MCV 99.0 H, MCH 30.0, MCHC 30.3 L, RDW Std Deviation 53.3 H, RDW Coeff of Alber 14.6, Plt Count 196, MPV 10.0, Immature Gran % (Auto) 0.300, Neut % (Auto) 77.1 H, Lymph % (Auto) 9.4 L, [place] % (Auto) 10.4 H, Eos % (Auto) 2.6, Baso % (Auto) 0.2, Absolute Neuts (auto) 4.7, Absolute Lymphs (auto) 0.57 L, Nucleated RBC % 0, Differential Comment SCANNED 07/02/21 06:00: Sodium 138, Potassium 4.2, Chloride 104, Carbon Dioxide 33.0 H, Anion Gap 1 L, BUN 29 H, Creatinine 0.99, Estim Creat Clear Calc 53.58, Est GFR (MDRD) Af Amer 94, Est GFR (MDRD) Non-Af 77, BUN/Creatinine Ratio 29.2 H, Glucose 99, Calcium 8.3 L 07/02/21 07:35: POC Glucose 106 07/02/21 12:22: POC Glucose 116 H Physical Exam Const alert and no apparent distress HEENT Head and Scalp: normocephalic Resp normal respiratory effort, no retractions, no use of accessory muscles and clear to auscultation bilaterally Cardio regular rate, regular rhythm, S1 normal heart sound and S2 normal heart sound GI normal to inspection, nondistended, normoactive bowel sounds, soft to palpation, non-tender and non-distended Extremity normal to inspection Assessment & Plan Assessment/Plan (1) SBO (small bowel obstruction): PLAN: 1. Small bowel obstruction Underwent exploratory laparotomy on the . No adhesions noted but patient was noted to have a twist in his a small small bowel. Was manually reduced. Supportive management per general surgery. NGT dc'd on regular diet 2. Atrial fibrillation with RVR resolved Developed this morning and then did receive IV metoprolol but still is tachycardic and then again received IV diltiazem and is converted to normal sin us rhythm Likely exacerbated due to the small bowel obstruction changed to metoprolol tartrate 3. 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 DM2 fair control on SSI 5. Debility PT rec additional therapy 6. VTE prophylaxis: LMWH Charges/Coding Visit Charges Inpatient E&M: 50286 Subs Hosp L2
[2021-07-02 17:06] LABS: Bedside Glucose 119 mg/dL (70-110)
[2021-07-02 21:51] LABS: Bedside Glucose 94 mg/dL (70-110)
[2021-07-03] VITALS (14 sets, daily range): BP systolic 102–115; BP diastolic 55–75; PULSE 65–76; RESP 16–18; TEMP 36.9–37.5; O2SAT 95–98
[2021-07-03 05:29] LABS: Absolute Lymphocyte Count 0.52 X10^3/uL (0.83-4.51); Basophil# 0.02 X10^3/uL; Basophil% 0.2 % (0-1); Eosinophil# 0.32 X10^3/uL; Eosinophils% 3.8 % (0-5); Lymphocyte # 0.52 X10^3/ul (0.83-4.51); Lymphocyte % 6.1 % (19-41); Mean Corpuscular Hgb 29.8 pg (27.0-32.0); Mean Corpuscular Volume 99.3 fL (80-94); Mean Platelet Vol. 9.7 fl (6.2-12.0); Monocyte# 0.67 X10^3/uL; Monocyte% 7.9 % (0-10); NRBC Flagged by Analyzer 0 % (0-5); Neutrophil # 6.96 X10^3/uL (2.7-7.7); Neutrophil % 81.8 % (47-70); POSITIVE DIFFERENTIAL YES; Platelet Count 195 K/mm3 (150-450); RBC Distribution Width CV 14.6 % (11.6-14.6); RBC Distribution Width SD 53.1 fl (35.1-43.9); Red Blood Count 4.03 M/mm3 (4.6-6.2); White Blood Count 8.5 K/mm3 (4.4-11.0)
[2021-07-03 05:40] LABS: Differential Indicated SCAN CRITERIA MET
[2021-07-03] MEDS: Dextrose 5%-Lactated Ringers 1,000 ML 60 ML IV (05:49)
[2021-07-03 05:51] LABS: Differential Comment SCANNED
[2021-07-03 05:52] LABS: Anion Gap 1 (5-15); BUN 23 mg/dL (7-18); BUN/Creat Ratio 19.7 RATIO (10-20); Calcium,Total 7.8 mg/dL (8.5-10.1); Chloride 107 mmol/L (98-107); Creatinine, Serum 1.17 mg/dL (0.70-1.30); EST Glomerular Filtration Rate 64 mL/min (>60); Est Glom Filt Rate - Afr Amer 78 mL/min (>60); Glucose 95 mg/dL (74-106); Potassium 4.1 mmol/L (3.5-5.1); Sodium Level 140 mmol/L (136-145)
[2021-07-03 06:56] LABS: Bedside Glucose 97 mg/dL (70-110)
--- NOTE | 2021-07-03 07:50 | NURSING ---
In patient room for shift report, patient IV pulled out due to patient not waiting for staff to use the restroom. Educated patient on the importance of waiting for staff, patient refusing to use call light for staff assistance to bathroom. Patient states don't put another IV in me, I don't need it anyways toy maker and Dr. Phillips made aware. Will notify Dr. Meadows, hospitalist also.
--- NOTE | 2021-07-03 07:56 | PCM.PN.SRG ---
Subjective Subjective Patient tolerating diet and having bowel function. Objective Data Objective Data Vital Signs: Vital Signs Temp Pulse Resp BP Pulse Ox 99.5 F H 68 18 115/58 L 95 07/03/21 02:27 07/03/21 07:00 07/03/21 02:27 07/03/21 02:27 07/03/21 02:27 Oxygen Flow Rate (L/min) 2 Oxygen Delivery Method Nasal Cannula Weight: 146 lb 2.664 oz Body Mass Index (BMI) 20.0 Intake & Output: Intake and Output for Last 24 Hours 07/01/21 07/02/21 07/03/21 23:59 23:59 23:59 Intake Total 3155.83 / 3155.83 1830 / 1830 1251 / 1251 Output Total 925 / 925 600 / 600 Balance 2230.83 / 2230.83 1230 / 1230 1251 / 1251 Lab / Micro Data Result Diagrams: 07/03/21 04:41 07/03/21 04:41 Labs: Laboratory Results - last 24 hr 07/02/21 07:35: POC Glucose 106 07/02/21 12:22: POC Glucose 116 H 07/02/21 16:32: POC Glucose 119 H 07/02/21 20:30: POC Glucose 94 07/03/21 04:41: WBC 8.5, RBC 4.03 L, Hgb 12.0 L, Hct 40.0, MCV 99.3 H, MCH 29.8, MCHC 30.0 L, RDW Std Deviation 53.1 H, RDW Coeff of Alber 14.6, Plt Count 195, MPV 9.7, Immature Gran % (Auto) 0.200, Neut % (Auto) 81.8 H, Lymph % (Auto) 6.1 L, [place] % (Auto) 7.9, Eos % (Auto) 3.8, Baso % (Auto) 0.2, Absolute Neuts (auto) 7.0, Absolute Lymphs (auto) 0.52 L, Nucleated RBC % 0, Differential Comment SCANNED 07/03/21 04:41: Sodium 140, Potassium 4.1, Chloride 107, Carbon Dioxide 32.0, Anion Gap 1 L, BUN 23 H, Creatinine 1.17, Estim Creat Clear Calc 48.80, Est GFR (MDRD) Af Amer 78, Est GFR (MDRD) Non-Af 64, BUN/Creatinine Ratio 19.7, Glucose 95, Calcium 7.8 L 07/03/21 06:49: POC Glucose 97 Physical Exam Narrative Abdomen: Soft, appropriately tender near incision dressed?midline incision closed with johana., Nondistended, no peritoneal signs Assessment & Plan Assessment/Plan (1) SBO (small bowel obstruction): PLAN: POD 4 status post exploratory laparotomy. Tolerating regular diet okay to be DC'd per general surgery. Plan for follow-up in about 12 days from surgery for staple removal. Okay for anticoagulation Hold CellCept due to wound healing probably for 2 to 4 weeks. Margot Phillips M.D. Pager: [phone] [facility] [address] [place] [address], [facility], [address] [place] [id number] Office: [phone]
[2021-07-03] MEDS: Tamsulosin HCl 0.4 MG Capsule PO (08:08)
[2021-07-03] MEDS: Enoxaparin 40 MG/0.4 ML Syringe SC (08:08)
[2021-07-03] MEDS: Pantoprazole Sodium 40 MG Tablet PO (10:10)
[2021-07-03] MEDS: Metoprolol Tartrate 50 MG Tablet PO ×2 (10:10→20:29)
[2021-07-03 11:45] LABS: Bedside Glucose 91 mg/dL (70-110)
--- NOTE | 2021-07-03 12:27 | CASEMGMT ---
This RN CM to room to discuss d/c plan and pt/ both decline any further therapy at discharge. Pt/ voice no further questions/concerns/needs. SStaten RN CM
--- NOTE | 2021-07-03 15:01 | PCM.PN.HOSP ---
Subjective Subjective Having diarrhea. has not eaten much due to the diarrhea. Objective Data Objective Data Vital Signs: Vital Signs Temp Pulse Resp BP Pulse Ox 37.1 C 73 16 115/65 97 07/03/21 10:10 07/03/21 10:10 07/03/21 10:10 07/03/21 10:10 07/03/21 10:10 Oxygen Flow Rate (L/min) 2 Oxygen Delivery Method Nasal Cannula Weight: 66.3 kg Body Mass Index (BMI) 20.0 Intake & Output: Intake and Output for Last 24 Hours 07/01/21 07/02/21 07/03/21 23:59 23:59 23:59 Intake Total 3155.83 / 3155.83 1830 / 1830 1251 / 1251 Output Total 925 / 925 600 / 600 Balance 2230.83 / 2230.83 1230 / 1230 1251 / 1251 Lab / Micro Data Result Diagrams: 07/03/21 04:41 07/03/21 04:41 Labs: Laboratory Results - last 24 hr 07/02/21 16:32: POC Glucose 119 H 07/02/21 20:30: POC Glucose 94 07/03/21 04:41: WBC 8.5, RBC 4.03 L, Hgb 12.0 L, Hct 40.0, MCV 99.3 H, MCH 29.8, MCHC 30.0 L, RDW Std Deviation 53.1 H, RDW Coeff of Alber 14.6, Plt Count 195, MPV 9.7, Immature Gran % (Auto) 0.200, Neut % (Auto) 81.8 H, Lymph % (Auto) 6.1 L, [place] % (Auto) 7.9, Eos % (Auto) 3.8, Baso % (Auto) 0.2, Absolute Neuts (auto) 7.0, Absolute Lymphs (auto) 0.52 L, Nucleated RBC % 0, Differential Comment SCANNED 07/03/21 04:41: Sodium 140, Potassium 4.1, Chloride 107, Carbon Dioxide 32.0, Anion Gap 1 L, BUN 23 H, Creatinine 1.17, Estim Creat Clear Calc 48.80, Est GFR (MDRD) Af Amer 78, Est GFR (MDRD) Non-Af 64, BUN/Creatinine Ratio 19.7, Glucose 95, Calcium 7.8 L 07/03/21 06:49: POC Glucose 97 07/03/21 11:35: POC Glucose 91 Physical Exam Const alert and no apparent distress Resp normal respiratory effort, no retractions, no use of accessory muscles and clear to auscultation bilaterally Cardio regular rate, regular rhythm, S1 normal heart sound and S2 normal heart sound GI normal to inspection, nondistended, normoactive bowel sounds, soft to palpation, non-tender and non-distended Assessment & Plan Assessment/Plan (1) SBO (small bowel obstruction): (2) Paroxysmal atrial fibrillation with RVR: PLAN: 1. Small bowel obstruction Underwent exploratory laparotomy on the . No adhesions noted but patient was noted to have a twist in his a small small bowel. Was manually reduced. Supportive management per general surgery. NGT dc'd on regular diet 2. Atrial fibrillation with RVR resolved Developed this morning and then did receive IV metoprolol but still is tachycardic and then again received IV diltiazem and is converted to normal sinus rhythm Likely exacerbated due to the small bowel obstruction changed to metoprolol tartrate start apixaban 3. 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 DM2 fair control on SSI 5. Debility PT rec additional therapy Pt and his decline 6. Diarrhea: no meds at this time given recent SBO. Charges/Coding Visit Charges Inpatient E&M: 30945 Subs Hosp L2
--- NOTE | 2021-07-03 15:25 | CASEMGMT ---
Palliative screening tool completed for Lace/Strata 3. Patient does not meets criteria for palliative consult at this time.
[2021-07-03 16:16] LABS: Bedside Glucose 120 mg/dL (70-110)
[2021-07-03] MEDS: Finasteride 5 MG Tablet PO (17:23)
[2021-07-03] MEDS: Clopidogrel Bisulfate 75 MG Tablet PO (17:23)
[2021-07-03] MEDS: APIXABAN 5 MG TABLET PO (20:14)
[2021-07-03] MEDS: BENZOCAINE/MENTHOL 1 LOZENGE MUCOUS MEM (20:29)
[2021-07-03 20:41] LABS: Bedside Glucose 101 mg/dL (70-110)
[2021-07-04] VITALS (7 sets, daily range): BP systolic 123–138; BP diastolic 74–77; PULSE 63–73; RESP 16; TEMP 36.6–37.1; O2SAT 93–99
[2021-07-04 06:16] LABS: Absolute Lymphocyte Count 0.98 X10^3/uL (0.83-4.51); Absolute Neutrophil Count 6.1 X10^3/uL (2.0-7.7); Basophil# 0.01 X10^3/uL; Basophil% 0.1 % (0-1); Eosinophil# 0.36 X10^3/uL; Eosinophils% 4.5 % (0-5); Hemoglobin 11.9 g/dL (13.0-16.5); Lymphocyte # 0.98 X10^3/ul (0.83-4.51); Lymphocyte % 12.2 % (19-41); Mean Corp Hgb Conc 29.8 g/dL (32-36); Mean Corpuscular Hgb 29.5 pg (27.0-32.0); Mean Platelet Vol. 9.8 fl (6.2-12.0); Monocyte# 0.59 X10^3/uL; Monocyte% 7.4 % (0-10); NRBC Flagged by Analyzer 0 % (0-5); Neutrophil # 6.06 X10^3/uL (2.7-7.7); Neutrophil % 75.6 % (47-70); Platelet Count 213 K/mm3 (150-450); RBC Distribution Width CV 14.7 % (11.6-14.6); RBC Distribution Width SD 53.7 fl (35.1-43.9); Red Blood Count 4.04 M/mm3 (4.6-6.2)
[2021-07-04 06:44] LABS: Anion Gap 2 (5-15); BUN 21 mg/dL (7-18); BUN/Creat Ratio 19.6 RATIO (10-20); Chloride 109 mmol/L (98-107); Creatinine, Serum 1.07 mg/dL (0.70-1.30); EST Glomerular Filtration Rate 71 mL/min (>60); Est Glom Filt Rate - Afr Amer 86 mL/min (>60); Estimated Creatinine Clearance 49.82 ml/min; Glucose 83 mg/dL (74-106); Sodium Level 141 mmol/L (136-145)
[2021-07-04 06:46] LABS: Bedside Glucose 92 mg/dL (70-110)
--- NOTE | 2021-07-04 07:53 | PCM.PN.SRG ---
Subjective Subjective Patient tolerating diet and having bowel function. Patient states his diarrhea has resolved. Objective Data Objective Data Vital Signs: Vital Signs Temp Pulse Resp BP Pulse Ox 98.7 F 63 16 130/74 H 99 07/04/21 02:10 07/04/21 07:00 07/04/21 02:10 07/04/21 02:10 07/04/21 02:10 Oxygen Flow Rate (L/min) 2 Oxygen Delivery Method Nasal Cannula Weight: 136 lb 7.458 oz Body Mass Index (BMI) 20.0 Intake & Output: Intake and Output for Last 24 Hours 07/02/21 07/03/21 07/04/21 23:59 23:59 23:59 Intake Total 1830 / 1830 1251 / 1371 240 / 240 Output Total 600 / 600 100 / 100 Balance 1230 / 1230 1251 / 1371 140 / 140 Lab / Micro Data Result Diagrams: 07/04/21 05:41 07/04/21 05:41 Labs: Laboratory Results - last 24 hr 07/03/21 11:35: POC Glucose 91 07/03/21 16:09: POC Glucose 120 H 07/03/21 20:33: POC Glucose 101 07/04/21 05:41: WBC 8.0, RBC 4.04 L, Hgb 11.9 L, Hct 40.0, MCV 99.0 H, MCH 29.5, MCHC 29.8 L, RDW Std Deviation 53.7 H, RDW Coeff of Alber 14.7 H, Plt Count 213, MPV 9.8, Immature Gran % (Auto) 0.200, Neut % (Auto) 75.6 H, Lymph % (Auto) 12.2 L, [place] % (Auto) 7.4, Eos % (Auto) 4.5, Baso % (Auto) 0.1, Absolute Neuts (auto) 6.1, Absolute Lymphs (auto) 0.98, Nucleated RBC % 0 07/04/21 05:41: Sodium 141, Potassium 4.0, Chloride 109 H, Carbon Dioxide 30.0, Anion Gap 2 L, BUN 21 H, Creatinine 1.07, Estim Creat Clear Calc 49.82, Est GFR (MDRD) Af Amer 86, Est GFR (MDRD) Non-Af 71, BUN/Creatinine Ratio 19.6, Glucose 83, Calcium 8.0 L 07/04/21 06:40: POC Glucose 92 Physical Exam Narrative Abdomen: Soft, appropriately tender near incision dressed?midline incision closed with johana., Nondistended, no peritoneal signs Assessment & Plan Assessment/Plan (1) SBO (small bowel obstruction): PLAN: POD 5 status post exploratory laparotomy. Tolerating regular diet okay to be DC'd per general surgery. Plan for follow-up in about 12 days from surgery for staple removal. Okay for anticoagulation Hold CellCept due to wound healing probably for 2 to 4 weeks. Margot Phillips M.D. Pager: [phone] [facility] [address] [place] [address], [facility], [address] [place] [address] Office: [phone]
[2021-07-04] MEDS: Pantoprazole Sodium 40 MG Tablet PO (09:47)
[2021-07-04] MEDS: Tamsulosin HCl 0.4 MG Capsule PO (09:47)
[2021-07-04] MEDS: Metoprolol Tartrate 50 MG Tablet PO (09:47)
[2021-07-04] MEDS: APIXABAN 5 MG TABLET PO (09:47)
--- NOTE | 2021-07-04 10:43 | DCINST_ITS ---
Discharge Instructions Diet Discharge Diet: [place] diet (advance as tolerated) Activity Discharge Activity: Return to Normal Activity Dressing / Incision Call your doctor if you observe: - (worsening abdominal pain. intractable nausea and vomiting.) Follow Up Care Test Results: Test results from this visit will be discussed in further detail at your follow-up appointment, if applicable. Discharge Plan Admission Admit Date/Time: 06/29/21 01:29 Primary Reason for Your Visit: SBO Attending Provider: Dino Meadows Primary Care Provider: Remy Bill Consulting Providers: Margot Phillips Discharge Orders/Prescriptions Prescriptions: New metoprolol tartrate 50 mg Tablet 50 mg PO BID Qty: 60 RF: 0 ondansetron HCl [Zofran] 4 mg tablet 4 mg PO Q6H PRN (Reason: nausea and vomiting) Qty: 20 RF: 0 apixaban 2.5 mg tablet 2.5 mg PO BID Qty: 60 RF: 0 Continued finasteride 5 MG tablet 5 mg PO DAILY RF: 0 clopidogrel 75 MG tablet 75 mg PO DAILY RF: 0 pantoprazole 20 MG tablet 20 mg PO DAILY RF: 0 Ofev 150 mg capsule 150 mg PO BID RF: 0 tamsulosin [Flomax] 0.4 mg capsule 0.4 mg PO DAILY RF: 0 Held mycophenolate mofetil 250 MG capsule 1,000 mg PO QHS RF: 0 Hold Instructions: Resume on 07/27/21. Or until ok'd to resume by general sandoval rgery. Referrals / Follow Up: Remy Bill MD [Primary Care Provider] - Within 1 Week Margot Phillips MD [STAFF PHYSICIAN] - Within 1 Week Disposition Disposition (needs filled in before D/C Order can be placed): Home, Self Care
--- NOTE | 2021-07-04 10:52 | DS.PCM_ITS ---
Providers Date of Admission: 06/29/21 Primary Care Physician: Dr. Remy Bill MD Consultations 06/29/21 01:51 Consult: General Surgery Routine Consulting Provider: Margot Phillips Reason for Consult: SBO EMERGENT Consult: No MD Notified: Yes Date Notified: 06/29/21 Time Notified: 01:25 Method of Notification: talked Reason For Visit: SBO Diagnosis Discharge Diagnosis (1) SBO (small bowel obstruction): Status: Acute Code(s): K56.69 - Other intestinal obstruction Medications at Discharge Home Medications finasteride 5 mg PO DAILY 03/21/14 mycophenolate mofetil 1,000 mg PO QHS 03/21/14 clopidogrel 75 mg PO DAILY 08/30/19 pantoprazole 20 mg PO DAILY 02/10/21 Ofev 150 mg PO BID 06/28/21 tamsulosin [Flomax] 0.4 mg PO DAILY 07/02/21 apixaban 2.5 mg PO BID #60 tab 07/04/21 metoprolol tartrate 50 mg PO BID #60 tab 07/04/21 ondansetron HCl [Zofran] 4 mg PO Q6H PRN #20 tab 07/04/21 Hospital Course Operations - (exploratory laparotomy) Procedures 2-D Echocardiogram Summary of Care Provided Minutes Spent on Discharge: 35 Hospital Course: 76-year-old male presents with abdominal pain. Patient was found to have a small bowel obstruction. Patient underwent a exploratory laparotomy on the . No adhesions were found but obstruction may have just been related with a twist. Was reduced and patient tolerated procedure well. His course was uncomplicated due to A. fib with RVR and did receive IV metoprolol which was converted over to oral. Patient has been in sinus rhythm. Patient be anticoagulated with apixaban. Patient did have some diarrhea after small bowel obstruction but that subsequently stopped and patient has been tolerating oral well. Patient is on mycophenolate which will be held for the next 2 to 4 weeks till allow healing from his laparotomy. Patient follow-up general surgery in the interim to see if the resumption can be done sooner. Patient will need to get his johana removed in 12 days after his surgery patient need follow-up general surgery in about a week's time after discharge. Physical Exam Const alert Resp normal respiratory effort, no retractions, no use of accessory muscles and clear to auscultation bilaterally Cardio regular rate, regular rhythm, S1 normal heart sound and S2 normal heart sound GI normal to inspection, nondistended, normoactive bowel sounds Weight / BMI Weight Weight: 61.9 kg Body Mass Index (BMI) 20.0 ABG / Lab / Microbiology Data Result Diagrams: 07/04/21 05:41 07/04/21 05:41 Laboratory: Laboratory Results - last 24 hr 07/03/21 11:35: POC Glucose 91 07/03/21 16:09: POC Glucose 120 H 07/03/21 20:33: POC Glucose 101 07/04/21 05:41: WBC 8.0, RBC 4.04 L, Hgb 11.9 L, Hct 40.0, MCV 99.0 H, MCH 29.5, MCHC 29.8 L, RDW Std Deviation 53.7 H, RDW Coeff of Alber 14.7 H, Plt Count 213, MPV 9.8, Immature Gran % (Auto) 0.200, Neut % (Auto) 75.6 H, Lymph % (Auto) 12.2 L, [place] % (Auto) 7.4, Eos % (Auto) 4.5, Baso % (Auto) 0.1, Absolute Neuts (auto) 6.1, Absolute Lymphs (auto) 0.98, Nucleated RBC % 0 07/04/21 05:41: Sodium 141, Potassium 4.0, Chloride 109 H, Carbon Dioxide 30.0, Anion Gap 2 L, BUN 21 H, Creatinine 1.07, Estim Creat Clear Calc 49.82, Est GFR (MDRD) Af Amer 86, Est GFR (MDRD) Non-Af 71, BUN/Creatinine Ratio 19.6, Glucose 83, Calcium 8.0 L 07/04/21 06:40: POC Glucose 92 D/C Instructions Discharge Diet: [place] diet (advance as tolerated) Call your doctor if you observe: - (worsening abdominal pain. intractable nausea and vomiting.) Meaningful Use Info Meaningful Use Diagnoses (Choose all that apply): None applicable Discharge Plan Admission Admit Date/Time: 06/29/21 01:29 Primary Reason for Your Visit: SBO Attending Provider: Dino Meadows Primary Care Provider: Remy Bill Consulting Providers: Margot Phillips Discharge Orders/Prescriptions Prescriptions: New metoprolol tartrate 50 mg Tablet 50 mg PO BID Qty: 60 RF: 0 ondansetron HCl [Zofran] 4 mg tablet 4 mg PO Q6H PRN (Reason: nausea and vomiting) Qty: 20 RF: 0 apixaban 2.5 mg tablet 2.5 mg PO BID Qty: 60 RF: 0 Continued finasteride 5 MG tablet 5 mg PO DAILY RF: 0 clopidogrel 75 MG tablet 75 mg PO DAILY RF: 0 pantoprazole 20 MG tablet 20 mg PO DAILY RF: 0 Ofev 150 mg capsule 150 mg PO BID RF: 0 tamsulosin [Flomax] 0.4 mg capsule 0.4 mg PO DAILY RF: 0 Held mycophenolate mofetil 250 MG capsule 1,000 mg PO QHS RF: 0 Hold Instructions: Resume on 07/27/21. Or until ok'd to resume by general surgery. Referrals / Follow Up: Remy Bill MD [Primary Care Provider] - Within 1 Week Margot Phillips MD [STAFF PHYSICIAN] - Within 1 Week Disposition Disposition (needs filled in before D/C Order can be placed): Home, Self Care Charges/Coding Visit Charges Inpatient E&M: 91477 Disch Hosp
== END 2021-07-04 12:08 | disposition home or self-care (01) | DRG 356 ==
LOC: ED 06-29 00:13 → MS3 06-29 01:51 → PCU 06-30 07:24 → ICU 06-30 14:52
PROVIDERS: Internal Medicine; Surgery; Admitting Provider Family Medicine; Emergency Provider Emergency Medicine; PCP Family Medicine
PROC: (CPT 44202; principal; 2021-06-29 14:30)
DX: K56.609 Unspecified intestinal obstruction, unspecified as to partial versus complete obstruction (principal); E43 Unspecified severe protein-calorie malnutrition; M31.7 Microscopic polyangiitis; Z68.1 Body mass index [BMI] 19.9 or less, adult; M31.30 Wegener's granulomatosis without renal involvement; D59.10 Autoimmune hemolytic anemia, unspecified; Z53.31 Laparoscopic surgical procedure converted to open procedure; R19.7 Diarrhea, unspecified; E11.22 Type 2 diabetes mellitus with diabetic chronic kidney disease; D63.8 Anemia in other chronic diseases classified elsewhere; R53.81 Other malaise; F41.9 Anxiety disorder, unspecified; I48.91 Unspecified atrial fibrillation; L89.159 Pressure ulcer of sacral region, unspecified stage; K21.9 Gastro-esophageal reflux disease without esophagitis; N18.32 Chronic kidney disease, stage 3b; J84.10 Pulmonary fibrosis, unspecified; N40.0 Benign prostatic hyperplasia without lower urinary tract symptoms; Z86.711 Personal history of pulmonary embolism; Z79.02 Long term (current) use of antithrombotics/antiplatelets; Z79.01 Long term (current) use of anticoagulants; Z90.81 Acquired absence of spleen; Z87.19 Personal history of other diseases of the digestive system; Z79.899 Other long term (current) drug therapy
CPT/HCPCS: 36415; 74018; 74177; 74250; 80048; 80053; 80076; 81001; 82962; 83690; 83735; 84443; 84484; 85025; 93005; 93306; 97110; 97162; 97166; 97530; 97535; 99285; J7030; J7120; Q9967; A4216; J2405

== ENCOUNTER 2021-07-05 11:03 | Inpatient (IN) | payer MEDICARE, SELFPAY ==
[2021-07-05] VITALS (11 sets, daily range): BP systolic 130–175; BP diastolic 69–82; PULSE 95–109; RESP 18–35; TEMP 37–37.6; O2SAT 94–98; BMI 21.8; BMI 19.8
--- NOTE | 2021-07-05 11:12 | EKG12_ITS ---
Test Reason : SOB Blood Pressure : / mmHG Vent. Rate : 108 BPM Atrial Rate : 108 BPM P-R Int : 166 ms QRS Dur : 136 ms QT Int : 364 ms P-R-T Axes : 048 -72 060 degrees QTc Int : 487 ms Sinus tachycardia Left axis deviation Right bundle branch block Abnormal ECG Confirmed by ISSA MCGOWAN, CHARLOTTE ([id number]), news editor ELIO HOFFMAN ([id number]) on 07/07/2021 8:52:38 AM Referred By: JOSÉ LUIS Confirmed By:CHARLOTTE PARSONS MD
[2021-07-05 11:22] LABS: Absolute Lymphocyte Count 0.77 X10^3/uL (0.83-4.51); Absolute Neutrophil Count 12.4 X10^3/uL (2.0-7.7); Basophil# 0.03 X10^3/uL; Basophil% 0.2 % (0-1); Hematocrit 45.5 % (40-54); Hemoglobin 13.8 g/dL (13.0-16.5); Lymphocyte # 0.77 X10^3/ul (0.83-4.51); Lymphocyte % 5.4 % (19-41); Mean Corp Hgb Conc 30.3 g/dL (32-36); Mean Corpuscular Hgb 29.9 pg (27.0-32.0); Mean Corpuscular Volume 98.5 fL (80-94); Mean Platelet Vol. 9.8 fl (6.2-12.0); Monocyte# 0.94 X10^3/uL; Monocyte% 6.6 % (0-10); NRBC Flagged by Analyzer 0 % (0-5); Neutrophil # 12.39 X10^3/uL (2.7-7.7); Neutrophil % 86.6 % (47-70); Platelet Count 224 K/mm3 (150-450); RBC Distribution Width CV 14.9 % (11.6-14.6); RBC Distribution Width SD 53.6 fl (35.1-43.9); Red Blood Count 4.62 M/mm3 (4.6-6.2); White Blood Count 14.3 K/mm3 (4.4-11.0)
--- NOTE | 2021-07-05 11:33 | RAD_ITS ---
STUDY: X-RAY CHEST REASON FOR EXAM: Male, 76 years old. sob TECHNIQUE: Single AP portable view of the chest. COMPARISON: 07/06/2015 FINDINGS: Alveolar opacities in both lungs consistent with bilateral pneumonia. There is no demonstrated pleural abnormality. Normal size heart. Normal mediastinum and jacqueline. Normal visualized pulmonary arteries. Normal visualized aortic arch and descending thoracic aorta. Normal visualized thoracic spine. Normal visualized ribs, clavicles, and shoulders. There is no demonstrated abnormality of the visualized soft tissue structures of the upper abdomen. RAD/Chest 1 View (Portable) IMPRESSION: Bilateral pneumonia. Electronically Signed: Paul Ramirez MD at 12:20 EDT Tel , Service support ,
[2021-07-05 11:41] LABS: ALB/GLOB Ratio 0.5 RATIO (0.9-2.4); AST(SGOT) 22 U/L (15-37); Alanine Aminotransfer ALT/SGPT 22 U/L (16-61); Albumin, Serum 2.4 g/dL (3.2-5.0); Alkaline Phosphatase 73 U/L (45-117); Anion Gap 8 (5-15); BUN 17 mg/dL (7-18); BUN/Creat Ratio 14.8 RATIO (10-20); Calcium,Total 8.2 mg/dL (8.5-10.1); Chloride 102 mmol/L (98-107); Creatinine, Serum 1.15 mg/dL (0.70-1.30); EST Glomerular Filtration Rate 65 mL/min (>60); Est Glom Filt Rate - Afr Amer 79 mL/min (>60); Globulin 4.5 g/dL (2.2-4.2); Glucose 139 mg/dL (74-106); Lipase 266 U/L (73-393); Potassium 3.6 mmol/L (3.5-5.1); Protein, Total 6.9 g/dL (6.4-8.2); Sodium Level 139 mmol/L (136-145); Troponin-I HS 52 pg/mL (3.0-78.0)
--- NOTE | 2021-07-05 11:44 | EDS_ITS ---
HPI History of Present Illness Chief Complaint: Shortness of Breath Informant: patient and spouse/S.O. Narrative Narrative: Patient is a 68-year-old male with history of Jeannette's granulomatosis and recent small bowel obstruction status post laparotomy that was actually discharged from the hospital yesterday. He wears 2 and half liters of oxygen normally just as needed. He was discharged from the hospital on Eliquis as his postoperative course was complicated by atrial fibrillation. He did not take Eliquis yesterday or today. He is currently off of his mycophenolate to allow for healing from his surgery. He states last night he felt that his heart was racing and he was more short of breath. Family increase his oxygen at home to 4 to 5 L. They do not have portable oxygen however so he arrived to the ER on no oxygen. Patient currently feels short of breath but has no other complaints. He no longer feels that his heart is racing. He denies any chest pain. He denies any swelling of his legs. notes that he was very fatigued after putting his pants on and using the restroom which is what led him to come to the emergency room. [facility] Medical History (Updated 07/05/21 @ 22:[address] Ingrid Ram, DO) Anemia of chronic disease Anxiety disorder Benign prostatic hypertrophy Diabetes mellitus type II, controlled DVT (deep venous thrombosis) History of stress test History of stress test Malnutrition Microscopic polyangiitis On home oxygen therapy Pulmonary emboli Rheumatoid arthritis Wegeners granulomatosis Home Medications finasteride 5 mg PO DAILY 03/21/14 [History Last Taken 07/04/21] mycophenolate mofetil 1,000 mg PO QHS 03/21/14 [History Last Taken 06/27/21] clopidogrel 75 mg PO DAILY 08/30/19 [History Last Taken 07/04/21] pantoprazole 20 mg PO DAILY 02/10/21 [History Last Taken 07/04/21] tamsulosin [Flomax] 0.4 mg PO DAILY 07/02/21 [History Last Taken 07/04/21] apixaban 2.5 mg PO BID #60 tab 07/04/21 [Rx Last Taken 07/04/21] metoprolol tartrate 50 mg PO BID #60 tab 07/04/21 [Rx Last Taken 07/04/21] ondansetron HCl [Zofran] 4 mg PO Q6H PRN #20 tab 07/04/21 [Rx Last Taken Unknown] Allergy/AdvReac Type Severity Reaction Status Date / Time sulfamethoxazole AdvReac Unknown Verified 07/05/21 11:09 [From Bactrim] trimethoprim [From Bactrim] AdvReac Unknown Verified 07/05/21 11:09 Family History Mother CVA (cerebral vascular accident) Colon cancer Father CVA (cerebral vascular accident) Surgical History (Updated 07/05/21 @ 16:35 by Carlos HOPKINS) History of exploratory laparotomy Hx of splenectomy S/P tonsillectomy and adenoidectomy Social History household members: spouse Smoking Status: Never smoker alcohol intake: never substance use type: does not use ROS ROS ED Constitutional Constitutional ED: Denies chills or fever(s) Eyes Eyes: Denies change in vision ENT ENT ED: Denies ear pain or rhinorrhea Cardiovascular Cardiovascular: Reports palpitations; Denies chest pain Respiratory/Chest Respiratory/Chest: Reports cough, dyspnea and dyspnea on exertion Gastrointestinal Gastrointestinal: Denies abdominal pain, nausea or vomiting Genitourinary Genitourinary ED: Denies dysuria or urinary frequency Musculoskeletal Musculoskeletal: Reports arthralgias; Denies myalgias Integumentary Denies rash Neurologic Neurologic: Reports weakness; Denies headache(s) Psychiatric Psychiatric: Denies depression EXAM Physical Exam Const Vital Signs: 07/05/21 11:04 07/05/21 11:18 07/05/21 12:03 Temperature 99.3 F H 99.3 F H Temperature Source Temporal Temporal Pulse Rate 108 H 108 H 109 H Respiratory Rate 18 34 H 33 H Respiratory Effort Short of Breath Labored Accessory Muscle Use Respiratory Depth Normal Respiratory Pattern Tachypnea Blood Pressure 175/82 H 175/82 H 136/79 H Blood Pressure Mean 113 113 98 Pulse Ox 97 95 95 Oxygen Delivery Method Nasal Cannula Nasal Cannula Oxygen Flow Rate (L/min) 6 6 07/05/21 13:08 07/05/21 14:10 Temperature 99.7 F H 98.7 F Temperature Source Temporal Temporal Pulse Rate 106 H 104 H Respiratory Rate 35 H 21 H Respiratory Effort Respiratory Depth Respiratory Pattern Blood Pressure 130/70 H 160/74 H Blood Pressure Mean 90 102 Pulse Ox 96 Oxygen Delivery Method Nasal Cannula Oxygen Flow Rate (L/min) 2 Constitutional Narrative: Chronically ill-appearing, cachectic General Appearance ED: cooperative HEENT Reports dry mucous membranes atraumatic Mouth ED: Yes dry mucous membranes Mouth: dry mucous membranes Eyes PERRL Neck no lymphadenopathy and supple Resp normal respiratory effort Resp Narrative: Diminished breath sounds with diffuse crackles Cardio regular rhythm Rate: tachycardic GI non-tender and non-distended GI Narrative: Midline laparotomy incision with johana in place. There are some mild surrounding ecchymosis but no drainage or secondary signs of infection Palpation: soft Extremity normal to inspection General Extremety ED: Negative for edema or tenderness General Extremity: Negative for edema Neuro oriented x3 Sensorium / Orientation: alert Motor Exam: general weakness Psych mental status grossly normal Skin Skin Narrative: Surgical incision wound center of the abdomen?see above Lesions: no lesions Rashes: no rashes MDM MDM MDM Narrative Medical decision making narrative: Patient evaluated for increased shortness of breath, fatigue and notes of palpitations last night. Patient is hypoxic on arrival to ER and is requiring 4 to 5 L of oxygen upon arrival. He normally wears 2-1/2 L as needed. He is tachycardic with a low-grade temperature. He has diffuse crackles on exam and chest x-ray shows multifocal pneumonia. Patient now has a new leukocytosis however his lactate is normal and he has a normal anion gap. No significant electrolyte abnormalities. I do not suspect surgical site infection/intra-abdominal infection and his Covid test is negative. Urinalysis is not consistent with infection. Patient will be admitted for treatment of bilateral pneumonia. Patient has been noncompliant with his Eliquis since discharge however I suspect the pneumonia is the cause of his symptoms and not a secondary PE. Regardless he will be resumed on his Eliquis. Lab Data Attestation: I reviewed the patient's lab results. Labs: Laboratory Results - last 24 hr 07/05/21 07/05/21 07/05/21 11:14 11:14 11:30 WBC 14.3 H RBC 4.62 Hgb 13.8 Hct 45.5 MCV 98.5 H MCH 29.9 MCHC 30.3 L RDW Std Deviation 53.6 H RDW Coeff of Alber 14.9 H Plt Count 224 MPV 9.8 Immature Gran % (Auto) 1.200 H Neut % (Auto) 86.6 H Lymph % (Auto) 5.4 L [place] % (Auto) 6.6 Eos % (Auto) 0.0 Baso % (Auto) 0.2 Absolute Neuts (auto) 12.4 H Absolute Lymphs (auto) 0.77 L Nucleated RBC % 0 PT INR Sodium 139 Potassium 3.6 Chloride 102 Carbon Dioxide 29.0 Anion Gap 8 BUN 17 Creatinine 1.15 Estim Creat Clear Calc 47.40 Est GFR (MDRD) Af Amer 79 Est GFR (MDRD) Non-Af 65 BUN/Creatinine Ratio 14.8 Glucose 139 H Lactic Acid 1.2 Calcium 8.2 L Total Bilirubin 0.70 AST 22 ALT 22 Alkaline Phosphatase 73 Troponin I High Sens 52 B-Natriuretic Peptide Total Protein 6.9 Albumin 2.4 L Globulin 4.5 H Albumin/Globulin Ratio 0.5 L Lipase 266 Urine Color Urine Clarity Urine pH Ur Specific [place] Urine Protein Urine Glucose (UA) Urine Ketones Urine Occult Blood Urine Nitrite Urine Bilirubin Urine Urobilinogen Ur Leukocyte Esterase Urine RBC Urine WBC Ur Squamous Epith Cells Urine Bacteria Urine Mucus COVID-19 (LESTER) 07/05/21 07/05/21 07/05/21 11:30 11:45 11:50 WBC RBC Hgb Hct MCV MCH MCHC RDW Std Deviation RDW Coeff of Alber Plt Count MPV Immature Gran % (Auto) Neut % (Auto) Lymph % (Auto) [place] % (Auto) Eos % (Auto) Baso % (Auto) Absolute Neuts (auto) Absolute Lymphs (auto) Nucleated RBC % PT 20.2 H INR 1.8 Sodium Potassium Chloride Carbon Dioxide Anion Gap BUN Creatinine Estim Creat Clear Calc Est GFR (MDRD) Af Amer Est GFR (MDRD) Non-Af BUN/Creatinine Ratio Glucose Lactic Acid Calcium Total Bilirubin AST ALT Alkaline Phosphatase Troponin I High Sens B-Natriuretic Peptide 613.6 H Total Protein Albumin Globulin Albumin/Globulin Ratio Lipase Urine Color Yellow Urine Clarity Clear Urine pH 5.0 Ur Specific [place] 1.015 Urine Protein 30 H Urine Glucose (UA) Normal Urine Ketones 50 H Urine Occult Blood 250 H Urine Nitrite Negative Urine Bilirubin Negative Urine Urobilinogen Normal Ur Leukocyte Esterase 25 H Urine RBC 0 SEEN Urine WBC 5-10 SEEN Ur Squamous Epith Cells 0 SEEN Urine Bacteria 0 SEEN Urine Mucus 0 SEEN COVID-19 (LESTER) 07/05/21 13:37 WBC RBC Hgb Hct MCV MCH MCHC RDW Std Deviation RDW Coeff of Alber Plt Count MPV Immature Gran % (Auto) Neut % (Auto) Lymph % (Auto) [place] % (Auto) Eos % (Auto) Baso % (Auto) Absolute Neuts (auto) Absolute Lymphs (auto) Nucleated RBC % PT INR Sodium Potassium Chloride Carbon Dioxide Anion Gap BUN Creatinine Estim Creat Clear Calc Est GFR (MDRD) Af Amer Est GFR (MDRD) Non-Af BUN/Creatinine Ratio Glucose Lactic Acid Calcium Total Bilirubin AST ALT Alkaline Phosphatase Troponin I High Sens B-Natriuretic Peptide Total Protein Albumin Globulin Albumin/Globulin Ratio Lipase Urine Color Urine Clarity Urine pH Ur Specific [place] Urine Protein Urine Glucose (UA) Urine Ketones Urine Occult Blood Urine Nitrite Urine Bilirubin Urine Urobilinogen Ur Leukocyte Esterase Urine RBC Urine WBC Ur Squamous Epith Cells Urine Bacteria Urine Mucus COVID-19 (LESTER) Negative Radiography Chest X-Ray - ED: 1 View, Read by ED Physician, Read by Radiologist, Right Infiltrate and Left Infiltrate Diagnostic Testing: Radiology Impression Chest X-Ray 07/05/21 11:33 IMPRESSION: Bilateral pneumonia. Electronically Signed: Paul Ramirez MD at 12:20 EDT Tel , Service support , Rhythm Strip Rhythm Strip: Sinus Tach Rate: 108 Ectopy: None EKG Initial EKG: Attestation: I personally reviewed and interpreted this EKG as follows: Interpretation: Sinus Tachycardia Comments: Sinus tachycardia at a rate of 108 Left axis deviation Normal intervals Right bundle branch block Normal ST segments Discharge Plan Dx/Rx/DC Orders Clinical Impression: Acute and chronic respiratory failure with hypoxia, Bilateral pneumonia Disposition Disposition: Acute Care Hospital [facility] Discharge Date/Time: 07/05/21 14:55
[2021-07-05 11:57] LABS: Bacteria 0 SEEN /hpf (None Seen); Mucous, Urine 0 SEEN /hpf (<or=2+); Red Blood Cells-Urine 0 SEEN /hpf (0-5); Squamous Epithelial Cells - UA 0 SEEN /hpf (0-5)
[2021-07-05 11:58] LABS: Color, Urine Yellow (Yellow); Glucose, Dipstick Normal (Normal); Ketone-Dipstick 50 mg/dl (Negative); Leukocyte Esterase-Dipstick 25 /ul (Negative); Nitrite-Dipstick Negative (Negative); Occult Blood-Urine 250 /ul (Negative); Protein-Dipstick 30 mg/dl (Negative); Specific Gravity, Urine 1.015 (1.002-1.030); Urine Bilirubin Dipstick Negative (Negative); Urine Clarity Clear (Clear); Urine Urobilinogen Normal (Normal)
[2021-07-05 12:06] LABS: International Normalized Ratio 1.8; Prothrombin Time (Protime)PT. 20.2 SECONDS (11.7-14.9)
[2021-07-05 12:08] LABS: White Blood Cells 5-10 SEEN /hpf (0-5)
[2021-07-05 12:13] LABS: BNP,B-Type NATRIURETIC PEPTIDE 613.6 pg/mL (0-100)
[2021-07-05 12:24] LABS: Lactic Acid 1.2 mmol/L (0.4-1.9)
[2021-07-05 14:36] LABS: Specimen Processing Control PASS
[2021-07-05 14:37] LABS: Probe Check PASS
[2021-07-05] MEDS: 0.9% Normal Saline 1,000 ML 75 ML IV (15:34)
--- NOTE | 2021-07-05 15:43 | PCS.PANDOC ---
PANDEMIC DOCUMENTATION INITIATED: Date: 06/15/2021 Time: 190
--- NOTE | 2021-07-05 16:07 | PCM.RX.CS ---
Consult Pharmacy has been consulted to manage selected antiobiotic: Vancomycin Type of Consult: New start Suspected Infection: Pneumonia Labs: Sodium 139 mmol/L (136-145) 07/05/21 11:14 Potassium 3.6 mmol/L (3.5-5.1) 07/05/21 11:14 Chloride 102 mmol/L (98-107) 07/05/21 11:14 Carbon Dioxide 29.0 mmol/L (21.0-32.0) 07/05/21 11:14 Anion Gap 8 (5-15) 07/05/21 11:14 BUN 17 mg/dL (7-18) 07/05/21 11:14 Creatinine 1.15 mg/dL (0.70-1.30) 07/05/21 11:14 Est GFR (MDRD) Af Amer 79 mL/min (>60) 07/05/21 11:14 Est GFR (MDRD) Non-Af 65 mL/min (>60) 07/05/21 11:14 BUN/Creatinine Ratio 14.8 RATIO (10-20) 07/05/21 11:14 Glucose 139 mg/dL (74-106) H 07/05/21 11:14 Microbiology: Microbiology 07/05/21 11:14 Nasal Secretion SARS-CoV-2 Antigen (Rapid) - Final Pharmacy Plan for Drug Dosing: NEW START IV VANCOMYCIN Consulting Physician: ALEXAND[place] Indication: PNEUMONIA/SEPSIS Goal Trough: 15-20 MG/DL SrCr: 1.15 CrCl: 47.4 ML/MIN Comments: Patient received an ER dose of 1500mg 07/05 @ 1323 Vancomycin Dose: Will start 500mg Q12H per policy and get a trough prior to the 4th total dose. Pending Level: 07/07/21 @ 0030 Pharmacy Service will continue to monitor and adjust dosing as required.
--- NOTE | 2021-07-05 16:20 | PCM.HP.STD ---
Documented by User: Carlos HOPKINS 07/05/21 16:53 HPI - General General Date of Admission: 07/05/21 HPI Narrative SRAVAN MAYNARD is a 76-year-old male who presents to the ED at [facility] on 07/05/2021 with a chief complaint of shortness of breath and productive cough with hemoptysis. Patient's family notes that they had to increase his home oxygen prescription up to 5 L, when he normally wears 2 to 2-1/2 L as needed. Patient reports a 1 day history of symptoms, as he was just recently discharged for small bowel obstruction with exploratory laparotomy complicated by A. fib with RVR. Patient's main complaints are shortness of breath, fatigue, hemoptysis, patient denies any chest pain, lower extremity swelling or palpitations. Vital signs in the ED show a tachycardia between 100-110 beats per minute, tachypnea between 20 to 30 breaths/min. Patient is afebrile. Chest x-ray does demonstrate a leukocytosis of 14,000 with neutrophilic predominance. CMP is unremarkable. BNP is elevated at 613. UA is unremarkable. Chest x-ray demonstrates bilateral pneumonia. Rapid Covid is negative. Blood cultures ordered/pending. Patient was initiated on empiric Zosyn and vancomycin in the ED. [facility] Medical History (Updated 07/05/21 @ 17:[address] Matthew Lagos MD) Anemia of chronic disease Anxiety disorder Benign prostatic hypertrophy Diabetes mellitus type II, controlled DVT (deep venous thrombosis) History of stress test History of stress test Malnutrition Microscopic polyangiitis On home oxygen therapy Pulmonary emboli Rheumatoid arthritis Wegeners granulomatosis Home Medications finasteride 5 mg PO DAILY 03/21/14 [History Last Taken 07/04/21] mycophenolate mofetil 1,000 mg PO QHS 03/21/14 [History Last Taken 06/27/21] clopidogrel 75 mg PO DAILY 08/30/19 [History Last Taken 07/04/21] pantoprazole 20 mg PO DAILY 02/10/21 [History Last Taken 07/04/21] tamsulosin [Flomax] 0.4 mg PO DAILY 07/02/21 [History Last Taken 07/04/21] apixaban 2.5 mg PO BID #60 tab 07/04/21 [Rx Last Taken 07/04/21] metoprolol tartrate 50 mg PO BID #60 tab 07/04/21 [Rx Last Taken 07/04/21] ondansetron HCl [Zofran] 4 mg PO Q6H PRN #20 tab 07/04/21 [Rx Last Taken Unknown] Allergy/AdvReac Type Severity Reaction Status Date / Time sulfamethoxazole AdvReac Unknown Verified 07/05/21 11:09 [From Bactrim] trimethoprim [From Bactrim] AdvReac Unknown Verified 07/05/21 11:09 Family History Mother CVA (cerebral vascular accident) Colon cancer Father CVA (cerebral vascular accident) Surgical History (Updated 07/05/21 @ 16:35 by Carlos HOPKINS) History of exploratory laparotomy Hx of splenectomy S/P tonsillectomy and adenoidectomy Social History household members: spouse Smoking Status: Never smoker alcohol intake: never substance use type: does not use ROS Constitutional Constitutional: Reports chills, fatigue, malaise and weakness; Denies anorexia, change in weight, fever(s), night sweats or other Eyes Eyes: Denies blurry vision, change in eye color, change in vision, discharge from eye(s), double vision, erythema, eye pain, loss of vision or other ENT HEENT: Denies abnormal hearing, dysphagia, ear pain, epistaxis, headache(s), hearing loss, nasal congestion, nasal discharge, post nasal drip, sinus pressure, sore throat or other Cardiovascular Cardiovascular: Reports dyspnea on exertion; Denies chest pain, claudication, edema, lightheadedness, orthopnea, palpitations, paroxysmal nocturnal dyspnea, rapid heart rate, syncope or other Respiratory/Chest Respiratory/Chest: Reports cough, dyspnea, excessive phlegm production, hemoptysis, shortness of breath at rest and shortness of breath with exertion; Denies productive cough, wheezing or other Gastrointestinal Gastrointestinal: Denies abdominal pain, coffee ground emesis, constipation, diarrhea, dyspepsia, hematemesis, hematochezia, loose stools, melena, nausea, vomiting or other Genitourinary Genitourinary: Denies burning urination, difficulty urinating, dysuria, hematuria, nocturia, urinary frequency, urinary hesitancy, urinary incontinence, urinary urgency or other Musculoskeletal Musculoskeletal: Denies arthralgias, back pain, joint pain, joint stiffness, joint swelling, myalgias, neck pain or other Neurologic Neurologic: Denies abnormal gait, abnormal speech, confusion, disequilibrium, dizziness, focal weakness, headache(s), numbness, paresthesias, seizure-like activity, seizures, syncope, tingling, tremor(s) or other Psychiatric Psychiatric: Denies anxiety, depression, homicidal ideation, suicidal ideation or other Endocrine Endocrinology: Denies change in body appearance, cold intolerance, excessive sweating, heat intolerance, polydipsia, polyuria or other Hematologic/Lymphatic Hematologic/Lymphatic: Denies anemia, easy bleeding, easy bruising, lymphadenopathy or other Allergic/Immunologic Allergic/Immunologic: Denies rhinitis, hives, eczemia, asthma or other Vital Signs Vital Signs Vital Signs: 07/05/21 11:04 07/05/21 11:18 07/05/21 12:03 Temperature 99.3 F H 99.3 F H Temperature Source Temporal Temporal Pulse Rate 108 H 108 H 109 H Respiratory Rate 18 34 H 33 H Respiratory Effort Short of Breath Labored Accessory Muscle Use Respiratory Depth Normal Respiratory Pattern Tachypnea Blood Pressure 175/82 H 175/82 H 136/79 H Blood Pressure Mean 113 113 98 Blood Pressure Source Blood Pressure Position Blood Pressure Location Pulse Ox 97 95 95 Oxygen Delivery Method Nasal Cannula Nasal Cannula Oxygen Flow Rate (L/min) 6 6 07/05/21 13:08 07/05/21 14:10 07/05/21 15:28 Temperature 99.7 F H 98.7 F 98.6 F Temperature Source Temporal Temporal Oral Pulse Rate 106 H 104 H 97 Respiratory Rate 35 H 21 H 20 H Respiratory Effort Respiratory Depth Respiratory Pattern Blood Pressure 130/70 H 160/74 H 150/74 H Blood Pressure Mean 90 102 99 Blood Pressure Source Monitor Blood Pressure Position Semi-Fowlers Blood Pressure Location Left Arm Pulse Ox 96 94 Oxygen Delivery Method Nasal Cannula Nasal Cannula Oxygen Flow Rate (L/min) 2 5 07/05/21 15:47 07/05/21 16:07 Temperature Temperature Source Pulse Rate 99 Respiratory Rate Respiratory Effort Normal Non-Labored Short of Breath Respiratory Depth Normal Respiratory Pattern Normal Blood Pressure Blood Pressure Mean Blood Pressure Source Blood Pressure Position Blood Pressure Location Pulse Ox Oxygen Delivery Method Nasal Cannula Oxygen Flow Rate (L/min) 6 Weight Weight: 133 lb 13.129 oz Body Mass Index (BMI) 19.8 Physical Exam Const alert and oriented x3 General Appearance: cooperative HEENT normocephalic, head/scalp atraumatic and hearing grossly normal bilaterally Eyes PERRL, EOMs intact bilaterally and conjunctivae normal Neck no lymphadenopathy, supple and no JVD Resp normal respiratory effort, no retractions, no use of accessory muscles and clear to auscultation bilaterally Cardio regular rate, regular rhythm, no murmurs and no JVD GI normal to inspection, nondistended, normoactive bowel sounds, soft to palpation and non-tender Extremity normal to inspection, full ROM and no clubbing, cyanosis or edema Skin no rashes or lesions noted, no wounds, skin turgor normal and no jaundice Neuro CN's II-XII intact bilaterally Psych affect normal Results Lab / Micro Data Result Diagrams: 07/05/21 11:14 07/05/21 11:14 Labs: Laboratory Results - last 24 hr 07/05/21 11:14: WBC 14.3 H, RBC 4.62, Hgb 13.8, Hct 45.5, MCV 98.5 H, MCH 29.9, MCHC 30.3 L, RDW Std Deviation 53.6 H, RDW Coeff of Alber 14.9 H, Plt Count 224, MPV 9.8, Immature Gran % (Auto) 1.200 H, Neut % (Auto) 86.6 H, Lymph % (Auto) 5.4 L, [place] % (Auto) 6.6, Eos % (Auto) 0.0, Baso % (Auto) 0.2, Absolute Neuts (auto) 12.4 H, Absolute Lymphs (auto) 0.77 L, Nucleated RBC % 0 07/05/21 11:14: Sodium 139, Potassium 3.6, Chloride 102, Carbon Dioxide 29.0, Anion Gap 8, BUN 17, Creatinine 1.15, Estim Creat Clear Calc 47.40, Est GFR (MDRD) Af Amer 79, Est GFR (MDRD) Non-Af 65, BUN/Creatinine Ratio 14.8, Glucose 139 H, Calcium 8.2 L, Total Bilirubin 0.70, AST 22, ALT 22, Alkaline Phosphatase 73, Troponin I High Sens 52, Total Protein 6.9, Albumin 2.4 L, Globulin 4.5 H, Albumin/Globulin Ratio 0.5 L, Lipase 266 07/05/21 11:30: Lactic Acid 1.2 07/05/21 11:30: B-Natriuretic Peptide 613.6 H 07/05/21 11:45: Urine Color Yellow, Urine Clarity Clear, Urine pH 5.0, Ur Specific [place] 1.015, Urine Protein 30 H, Urine Glucose (UA) Normal, Urine Ketones 50 H, Urine Occult Blood 250 H, Urine Nitrite Negative, Urine Bilirubin Negative, Urine Urobilinogen Normal, Ur Leukocyte Esterase 25 H, Urine RBC 0 SEEN, Urine WBC 5-10 SEEN, Ur Squamous Epith Cells 0 SEEN, Urine Bacteria 0 SEEN, Urine Mucus 0 SEEN 07/05/21 11:50: PT 20.2 H, INR 1.8 07/05/21 13:37: COVID-19 (LESTER) Negative Micro: Microbiology 07/05/21 11:14 Nasal Secretion SARS-CoV-2 Antigen (Rapid) - Final Radiology Impression Chest X-Ray 07/05/21 11:33 IMPRESSION: Bilateral pneumonia. Electronically Signed: Paul Ramirez MD at 12:20 EDT Tel , Service support , Assessment & Plan Assessment/Plan (1) Paroxysmal atrial fibrillation with RVR: (2) Bilateral pneumonia: PLAN: Patient is a 76-year-old male who presents to the ED [facility] with a chief complaint of shortness of breath, productive cough, hemoptysis and fatigue/weakness. Patient will be admitted on to PCU for management of bilateral pneumonia. 1) Acute hypoxic resiratory failure secondary to bilateral pneumonia Patient reports a 1 day history of shortness of breath, productive cough, hemoptysis and fatigue/weakness. Patient was recently discharged from the hospital for management of small bowel obstruction with exploratory laparotomy. Patient currently requiring 6 L of oxygen to maintain oxygen saturations at 94%. Vital signs significant for tachycardia and tachypnea. CBC demonstrates a leukocytosis of 14,000 with neutrophilic predominance. Chest x-ray shows bilateral pneumonia. Rapid Covid is negative. Plan; admit to PCU for cardiac telemetry monitoring, initiate empiric Vanc and Zosyn for gram-positive and pseudomonal coverage given recent hospital admission, CBC and BMP in a.m., blood cultures ordered/pending, O2 per protocol, Zofran as needed, Tylenol as needed, melatonin as needed, lactic acid level pending. 2) sepsis secondary to hospital-acquired pneumonia Patient presented to the ED with tachycardia, tachypnea and has an elevated white count. Patient has evidence of organ dysfunction with acute respiratory failure requiring 6 L of oxygen via nasal cannula to maintain oxygen saturations. Plan; as above. 3) atrial fibrillation Continue metoprolol and Eliquis for rate control and anticoagulation. 4) BPH Continue finasteride and tamsulosin. 5) GERD Continue Protonix. CODE STATUS: Full code Advance care planning: Patient does have a living will on file. Patient's son is patient's healthcare power of labor operator. Vaccination status: Patient has been fully vaccinated for COVID-19 with the Pfizer vaccine, as well as his . DVT prophylaxis - Eliquis Patient seen by Carlos Solano PA-C, under the supervision of Dr. Lagos. Documented by User: Dr. Matthew Lagos MD 07/05/21 17:56 HPI - General General Date of Admission: 07/05/21 [facility] Medical History (Updated 07/05/21 @ 17:[address] Matthew Lagos MD) Anemia of chronic disease Anxiety disorder Benign prostatic hypertrophy Diabetes mellitus type II, controlled DVT (deep venous thrombosis) History of stress test History of stress test Malnutrition Microscopic polyangiitis On home oxygen therapy Pulmonary emboli Rheumatoid arthritis Wegeners granulomatosis Home Medications finasteride 5 mg PO DAILY 03/21/14 [History Last Taken 07/04/21] mycophenolate mofetil 1,000 mg PO QHS 03/21/14 [History Last Taken 06/27/21] clopidogrel 75 mg PO DAILY 08/30/19 [History Last Taken 07/04/21] pantoprazole 20 mg PO DAILY 02/10/21 [History Last Taken 07/04/21] tamsulosin [Flomax] 0.4 mg PO DAILY 07/02/21 [History Last Taken 07/04/21] apixaban 2.5 mg PO BID #60 tab 07/04/21 [Rx Last Taken 07/04/21] metoprolol tartrate 50 mg PO BID #60 tab 07/04/21 [Rx Last Taken 07/04/21] ondansetron HCl [Zofran] 4 mg PO Q6H PRN #20 tab 07/04/21 [Rx Last Taken Unknown] Allergy/AdvReac Type Severity Reaction Status Date / Time sulfamethoxazole AdvReac Unknown Verified 07/05/21 11:09 [From Bactrim] trimethoprim [From Bactrim] AdvReac Unknown Verified 07/05/21 11:09 Family History Mother CVA (cerebral vascular accident) Colon cancer Father CVA (cerebral vascular accident) Surgical History (Updated 07/05/21 @ 16:35 by Carlos HOPKINS) History of exploratory laparotomy Hx of splenectomy S/P tonsillectomy and adenoidectomy Social History household members: spouse Smoking Status: Never smoker alcohol intake: never substance use type: does not use Results Lab / Micro Data Result Diagrams: 07/05/21 11:14 07/05/21 11:14 Assessment & Plan Assessment/Plan (1) Acute and chronic respiratory failure with hypoxia: Charges/Coding Addendum Addendum: Dr. Lagos: I personally reviewed the chart and examined the patient, and agree with the above findings. 76-year-old male who was recently admitted for small bowel obstruction and had a laparotomy which was negative for any adhesions but there was a possible twist in his intestines but no resection was necessary, was also found to be in A. fib at that time and was discharged on metoprolol and Eliquis, presented with increasing shortness of breath. He states last night he had some episodes of palpitations. He has not taken his Eliquis for a day and a half and was afraid that one of the medications that he was discharged on was causing his palpitations. He did cough up some blood yesterday as well as today and according to the son he did have a nosebleed last evening. Chest x-ray today demonstrates bilateral pneumonia, will obtain a sputum culture as well as a urine strep and Legionella antigen test. We will place him on Vanco and Zosyn given his recent hospitalization and intubation for his surgery. Also he was negative and a Covid PCR as well as an antigen test is states that he has been vaccinated. He is immunocompromise secondary to being on mycophenolate for microscopic polyangiitis. Visit Charges Inpatient E&M: 67794 Init Hosp L3
[2021-07-05] MEDS: Tamsulosin HCl 0.4 MG Capsule PO (16:33)
[2021-07-05 17:59] LABS: Lactic Acid 0.8 mmol/L (0.4-1.9)
[2021-07-05] MEDS: APIXABAN 2.5 MG TABLET PO (21:07)
[2021-07-05] MEDS: Metoprolol Tartrate 50 MG Tablet PO (21:07)
[2021-07-05] MEDS: MELATONIN 3 MG TABLET PO (23:10)
[2021-07-06] VITALS (11 sets, daily range): BP systolic 101–172; BP diastolic 56–85; PULSE 69–96; RESP 20–26; TEMP 36.6–36.9; O2SAT 88–95
[2021-07-06] MEDS: Vancomycin IV 500 MG/100 ML BAG 100 MG IV ×2 (01:08→12:23)
[2021-07-06] MEDS: 0.9% Normal Saline 1,000 ML 75 ML IV ×2 (05:47→23:05)
[2021-07-06 06:45] LABS: Absolute Lymphocyte Count 0.59 X10^3/uL (0.83-4.51); Absolute Neutrophil Count 11.3 X10^3/uL (2.0-7.7); Basophil# 0.02 X10^3/uL; Basophil% 0.2 % (0-1); Eosinophil# 0.01 X10^3/uL; Eosinophils% 0.1 % (0-5); Hematocrit 40.4 % (40-54); Hemoglobin 12.1 g/dL (13.0-16.5); Lymphocyte # 0.59 X10^3/ul (0.83-4.51); Lymphocyte % 4.6 % (19-41); Mean Corpuscular Hgb 29.5 pg (27.0-32.0); Mean Corpuscular Volume 98.5 fL (80-94); Mean Platelet Vol. 9.6 fl (6.2-12.0); Monocyte# 0.84 X10^3/uL; Monocyte% 6.6 % (0-10); NRBC Flagged by Analyzer 0 % (0-5); Neutrophil # 11.25 X10^3/uL (2.7-7.7); Neutrophil % 87.9 % (47-70); POSITIVE DIFFERENTIAL YES; Platelet Count 240 K/mm3 (150-450); RBC Distribution Width CV 14.7 % (11.6-14.6); RBC Distribution Width SD 53.1 fl (35.1-43.9); White Blood Count 12.8 K/mm3 (4.4-11.0)
[2021-07-06 06:48] LABS: Differential Indicated SCAN CRITERIA MET
[2021-07-06 06:52] LABS: Anion Gap 6 (5-15); BUN 18 mg/dL (7-18); BUN/Creat Ratio 17.6 RATIO (10-20); Calcium,Total 8.1 mg/dL (8.5-10.1); Chloride 106 mmol/L (98-107); Creatinine, Serum 1.02 mg/dL (0.70-1.30); EST Glomerular Filtration Rate 75 mL/min (>60); Est Glom Filt Rate - Afr Amer 91 mL/min (>60); Estimated Creatinine Clearance 51.24 ml/min; Glucose 90 mg/dL (74-106); Potassium 3.7 mmol/L (3.5-5.1); Sodium Level 141 mmol/L (136-145)
[2021-07-06 07:14] LABS: Differential Comment SCANNED
[2021-07-06] MEDS: Metoprolol Tartrate 50 MG Tablet PO ×2 (09:00→21:44)
[2021-07-06] MEDS: Finasteride 5 MG Tablet PO (09:00)
[2021-07-06] MEDS: APIXABAN 2.5 MG TABLET PO ×2 (09:00→21:44)
[2021-07-06] MEDS: Clopidogrel Bisulfate 75 MG Tablet PO (09:00)
--- NOTE | 2021-07-06 12:10 | PCM.PN.HOSP ---
Documented by User: Afsaneh Chanel NP, [employer] 07/06/21 12:28 Subjective Subjective Patient seen and examined. Reports mild improvement in breathing. Denies fever, chills. States he has been having difficulty getting portable oxygen from his insurance at home. Reports intermittent cough. Reports ongoing weakness. Objective Data Objective Data Vital Signs: Vital Signs Temp Pulse Resp BP Pulse Ox 98.2 F 96 20 H 129/64 H 94 07/06/21 09:00 07/06/21 09:00 07/06/21 09:00 07/06/21 09:00 07/06/21 09:00 Oxygen Flow Rate (L/min) 5 Oxygen Delivery Method Nasal Cannula Weight: 133 lb 13.129 oz Body Mass Index (BMI) 19.8 Intake & Output: Intake and Output for Last 24 Hours 07/04/21 07/05/21 07/06/21 23:59 23:59 23:59 Intake Total 631.25 / 631.25 1202.50 / 1202.50 Output Total 425 / 425 200 / 200 Balance 206.25 / 206.25 1002.50 / 1002.50 Lab / Micro Data Result Diagrams: 07/06/21 06:24 07/06/21 06:24 Labs: Laboratory Results - last 24 hr 07/05/21 11:30: Lactic Acid 1.2 07/05/21 11:30: B-Natriuretic Peptide 613.6 H 07/05/21 13:37: COVID-19 ([facility]STER) Negative 07/05/21 17:24: Lactic Acid 0.8 07/06/21 06:24: WBC 12.8 H, RBC 4.10 L, Hgb 12.1 L, Hct 40.4, MCV 98.5 H, MCH 29.5, MCHC 30.0 L, RDW Std Deviation 53.1 H, RDW Coeff of Alber 14.7 H, Plt Count 240, MPV 9.6, Immature Gran % (Auto) 0.600, Neut % (Auto) 87.9 H, Lymph % (Auto) 4.6 L, [place] % (Auto) 6.6, Eos % (Auto) 0.1, Baso % (Auto) 0.2, Absolute Neuts (auto) 11.3 H, Absolute Lymphs (auto) 0.59 L, Nucleated RBC % 0, Differential Comment SCANNED 07/06/21 06:24: Sodium 141, Potassium 3.7, Chloride 106, Carbon Dioxide 29.0, Anion Gap 6, BUN 18, Creatinine 1.02, Estim Creat Clear Calc 51.24, Est GFR (MDRD) Af Amer 91, Est GFR (MDRD) Non-Af 75, BUN/Creatinine Ratio 17.6, Glucose 90, Calcium 8.1 L Micro: Microbiology 07/05/21 Unknown Urine, Clean Catch Legionella Antigen - Final 07/05/21 Unknown Urine, Clean Catch Streptococcus pneumoniae Antigen (M - Final 07/05/21 11:14 Nasal Secretion SARS-CoV-2 Antigen (Rapid) - Final Radiography Diagnostic Testing: Radiology Impression Chest X-Ray 07/05/21 11:33 IMPRESSION: Bilateral pneumonia. Electronically Signed: Paul Ramirez MD at 12:20 EDT Tel , Service support , Rhythm Strip Rhythm Strip: Sinus Tach Rate: 108 Ectopy: None Physical Exam Const alert, oriented x3 and no apparent distress Orientation / Consciousness: awake, oriented to person, oriented to place and oriented to time HEENT normocephalic and moist oral mucous membranes Eyes PERRL, EOMs intact bilaterally and conjunctivae normal Neck no lymphadenopathy Resp normal respiratory effort and clear to auscultation bilaterally Cardio regular rate, regular rhythm and no murmurs Peripheral Pulses: pulses 2+ throughout GI normal to inspection, nondistended, normoactive bowel sounds, non-tender and non-distended Extremity normal to inspection Skin no rashes or lesions noted Lesions: no lesions Rashes: no rashes Trauma: no lacerations or abrasions Neuro CN's II-XII intact bilaterally, no focal motor deficits, no sensory deficits noted and deep tendon reflexes 2+ bilaterally Psych mental status grossly normal and affect normal Assessment & Plan Assessment/Plan (1) Acute and chronic respiratory failure with hypoxia: (2) Bilateral pneumonia: QUALIFIERS: Pneumonia type: due to unspecified organism PLAN: 1. Acute hypoxic respiratory failure secondary to bilateral hospital-acquired pneumonia with associated sepsis-chest x-ray with bilateral pneumonia. Patient with elevated WBC, tachycardia and tachypnea. Currently requiring 5 L nasal cannula. IV vancomycin and IV Zosyn. Sputum culture. Continue supplement oxygen to maintain O2 at above 90%. Albuterol DuoNeb aerosols. Consult speech therapy due to concern for aspiration. Blood culture pending. 2. Recent admission with small bowel obstruction-underwent exploratory laparotomy 06/29/2021. Outpatient follow-up with general surgery. [place] can be removed 07/11/2021. 3. Recent onset atrial fibrillation-recent echocardiogram demonstrates an EF of 65%, moderate left ventricular hypertrophy, RVSP estimated to be 44 mmHg. Not previously on anticoagulation due to Jeannette's granulomatosis. Initiated on Eliquis at recent discharge. Continue metoprolol. 4. Type 2 diabetes [id number] with sliding scale insulin. 5. History of autoimmune hemolytic anemia/anemia of chronic disease-stable, trend CBC. 6. Chronic lung fibrosis- on nintedanib. Surgery recommends holding at this time. 7. Chronic kidney disease stage IIIb-at baseline, trend BMP. 8. Jeannette's granulomatosis with polyangiitis- mycophenolate on hold for 2 to 4 weeks per surgery recommendations. 9. History of PE-previously on Coumadin which was discontinued. On Plavix. 10. History of chronic right-sided sacral ulcer-wound RN consult. 11. Severe protein calorie malnutrition-dietitian consult. 12. BPH-on finasteride, Flomax. 13. GERD-continue PPI. DVT prophylaxis-Eliquis This patient was seen by CARRINGTON Lyons under the supervision of Dr. Hull. Documented by User: Dr. Jaswant Hull MD 07/06/21 14:15 Subjective Subjective Patient has history of microscopic polyangiitis and admitted with active cough, shortness of breath, hemoptysis for 1 day prior to admission. 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 Patient was recently discharged after laparotomy for small bowel obstruction. Objective Data Lab / Micro Data Result Diagrams: 07/06/21 06:24 07/06/21 06:24 Physical Exam Narrative General: Alert, Oriented x3, Cooperative HEENT: Atraumatic, PERRLA, EOMI, Normocephalic. Skin nodule on the right ala of nose. No active bleeding or blood distention in nostril/anterior nasal cavity. Oral: Oral mucosa is dry. No blood clots seen. No Gingival or Mucosal Lesions/ Ulcerations Neck: Supple, No JVD, Negative Carotid Bruits Lungs: Air entry diminished in bilateral lung bases. Bilateral expiratory rhonchi. Cardiovascular: Sinus rhythm with PVCs. Normal S1, Normal S2, No murmurs Abdomen: Bowel Sounds Present, Soft, Non Tender, Non-Distended : No renal angle tenderness. No suprapubic tenderness. Extremities: No edema, Capillary Refill Less than 3 Seconds Skin: No rashes, No breakdown Musculoskeletal: No Tenderness to Palpation of Joints or Extremities Neurological: Cranial nerves II-XII grossly intact, DTR 2+/4 and Symmetrical, Neuro grossly intact Psych/Mental Status: Normal Affect, Appropriate. Assessment & Plan Assessment/Plan (1) Acute and chronic respiratory failure with hypoxia: (2) Bilateral pneumonia: QUALIFIERS: Pneumonia type: due to unspecified organism PLAN: This patient was seen in conjunction with Afsaneh GARCIA. I have independently interviewed and examined the patient and reviewed pertinent history, examination findings, laboratory and plan of management. I have reviewed the note and agree with the documented findings with the few additional points. In brief, patient is admitted for acute hypoxic respiratory failure secondary to bilateral pneumonia, HCAP. Patient on IV vancomycin and Zosyn. 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 The patient had chronic lung fibrosis, nintedanib on hold. Recently diagnosed paroxysmal A. fib on Eliquis. Currently sinus rhythm on hold if heart rate less than 60/min and if persistently low between 60-70/m, can decrease the dose to 25 mg twice daily in consultation his PCP. EF 65%, moderate LVH. Multiple other comorbidities as mentioned above I have discussed my assessment with Afsaneh GARCIA and orders have been reviewed. Charges/Coding Visit Charges Inpatient E&M: 23199 Subs Hosp L2
[2021-07-06] MEDS: Sodium Chloride 0.65% 1 SPRAY SPRAY.BTL 2 SPRAY NASAL (13:38)
[2021-07-06] MEDS: Tamsulosin HCl 0.4 MG Capsule PO (16:43)
[2021-07-06] MEDS: Ipratropium/Albuterol Sulfate 3 ML AMPUL.NEB INHALATION (23:30)
[2021-07-07] VITALS (21 sets, daily range): BP systolic 96–122; BP diastolic 53–69; PULSE 62–170; RESP 16–20; TEMP 36.4–37; O2SAT 89–98
[2021-07-07] MEDS: Furosemide 20 MG/2 ML VIAL IV (00:02)
[2021-07-07 01:12] LABS: Vancomycin, Trough Level 13.2 ug/mL (5.0-15.0)
[2021-07-07] MEDS: Vancomycin IV 500 MG/100 ML BAG 100 MG IV (01:59)
--- NOTE | 2021-07-07 02:09 | PCM.RX.CS ---
Consult Pharmacy has been consulted to manage selected antiobiotic: Vancomycin Type of Consult: Follow-up Suspected Infection: Sepsis, Pneumonia Prior Doses of Antibiotics Received/Current Regimen: Medications Vancomycin HCl 750 mg/ Sodium (Chloride) 265 mls @ 250 mls/hr IV Q12H LENORA Vancomycin HCl () 500 mg in 100 mls @ 100 mls/hr IV Q12H LENORA Stop: 07/07/21 03:00 Last Admin: 07/07/21 01:59 Dose: 100 mls/hr Labs: Sodium 141 mmol/L (136-145) 07/06/21 06:24 Potassium 3.7 mmol/L (3.5-5.1) 07/06/21 06:24 Chloride 106 mmol/L (98-107) 07/06/21 06:24 Carbon Dioxide 29.0 mmol/L (21.0-32.0) 07/06/21 06:24 Anion Gap 6 (5-15) 07/06/21 06:24 BUN 18 mg/dL (7-18) 07/06/21 06:24 Creatinine 1.02 mg/dL (0.70-1.30) 07/06/21 06:24 Est GFR (MDRD) Af Amer 91 mL/min (>60) 07/06/21 06:24 Est GFR (MDRD) Non-Af 75 mL/min (>60) 07/06/21 06:24 BUN/Creatinine Ratio 17.6 RATIO (10-20) 07/06/21 06:24 Glucose 90 mg/dL (74-106) 07/06/21 06:24 Vancomycin Trough 13.2 ug/mL (5.0-15.0) 07/07/21 00:22 Microbiology: Microbiology 07/05/21 Unknown Urine, Clean Catch Legionella Antigen - Final 07/05/21 Unknown Urine, Clean Catch Streptococcus pneumoniae Antigen (M - Final 07/05/21 11:14 Nasal Secretion SARS-CoV-2 Antigen (Rapid) - Final Weight used for dosin.7 kg Estimated Creatinine Clearance: 51 Goal Trough: 15-20 mcg/mL Pharmacy Plan for Drug Dosing: Vancomycin trough level of 13.2 was below the target range of 15-20. Dosing calculator suggested an increase of dose to 750mg q12h would give and estimated trough of 19.9. Considering the shown increase in renal function this new regimen was added, and another trough will be drawn prior to fourth dose. Pharmacy Service will continue to monitor and adjust dosing as required. Follow-Up Labs: Trough Vancomycin Labs to be done on [date and time ordered]: 07/09/21 @[id number]
[2021-07-07] MEDS: Pantoprazole Sodium 20 MG Tablet PO (06:00)
[2021-07-07 07:25] LABS: Absolute Lymphocyte Count 0.59 X10^3/uL (0.83-4.51); Absolute Neutrophil Count 11.4 X10^3/uL (2.0-7.7); Basophil# 0.03 X10^3/uL; Basophil% 0.2 % (0-1); Eosinophil# 0.02 X10^3/uL; Eosinophils% 0.2 % (0-5); Hematocrit 37.8 % (40-54); Hemoglobin 11.3 g/dL (13.0-16.5); Lymphocyte # 0.59 X10^3/ul (0.83-4.51); Lymphocyte % 4.4 % (19-41); Mean Corp Hgb Conc 29.9 g/dL (32-36); Mean Corpuscular Hgb 29.5 pg (27.0-32.0); Mean Corpuscular Volume 98.7 fL (80-94); Mean Platelet Vol. 9.6 fl (6.2-12.0); Monocyte# 1.13 X10^3/uL; Monocyte% 8.5 % (0-10); NRBC Flagged by Analyzer 0 % (0-5); Neutrophil # 11.39 X10^3/uL (2.7-7.7); Neutrophil % 85.9 % (47-70); POSITIVE DIFFERENTIAL YES; Platelet Count 224 K/mm3 (150-450); RBC Distribution Width CV 15.2 % (11.6-14.6); RBC Distribution Width SD 55.3 fl (35.1-43.9); Red Blood Count 3.83 M/mm3 (4.6-6.2); White Blood Count 13.3 K/mm3 (4.4-11.0)
[2021-07-07 07:30] LABS: Differential Indicated SCAN CRITERIA MET
[2021-07-07 07:43] LABS: Anion Gap 3 (5-15); BUN 19 mg/dL (7-18); BUN/Creat Ratio 17.4 RATIO (10-20); Calcium,Total 8.4 mg/dL (8.5-10.1); Chloride 106 mmol/L (98-107); Creatinine, Serum 1.09 mg/dL (0.70-1.30); EST Glomerular Filtration Rate 70 mL/min (>60); Est Glom Filt Rate - Afr Amer 84 mL/min (>60); Estimated Creatinine Clearance 47.95 ml/min; Glucose 121 mg/dL (74-106); Potassium 3.5 mmol/L (3.5-5.1); Sodium Level 141 mmol/L (136-145)
[2021-07-07] MEDS: Clopidogrel Bisulfate 75 MG Tablet PO (08:47)
[2021-07-07] MEDS: Finasteride 5 MG Tablet PO (08:47)
[2021-07-07] MEDS: Metoprolol Tartrate 50 MG Tablet PO ×2 (08:47→20:58)
[2021-07-07] MEDS: APIXABAN 2.5 MG TABLET PO ×2 (08:47→20:59)
--- NOTE | 2021-07-07 09:51 | EKG12_ITS ---
Test Reason : Blood Pressure : / mmHG Vent. Rate : 059 BPM Atrial Rate : 059 BPM P-R Int : 154 ms QRS Dur : 146 ms QT Int : 476 ms P-R-T Axes : 050 -61 -03 degrees QTc Int : 471 ms Sinus bradycardia Left axis deviation Right bundle branch block Abnormal ECG Confirmed by ISSA MCGOWAN, CHARLOTTE ([id number]), marketing editor ELIO HOFFMAN ([id number]) on 07/09/2021 9:37:56 AM Referred By: DUANE Confirmed By:CHARLOTTE PARSONS MD
[2021-07-07] MEDS: 0.9% Saline Lock 10 ML Syringe IV ×2 (10:45→13:19)
--- NOTE | 2021-07-07 11:01 | PCM.CONS.GEN ---
Assessment & Plan Assessment/Plan (1) Acute and chronic respiratory failure with hypoxia: PLAN: Feeling better. Cxs pending, recent ex lap for SBO. Has completed covid vaccine. On vanc/zosyn/solumedrol. Pulm to see. Will follow, thank you. HPI Consult Data Date of Consult: 07/07/21 HPI Narrative HPI Narrative: SRAVAN MAYNARD, is a 76 M with Jeannette's, on cellcept, discharged 07/04 after admit for SBO with ex lap 06/29/21. Sent home, had new cough with sputum and small amounts of blood. On home 2L prn, was up to 5L, sent to ED. Has completed covid vaccine. Started on vanc/zosyn/solumedrol, feeling much better this AM. Full ROS performed and neg except as noted above. [facility] Medical History Anemia of chronic disease Anxiety disorder Benign prostatic hypertrophy Diabetes mellitus type II, controlled DVT (deep venous thrombosis) History of stress test History of stress test Malnutrition Microscopic polyangiitis On home oxygen therapy Pulmonary emboli Rheumatoid arthritis Wegeners granulomatosis Home Medications finasteride 5 mg PO DAILY 03/21/14 [History Last Taken 07/04/21] mycophenolate mofetil 1,000 mg PO QHS 03/21/14 [History Last Taken 06/27/21] clopidogrel 75 mg PO DAILY 08/30/19 [History Last Taken 07/04/21] pantoprazole 20 mg PO DAILY 02/10/21 [History Last Taken 07/04/21] tamsulosin [Flomax] 0.4 mg PO DAILY 07/02/21 [History Last Taken 07/04/21] apixaban 2.5 mg PO BID #60 tab 07/04/21 [Rx Last Taken 07/04/21] metoprolol tartrate 50 mg PO BID #60 tab 07/04/21 [Rx Last Taken 07/04/21] ondansetron HCl [Zofran] 4 mg PO Q6H PRN #20 tab 07/04/21 [Rx Last Taken Unknown] Allergy/AdvReac Type Severity Reaction Status Date / Time sulfamethoxazole AdvReac Unknown Verified 07/05/21 11:09 [From Bactrim] trimethoprim [From Bactrim] AdvReac Unknown Verified 07/05/21 11:09 Family History Mother CVA (cerebral vascular accident) Colon cancer Father CVA (cerebral vascular accident) Surgical History (Updated 07/05/21 @ 16:35 by Carlos HOPKINS) History of exploratory laparotomy Hx of splenectomy S/P tonsillectomy and adenoidectomy Social History household members: spouse Smoking Status: Never smoker alcohol intake: never substance use type: does not use Physical Exam Const alert and no apparent distress General Appearance: cooperative Exam Limitations: no limitations HEENT normocephalic and head/scalp atraumatic Eyes PERRL and EOMs intact bilaterally Neck supple and No nodes Resp Auscultation: rhonchi and wheezes Cardio regular rate and regular rhythm GI normal to inspection, nondistended, normoactive bowel sounds Extremity no clubbing, cyanosis or edema Skin no rashes or lesions noted Neuro CN's II-XII intact bilaterally Lab / Micro Data Result Diagrams: 07/07/21 07:14 07/07/21 07:14 Labs: Laboratory Results - last 24 hr 07/07/21 00:22: Vancomycin Trough 13.2 07/07/21 07:14: WBC 13.3 H, RBC 3.83 L, Hgb 11.3 L, Hct 37.8 L, MCV 98.7 H, MCH 29.5, MCHC 29.9 L, RDW Std Deviation 55.3 H, RDW Coeff of Alber 15.2 H, Plt Count 224, MPV 9.6, Immature Gran % (Auto) 0.800, Neut % (Auto) 85.9 H, Lymph % (Auto) 4.4 L, Boyd % (Auto) 8.5, Eos % (Auto) 0.2, Baso % (Auto) 0.2, Absolute Neuts (auto) 11.4 H, Absolute Lymphs (auto) 0.59 L, Nucleated RBC % 0 07/07/21 07:14: Sodium 141, Potassium 3.5, Chloride 106, Carbon Dioxide 32.0, Anion Gap 3 L, BUN 19 H, Creatinine 1.09, Estim Creat Clear Calc 47.95, Est GFR (MDRD) Af Amer 84, Est GFR (MDRD) Non-Af 70, BUN/Creatinine Ratio 17.4, Glucose 121 H, Calcium 8.4 L Micro: Microbiology 07/06/21 09:07 Sputum, Expectorated/Coughed Gram Stain - Final 07/05/21 11:14 Blood Culture (Wb) - Venous Blood Culture - Preliminary No growth in 48 hours. 07/05/21 11:30 Blood Culture (Wb) - Left Wrist Blood Culture - Preliminary No growth in 48 hours. Rhythm Strip Rhythm Strip: Sinus Tach Rate: 108 Ectopy: None
--- NOTE | 2021-07-07 11:06 | CT_ITS ---
STUDY: CT CHEST WITHOUT CONTRAST REASON FOR EXAM: Male, 76 years old. pneumonia with Microscopic polyangitis RADIATION DOSAGE (If Supplied By Facility): CTDIvol = ( 7.95 ) mGy, DLP = ( 242.36 ) mGycm TECHNIQUE: Transaxial imaging was performed without the administration of intravenous contrast material. Individualized dose optimization techniques were used for this CT. COMPARISON: None. FINDINGS: Extensive honeycombing consistent with idiopathic pulmonary fibrosis. Superimposed groundglass and alveolar densities in both lungs consistent with bilateral pneumonia. There is no demonstrated pleural abnormality. Normal heart and pericardium. Normal mediastinum. Normal hilar regions. Normal unenhanced pulmonary arteries. Normal aorta arch and descending thoracic aorta. Multiple compression fractures throughout the thoracic spine. There is no demonstrated abnormality of the visualized upper abdomen. CT/Chest without Contrast IMPRESSION: Idiopathic pulmonary fibrosis with superimposed bilateral pneumonia. Electronically Signed: Paul Ramirez MD at 12:12 EDT Tel , Service support ,
[2021-07-07 11:45] LABS: M R Staph aureus DNA By PCR Negative (Negative); Probe Check PASS; Specimen Processing Control PASS
--- NOTE | 2021-07-07 12:13 | PCM.PN.HOSP ---
Documented by User: Carlos HOPKINS 07/07/21 12:35 Subjective Subjective Patient is a 76-year-old male resting in a chair, alert and orient x3. Patient still reports being short of breath, but reports that he would like to return home. Denies chest pain, palpitations, fever, chills, N/V/D. Objective Data Objective Data Vital Signs: Vital Signs Temp Pulse Resp BP Pulse Ox 98.4 F 170 H 18 115/69 90 07/07/21 08:45 07/07/21 09:40 07/07/21 08:45 07/07/21 08:47 07/07/21 09:57 Oxygen Flow Rate (L/min) 5 Oxygen Delivery Method Nasal Cannula Weight: 133 lb 13.129 oz Body Mass Index (BMI) 19.8 Intake & Output: Intake and Output for Last 24 Hours 07/05/21 07/06/21 07/07/21 23:59 23:59 23:59 Intake Total 631.25 / 631.25 2946.25 / 2946.25 200 / 200 Output Total 425 / 425 650 / 650 900 / 900 Balance 206.25 / 206.25 2296.25 / 2296.25 -700 / -700 Lab / Micro Data Result Diagrams: 07/07/21 07:14 07/07/21 07:14 Labs: Laboratory Results - last 24 hr 07/07/21 00:22: Vancomycin Trough 13.2 07/07/21 07:14: WBC 13.3 H, RBC 3.83 L, Hgb 11.3 L, Hct 37.8 L, MCV 98.7 H, MCH 29.5, MCHC 29.9 L, RDW Std Deviation 55.3 H, RDW Coeff of Alber 15.2 H, Plt Count 224, MPV 9.6, Immature Gran % (Auto) 0.800, Neut % (Auto) 85.9 H, Lymph % (Auto) 4.4 L, Sampson % (Auto) 8.5, Eos % (Auto) 0.2, Baso % (Auto) 0.2, Absolute Neuts (auto) 11.4 H, Absolute Lymphs (auto) 0.59 L, Nucleated RBC % 0 07/07/21 07:14: Sodium 141, Potassium 3.5, Chloride 106, Carbon Dioxide 32.0, Anion Gap 3 L, BUN 19 H, Creatinine 1.09, Estim Creat Clear Calc 47.95, Est GFR (MDRD) Af Amer 84, Est GFR (MDRD) Non-Af 70, BUN/Creatinine Ratio 17.4, Glucose 121 H, Calcium 8.4 L 07/07/21 08:45: MRSA (PCR) Negative Micro: Microbiology 07/06/21 09:07 Sputum, Expectorated/Coughed Gram Stain - Final 07/06/21 09:07 Sputum, Expectorated/Coughed Respiratory Culture - Preliminary GNR lactose advertising copywriter 07/05/21 11:14 Blood Culture (Wb) - Venous Blood Culture - Preliminary No growth in 48 hours. 07/05/21 11:30 Blood Culture (Wb) - Left Wrist Blood Culture - Preliminary No growth in 48 hours. 07/05/21 Unknown Urine, Clean Catch Legionella Antigen - Final 07/05/21 Unknown Urine, Clean Catch Streptococcus pneumoniae Antigen (M - Final 07/05/21 11:14 Nasal Secretion SARS-CoV-2 Antigen (Rapid) - Final Rhythm Strip Rhythm Strip: Sinus Tach Rate: 108 Ectopy: None Physical Exam Const alert, oriented x3 and no apparent distress HEENT head/scalp atraumatic, moist oral mucous membranes and oropharynx normal Head and Scalp: normocephalic Eyes PERRL, EOMs intact bilaterally and conjunctivae normal Neck no lymphadenopathy, supple and no JVD Resp Effort and Inspection: tachypneic, respiratory distress and labored Auscultation: rhonchi Cardio no murmurs and no JVD Rate: tachycardic Rhythm: regular rhythm GI normal to inspection, nondistended, normoactive bowel sounds, soft to palpation and non-tender Extremity normal to inspection, full ROM and no clubbing, cyanosis or edema Skin no rashes or lesions noted, no wounds, skin turgor normal and no jaundice Neuro CN's II-XII intact bilaterally Psych affect normal Assessment & Plan Assessment/Plan (1) Acute and chronic respiratory failure with hypoxia: (2) Bilateral pneumonia: QUALIFIERS: Pneumonia type: due to unspecified organism PLAN: Day 2 Discharge planning: Patient to discharge home, no home health care needs or additional therapies identified. 1) acute hypoxic respiratory failure secondary to hospital-acquired pneumonia with sepsis Patient still requiring 6 L of oxygen to maintain oxygen saturations above 90% with variable tachypnea. Sinus tachycardia also evidence on telemetry monitoring. WBCs are still elevated at 13,000, despite antibiotic therapy. Sputum culture grew GNR lactose advertising copywriter. Urinary Legionella and strep pneumo antigens negative. MRSA screen negative. Plan; remain admitted for telemetry monitoring, ID consult ordered, continue Zosyn and vancomycin, Solu-Medrol initiated, ID consult ordered. 2) Wegners granulomatosis with polyangitis Complicates #1. Patient takes mycophenolate, which is currently on hold for 2 to 4 weeks due to recent surgery. Patient's aquacultural worker supervisor Dr. Chaparro was contacted given lack of patient improvement, will come and see patient and consult with hospitalist team. Recommend CT of the chest which demonstrated extensive honeycombing consistent with idiopathic pulmonary fibrosis and superimposed groundglass and alveolar densities in both lungs consistent with bilateral pneumonia. Plan; as above, Dr. Chaparro to follow. 3) new onset atrial fibrillation Echocardiogram from 06/30 demonstrates an EF of 65%, moderate left ventricular hypertrophy, RVSP estimated to be 44 mmHg. Recently initiated on Eliquis. On metoprolol for rate control. Plan; continue metoprolol and Eliquis. 4) DM2 Continue Accu-Cheks with sliding scale insulin. 5) CKD stage IIIb At baseline, continue to trend BMP. 6) BPH Continue finasteride and Flomax. 7) GERD Continue PPI. 8) history of PE Currently on Eliquis and Plavix. Was on Coumadin which was discontinued. 9) history of chronic right-sided sacral ulcer Wound nurse consult ordered. 10) severe protein calorie malnutrition Dietitian following. DVT prophylaxis - Eliquis Patient seen by Carlos Solano PA-C, under the supervision of Dr. Hull. Documented by User: Dr. Jaswant Hull MD 07/07/21 15:27 Subjective Subjective Patient gets very hypoxic on slight movement, walking to bathroom. Oxygen demand increases from 5 to 10 L. Patient also gets sinus tachycardic. Objective Data Lab / Micro Data Result Diagrams: 07/07/21 07:14 07/07/21 07:14 Physical Exam Narrative General: Alert, Oriented x3, Cooperative HEENT: Atraumatic, PERRLA, EOMI, Normocephalic. Skin nodule on the right ala of nose. No active bleeding or blood distention in nostril/anterior nasal cavity. Oral: Oral mucosa is dry. No blood clots seen. No Gingival or Mucosal Lesions/ Ulcerations Neck: Supple, No JVD, Negative Carotid Bruits Lungs: Air entry diminished in bilateral lung bases. Bilateral gross inspiratory and expiratory rhonchi Cardiovascular: Sinus tachycardia, PVCs. Normal S1, Normal S2, No murmurs Abdomen: Bowel Sounds Present, Soft, Non Tender, Non-Distended : No renal angle tenderness. No suprapubic tenderness. Extremities: No edema, Capillary Refill Less than 3 Seconds Skin: No rashes, No breakdown Musculoskeletal: No Tenderness to Palpation of Joints or Extremities Neurological: Cranial nerves II-XII grossly intact, DTR 2+/4 and Symmetrical, Neuro grossly intact Psych/Mental Status: Normal Affect, Appropriate. Assessment & Plan Assessment/Plan (1) Acute and chronic respiratory failure with hypoxia: PLAN: This patient was seen in conjunction with SANDEEP Rowe. I have independently interviewed and examined the patient and reviewed pertinent history, examination findings, laboratory and plan of management. I have reviewed the note and agree with the documented findings with the few additional points. In brief, patient is admitted for acute hypoxic respiratory failure secondary to bilateral pneumonia, HCAP. Patient on IV vancomycin and Zosyn. Patient has microscopic polyangiitis, confirmed with Dr. Chaparro on mycophenolate which is on hold. The patient had chronic lung fibrosis, nintedanib on hold. I I called Dr. Chaparro and discussed with him and he agreed to see the patient. CT chest ordered and shows bilateral diffuse opacity, extensive honeycombing with superimposed groundglass opacity. Normal mediastinum and hilar regions. Patient is started on IV Solu-Medrol because of increased hypoxia. ID consulted. Recently diagnosed paroxysmal A. fib on Eliquis. Twelve-lead EKG done which shows sinus tachycardia at 108 bpm, LAD, right bundle branch block. QRS 146 ms. On metoprolol 50 mg twice daily. 2D echo EF 65%, moderate LVH. Multiple other comorbidities as mentioned above I have discussed my assessment with SANDEEP Rowe and orders have been reviewed. Total time of the visit including total time spent in counseling or coordination of care, (more than 50% of the total time, spent in obtaining medical information from nurses and other ancillary care providers,explaining to the patient about labs, imaging, diagnosis and management), discussion with consultants aquacultural worker supervisor Dr. Chaparro and ID, review of labs and CT imaging is 30 minutes. Clinical Impression(s) from Imaging Studies Chest X-Ray 07/05/21 11:33 IMPRESSION: Bilateral pneumonia. Chest CT 07/07/21 11:06 IMPRESSION: Idiopathic pulmonary fibrosis with superimposed bilateral pneumonia. Charges/Coding Visit Charges Inpatient E&M: 44376 Subs Hosp L3
--- NOTE | 2021-07-07 15:24 | CHAPLAIN ---
Type of Pastoral Visit _x__ Initial Visit ___ Follow-up Visit ___ On-call Visit ___ General Patient Visit ___ Spiritual Assessment ___ Family Conference ___ Bereavement ___ Rapid Response ___ Code Blue ___ Other (describe below) Pastoral Care Referral From _x__ Patient ___ Family ___ Nurse ___ Physician ___ Aircraft Electrical Systems Specialist ___ Comptometrist ___ Other (describe below) Sacrament/Intervention _x__ Active listening ___ Anointing ___ Anglican ___ Bereavement ___ Communion ___ Lena exploration ___ x Life review _x__ Prayer ___ Reconciliation ___ Sacrament of Sick ___ Supportive presence ___ Wedding _x__ Other (describe below) Pastoral Comments patient and spouse in room; pt states immediately I just want to go home; pt does admit to being weak and short of breath; pt welcomes a prayer; more information about life history and lena connection given by spouse
--- NOTE | 2021-07-07 15:29 | CASEMGMT ---
Readmission chart review: 06/29-07/04/21 for SBO 07/05/21 for Pneumonia Pt was initially admitted for ABD pain and found to have SBO. Pt was taken to OR by Dr. Phillips for exploratory lap. Pt/ declined any further therapy at discharge. Pt does have hx of Pulm fibrosis and returned to [facility] ED the day after leaving with pulse ox 69% on room air and was admitted for pneumonia. Per H&P, hospital acquired pna. Pt sees Dr. Chaparro for pulm fibrosis. CTA chest shows: Idiopathic pulmonary fibrosis with superimposed bilateral pneumonia. Pt is currently on 6L and desats with activity. Per therapy notes, they are recommending SNF for pt at discharge. CM to follow for further discharge planning/needs. Alessia GIRALDO CM
[2021-07-07] MEDS: Tamsulosin HCl 0.4 MG Capsule PO (16:58)
[2021-07-08] VITALS (24 sets, daily range): BP systolic 107–135; BP diastolic 56–64; PULSE 57–146; RESP 12–24; TEMP 36.4–36.7; O2SAT 90–100
[2021-07-08 06:20] LABS: Absolute Lymphocyte Count 0.38 X10^3/uL (0.83-4.51); Absolute Neutrophil Count 11.5 X10^3/uL (2.0-7.7); Basophil# 0.02 X10^3/uL; Basophil% 0.2 % (0-1); Hematocrit 37.7 % (40-54); Hemoglobin 11.2 g/dL (13.0-16.5); Lymphocyte # 0.38 X10^3/ul (0.83-4.51); Lymphocyte % 3.1 % (19-41); Mean Corp Hgb Conc 29.7 g/dL (32-36); Mean Corpuscular Hgb 29.9 pg (27.0-32.0); Mean Corpuscular Volume 100.8 fL (80-94); Mean Platelet Vol. 9.7 fl (6.2-12.0); Monocyte# 0.38 X10^3/uL; Monocyte% 3.1 % (0-10); NRBC Flagged by Analyzer 0 % (0-5); Neutrophil # 11.45 X10^3/uL (2.7-7.7); Neutrophil % 92.1 % (47-70); POSITIVE DIFFERENTIAL YES; Platelet Count 251 K/mm3 (150-450); RBC Distribution Width CV 15.3 % (11.6-14.6); RBC Distribution Width SD 57.2 fl (35.1-43.9); Red Blood Count 3.74 M/mm3 (4.6-6.2); White Blood Count 12.4 K/mm3 (4.4-11.0)
[2021-07-08 06:37] LABS: Differential Indicated SCAN CRITERIA MET
[2021-07-08 06:46] LABS: Anion Gap 3 (5-15); BUN 26 mg/dL (7-18); BUN/Creat Ratio 21.1 RATIO (10-20); Calcium,Total 8.6 mg/dL (8.5-10.1); Chloride 105 mmol/L (98-107); Creatinine, Serum 1.23 mg/dL (0.70-1.30); EST Glomerular Filtration Rate 61 mL/min (>60); Est Glom Filt Rate - Afr Amer 73 mL/min (>60); Glucose 129 mg/dL (74-106); Potassium 3.8 mmol/L (3.5-5.1); Sodium Level 140 mmol/L (136-145)
[2021-07-08 06:56] LABS: Differential Comment SCANNED
[2021-07-08] MEDS: Pantoprazole Sodium 20 MG Tablet PO (10:03)
[2021-07-08] MEDS: Metoprolol Tartrate 50 MG Tablet PO (10:03)
[2021-07-08] MEDS: Finasteride 5 MG Tablet PO (10:03)
--- NOTE | 2021-07-08 11:08 | CPS ---
patient refusing bipap at current time.
[2021-07-08] MEDS: Ipratropium/Albuterol Sulfate 3 ML AMPUL.NEB INHALATION ×3 (11:09→18:59)
--- NOTE | 2021-07-08 11:31 | CASEMGMT ---
[facility] palliative screening tool completed and pt does qualify for palliative referral. Dr. Hull is agreeable, order placed and referral faxed. Call to palliative to notify. Alessia GIRALDO CM
--- NOTE | 2021-07-08 13:15 | PN.HOSP_ITS ---
Documented by User: Carlos HOPKINS 07/08/21 13:37 Subjective Subjective Patient is a 76-year-old male resting in bed, alert and orient x3. Patient still reports feeling short of breath and lethargic, overall feels unchanged from yesterday. Denies development of any new symptoms overnight. Objective Data Objective Data Vital Signs: Vital Signs Temp Pulse Resp BP Pulse Ox 97.8 F 62 24 H 120/56 L 95 07/08/21 10:00 07/08/21 11:35 07/08/21 11:35 07/08/21 10:03 07/08/21 11:35 Oxygen Flow Rate (L/min) 10 Oxygen Delivery Method Bi-pap Weight: 133 lb 13.129 oz Body Mass Index (BMI) 19.8 Intake & Output: Intake and Output for Last 24 Hours 07/06/21 07/07/21 07/08/21 23:59 23:59 23:59 Intake Total 2946.25 / 2946.25 515 / 615 465 / 465 Output Total 650 / 650 1525 / 1775 625 / 625 Balance 2296.25 / 2296.25 -1010 / -1160 -160 / -160 Medical Nutrition Assessment Dietitian: Malnutrition Criteria Met Start: 07/07/21 12:32 Freq: Status: Active Protocol: Document 07/07/21 12:32 AG (Rec: 07/07/21 12:32 AG [id number]) Nutrition Malnutrition Evidence of Malnutrition Exists Yes Malnutrition (severe): Acute Illness/Injury Evidenced By Suboptimal Energy Intake ( Severe),Weight Loss (Severe) Clinical Problem Acute Disease or Injury Related Malnutrition Etiology severe, acute malnutrition r/t inadequate energy intake d/t recent small bowel obstruction , lack of appetite Signs/Symptoms as evidenced by estimated PO intake meeting <50% of estimated nutritional needs x 1 week, unintentional wt loss of 2.7#/2% x 3 days per EMR Status Active Problem Recommendation Dietitian Recommendations/Changes continue regular diet, consistency per ANIMATION DIRECTOR. Will add 120mL ensure enlive 4x/day w/ medpass for additional protein /calories if consumed. Lab / Micro Data Result Diagrams: 07/08/21 05:36 07/08/21 05:36 Labs: Laboratory Results - last 24 hr 07/08/21 05:36: WBC 12.4 H, RBC 3.74 L, Hgb 11.2 L, Hct 37.7 L, MCV 100.8 H, MCH 29.9, MCHC 29.7 L, RDW Std Deviation 57.2 H, RDW Coeff of Alber 15.3 H, Plt Count 251, MPV 9.7, Immature Gran % (Auto) 1.500 H, Neut % (Auto) 92.1 H, Lymph % (Auto) 3.1 L, [place] % (Auto) 3.1, Eos % (Auto) 0.0, Baso % (Auto) 0.2, Absolute Neuts (auto) 11.5 H, Absolute Lymphs (auto) 0.38 L, Nucleated RBC % 0, Differential Comment SCANNED 07/08/21 05:36: Sodium 140, Potassium 3.8, Chloride 105, Carbon Dioxide 32.0, Anion Gap 3 L, BUN 26 H, Creatinine 1.23, Estim Creat Clear Calc 42.50, Est GFR (MDRD) Af Amer 73, Est GFR (MDRD) Non-Af 61, BUN/Creatinine Ratio 21.1 H, Glucose 129 H, Calcium 8.6 Micro: Microbiology 07/06/21 09:07 Sputum, Expectorated/Coughed Gram Stain - Final 07/06/21 09:07 Sputum, Expectorated/Coughed Respiratory Culture - Final Enterobacter cloacae complex 07/05/21 11:14 Blood Culture (Wb) - Venous Blood Culture - Preliminary No growth in 48 hours. 07/05/21 11:30 Blood Culture (Wb) - Left Wrist Blood Culture - Preliminary No growth in 48 hours. 07/05/21 Unknown Urine, Clean Catch Legionella Antigen - Final 07/05/21 Unknown Urine, Clean Catch Streptococcus pneumoniae Antigen (M - Final 07/05/21 11:14 Nasal Secretion SARS-CoV-2 Antigen (Rapid) - Final Rhythm Strip Rhythm Strip: Sinus Tach Rate: 108 Ectopy: None Physical Exam Const alert, oriented x3 and no apparent distress HEENT head/scalp atraumatic and moist oral mucous membranes Head and Scalp: normocephalic Eyes EOMs intact bilaterally and conjunctivae normal Neck no lymphadenopathy, supple, no JVD and no carotid bruits Resp Effort and Inspection: tachypneic, respiratory distress and labored Auscultation: rhonchi and diminished lung sounds Cardio regular rate, regular rhythm, no murmurs and no JVD GI normal to inspection, nondistended, normoactive bowel sounds, soft to palpation and non-tender Extremity normal to inspection, full ROM and no clubbing, cyanosis or edema Skin no rashes or lesions noted, no wounds and skin turgor normal Neuro CN's II-XII intact bilaterally Psych affect normal Assessment & Plan Assessment/Plan (1) Acute and chronic respiratory failure with hypoxia: (2) Bilateral pneumonia: QUALIFIERS: Pneumonia type: due to unspecified organism PLAN: Day 3 Discharge planning: Unclear at this time. CM and SW following, palliative care consult ordered. 1) acute hypoxic respiratory failure secondary to hospital-acquired pneumonia with sepsis Patient currently satting 95% on BiPAP at an FIO2.variable tachypnea with a rate between 20 to 25 breaths/min. WBCs are still elevated at 12,000, slightly improved from yesterday. Sputum culture grew Eneterobacter cloacae. Blood cultures negative. Urinary Legionella and strep pneumo antigens negative. MRSA screen negative. Overall course complicated by patient's history of granulomatosis with polyangiitis. Plan; remain admitted for telemetry monitoring, ID consult ordered, continue BiPAP continue Zosyn, Solu-Medrol initiated, scheduled duo nebs every 4 hours, 2) Granulomatosis with polyangitis Complicates #1. Patient takes mycophenolate, which is currently on hold for 2 to 4 weeks due to recent surgery. Patient's dental hygienist Dr. Chaparro was contacted given lack of patient improvement, will come and see patient and consult with hospitalist team. CT of the chest which demonstrated extensive honeycombing consistent with idiopathic pulmonary fibrosis and superimposed groundglass and alveolar densities in both lungs consistent with bilateral pneumonia. Plan; as above, Dr. Chaparro to follow. 3) New onset atrial fibrillation Echocardiogram from 06/30 demonstrates an EF of 65%, moderate left ventricular hypertrophy, RVSP estimated to be 44 mmHg. Recently initiated on Eliquis. On metoprolol for rate control. Plan; continue metoprolol and Eliquis. 4) DM2 Continue Accu-Cheks with sliding scale insulin. 5) CKD stage IIIb At baseline, continue to trend BMP. 6) BPH Continue finasteride and Flomax. 7) GERD Continue PPI. 8) history of PE Currently on Eliquis and Plavix. Was on Coumadin which was discontinued. 9) history of chronic right-sided sacral ulcer Wound nurse consult ordered. 10) severe protein calorie malnutrition Dietitian following. DVT prophylaxis - SCD's, Eliquis discontinued due to bleeding risk, per Dr. Ermias estrada. Patient seen by Carlos Solano PA-C, under the supervision of Dr. Hull. Documented by User: Dr. Jaswant Hull MD 07/08/21 16:54 Subjective Subjective Patient is still short of breath, dyspnea at rest. Discussed with the patient and regarding noninvasive pressure intubation and pros and cons of mechanical ventilator. Patient does not want mechanical ventilator. Discussed with Dr. Chaparro Objective Data Lab / Micro Data Result Diagrams: 07/08/21 05:36 07/08/21 05:36 Physical Exam Narrative Physical exam: General: Alert, Oriented x3, Cooperative HEENT: Atraumatic, PERRLA, EOMI, Normocephalic. Skin nodule on the right ala of nose. No hemoptysis. Oral: Oral mucosa is dry. No Gingival or Mucosal Lesions/ Ulcerations Neck: Supple, No JVD, Negative Carotid Bruits Lungs: Air entry diminished in bilateral lung bases. Severe hypoxia. BiPAP. Bilateral gross inspiratory and expiratory rhonchi Cardiovascular: , PVCs. Normal S1, Normal S2, No murmurs Abdomen: Bowel Sounds Present, Soft, Non Tender, Non-Distended : No renal angle tenderness. No suprapubic tenderness. Extremities: No edema, Capillary Refill Less than 3 Seconds Skin: No rashes, No breakdown Musculoskeletal: No Tenderness to Palpation of Joints or Extremities Neurological: Cranial nerves II-XII grossly intact, DTR 2+/4 and Symmetrical, Neuro grossly intact Psych/Mental Status: Normal Affect, Appropriate. Assessment & Plan Assessment/Plan (1) Acute and chronic respiratory failure with hypoxia: (2) Bilateral pneumonia: QUALIFIERS: Pneumonia type: due to unspecified organism PLAN: This patient was seen in conjunction with SOFTWARE RELEASE MANAGERAfsaneh. I have independently interviewed and examined the patient and reviewed pertinent history, examination findings, laboratory and plan of management. I have reviewed the note and agree with the documented findings with the few a dditional points. In brief, patient is admitted for acute hypoxic respiratory failure secondary to bilateral pneumonia, HCAP. Patient on IV vancomycin and Zosyn. 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 The patient had chronic lung fibrosis, nintedanib on hold. Recently diagnosed paroxysmal A. fib on Eliquis. Currently sinus rhythm. EF 65, moderate LVH. 07/08: I talked to the patient and his in a detailed discussion regarding NIPPV, mechanical ventilator, 8 cm and disadvantages. I also talked to Dr. Chaparro. Option of bronchoscopy discussed but patient need to be intubated and on mechanical ventilator and will be difficult extubation was discussed with Dr. Chaparro relate to the patient and his . Patient agreeable for no intubation/ventilator and agree with palliative care. He and his want son to make decision regarding further DNR CC or hospice care. In the meantime, BiPAP ordered and discussed with the respiratory therapist Multiple other comorbidities as mentioned above I have discussed my assessment with SOFTWARE RELEASE MANAGERAfsaneh and orders have been reviewed. Total time of the visit including total time spent in counseling or coordination of care, (more than 50% of the total time, spent in obtaining medical information from nurses and other ancillary care providers,explaining to the patient about labs, imaging, diagnosis and management), discussion with consultants, review of labs and imaging is 30 minutes. Charges/Coding Visit Charges Inpatient E&M: 58175 Subs Hosp L3
--- NOTE | 2021-07-08 13:48 | PCM.PROGNOTE ---
- Physical Exam Vitals/I&O's: Vital Signs Temp Pulse Resp BP Pulse Ox 97.8 F 58 L 18 120/56 L 94 07/08/21 10:00 07/08/21 13:26 07/08/21 13:26 07/08/21 10:03 07/08/21 13:26 Oxygen Flow Rate (L/min) 10 Oxygen Delivery Method Bi-pap Weight: 60.7 kg Body Mass Index (BMI) 19.8 Intake and Output for Last 24 Hours 07/06/21 07/07/21 07/08/21 23:59 23:59 23:59 Intake Total 2946.25 / 2946.25 515 / 615 465 / 465 Output Total 650 / 650 1525 / 1775 625 / 625 Balance 2296.25 / 2296.25 -1010 / -1160 -160 / -160 General: Alert, Oriented x3, Cooperative, No apparent distress, - - using bipap, sleeping HEENT: Atraumatic, PERRLA, EOMI, Normocephalic Oral: No Gingival or Mucosal Lesions/ Ulcerations, Dry Mucosa Neck: No JVD, Negative Carotid Bruits, No Nodes, Trachea Midline Lungs: - - rales 75% no retractions, less wet rhonchi today, no hemoptysis. no cough on bipap Cardiovascular: Regular rate, Normal S1, Normal S2, No murmurs, - - very distant heart sounds Abdomen: Tender - non distended, mild tenderness Skin: No rashes, No breakdown Musculoskeletal: Arthritic Changes, Cachexia, Muscle Wasting Lymphatic: No Cervical, Supraclavicular, or Inguinal Adenopathy Neurological: Cranial nerves II-XII grossly intact, Neuro grossly intact Psych/Mental Status: Normal Affect, Appropriate Microbiology Past 72 Hours 07/06/21 09:07 Sputum, Expectorated/Coughed Gram Stain - Final 07/06/21 09:07 Sputum, Expectorated/Coughed Respiratory Culture - Final Enterobacter cloacae complex 07/05/21 11:14 Blood Culture (Wb) - Venous Blood Culture - Preliminary No growth in 48 hours. 07/05/21 11:30 Blood Culture (Wb) - Left Wrist Blood Culture - Preliminary No growth in 48 hours. 07/05/21 Unknown Urine, Clean Catch Legionella Antigen - Final 07/05/21 Unknown Urine, Clean Catch Streptococcus pneumoniae Antigen (M - Final 07/05/21 11:14 Nasal Secretion SARS-CoV-2 Antigen (Rapid) - Final Laboratory Results 07/08/21 05:36: WBC 12.4 H, RBC 3.74 L, Hgb 11.2 L, Hct 37.7 L, MCV 100.8 H, MCH 29.9, MCHC 29.7 L, RDW Std Deviation 57.2 H, RDW Coeff of Alber 15.3 H, Plt Count 251, MPV 9.7, Immature Gran % (Auto) 1.500 H, Neut % (Auto) 92.1 H, Lymph % (Auto) 3.1 L, [place] % (Auto) 3.1, Eos % (Auto) 0.0, Baso % (Auto) 0.2, Absolute Neuts (auto) 11.5 H, Absolute Lymphs (auto) 0.38 L, Nucleated RBC % 0, Differential Comment SCANNED 07/08/21 05:36: Sodium 140, Potassium 3.8, Chloride 105, Carbon Dioxide 32.0, Anion Gap 3 L, BUN 26 H, Creatinine 1.23, Estim Creat Clear Calc 42.50, Est GFR (MDRD) Af Amer 73, Est GFR (MDRD) Non-Af 61, BUN/Creatinine Ratio 21.1 H, Glucose 129 H, Calcium 8.6 Current Medications Acetaminophen (Acetaminophen 325 Mg Tablet) 650 mg PO Q6H PRN PRN PRN Reason: Pain Score 1-10/Temp > 100.7 F Albuterol/Ipratropium (Ipratropium/Albuterol Sulfate 3 Ml Ampul.Neb) 3 ml INHALATION Q4H.RT [facility] Last Admin: 07/08/21 11:09 Dose: 3 ml Documented by: Finasteride (Finasteride 5 Mg Tablet) 5 mg PO DAILY [facility] Last Admin: 07/08/21 10:03 Dose: 5 mg Documented by: Sodium Chloride () 1,000 mls @ 75 mls/hr IV .[id number] [facility] Last Infusion: 07/06/21 23:51 Dose: Infused Documented by: Sodium Chloride () 250 mls @ 15 mls/hr IV .[id number] PRN PRN Reason: Saline Flush Sodium Chloride () 250 mls @ 15 mls/hr IV .[id number] PRN PRN Reason: Additional IVPB Infusion Piperacillin Sod/Tazobactam (Sod 3.375 gm/ Sodium Chloride) 50 mls @ 12.5 mls/hr IV Q8 [facility] Last Infusion: 07/08/21 09:48 Dose: Infused Documented by: Melatonin (Melatonin 3 Mg Tablet) 3 mg PO QHS PRN PRN PRN Reason: INSOMNIA Last Admin: 07/05/21 23:10 Dose: 3 mg Documented by: Methylprednisolone (Methylprednisolone 40 Mg/Ml Vial) 40 mg IV Q8 [facility] Last Admin: 07/08/21 05:39 Dose: 40 mg Documented by: Metoprolol Tartrate (Metoprolol Tartrate 50 Mg Tablet) 50 mg PO BID [facility] Last Admin: 07/08/21 10:03 Dose: 50 mg Documented by: Nutritional Formula (Lactose Free) (Ensure Enlive 120 Ml Liquid) 120 ml PO 4X/DAY [facility] Last Admin: 07/08/21 09:48 Dose: Not Given Documented by: Ondansetron HCl (Ondansetron Odt 4 Mg Tablet) 4 mg PO Q6H PRN PRN PRN Reason: NAUSEA/VOMITING Ondansetron HCl (Ondansetron 4 Mg/2 Ml Vial) 4 mg IV Q8H PRN PRN PRN Reason: NAUSEA/VOMITING Pantoprazole Sodium (Pantoprazole Sodium 20 Mg Tablet) 20 mg PO DAILY [facility] Last Admin: 07/08/21 10:03 Dose: 20 mg Documented by: Sodium Chloride (0.9% Saline Lock 10 Ml Syringe) 10 - 40 ml IV UD PRN PRN Reason: SALINE FLUSH Last Admin: 07/07/21 13:19 Dose: 10 ml Documented by: Sodium Chloride (Sodium Chloride 0.65% 1 [place].Btl) 2 spray NASAL TID PRN PRN PRN Reason: NASAL DRYNESS Last Admin: 07/06/21 13:38 Dose: 2 spray Documented by: Tamsulosin HCl (Tamsulosin Hcl 0.4 Mg Capsule) 0.4 mg PO DAILY@1730 [facility] Last Admin: 07/07/21 16:58 Dose: 0.4 mg Documented by: Patient Problems: Active and Suspected Problems (Last Reviewed 07/07/21 @ 11:[address] Nile Cueva MD) Bilateral pneumonia (Acute) Paroxysmal atrial fibrillation with RVR (Acute) Medical Necessity - Tobacco Use Smoking Status: Never smoker Tobacco Use: Non-smoker Assessment/Plan pneumonia, growth of Enterobacter, cont w/ zosyn, no longer w/ hemoptysis, hold thinners for now hypoxia, still severe. expect slow recovery over 2-4 wk would repeat cxr tomorrow hold ofev hold cellcept. would avoid more then 40 prednisone per day Resp failure. consider abg to get bipap at home for d/c for now FFM with 14/5 bipap. no back up rate needed. tv 365 w/ min vent 5.9 rr is 17 while asleep family son and . indicates pt wants DNR I did not address DNR directly with patient. All Active Problems (Last Reviewed 07/07/21 @ 11:[address] Nile Cueva MD) Bilateral pneumonia (Acute) Paroxysmal atrial fibrillation with RVR (Acute) SBO (small bowel obstruction) (Acute) Partial small bowel obstruction (Acute) History of pulmonary embolism (Resolved)
--- NOTE | 2021-07-08 13:53 | PCM.PN.ID ---
Physical Exam Narrative Feeling a little better, no fever, still some dyspnea Const alert General Appearance: cooperative Resp Resp Narrative: R sided rales/rhonchi Cardio regular rate and regular rhythm GI normal to inspection, nondistended, normoactive bowel sounds Skin no rashes or lesions noted ID ID: Route of nutrition/ use of supplements: [] Nutritional Intake: [] IV Site: [] Devi Catheter: [] Assessment & Plan Assessment/Plan (1) Acute and chronic respiratory failure with hypoxia: PLAN: Feeling better. Cx of sputum with enterobacter. Recent ex lap for SBO. Has completed covid vaccine. Will stop vanc. Cont zosyn. Will follow
--- NOTE | 2021-07-08 15:32 | CASEMGMT ---
SW spoke with patient's and son. Introduced self and role at [facility]. SW asked if they were planning on taking patient home at discharge or if they were thinking about him going to a custodial short term for rehab. They both said the prefer to take him home. SW told them that is fine SW just wanted to check in. Matilde Mena RN TELE MERE
[2021-07-08] MEDS: Metoprolol Tartrate 5 MG/5 ML Vial IV (23:12)
[2021-07-09] VITALS (22 sets, daily range): BP systolic 122–148; BP diastolic 52–75; PULSE 65–106; RESP 12–35; TEMP 36.1–36.5; O2SAT 78–96
[2021-07-09] MEDS: Phenol/Sodium Phenolate 180ML 3 SPRAY MUCOUS MEM ×2 (05:38→10:55)
[2021-07-09] MEDS: Metoprolol Tartrate 5 MG/5 ML Vial IV ×2 (05:38→13:27)
[2021-07-09] MEDS: Ipratropium/Albuterol Sulfate 3 ML AMPUL.NEB INHALATION ×4 (06:33→22:59)
[2021-07-09 07:43] LABS: Absolute Lymphocyte Count 0.28 X10^3/uL (0.83-4.51); Absolute Neutrophil Count 11.1 X10^3/uL (2.0-7.7); Basophil# 0.03 X10^3/uL; Basophil% 0.2 % (0-1); Hematocrit 39.2 % (40-54); Hemoglobin 11.3 g/dL (13.0-16.5); Lymphocyte # 0.28 X10^3/ul (0.83-4.51); Lymphocyte % 2.2 % (19-41); Mean Corp Hgb Conc 28.8 g/dL (32-36); Mean Corpuscular Hgb 29.5 pg (27.0-32.0); Mean Corpuscular Volume 102.3 fL (80-94); Mean Platelet Vol. 10.1 fl (6.2-12.0); Monocyte# 0.97 X10^3/uL; Monocyte% 7.7 % (0-10); NRBC Flagged by Analyzer 0.2 % (0-5); Neutrophil # 11.06 X10^3/uL (2.7-7.7); Neutrophil % 87.7 % (47-70); POSITIVE DIFFERENTIAL YES; Platelet Count 265 K/mm3 (150-450); RBC Distribution Width CV 15.5 % (11.6-14.6); RBC Distribution Width SD 58.8 fl (35.1-43.9); Red Blood Count 3.83 M/mm3 (4.6-6.2); White Blood Count 12.6 K/mm3 (4.4-11.0)
[2021-07-09 07:57] LABS: Differential Indicated SCAN CRITERIA MET
[2021-07-09 08:21] LABS: Anion Gap 4 (5-15); BUN 36 mg/dL (7-18); BUN/Creat Ratio 27.1 RATIO (10-20); Calcium,Total 8.5 mg/dL (8.5-10.1); Chloride 104 mmol/L (98-107); Creatinine, Serum 1.33 mg/dL (0.70-1.30); EST Glomerular Filtration Rate 55 mL/min (>60); Est Glom Filt Rate - Afr Amer 67 mL/min (>60); Glucose 124 mg/dL (74-106); Potassium 3.1 mmol/L (3.5-5.1); Sodium Level 145 mmol/L (136-145)
--- NOTE | 2021-07-09 10:37 | RAD_ITS ---
STUDY: X-RAY CHEST REASON FOR EXAM: Male, 76 years old. Bilateral pneumonia TECHNIQUE: Single AP portable view of the chest. COMPARISON: Comparison is made with prior study dated 07/05/2021. FINDINGS: EKG electrodes are seen. Once again, there is diffuse bilateral alveolar airspace disease worse in the left lung. This is superimposed on chronic scarring with evidence of honeycombing. Blunting of both cost phrenic angles. Normal size heart. Normal mediastinum and jacqueline. Normal visualized pulmonary arteries. There is atherosclerotic tortuosity of the aortic arch and descending thoracic aorta. Normal visualized thoracic spine. Normal visualized ribs, clavicles, and shoulders. There is no demonstrated abnormality of the visualized soft tissue structures of the upper abdomen. RAD/Chest 1 View (Portable) IMPRESSION: Stable examination with diffuse bilateral airspace disease worse in the left hemithorax superimposed on chronic scarring. Electronically Signed: Edgar Shanks MD at 10:57 EDT , Service support ,
[2021-07-09] MEDS: Finasteride 5 MG Tablet PO (10:56)
--- NOTE | 2021-07-09 13:31 | PN.HOSP_ITS ---
Documented by User: Afsaneh Chanel STICK FEEDER, STICK FEEDER-C 07/09/21 13:42 Subjective Subjective Patient seen and examined. Denies worsening shortness of breath. Denies fever, chills. Remains on 10 L nasal cannula. Requesting to eat. Objective Data Objective Data Vital Signs: Vital Signs Temp Pulse Resp BP Pulse Ox 97.7 F L 70 20 H 147/52 H 96 07/09/21 08:39 07/09/21 13:27 07/09/21 08:39 07/09/21 13:27 07/09/21 08:39 Oxygen Flow Rate (L/min) 10 Oxygen Delivery Method Nasal Cannula Weight: 133 lb 13.129 oz Body Mass Index (BMI) 19.8 Intake & Output: Intake and Output for Last 24 Hours 07/07/21 07/08/21 07/09/21 23:59 23:59 23:59 Intake Total 515 / 615 515 / 515 100 / 100 Output Total 1525 / 1775 925 / 925 250 / 250 Balance -1010 / -1160 -410 / -410 -150 / -150 Medical Nutrition Assessment Dietitian: Malnutrition Criteria Met Start: 07/07/21 12:32 Freq: Status: Active Protocol: Document 07/07/21 12:32 AG (Rec: 07/07/21 12:32 AG [id number]) Nutrition Malnutrition Evidence of Malnutrition Exists Yes Malnutrition (severe): Acute Illness/Injury Evidenced By Suboptimal Energy Intake ( Severe),Weight Loss (Severe) Clinical Problem Acute Disease or Injury Related Malnutrition Etiology severe, acute malnutrition r/t inadequate energy intake d/t recent small bowel obstruction , lack of appetite Signs/Symptoms as evidenced by estimated PO intake meeting <50% of estimated nutritional needs x 1 week, unintentional wt loss of 2.7#/2% x 3 days per EMR Status Active Problem Recommendation Dietitian Recommendations/Changes continue regular diet, consistency per STONEMASON APPRENTICE. Will add 120mL ensure enlive 4x/day w/ medpass for additional protein /calories if consumed. Lab / Micro Data Result Diagrams: 07/09/21 06:25 07/09/21 06:25 Labs: Laboratory Results - last 24 hr 07/09/21 06:25: WBC 12.6 H, RBC 3.83 L, Hgb 11.3 L, Hct 39.2 L, MCV 102.3 H, MCH 29.5, MCHC 28.8 L, RDW Std Deviation 58.8 H, RDW Coeff of Alber 15.5 H, Plt Count 265, MPV 10.1, Immature Gran % (Auto) 2.200 H, Neut % (Auto) 87.7 H, Lymph % (Auto) 2.2 L, Bergen % (Auto) 7.7, Eos % (Auto) 0.0, Baso % (Auto) 0.2, Absolute Neuts (auto) 11.1 H, Absolute Lymphs (auto) 0.28 L, Nucleated RBC % 0.2, Differential Comment COMMENT 07/09/21 06:25: Sodium 145, Potassium 3.1 L, Chloride 104, Carbon Dioxide 37.0 H , Anion Gap 4 L, BUN 36 H, Creatinine 1.33 H, Estim Creat Clear Calc 39.30, Est GFR (MDRD) Af Amer 67, Est GFR (MDRD) Non-Af 55 L, BUN/Creatinine Ratio 27.1 H, Glucose 124 H, Calcium 8.5 Micro: Microbiology 07/06/21 09:07 Sputum, Expectorated/Coughed Gram Stain - Final 07/06/21 09:07 Sputum, Expectorated/Coughed Respiratory Culture - Final Enterobacter cloacae complex 07/05/21 11:14 Blood Culture (Wb) - Venous Blood Culture - Preliminary No growth in 48 hours. 07/05/21 11:30 Blood Culture (Wb) - Left Wrist Blood Culture - Preliminary No growth in 48 hours. 07/05/21 Unknown Urine, Clean Catch Legionella Antigen - Final 07/05/21 Unknown Urine, Clean Catch Streptococcus pneumoniae Antigen (M - Final 07/05/21 11:14 Nasal Secretion SARS-CoV-2 Antigen (Rapid) - Final Radiography Diagnostic Testing: Radiology Impression Chest X-Ray 07/09/21 10:37 IMPRESSION: Stable examination with diffuse bilateral airspace disease worse in the left hemithorax superimposed on chronic scarring. Electronically Signed: Edgar Shanks MD at 10:57 EDT , Service support , Rhythm Strip Rhythm Strip: Sinus Tach Rate: 108 Ectopy: None Physical Exam Const alert, oriented x3 and no apparent distress Orientation / Consciousness: awake, oriented to person, oriented to place and oriented to time Nutritional Appearance: cachectic HEENT normocephalic and moist oral mucous membranes Eyes PERRL, EOMs intact bilaterally and conjunctivae normal Neck no lymphadenopathy Resp Auscultation: rhonchi and diminished lung sounds Cardio regular rate, regular rhythm and no murmurs Peripheral Pulses: pulses 2+ throughout GI normal to inspection, nondistended, normoactive bowel sounds, non-tender and non-distended Extremity normal to inspection Skin no rashes or lesions noted Lesions: no lesions Rashes: no rashes Trauma: no lacerations or abrasions Neuro CN's II-XII intact bilaterally, no focal motor deficits, no sensory deficits noted and deep tendon reflexes 2+ bilaterally Psych mental status grossly normal and affect normal Assessment & Plan Assessment/Plan (1) Acute and chronic respiratory failure with hypoxia: PLAN: 1. Acute hypoxic respiratory failure secondary to bilateral hospital-acquired pneumonia with associated sepsis-sputum culture growing Enterobacter. Chest x-ray with bilateral pneumonia. Currently requiring 10 L nasal cannula. IV Zosyn. Continue supplement oxygen to maintain O2 at above 90%. Albuterol DuoNeb aerosols. Speech therapy consult. ID and pulmonary medicine following. Pulmonary medicine recommending holding Eliquis due to hemoptysis. Patient does not want intubated. Discussed likely slow recovery. If respiratory status worsens, may need to consider palliative/hospice transition given patient does not want intubated or further aggressive measures. 2. Recent admission with small bowel obstruction-underwent exploratory laparotomy 06/29/2021. Outpatient follow-up with general surgery. Katerin can be removed 07/11/2021. 3. Recent onset atrial fibrillation-recent echocardiogram demonstrates an EF of 65%, moderate left ventricular hypertrophy, RVSP estimated to be 44 mmHg. Not previously on anticoagulation due to Jeannette's granulomatosis. Initiated on Eliquis at recent discharge. Eliquis discontinued. Continue metoprolol. 4. Type 2 diabetes gsqtjoex-Rujr-Hasch with sliding scale insulin. 5. History of autoimmune hemolytic anemia/anemia of chronic disease-stable, trend CBC. 6. Chronic lung fibrosis- on nintedanib. Surgery recommends holding at this time. On IV Solu-Medrol. 7. Chronic kidney disease stage IIIb-at baseline, trend BMP. 8. Jeannette's granulomatosis with polyangiitis- mycophenolate on hold for 2 to 4 weeks per surgery recommendations. 9. History of PE-previously on Coumadin which was discontinued. Eliquis di scontinued. On Plavix. 10. History of chronic right-sided sacral ulcer-wound RN consult. 11. Severe protein calorie malnutrition-dietitian consult. 12. BPH-on finasteride, Flomax. 13. GERD-continue PPI. DVT prophylaxis-Eliquis This patient was seen by CARRINGTON Lyons under the supervision of Dr. Hull. Documented by User: Dr. Jaswant Hull MD 07/09/21 17:08 Subjective Subjective Patient on 10 L of oxygen. Denies any chest pain. Patient heart rate fluctuates. Objective Data Lab / Micro Data Result Diagrams: 07/09/21 06:25 07/09/21 06:25 Physical Exam Narrative Physical exam: General: Alert, Oriented x3, Cooperative HEENT: Atraumatic, PERRLA, EOMI, Normocephalic. Skin nodule on the right ala of nose. No hemoptysis. Oral: Oral mucosa is dry. No Gingival or Mucosal Lesions/ Ulcerations Neck: Supple, No JVD, Negative Carotid Bruits Lungs: Air entry diminished in bilateral lung bases. Severe hypoxia. BiPAP. Bilateral gross inspiratory and expiratory rhonchi Cardiovascular: Heart rate in 70s, PVCs. Normal S1, Normal S2, No murmurs Abdomen: Bowel Sounds Present, Soft, Non Tender, Non-Distended : No renal angle tenderness. No suprapubic tenderness. Extremities: No edema, Capillary Refill Less than 3 Seconds Skin: No rashes, No breakdown Musculoskeletal: No Tenderness to Palpation of Joints or Extremities Neurological: Cranial nerves II-XII grossly intact, DTR 2+/4 and Symmetrical, Neuro grossly intact Psych/Mental Status: Normal Affect, Appropriate. Assessment & Plan Assessment/Plan (1) Acute and chronic respiratory failure with hypoxia: PLAN: This patient was seen in conjunction with Afsaneh GARCIA. I have independently interviewed and examined the patient and reviewed pertinent h istory, examination findings, laboratory and plan of management. I have reviewed the note and agree with the documented findings with the few additional points. In brief, patient is admitted for acute hypoxic respiratory failure secondary to bilateral pneumonia, HCAP. Patient on IV vancomycin and Zosyn. Patient has Jeannette's granulomatosis with polyangiitis/microscopic polyangiitis on mycophe nolate which is on hold. The patient had chronic lung fibrosis, nintedanib on hold. Recently diagnosed paroxysmal A. fib on Eliquis. Currently sinus rhythm. EF 65, moderate LVH. I talked to the patient and his in a detailed discussion regarding NIPPV, mechanical ventilator, advantages and disadvantages. Discussed Dr. Chaparro. Option of bronchoscopy discussed but patient need to be intubated and on mechanical ventilator and will be difficult extubation was discussed with Dr. Chaparro relate to the patient and his . Patient agreeable for no intubation/ventilator and agree with palliative care. He and his want son to make decision regarding further DNR CC or hospice care. In the meantime, BiPAP ordered and discussed with the respiratory therapist Sputum culture growing Enterobacter. Continue Zosyn. Vancomycin discontinued. Dr. Chaparro note reviewed and advised prednisone 40 mg daily. Consider ABG to get BiPAP at home for discharge at 13/03. No backup rate needed. Multiple other comorbidities as mentioned above I have discussed my assessment with STICK FEEDERAfsaneh and orders have been reviewed. Charges/Coding Visit Charges Inpatient E&M: 83471 Subs Hosp L2
--- NOTE | 2021-07-09 15:37 | PCM.CONS.P ---
Assessment & Plan Assessment/Plan (1) Acute and chronic respiratory failure with hypoxia: (2) Bilateral pneumonia: QUALIFIERS: Pneumonia type: due to unspecified organism (3) Paroxysmal atrial fibrillation with RVR: (4) SBO (small bowel obstruction): (5) Autoimmune disorder: (6) Dyspnea: PLAN: SRAVAN MAYNARD, is a 76 M who was referred to [facility] after readmission to the hospital following SBO and post laparotomy on 06/30 and presenting back to the ER with shortness of breath and complaints of heart racing. Diagnosed with bilateral pneumonia and progressive respiratory decline related to Microscopic polyangiitis; Plan is as follows: 1) Dyspnea/anxiety: Patient is currently on 8 liters, utilizing accessory muscles during visit. He is currently DNRCC and does not want intubated. O2 Sat is 93% and conversational dyspnea after 1-2 words. Family is contemplating hospice for best home symptom management. To make a decision tomorrow. Would recommend either Roxanol 2.5-5mg sublingual every 4-5 hours PRN for shortness of breath or Ativan 0.5 every 6 hours PRN anxiety or shortness of breath. 2) Debility: Patient does not want any therapies. Comfort measures only. Fall risk. To make sure that patient has either hospice care assistance if they choose hospice or [facility] to assist with care. 3) Microscopic polyangiitis, Wegeners granulomatosis,Rheumatoid arthritis, Anemia of chronic disease, resp failure, afib RVR: Complicates overall care and also contributes to hospice appropriateness. Family to decide direction of care. If family chooses Palliative care, Palliative will follow patient at discharge. If family decides to go with Palliative, notify Palliative office at [phone] when discharged in order to schedule follow up visit. Thank you for the opportunity to participate in this patient's care, please do not hesitate to contact [facility] with any further questions or concerns. Greater than 50% of F2F visit dedicated to education and counseling of palliative care services versus hospice services and comfort measures and quality of life TIME IN: 3:45 PM TIME OUT: 4:40 PM HPI Consult Data Date of Consult: 07/09/21 HPI Narrative HPI Narrative: SRAVAN MAYNARD, is a 76 M who was referred to [facility] after readmission to the hospital following SBO and post laparotomy on 06/30 and presenting back to the ER with shortness of breath and complaints of heart racing. He was diagnosed with Bilateral pneumonia and sputum culture positive for Enterobactor. Negative for Covid-19. He was started on IV Vanc/Zosyn and Solumedrol. He also experienced onset of atrial fib with recent EF of 65% per ECHO. Not previously on anticoagulation due to Jeannette's granulomatosis. Was on Eliquis but discontinued and on Metoprolol. Initial plan was to discharge to a Skilled facility for therapies. Patient does not want therapy or intubation if respiratory status declines further. Plan is for family to take him home. He is currently on O2 at 8 liters down from 10 and O2 Sat of 93%. Chest X ray today shows stable examination with diffuse bilateral airspace disease worse in the left hemithorax superimposed on chronic scarring. Met with patient, and son at bedside. Patient was being evaluated by Speech for possibility of silent aspiration. Palliative and hospice care discussed and pros and cons of each. Family is understanding that lungs are chronic and continued decline and decompensation are expected but voice fear of the term hospice and that patient will give up. Goal is to take him home and have siblings help with care. Patient was a moderate assist with household distance with a cane. Sats drop with any activity. Moderate dependence with ADLs according to therapy assessment. Has a shower chair and lift chair in the home. Patient alert and oriented dyspneic with 1-2 words and agrees that he wants comfort care and does not want to come back to the hospital. Able to joke around with this FELLER HAND but very fatigued. [facility] Medical History (Updated 07/09/21 @ 16:35 by CARRINGTON Powell) Anemia of chronic disease Anxiety disorder Benign prostatic hypertrophy Diabetes mellitus type II, controlled DVT (deep venous thrombosis) History of stress test History of stress test Malnutrition Microscopic polyangiitis On home oxygen therapy Pulmonary emboli Rheumatoid arthritis Wegeners granulomatosis Home Medications finasteride 5 mg PO DAILY 03/21/14 [History Last Taken 07/04/21] mycophenolate mofetil 1,000 mg PO QHS 03/21/14 [History Last Taken 06/27/21] clopidogrel 75 mg PO DAILY 08/30/19 [History Last Taken 07/04/21] pantoprazole 20 mg PO DAILY 02/10/21 [History Last Taken 07/04/21] tamsulosin [Flomax] 0.4 mg PO DAILY 07/02/21 [History Last Taken 07/04/21] apixaban 2.5 mg PO BID #60 tab 07/04/21 [Rx Last Taken 07/04/21] metoprolol tartrate 50 mg PO BID #60 tab 07/04/21 [Rx Last Taken 07/04/21] ondansetron HCl [Zofran] 4 mg PO Q6H PRN #20 tab 07/04/21 [Rx Last Taken Unknown] Allergy/AdvReac Type Severity Reaction Status Date / Time sulfamethoxazole AdvReac Unknown Verified 07/05/21 11:09 [From Bactrim] trimethoprim [From Bactrim] AdvReac Unknown Verified 07/05/21 11:09 Family History Mother CVA (cerebral vascular accident) Colon cancer Father CVA (cerebral vascular accident) Surgical History History of exploratory laparotomy Hx of splenectomy S/P tonsillectomy and adenoidectomy Social History household members: spouse Smoking Status: Never smoker alcohol intake: never substance use type: does not use ROS Constitutional Constitutional: Reports fatigue Cardiovascular Cardiovascular: Denies chest pain at rest, chest pain with activity, cold extremities, cyanosis or palpitations Respiratory/Chest Respiratory/Chest: Reports dyspnea, mouth breathing, shortness of breath at rest and shortness of breath with exertion Gastrointestinal Gastrointestinal: Reports excessive flatus; Denies constipation or heartburn Genitourinary Genitourinary: Reports none Musculoskeletal Musculoskeletal: Reports muscle weakness; Denies extremity pain Integumentary Integumentary: Reports other Details: abdominal incision drsg D&I Psychiatric Psychiatric: Reports abnormal sleep pattern and anxiety; Denies depression Physical Exam Const alert and oriented x3 General Appearance: in distress Positive for mild and ill appearing Nutritional Appearance: thin HEENT normocephalic and head/scalp atraumatic Mouth: lips normal and tongue normal Eyes General Eye: other Other Details: Right eye blindness Neck supple Resp Resp Narrative: Dyspneic with minimal activity Effort and Inspection: uses accessory muscles; Negative for able to speak in complete sentences Auscultation: crackles left and rhonchi right upper Cardio regular rate, regular rhythm, S1 normal heart sound and S2 normal heart sound GI Auscultation: normoactive bowel sounds Palpation: soft and tender periumbilical (surgical incision) Extremity Peripheral Pulses: Yes pulses 2+ throughout
[2021-07-09] MEDS: Potassium Chloride Oral Tablet 20 MEQ 40 MEQ PO (15:44)
[2021-07-09] MEDS: Tamsulosin HCl 0.4 MG Capsule PO (18:33)
--- NOTE | 2021-07-09 20:14 | CPS ---
Pt.'s SpO2 = 80% or less while on 15 HFNC. BiPAP reinitiated to help with oxygenation status. Pt. was refusing BiPAP prior, but he understands that he must wear this to stay alive and maintain appropriate oxygen saturation.
[2021-07-09] MEDS: 0.9% Saline Lock 10 ML Syringe IV ×2 (21:39→22:39)
[2021-07-09] MEDS: Metoprolol Tartrate 50 MG Tablet PO (21:41)
--- NOTE | 2021-07-09 22:09 | CPS ---
Pt. refusing to wear BiPAP at this time. I explained thoroughly to pt. that his oxygenation is a big concern at this time, but he ripped off his BiPAP when I attempted to put it back on.
[2021-07-09] MEDS: Morphine 2 MG/ML Syringe IV (22:38)
[2021-07-10] VITALS: PULSE 105
[2021-07-10 01:45] VITALS: O2SAT 84
[2021-07-10] MEDS: Morphine 2 MG/ML Syringe IV ×2 (02:00→05:07)
[2021-07-10] MEDS: 0.9% Saline Lock 10 ML Syringe IV ×2 (02:00→05:02)
--- NOTE | 2021-07-10 02:05 | NURSING ---
During the evening, patient was educated about his oxygen needs by RT, He needs the bipap to keep his sats at an acceptable level but patient is non-compliant. Risks and benefits were discussed. New order for PRN morphine was given to keep his breathing more comfortable
[2021-07-10 03:43] VITALS: BP 148/73; PULSE 88; RESP 26; TEMP 35.9; O2SAT 93
[2021-07-10 04:00] VITALS: PULSE 95
[2021-07-10 04:59] VITALS: BP 127/57; PULSE 85; RESP 24; TEMP 36.5; O2SAT 95
[2021-07-10] MEDS: Naloxone 0.4 MG/ML Syringe (05:49)
[2021-07-10 06:06] LABS: Bedside Glucose 121 mg/dL (70-110)
--- NOTE | 2021-07-10 06:25 | PCM.PN.BLA ---
Progress Note Rapid response called around 5:30 AM. Unfortunately I was at a stroke alert at that time. I was kept up-to-date by the nursing carpenters supervisor. Per report, he had received morphine at a little after 5 AM and at around 5:30 in the morning the IV was beeping so he was checked on by nursing staff and was found on the floor. At that time he was having agonal breathing with no significant pupillary function. He was given a dose of Narcan to no avail. Is noted that he is a DNR CCA no intubation. They discussed the situation with the family who is in route to the hospital. Time of 5:50 AM on 07/10/2021.
--- NOTE | 2021-07-10 16:03 | EXP.PCM_ITS ---
Documented by User: Afsaneh Chanel NP, STONEMASON APPRENTICE-C 07/10/21 16:12 Preliminary Cause of Preliminary Cause of Preliminary Cause of : Acute hypoxic respiratory failure secondary to bilateral hospital-acquired pneumonia with associated sepsis Date of Admission: 07/05/21 Date of : 07/10/21 Principle Diagnosis 1. Acute hypoxic respiratory failure secondary to bilateral hospital-acquired pneumonia with associated sepsis Problem List: Active and Suspected Problems (Updated 07/09/21 @ 16:35 by Maria Del Rosario Chao NP-Afshan) Dyspnea (Acute) Bilateral pneumonia (Acute) Paroxysmal atrial fibrillation with RVR (Acute) SBO (small bowel obstruction) (Acute) Hospital Course 1. Acute hypoxic respiratory failure secondary to bilateral hospital-acquired pneumonia with associated sepsis-sputum culture grew Enterobacter. Chest x-ray with bilateral pneumonia. IV Zosyn during admission. Patient required significant amount of supplemental oxygen during admission, 10 L nasal cannula with intermittent BiPAP use. ID and pulmonary medicine consulted during ad mission. Patient voiced he did not want intubated. Palliative/hospice consulted 07/09/2021 and family was discussing decision however patient voiced that he did not want any further aggressive management. Patient was reportedly found by nursing staff on floor printing roller handler 07/10/2021 and noted to have agonal breathing with no pupillary function. DNR CCA no intubation status. Family notified. Time of 5:50 AM on 07/10/2021. 2. Recent admission with small bowel obstruction-underwent exploratory laparotomy 06/29/2021. 3. Recent onset atrial fibrillation-recent echocardiogram demonstrates an EF of 65%, moderate left ventricular hypertrophy, RVSP estimated to be 44 mmHg. Not previously on anticoagulation due to Jeannette's granulomatosis. 4. Type 2 diabetes mellitus 5. History of autoimmune hemolytic anemia/anemia of chronic disease 6. Chronic lung fibrosis- on nintedanib. On hold following exploratory laparotomy. 7. Chronic kidney disease stage IIIb 8. Jaennette's granulomatosis with polyangiitis- mycophenolate held per surgery recommendations. 9. History of PE-previously on Coumadin which was discontinued. Eliquis discontinued. On Plavix. 10. History of chronic right-sided sacral ulcer 11. Severe protein calorie malnutrition 12. BPH 13. GERD This patient was seen by CARRINGTON Lyons under the supervision of Dr. Hull. Assessment & Plan Assessment/Plan (1) Acute and chronic respiratory failure with hypoxia: PLAN: See hospital course. Documented by User: Dr. Jaswant Hull MD 07/10/21 16:20 Hospital Course The patient is admitted for acute hypoxic respiratory failure secondary to bilateral pneumonia, HCAP. Patient on IV vancomycin and Zosyn. Patient has microscopic polyangiitis on mycophenolate which is on hold. The patient had chronic lung fibrosis, nintedanib on hold. Recently diagnosed paroxysmal A. fib on Eliquis. Patient was in sinus rhythm. EF 65, moderate LVH. CT chest shows diffuse extensive honeycombing consistent with pulmonary fibrosis with superimposed groundglass and alveolar density consistent with bilateral pneumonia. I talked to the patient and his in a detailed discussion regarding NIPPV, mechanical ventilator, advantages and disadvantages. Sputum culture growing Enterobacter. Continue Zosyn. Vancomycin discontinued. Dr. Chaparro note reviewed and advised prednisone [address] Chaparro. Option of bronchoscopy discussed but patient need to be intubated and on mechanical ventilator and will be difficult extubation was discussed with Dr. Chaparro relate to the patient and his . Patient agreeable for no intubation/ventilator and agree with palliative care. Palliative/hospice care is following and patient and and his are leaning towards hospice care but wanted to make final decision with son but before that patient on 1920 with agonal breathing. Patient is DNR CC arrest with no intubation time of 5:50 AM on 1920. There was plan for sending home on BiPAP with consideration of ABG prior to at 14/5 mmHg but patient before that. Clinical Impression(s) from Imaging Studies Chest X-Ray 07/05/21 11:33 IMPRESSION: Bilateral pneumonia. Electronically Signed: Paul Ramirez MD at 12:20 EDT Tel , Service support , Chest CT 07/07/21 11:06 IMPRESSION: Idiopathic pulmonary fibrosis with superimposed bilateral pneumonia. Electronically Signed: Paul Ramirez MD at 12:12 EDT Tel , Service support , Chest X-Ray 07/09/21 10:37 IMPRESSION: Stable examination with diffuse bilateral airspace disease worse in the left hemithorax superimposed on chronic scarring. Electronically Signed: Edgar Shanks MD at 10:57 EDT , Service support , Visit Charges Inpatient E&M: 37637 Disch Hosp
== END 2021-07-10 05:45 | DRG 189 ==
LOC: ED 13:12 → PCU 14:20
PROVIDERS: Nurse Practitioner Family; Physician Assistant; Admitting Provider Family Medicine; Emergency Provider Emergency Medicine; PCP Family Medicine; Visit Provider Internal Medicine
DX: J96.21 Acute and chronic respiratory failure with hypoxia (principal); E43 Unspecified severe protein-calorie malnutrition; J18.9 Pneumonia, unspecified organism; M31.30 Wegener's granulomatosis without renal involvement; K56.600 Partial intestinal obstruction, unspecified as to cause; M31.7 Microscopic polyangiitis; D59.10 Autoimmune hemolytic anemia, unspecified; Z68.1 Body mass index [BMI] 19.9 or less, adult; R04.2 Hemoptysis; L98.499 Non-pressure chronic ulcer of skin of other sites with unspecified severity; I48.0 Paroxysmal atrial fibrillation; J84.10 Pulmonary fibrosis, unspecified; E11.22 Type 2 diabetes mellitus with diabetic chronic kidney disease; N18.32 Chronic kidney disease, stage 3b; B96.89 Other specified bacterial agents as the cause of diseases classified elsewhere; I45.10 Unspecified right bundle-branch block; D63.8 Anemia in other chronic diseases classified elsewhere; F41.9 Anxiety disorder, unspecified; K21.9 Gastro-esophageal reflux disease without esophagitis; I12.9 Hypertensive chronic kidney disease with stage 1 through stage 4 chronic kidney disease, or unspecified chronic kidney disease; N40.0 Benign prostatic hyperplasia without lower urinary tract symptoms; Y95 Nosocomial condition; M06.9 Rheumatoid arthritis, unspecified; Z66 Do not resuscitate; Z86.711 Personal history of pulmonary embolism; Z86.718 Personal history of other venous thrombosis and embolism; Z90.81 Acquired absence of spleen; Z99.81 Dependence on supplemental oxygen; Z79.01 Long term (current) use of anticoagulants; Z79.899 Other long term (current) drug therapy
CPT/HCPCS: 36415; 71045; 71250; 80048; 80053; 80202; 81001; 82962; 83605; 83690; 83880; 84484; 85025; 85610; 87040; 87070; 87077; 87186; 87205; 87426; 87449; 87635; 87641; 92507; 92526; 92610; 93005; 94002; 94003; 94640; 97110; 97162; 97165; 97530; 97535; 99285; U0005; A4216; J1938; J2310; U0003